=== PATIENT | female | born 1955 | race African-American/Black ===

== ENCOUNTER 2023-01-07 14:08 | Inpatient (IN) | payer BC, OTHER ==
[~2023-01-07] VITALS: Ht 167.6 cm; Wt 74.4 kg
[2023-01-07] MEDS ORDERED: CEFEPIME 1 GM in IV D5W 50 ML IV ONE (14:30)
[2023-01-07] MEDS ORDERED: IV NS 0.9% 2,000 ML IV ONE (14:30)
[2023-01-07] MEDS ORDERED: VANCOMYCIN 1 GM in IV D5W 250 ML IV ONE (14:30)
--- NOTE | 2023-01-07 14:55 | NUR ---
TASH NIELSEN FROM [facility] FOR EVAL AND MANAGEMENT OF FEVER. PLACED IN BED, AWAKE- NOT RESPONDING TO VERBAL STIMULI, BREATHING UNLABORED STURATING AT 98% WITH 2LIT O2 VIA NC.
[2023-01-07] MEDS ORDERED: METOPROLOL TARTRATE INJ 5 MG/5 ML AMPUL IV ONE (15:00)
--- NOTE | 2023-01-07 15:00 | NUR ---
BLOOD DRAWN AND URINE SAMPLE SENT TO LAB
--- NOTE | 2023-01-07 15:02 | NUR ---
ACCUCHECK- 28 AWARE ORDERS DEXT.50% 50MLS. AND CARRIED OUT.
[2023-01-07] MEDS ORDERED: DEXTROSE 50%-WATER 50 ML DISP.SYRIN ONE (15:03)
[2023-01-07] MEDS ORDERED: METOPROLOL TARTRATE INJ 5 MG/5 ML AMPUL ONE (15:05)
[2023-01-07 15:14] LABS: BASOPHILS % (AUTO) 0.2 % (0.0-2.0); EOSINOPHILS % (AUTO) 0.3 % (0.0-6.0); HEMATOCRIT 32 % (33-45); HEMOGLOBIN 9.8 g/dL (11.5-14.8); LYMPHOCYTES # (AUTO) 0.3 K/uL (0.8-4.8); LYMPHOCYTES % (AUTO) 1.8 % (20.0-44.0); MEAN CORPUSCULAR HGB CONC 31 g/dl (31.0-36.0); MEAN CORPUSCULAR VOLUME 77 fL (82-100); MONOCYTES # (AUTO) 0.6 K/uL (0.1-1.30); MONOCYTES % (AUTO) 3.3 % (2.0-12.0); NEUTROPHILS # (AUTO) 17.9 K/uL (1.8-8.9); NEUTROPHILS % (AUTO) 94.4 % (43.0-81.0); PLATELET COUNT (AUTO) 621 K/uL (150-450); RED BLOOD CELL COUNT(AUTO) 4.13 MIL/uL (4.0-5.2)
[2023-01-07] MEDS ORDERED: SENN-261 GT (15:41)
[2023-01-07] MEDS ORDERED: NA P133E RC (15:41)
[2023-01-07] MEDS ORDERED: INSU100V3 SQ (15:41)
[2023-01-07] MEDS ORDERED: DOCU50LI GT (15:41)
[2023-01-07] MEDS ORDERED: FOLI0.4T6 GT (15:41)
[2023-01-07] MEDS ORDERED: LEVO125T8 GT (15:41)
[2023-01-07] MEDS ORDERED: METF-440 GT (15:41)
[2023-01-07] MEDS ORDERED: NUT.237L30 GT (15:41)
[2023-01-07] MEDS ORDERED: ARIP5TAB10 GT (15:41)
[2023-01-07] MEDS ORDERED: ACET-2605 GT (15:41)
[2023-01-07] MEDS ORDERED: HONE44PA TP (15:41)
[2023-01-07] MEDS ORDERED: BISA10SU11 RC (15:41)
[2023-01-07] MEDS ORDERED: POVI3780 TP (15:41)
[2023-01-07] MEDS ORDERED: MAGN400O6 GT (15:41)
[2023-01-07] MEDS ORDERED: FURO-144 GT (15:41)
[2023-01-07] MEDS ORDERED: ACET-868 GT (15:41)
[2023-01-07] MEDS ORDERED: DEXTROSE 50%-WATER 50 ML DISP.SYRIN IVP ONE (16:30)
--- NOTE | 2023-01-07 16:48 | NUR ---
SWAB FOR COVID19 SENT TO LAB
[2023-01-07] MEDS ORDERED: IV NS 0.9% 250 ML IV ONE (16:50)
[2023-01-07] MEDS ORDERED: IOHEXOL-300 100 ML VIAL IV ONE (16:50)
[2023-01-07 17:17] LABS: CARBON DIOXIDE 29 mmol/L (21-32); CHLORIDE 93 mmol/L (98-107); CREATININE 2.7 mg/dL (0.6-1.3); POTASSIUM 4.3 mmol/L (3.5-5.1); SODIUM SERUM 135 mmol/L (136-145); UREA NITROGEN, BLOOD 38 mg/dL (7-18)
[2023-01-07 17:18] LABS: GLUCOSE 34 mg/dL (74-106)
--- NOTE | 2023-01-07 17:19 | NUR ---
ALL CRITICAL LAB WAS REPORTED TO DR. CORTES
[2023-01-07] MEDS ORDERED: NOREPINEPHRINE 8 MG in IV NS 0.9% 250 ML IV ONE (17:30)
[2023-01-07 17:31] LABS: ALANINE AMINOTRANSFERASE 11 U/L (12-78); ALBUMIN 1.6 g/dL (3.4-5.0); ALKALINE PHOSPHATASE 109 U/L (46-116); ASPARTATE AMINOTRANSFERASE 17 U/L (15-37); BILIRUBIN,DIRECT 0.2 mg/dL (0.0-0.2); BILIRUBIN,TOTAL 0.4 mg/dL (0.2-1.0); TOTAL PROTEIN, SERUM 7.8 g/dL (6.4-8.2)
[2023-01-07 17:49] LABS: BILIRUBIN,URINE 1+ (NEGATIVE); COLOR,URINE YELLOW (YELLOW); LEUKOCYTE ESTERASE ,URINE NEGATIVE (NEGATIVE); NITRITE, URINE NEGATIVE (NEGATIVE); PH,URINE 5.5 (5.0-8.0); PROTEIN,URINE 1+ mg/dl (NEGATIVE); UGLUCOSE NEGATIVE (NEGATIVE); UROBILINOGEN,URINE 0.2 EU/dL (0.2)
[2023-01-07 18:13] LABS: RBC,URINE NONE SEEN /HPF (0-2); WBC,URINE 0-2 /HPF (0-3)
[2023-01-07 18:14] LABS: BACTERIA,URINE Few /HPF (None Seen); SQUAMOUS EPITHELIAL CELL,UR Moderate /HPF (None Seen); YEAST,URINE Many /HPF (None Seen)
--- NOTE | 2023-01-07 19:40 | NUR ---
DR LOVE PAGED PER DR CORTES.
--- NOTE | 2023-01-07 20:19 | NUR ---
REGBAUTISTA PAGED FOR HOSPITALIST AWAITING CALLBACK
--- NOTE | 2023-01-07 21:05 | NUR ---
BED 257
--- NOTE | 2023-01-07 21:50 | NUR ---
REPORT GIVEN TO RACHELLE RN ROOM 257-ICU FOR ROGERIO
[2023-01-07 22:56] VITALS: BP 182/76
[2023-01-07 23:00] VITALS: BP 173/77
[2023-01-07 23:06] VITALS: BP 168/113
[2023-01-07 23:16] VITALS: BP 187/50
[2023-01-07 23:30] VITALS: BP 129/90
[2023-01-07] MEDS ORDERED: ENOXAPARIN SODIUM 30 MG/0.3 ML DISP.SYRIN SQ SCH (23:30)
--- NOTE | 2023-01-07 23:30 | NUR ---
2245 Received patient from ED per lionel via ACLS protocol.Awake confused and disoriented.DX:FEVER and SEPSIS.ST per monitor.With Levophed gtt infusing and hold for elevated BP.Afebrile.Patient with multiple decubiti.Dressing done and pictures taken.Initial admission assessment done.Turned and repositioned.Safety precaution implemented.Continue to monitor.
[2023-01-07 23:45] VITALS: BP 89/72
[2023-01-07] MEDS: IV D5/ 0.9% NACL 1,000 ML IV PRN (23:53)
[2023-01-08] VITALS (67 sets, daily range): BP systolic 75–151; BP diastolic 30–101
[2023-01-08] MEDS: NOREPINEPHRINE 8 MG in IV NS 0.9% 242 ML IV PRN ×3 (00:09→16:32)
--- NOTE | 2023-01-08 01:10 | NUR ---
Patient hemodynamically unstable.Levophed restarted.Incontinent of urine and stool.Kept clean and dry. FC fr#16 inserted under aseptic technique.Very confused pulling tele leads ,pulse ox and bp cuff.Bilateral soft wrist restraints applied for safety.Continue to monitor.
[2023-01-08] MEDS ORDERED: CEFEPIME 1 GM in IV D5W 50 ML IV SCH (03:00)
[2023-01-08] MEDS ORDERED: CEFEPIME 1 GM VIAL ONE (04:05)
[2023-01-08] MEDS ORDERED: NOREPINEPHRINE 8MG/250ML RTU 0 ML IV ONE (04:58)
[2023-01-08 04:59] LABS: BASOPHILS % (AUTO) 0.1 % (0.0-2.0); EOSINOPHILS % (AUTO) 0.4 % (0.0-6.0); HEMATOCRIT 28 % (33-45); HEMOGLOBIN 8.5 g/dL (11.5-14.8); LYMPHOCYTES % (AUTO) 5.3 % (20.0-44.0); MEAN CORPUSCULAR HGB CONC 30 g/dl (31.0-36.0); MEAN CORPUSCULAR VOLUME 78 fL (82-100); NEUTROPHILS % (AUTO) 89.2 % (43.0-81.0); PLATELET COUNT (AUTO) 499 K/uL (150-450); RED BLOOD CELL COUNT(AUTO) 3.62 MIL/uL (4.0-5.2); WHITE BLOOD COUNT (AUTO) 19.1 K/uL (4.3-11.0)
[2023-01-08] MEDS ORDERED: NOREPINEPHRINE 4 MG/4 ML AMPUL IV ONE (05:04)
[2023-01-08 05:16] LABS: BILIRUBIN,TOTAL 0.3 mg/dL (0.2-1.0); CREATININE 2.4 mg/dL (0.6-1.3); POTASSIUM 3.3 mmol/L (3.5-5.1); TOTAL PROTEIN, SERUM 6.7 g/dL (6.4-8.2)
[2023-01-08 05:29] LABS: ALBUMIN 1.4 g/dL (3.4-5.0)
--- NOTE | 2023-01-08 07:00 | NUR ---
Patient resting in no acute distress.AM Labs resulted.Albumin 1.4 and Blood culture 1 bottle aerobic gram positive cocci in clusters.Endorsed to DERICK Abernathy for ROGERIO.
--- NOTE | 2023-01-08 08:00 | NUR ---
WOUND CARE CONSULT: PT AGITATED AND COMBATIVE AT TIMES. PT WAS HEMODYNAMICALLY UNSTABLE PREVIOUSLY. REVIEWED CHART, NURSING DOCUMENTATION AND PHOTOS WHICH INDICATE MULTIPLE WOUNDS, PRESENT ON ADMISSION INCLUDING LOWER EXTREMITY WOUNDS, THIGH WOUNDS, BUTTOCKS AND SACRAL WOUNDS. DR LYNCH AND DR COSTELLO CALLED FOR SURGICAL AND DPM CONSULTS. DISCUSSED SKIN PROTECTION WITH NURSING STAFF. Angelica Hassan IN AGREEMENT WITH PLAN OF CARE. Addendum: 01/08/23 at 0811 by KERRY POOL WNDNU PT ALSO NOTED TO HAVE DRAINAGE AROUND PEG SITE (GREENISH BROWN WITH ODOR), PRESENT ON ADMISSION. SURGICAL TEAM NOTIFIED.
[2023-01-08] MEDS ORDERED: POTASSIUM CL. PREMIX PERIPHER. 50 ML IV SCH (09:00)
[2023-01-08] MEDS: IV NS 0.9% 250 ML IV PRN (09:03)
[2023-01-08] MEDS: FAMOTIDINE/PF INJ 20 MG/2 ML VIAL IV SCH ×2 (09:03→21:02)
[2023-01-08] MEDS ORDERED: BISACODYL SUPP (10 MG) 10 MG/SUPP.RECT SUPP.RECT RC PRN (10:00)
[2023-01-08] MEDS ORDERED: ACETAMINOPHEN 325 MG TABLET PO PRN (10:00)
--- NOTE | 2023-01-08 10:00 | NUR ---
patient moved to room 259 due to datascope malfunction
[2023-01-08] MEDS: IV D5/ 0.9% NACL 1,000 ML IV PRN ×2 (10:58→21:30)
[2023-01-08] MEDS: BLOOD SUGAR DIAGNOSTIC 1 EACH STRIP IN SCH ×2 (12:33→17:05)
[2023-01-08] MEDS: VANCOMYCIN 0.75 GM in IV D5W 250 ML IV SCH (12:35)
[2023-01-08] MEDS: ACETAMINOPHEN 650 MG/20.3 ML UDC GT PRN (12:58)
--- NOTE | 2023-01-08 12:58 | NUR ---
PRN TYLENOL ADMINISTERED FOR TEMP OF 100.5. BLANKET REMOVED, WILL REASSESS IN ONE HOUR
--- NOTE | 2023-01-08 14:00 | NUR ---
TEMPERATURE ON RECHECK 99.2
--- NOTE | 2023-01-08 15:24 | NUR ---
Pt remains confused. Pulled out G Tube Pt remains anxious and restless in bed Pt found restraint in place with G tube clench in her hand. Josemanuel Brown RN notified.
--- NOTE | 2023-01-08 15:37 | NUR ---
18 ESTONIAN THOMAS INSERTED INTO GASTRIC TUBE SITE. PASTOR VALVE ATTACHED. PRIMARY NOTIFIED Addendum: 01/08/23 at 1843 by FOSTER SARGENT RN DR LANGFORD NOTIFIED. HE WILL REPLACE PEG TUBE "TOMORROW" 01/09/23
[2023-01-08] MEDS: CEFEPIME 2 GM in IV D5W 100 ML IV SCH (17:05)
--- NOTE | 2023-01-08 19:12 | NUR ---
HAND OFF REPORT GIVEN TO DERICK MARTINEZ FOR CONTINUATION OF CARE Addendum: 01/08/23 at 1930 by FOSTER SARGENT RN DISREGARD NOTE. HAND OFF GIVEN TO SARAI FOR CONTINUATION OF CARE.
--- NOTE | 2023-01-08 19:30 | NUR ---
RN NOTE RECEIVED PT IN BED, ALERT, AWAKE, ORIENTED TO SELF ONLY. PT ON ROOM AIR, WELL TOLERATED, NO SOB, NO ACUTE RESP DISTRESS NOTED. ATTACHED TO SHELTER DIRECTOR READING SR. BILATERAL SOFT WRIST RESTRAINTS ON, SECURED, SKIN ASSESSMENT DONE. CURRENTLY INFUSING LEVO DRIP AT 0.1MCG/KG/MIN, D5NS RUNNING AT 100ML/HR RIJ. FC IN PLACED, SECURED DRAINING CLEAR YELLOW URINE BY GRAVITY. HOB ELEVATED. WILL CONT POC
[2023-01-08] MEDS: HEPARIN SODIUM, PORCINE 5000 UNITS/1 ML VIAL SQ SCH (21:00)
[2023-01-08] MEDS: SENNOSIDES 8.6 MG TABLET GT SCH (21:04)
[2023-01-08] MEDS: DAKINS QUARTER STRENGTH (0.125%) 480 ML BOTTLE TOP SCH (22:30)
[2023-01-09] VITALS (30 sets, daily range): BP systolic 87–153; BP diastolic 32–106
[2023-01-09] MEDS: INSULIN REGULAR, HUMAN 100 UNIT/ML 3 ML VIAL SQ PRN ×2 (00:22→06:24)
[2023-01-09] MEDS: BLOOD SUGAR DIAGNOSTIC 1 EACH STRIP IN SCH ×4 (00:22→17:36)
[2023-01-09 04:09] LABS: BASOPHILS % (AUTO) 0.3 % (0.0-2.0); EOSINOPHILS % (AUTO) 3.3 % (0.0-6.0); HEMATOCRIT 27 % (33-45); HEMOGLOBIN 8.2 g/dL (11.5-14.8); LYMPHOCYTES # (AUTO) 1.6 K/uL (0.8-4.8); LYMPHOCYTES % (AUTO) 10.8 % (20.0-44.0); MEAN CORPUSCULAR HGB CONC 31 g/dl (31.0-36.0); MEAN CORPUSCULAR VOLUME 78 fL (82-100); MONOCYTES # (AUTO) 0.8 K/uL (0.1-1.30); MONOCYTES % (AUTO) 5.2 % (2.0-12.0); NEUTROPHILS # (AUTO) 12.2 K/uL (1.8-8.9); NEUTROPHILS % (AUTO) 80.4 % (43.0-81.0); PLATELET COUNT (AUTO) 419 K/uL (150-450); RED BLOOD CELL COUNT(AUTO) 3.43 MIL/uL (4.0-5.2); WHITE BLOOD COUNT (AUTO) 15.1 K/uL (4.3-11.0)
[2023-01-09 04:10] LABS: CALCIUM, SERUM 8.8 mg/dL (8.5-10.1); CREATININE 1.1 mg/dL (0.6-1.3); POTASSIUM 3.2 mmol/L (3.5-5.1)
[2023-01-09 04:24] LABS: THYROID STIMULATING HORMONE 10.466 uIU/mL (0.358-3.74)
--- NOTE | 2023-01-09 07:00 | NUR ---
received in bed , awake speaking but no making sense answer simple questions approprately at time on room air saturation is 100%, npo at this time. Gtube remail out plans to insert today by GI doctor. wound cleaned and dry, packing done with dakin solution 1200 Gastric tube fixed by MD Ferguson 20 english inserted , no signs of distress. 2 mg Morphine given iv for pain 7/10 generalized pain
--- NOTE | 2023-01-09 07:15 | NUR ---
RN NOTE PT REMAINS IN STABLE CONDITION, NO SIGNIFICANT CHANGES NOTED. ALL NEEDS ANTICIPATED. KEPT CLEAN AND DRY AT ALL TIMES. WILL ENDORSE TO AM SHIFT.
[2023-01-09] MEDS ORDERED: ALBUTEROL FS 2.5 MG/0.5 ML VIAL.NEB NEB PRN (08:30)
[2023-01-09] MEDS ORDERED: POTASSIUM CHLORIDE 10 MEQ/50 ML PREMIXED IVPB FOR PERIPHERAL LINE IV ONE (08:30)
[2023-01-09] MEDS: FOLIC ACID 1 MG TABLET GT SCH (08:46)
[2023-01-09] MEDS: DOCUSATE SODIUM LIQ 100 MG/10 ML UDC GT SCH (08:46)
[2023-01-09] MEDS: ARIPIPRAZOLE 5 MG TABLET GT SCH (08:46)
[2023-01-09] MEDS: HEPARIN SODIUM, PORCINE 5000 UNITS/1 ML VIAL SQ SCH ×2 (08:47→21:49)
[2023-01-09] MEDS: LEVOTHYROXINE SODIUM 125 MCG TABLET GT SCH (08:47)
[2023-01-09] MEDS ORDERED: LEVOTHYROXINE SODIUM 125 MCG TABLET GT SCH (09:00)
[2023-01-09] MEDS: DAKINS QUARTER STRENGTH (0.125%) 480 ML BOTTLE TOP SCH (09:26)
[2023-01-09] MEDS: FAMOTIDINE/PF INJ 20 MG/2 ML VIAL IV SCH ×2 (09:26→20:10)
[2023-01-09] MEDS: POTASSIUM CL. PREMIX PERIPHER. 50 ML IV SCH ×2 (09:32→09:38)
[2023-01-09] MEDS: VANCOMYCIN 0.75 GM in IV D5W 250 ML IV SCH ×2 (12:30→23:11)
[2023-01-09] MEDS: MORPHINE SULFATE INJ 2 MG/ML DISP.SYRIN IV PRN (13:15)
[2023-01-09] MEDS ORDERED: GLUCERNA 1.2 1,000 ML BOTTLE PEG SCH ×2 (14:00→15:02)
[2023-01-09] MEDS: SOD FERRIC GLUC 125 MG in IV NS 0.9% 100 ML IV SCH (14:24)
[2023-01-09] MEDS: ALBUTEROL FS 2.5 MG/0.5 ML VIAL.NEB NEB SCH ×2 (14:38→19:58)
[2023-01-09] MEDS: IPRATROPIUM NEB FS 0.5 MG/2.5 ML AMPUL.NEB NEB SCH ×2 (14:38→19:58)
--- NOTE | 2023-01-09 17:00 | NUR ---
feeding started glucerna 1.2 20cc/ order to increase every 4 hours by 10cc to meet goal at 60cc/hr
[2023-01-09] MEDS: CEFEPIME 2 GM in IV D5W 100 ML IV SCH (17:35)
[2023-01-09] MEDS: IV D5/ 0.9% NACL 1,000 ML IV PRN (17:47)
[2023-01-09] MEDS: NOREPINEPHRINE 8 MG in IV NS 0.9% 242 ML IV PRN (17:50)
--- NOTE | 2023-01-09 19:30 | NUR ---
RN NOTE RECEIVED PT IN BED, ASLEEP, EASILY AROUSEABLE. O2 SAT 92% PT ON ROOM AIR, NO ACUTE RESP DISTRESS NOTED, BREATHING SLIGHTLY LABORED. HOB ELEVATED. ATTACHED TO BEDSIDE ALUMINUM SIDING APPLICATOR READING ST 120HR. PT CURRENTLY ON LEVO DRIP 0.1MCG, D5NS RUNNING AT 100ML/HR. GTF RUNNING AT 20ML/HR TO BE INCREASED BY 10ML/HR Q4H, WELL TOLERATED, NO N/V, RESIDUAL 30ML. FC IN PLACED, SECURED, DRAINING DARK YELLOW URINE. WILL CONT POC
[2023-01-09] MEDS: ACETAMINOPHEN 650 MG/20.3 ML UDC GT PRN (20:10)
[2023-01-09] MEDS: MUPIROCIN OINT 2% 22 GM TUBE NS SCH (21:04)
[2023-01-09] MEDS: SENNOSIDES 8.6 MG TABLET GT SCH (21:24)
[2023-01-10] VITALS (57 sets, daily range): BP systolic 90–127; BP diastolic 38–90
[2023-01-10] MEDS: INSULIN REGULAR, HUMAN 100 UNIT/ML 3 ML VIAL SQ PRN ×3 (00:46→12:21)
[2023-01-10] MEDS: IV D5/ 0.9% NACL 1,000 ML IV PRN ×2 (00:47→10:49)
[2023-01-10] MEDS: BLOOD SUGAR DIAGNOSTIC 1 EACH STRIP IN SCH ×4 (00:47→17:10)
[2023-01-10] MEDS: NOREPINEPHRINE 8 MG in IV NS 0.9% 242 ML IV PRN (00:49)
[2023-01-10] MEDS: IPRATROPIUM NEB FS 0.5 MG/2.5 ML AMPUL.NEB NEB SCH ×4 (01:50→19:40)
[2023-01-10] MEDS: ALBUTEROL FS 2.5 MG/0.5 ML VIAL.NEB NEB SCH ×4 (01:50→19:40)
[2023-01-10 05:04] LABS: BASOPHILS # (AUTO) 0.1 K/uL (0.0-0.2); EOSINOPHILS % (AUTO) 2.5 % (0.0-6.0); HEMATOCRIT 27 % (33-45); HEMOGLOBIN 8.3 g/dL (11.5-14.8); LYMPHOCYTES # (AUTO) 1.5 K/uL (0.8-4.8); LYMPHOCYTES % (AUTO) 10.6 % (20.0-44.0); MEAN CORPUSCULAR HGB CONC 31 g/dl (31.0-36.0); MEAN CORPUSCULAR VOLUME 79 fL (82-100); MONOCYTES # (AUTO) 1.3 K/uL (0.1-1.30); MONOCYTES % (AUTO) 8.8 % (2.0-12.0); NEUTROPHILS # (AUTO) 11.1 K/uL (1.8-8.9); NEUTROPHILS % (AUTO) 77.1 % (43.0-81.0); PLATELET COUNT (AUTO) 346 K/uL (150-450); RED BLOOD CELL COUNT(AUTO) 3.42 MIL/uL (4.0-5.2); WHITE BLOOD COUNT (AUTO) 14.5 K/uL (4.3-11.0)
[2023-01-10 05:22] LABS: CALCIUM, SERUM 8.8 mg/dL (8.5-10.1); MAGNESIUM 1.6 mg/dL (1.8-2.4); POTASSIUM 3.2 mmol/L (3.5-5.1)
[2023-01-10] MEDS: ACETAMINOPHEN 650 MG/20.3 ML UDC GT PRN ×2 (05:55→21:35)
--- NOTE | 2023-01-10 07:15 | NUR ---
RN NOTE NO SIGNIFICANT CHANGES NOTED. PT IN STABLE CONDITION. REPORT GIVEN TO AM SHIFT NURSE.
--- NOTE | 2023-01-10 08:17 | NUR ---
DR. CLAUDIO SEEN PATIENT NOW.
[2023-01-10] MEDS ORDERED: POTASSIUM CHLORIDE 20 MEQ POWDER PACKET GT ONE (09:00)
[2023-01-10] MEDS: Magnesium 1GM/D5W 100ML PREMIX 100 ML IV SCH ×2 (09:01→10:15)
[2023-01-10] MEDS: DOCUSATE SODIUM LIQ 100 MG/10 ML UDC GT SCH (09:19)
[2023-01-10] MEDS: FOLIC ACID 1 MG TABLET GT SCH (09:21)
[2023-01-10] MEDS: ARIPIPRAZOLE 5 MG TABLET GT SCH (09:21)
[2023-01-10] MEDS: LEVOTHYROXINE SODIUM 125 MCG TABLET GT SCH (09:22)
[2023-01-10] MEDS: FAMOTIDINE/PF INJ 20 MG/2 ML VIAL IV SCH ×2 (09:22→21:36)
[2023-01-10] MEDS: MUPIROCIN OINT 2% 22 GM TUBE NS SCH ×2 (09:23→21:36)
[2023-01-10] MEDS: DAKINS QUARTER STRENGTH (0.125%) 480 ML BOTTLE TOP SCH (09:24)
[2023-01-10] MEDS: MIDODRINE HCL (5MG) 5 MG TABLET GT SCH ×3 (09:26→17:18)
[2023-01-10] MEDS: HEPARIN SODIUM, PORCINE 5000 UNITS/1 ML VIAL SQ SCH ×2 (09:32→21:36)
[2023-01-10] MEDS: IV NS 0.9% 250 ML IV PRN (09:42)
[2023-01-10] MEDS: NA PHOS,M-B/NA PHOS,DI-BA 1 EA ENEMA RC SCH (09:53)
[2023-01-10] MEDS: VANCOMYCIN 0.75 GM in IV D5W 250 ML IV SCH (12:28)
[2023-01-10] MEDS: SOD FERRIC GLUC 125 MG in IV NS 0.9% 100 ML IV SCH (13:36)
[2023-01-10] MEDS: CEFEPIME 2 GM in IV D5W 100 ML IV SCH (17:19)
--- NOTE | 2023-01-10 19:07 | NUR ---
BEDSIDE REPORT GIVEN TO SADA-RN FOR CONTINUITY OF CARE., NO SSX OF ACUTE DISTRESS NOTED.
[2023-01-10] MEDS ORDERED: Potassium Chloride 10 MEQ in IV NS 0.9% 1,000 ML IV PRN (21:30)
[2023-01-10] MEDS: SENNOSIDES 8.6 MG TABLET GT SCH (21:36)
[2023-01-11] VITALS (28 sets, daily range): BP systolic 83–133; BP diastolic 39–104
[2023-01-11] MEDS: BLOOD SUGAR DIAGNOSTIC 1 EACH STRIP IN SCH ×4 (00:15→17:29)
[2023-01-11] MEDS: VANCOMYCIN 500 MG in IV D5W 100ml IV SCH ×2 (00:17→12:23)
[2023-01-11] MEDS: MORPHINE SULFATE INJ 4 MG/ML DISP.SYRIN IV PRN ×2 (00:37→04:29)
[2023-01-11] MEDS: ALBUTEROL FS 2.5 MG/0.5 ML VIAL.NEB NEB SCH ×4 (01:08→20:09)
[2023-01-11] MEDS: IPRATROPIUM NEB FS 0.5 MG/2.5 ML AMPUL.NEB NEB SCH ×4 (01:08→20:09)
[2023-01-11 04:35] LABS: BASOPHILS % (AUTO) 0.2 % (0.0-2.0); EOSINOPHILS % (AUTO) 3.6 % (0.0-6.0); HEMATOCRIT 26 % (33-45); HEMOGLOBIN 7.7 g/dL (11.5-14.8); LYMPHOCYTES # (AUTO) 1.5 K/uL (0.8-4.8); LYMPHOCYTES % (AUTO) 9.2 % (20.0-44.0); MEAN CORPUSCULAR HGB CONC 29 g/dl (31.0-36.0); MEAN CORPUSCULAR VOLUME 80 fL (82-100); MONOCYTES # (AUTO) 1.7 K/uL (0.1-1.30); MONOCYTES % (AUTO) 10.3 % (2.0-12.0); NEUTROPHILS # (AUTO) 12.4 K/uL (1.8-8.9); NEUTROPHILS % (AUTO) 76.7 % (43.0-81.0); PLATELET COUNT (AUTO) 318 K/uL (150-450); RED BLOOD CELL COUNT(AUTO) 3.28 MIL/uL (4.0-5.2); WHITE BLOOD COUNT (AUTO) 16.2 K/uL (4.3-11.0)
[2023-01-11 04:48] LABS: CALCIUM, SERUM 8.9 mg/dL (8.5-10.1); CREATININE 0.8 mg/dL (0.6-1.3); POTASSIUM 3.5 mmol/L (3.5-5.1)
[2023-01-11 08:10] LABS: BILIRUBIN,DIRECT 0.2 mg/dL (0.0-0.2); BILIRUBIN,TOTAL 0.3 mg/dL (0.2-1.0)
[2023-01-11] MEDS: ARIPIPRAZOLE 5 MG TABLET GT SCH (08:46)
[2023-01-11] MEDS: LEVOTHYROXINE SODIUM 125 MCG TABLET GT SCH (08:46)
[2023-01-11] MEDS: FOLIC ACID 1 MG TABLET GT SCH (08:46)
[2023-01-11] MEDS: MIDODRINE HCL (5MG) 5 MG TABLET GT SCH ×3 (08:47→16:20)
[2023-01-11] MEDS: DOCUSATE SODIUM LIQ 100 MG/10 ML UDC GT SCH (08:47)
[2023-01-11] MEDS: HEPARIN SODIUM, PORCINE 5000 UNITS/1 ML VIAL SQ SCH ×2 (08:49→21:08)
[2023-01-11] MEDS: FAMOTIDINE/PF INJ 20 MG/2 ML VIAL IV SCH ×2 (08:49→21:07)
[2023-01-11] MEDS: DAKINS QUARTER STRENGTH (0.125%) 480 ML BOTTLE TOP SCH (08:50)
[2023-01-11] MEDS: MUPIROCIN OINT 2% 22 GM TUBE NS SCH ×2 (08:51→21:12)
[2023-01-11] MEDS ORDERED: Potassium Chloride 10 MEQ in IV NS 0.9% 1,000 ML IV SCH (11:00)
--- NOTE | 2023-01-11 12:00 | NUR ---
RN NOTES HELD PT'S FEEDING PT WASN'T TOLERATING FEEDING. PLACED PT ON LOW CONT INTERMITTENT SUCTION AND OUTPUT WAS AT 750 ML OF GASTRIC CONTENT. Addendum: 01/11/23 at 1318 by JEYSON HILARIO RN NOTIFIED DR. CLAUDIO. PENDING REPLY.
[2023-01-11] MEDS: IV NS 0.9% 250 ML IV PRN (12:19)
[2023-01-11] MEDS: CEFEPIME 2 GM in IV D5W 100 ML IV SCH ×2 (12:24→21:06)
[2023-01-11] MEDS: SOD FERRIC GLUC 125 MG in IV NS 0.9% 100 ML IV SCH (14:54)
[2023-01-11] MEDS: METOCLOPRAMIDE HCL 10 MG/2 ML VIAL IV SCH (15:50)
--- NOTE | 2023-01-11 16:20 | NUR ---
RN NOTES HELD GT MEDS PT UNABLE TO TOLERATE GT FEEDINGS AT THIS TIME DUE TO HIGH OUTPUT.
[2023-01-11] MEDS ORDERED: Potassium Chloride 10 MEQ in IV D5/0.45 NACL 1,000 ML IV PRN (18:30)
[2023-01-11] MEDS ORDERED: POTASSIUM CL. PREMIX PERIPHER. 50 ML IV SCH (18:30)
[2023-01-11] MEDS: POTASSIUM CL. PREMIX PERIPHER. 50 ML IV SCH ×2 (21:06→21:13)
[2023-01-11] MEDS: SENNOSIDES 8.6 MG TABLET GT SCH (21:15)
[2023-01-12] VITALS (19 sets, daily range): BP systolic 87–145; BP diastolic 28–84
[2023-01-12] MEDS: VANCOMYCIN 500 MG in IV D5W 100ml IV SCH ×2 (00:59→13:42)
[2023-01-12] MEDS: METOCLOPRAMIDE HCL 10 MG/2 ML VIAL IV SCH ×4 (00:59→22:37)
[2023-01-12] MEDS: IPRATROPIUM NEB FS 0.5 MG/2.5 ML AMPUL.NEB NEB SCH ×4 (01:55→20:33)
[2023-01-12] MEDS: ALBUTEROL FS 2.5 MG/0.5 ML VIAL.NEB NEB SCH ×4 (01:55→20:32)
[2023-01-12] MEDS: BLOOD SUGAR DIAGNOSTIC 1 EACH STRIP IN SCH ×4 (05:33→17:20)
[2023-01-12] MEDS: DEXTROSE 50%-WATER 50 ML DISP.SYRIN IV PRN ×2 (05:34→17:21)
[2023-01-12 05:36] LABS: BASOPHILS # (AUTO) 0.1 K/uL (0.0-0.2); BASOPHILS % (AUTO) 0.4 % (0.0-2.0); EOSINOPHILS % (AUTO) 2.8 % (0.0-6.0); HEMATOCRIT 29 % (33-45); HEMOGLOBIN 8.8 g/dL (11.5-14.8); LYMPHOCYTES # (AUTO) 1.7 K/uL (0.8-4.8); LYMPHOCYTES % (AUTO) 10.5 % (20.0-44.0); MEAN CORPUSCULAR HGB CONC 31 g/dl (31.0-36.0); MEAN CORPUSCULAR VOLUME 82 fL (82-100); MONOCYTES # (AUTO) 1.5 K/uL (0.1-1.30); MONOCYTES % (AUTO) 9.3 % (2.0-12.0); NEUTROPHILS # (AUTO) 12.6 K/uL (1.8-8.9); PLATELET COUNT (AUTO) 307 K/uL (150-450); RED BLOOD CELL COUNT(AUTO) 3.55 MIL/uL (4.0-5.2); WHITE BLOOD COUNT (AUTO) 16.4 K/uL (4.3-11.0)
[2023-01-12 05:44] LABS: CALCIUM, SERUM 8.9 mg/dL (8.5-10.1); CREATININE 0.8 mg/dL (0.6-1.3)
--- NOTE | 2023-01-12 07:30 | NUR ---
RN OPENING NOTE PT RECEIVED IN BED AND ON 3L NC O2 SAT 98% TOLERATING WELL. PT IS A/OX1 AND CONFUSED AND NPO AT THIS TIME PEG PLACE ON INTERMITTENT LOW SUCTION. FC IS IN PLACE DRAINING URINE TO GRAVITY. IV ACCESS R IJ. BED IS LOCKED IN LOWEST POSITION AND ALL HOSPITAL SAFETY MEASURES ARE IN PLACE WILL CONTINUE TO MONITOR THIS SHIFT.
[2023-01-12] MEDS ORDERED: IV D5/ 0.9% NACL 1,000 ML IV ONE (08:00)
[2023-01-12] MEDS ORDERED: SODIUM POLYSTYRENE SULFONATE 15 G/60 ML BOTTLE GT ONE (08:00)
[2023-01-12] MEDS: FOLIC ACID 1 MG TABLET GT SCH (08:34)
[2023-01-12] MEDS: MIDODRINE HCL (5MG) 5 MG TABLET GT SCH ×3 (08:35→17:08)
[2023-01-12] MEDS: LEVOTHYROXINE SODIUM 125 MCG TABLET GT SCH (08:35)
[2023-01-12] MEDS: DOCUSATE SODIUM LIQ 100 MG/10 ML UDC GT SCH (08:36)
[2023-01-12] MEDS: ARIPIPRAZOLE 5 MG TABLET GT SCH (08:36)
[2023-01-12] MEDS: NA PHOS,M-B/NA PHOS,DI-BA 1 EA ENEMA RC SCH ×3 (08:37→13:29)
[2023-01-12] MEDS: FAMOTIDINE/PF INJ 20 MG/2 ML VIAL IV SCH ×2 (08:37→21:43)
[2023-01-12] MEDS: CEFEPIME 2 GM in IV D5W 100 ML IV SCH ×2 (08:39→21:45)
[2023-01-12] MEDS: MUPIROCIN OINT 2% 22 GM TUBE NS SCH ×2 (08:39→21:44)
[2023-01-12] MEDS: HEPARIN SODIUM, PORCINE 5000 UNITS/1 ML VIAL SQ SCH ×2 (08:41→21:48)
[2023-01-12] MEDS: DAKINS QUARTER STRENGTH (0.125%) 480 ML BOTTLE TOP SCH (08:43)
--- NOTE | 2023-01-12 08:46 | NUR ---
RN NOTE: HEPARIN PER DR CLAUDIO, OK TO GIVE HEPARIN THIS MORNING
--- NOTE | 2023-01-12 10:00 | NUR ---
RN NOTE: FLEET ENEMA PT HAD LARGE LOOSE BROWN STOOL. WILL HOLD FLEET ENEMA
[2023-01-12 11:17] LABS: ABG BASE EXCESS -2.6 mmol/L; ABG OXYGEN SATURATION 91.4 % (92.0-98.5); ABG PCO2 36.2 mmHg (35.0-45.0); ABG PH 7.399 (7.350-7.450); ABG PO2 64.7 mmHg (75.0-100.0); AaDO2 63.3 mmHg; COHb 0.4 % (0.5-1.5); MetHb 0.3 % (0.0-1.5); O2Hb 90.8 % (94.0-97.0); SITE, ABG Left Radial; VENT MODE, BG Nasal Cannula
[2023-01-12] MEDS: INSULIN REGULAR, HUMAN 100 UNIT/ML 3 ML VIAL SQ PRN ×2 (13:53→17:21)
[2023-01-12 15:15] LABS: CALCIUM, SERUM 9.3 mg/dL (8.5-10.1); CREATININE 0.9 mg/dL (0.6-1.3); POTASSIUM 3.5 mmol/L (3.5-5.1)
[2023-01-12] MEDS: SOD FERRIC GLUC 125 MG in IV NS 0.9% 100 ML IV SCH (16:56)
--- NOTE | 2023-01-12 18:40 | NUR ---
COLLABORATING SUPERVISING PHYSICIAN NOTE PT TRANSFERRED TO ROOM 120 USING ACLS PROTOCOLS AND STABLE AT THIS TIME. -400ML FROM FC AND -800ML GASTRIC OUTPUT. WILL ENDORSE TO CLINICAL MANAGER HOME CARE NURSE FOR ROGERIO.
--- NOTE | 2023-01-12 19:30 | NUR ---
TAZ RN OPENING NOTE RECEIVED PT IN BED, ASLEEP, EASILY AROUSABLE. O2 SAT 92% PT ON 02 AT 2LPM, NO ACUTE RESP DISTRESS NOTED, BREATHING SLIGHTLY LABORED. HOB ELEVATED. ATTACHED TO BEDSIDE HOBBER READING SR-ST 97HR. IV ACCESS AT RIJ, D5W RUNNING AT 80ML/HR. GTF HELP DUE TO INC RESIDUAL, NO N/V, FC IN PLACED, SECURED, DRAINING DARK YELLOW URINE. NOTED WITH FLEXISEAL IN PLACED, ALL SAFETY MEASURES IN PLACED, WILL CONT TO MONITOR THROUGHOUT THE SHIFT.
[2023-01-12] MEDS: SENNOSIDES 8.6 MG TABLET GT SCH (21:44)
[2023-01-13] VITALS: BP 138/69
[2023-01-13] MEDS: BLOOD SUGAR DIAGNOSTIC 1 EACH STRIP IN SCH ×4 (00:03→18:18)
[2023-01-13] MEDS: INSULIN REGULAR, HUMAN 100 UNIT/ML 3 ML VIAL SQ PRN ×2 (00:03→05:45)
[2023-01-13] MEDS: VANCOMYCIN 500 MG in IV D5W 100ml IV SCH ×2 (00:25→11:41)
[2023-01-13] MEDS: IPRATROPIUM NEB FS 0.5 MG/2.5 ML AMPUL.NEB NEB SCH ×4 (01:31→19:32)
[2023-01-13] MEDS: ALBUTEROL FS 2.5 MG/0.5 ML VIAL.NEB NEB SCH ×4 (01:32→19:32)
[2023-01-13 04:00] VITALS: BP 132/67
--- NOTE | 2023-01-13 06:00 | NUR ---
RN NOTE NOTED PT WITH LOW BS AT 66 MG/DL, ORANGE JUICE GIVEN ORDERED. WILL CONT TO MONITOR.
[2023-01-13] MEDS: METOCLOPRAMIDE HCL 10 MG/2 ML VIAL IV SCH ×2 (06:08→14:58)
--- NOTE | 2023-01-13 06:44 | NUR ---
TAZ RN CLOSING NOTE PT REMAINS IN BED, ASLEEP, EASILY AROUSABLE. O2 SAT 92% PT ON 02 AT 2LPM, NO ACUTE RESP DISTRESS NOTED, HOB ELEVATED. ATTACHED TO BEDSIDE PROFESSIONAL BASS FISHER READING SR-ST 90 HR. IV ACCESS AT [facility], NO IVF AT THIS TIME. GTF HELD DUE TO INC RESIDUAL, NO N/V, FC IN PLACED, SECURED, DRAINING YELLOW URINE. NOTED WITH FLEXISEAL IN PLACED, ALL DUE MEDS GIVEN, KEPT DRY AND CLEAN, ALL SAFETY MEASURES IN PLACED, WILL ENDORSE TO AM SHIFT NURSE FOR CONTINUITY OF CARE.
--- NOTE | 2023-01-13 07:07 | NUR ---
RN OPENING NOTES: RECEIVED PATIENT IN BED, OBTUNDED WITH MECHANICAL VENT ORDERED. NO RESPIRATORY DISTRESS NOTED WITH OXYGEN SATURATION OF 100%. ON SR WITH HR OF 96 ON TELE MONITOR. HAS IV ACCESS ON RIGHT INTRAJUGULAR, IV SITE PATENT AND INTACT, NO S/S INFILTRATION. THOMAS CATH IN PLACE, DRAINING TO GRAVITY WITH YELLOW COLORED URINE, NO HEMATURIA AND NO SEDIMENTATION NOTED. ON INTERMITTENT G-TUBE RESIDUAL SUCTIONING. PATIENT REMAINS NPO EXCEPT MEDS. ALL SAFETY MEASURES IN PLACE. BED LOCKED AND IN LOWEST POSITION WITH BED ALARM ON. HOB KEPT ELEVATED. WILL CONTINUE TO MONITOR PATIENT THROUGHOUT SHIFT. . Addendum: 01/13/23 at 1431 by BALJEET TALAMANTES RN CORRECTION ON NOTES ABOVE PATIENT IS NOT OBTUNDED AND IS NOT ON MECHANICAL VENT
[2023-01-13 07:28] LABS: CREATININE 0.7 mg/dL (0.6-1.3)
[2023-01-13 07:30] LABS: POTASSIUM 2.8 mmol/L (3.5-5.1)
[2023-01-13 08:00] VITALS: BP 127/80
[2023-01-13] MEDS ORDERED: Potassium Chloride 20 MEQ in IV D5/0.45 NACL 1,000 ML IV PRN (08:00)
[2023-01-13] MEDS ORDERED: POTASSIUM CHLORIDE 20 MEQ TAB.PRT.SR PO ONE (08:00)
[2023-01-13 08:42] LABS: BASOPHILS % (AUTO) 0.3 % (0.0-2.0); EOSINOPHILS % (AUTO) 1.8 % (0.0-6.0); HEMATOCRIT 31 % (33-45); HEMOGLOBIN 9.2 g/dL (11.5-14.8); LYMPHOCYTES # (AUTO) 2.6 K/uL (0.8-4.8); LYMPHOCYTES % (AUTO) 15.7 % (20.0-44.0); MEAN CORPUSCULAR HGB CONC 30 g/dl (31.0-36.0); MEAN CORPUSCULAR VOLUME 84 fL (82-100); MONOCYTES # (AUTO) 2.1 K/uL (0.1-1.30); MONOCYTES % (AUTO) 12.8 % (2.0-12.0); NEUTROPHILS # (AUTO) 11.5 K/uL (1.8-8.9); NEUTROPHILS % (AUTO) 69.4 % (43.0-81.0); PLATELET COUNT (AUTO) 394 K/uL (150-450); RED BLOOD CELL COUNT(AUTO) 3.75 MIL/uL (4.0-5.2); WHITE BLOOD COUNT (AUTO) 16.6 K/uL (4.3-11.0)
[2023-01-13] MEDS: MIDODRINE HCL (5MG) 5 MG TABLET GT SCH ×3 (09:00→17:00)
[2023-01-13] MEDS: DOCUSATE SODIUM LIQ 100 MG/10 ML UDC GT SCH (09:01)
[2023-01-13] MEDS: LEVOTHYROXINE SODIUM 125 MCG TABLET GT SCH (09:01)
[2023-01-13] MEDS: ARIPIPRAZOLE 5 MG TABLET GT SCH (09:01)
[2023-01-13] MEDS: FAMOTIDINE/PF INJ 20 MG/2 ML VIAL IV SCH ×2 (09:02→21:31)
[2023-01-13] MEDS: FOLIC ACID 1 MG TABLET GT SCH (09:02)
[2023-01-13] MEDS: MUPIROCIN OINT 2% 22 GM TUBE NS SCH ×2 (09:04→21:34)
[2023-01-13] MEDS: HEPARIN SODIUM, PORCINE 5000 UNITS/1 ML VIAL SQ SCH ×2 (09:04→21:00)
[2023-01-13] MEDS: DAKINS QUARTER STRENGTH (0.125%) 480 ML BOTTLE TOP SCH (09:05)
[2023-01-13] MEDS: CEFEPIME 2 GM in IV D5W 100 ML IV SCH ×2 (09:08→21:31)
[2023-01-13] MEDS: LEVOTHYROXINE SODIUM 100 MCG TABLET GT SCH (09:25)
--- NOTE | 2023-01-13 11:33 | NUR ---
SPOKE WITH COLLIN AT THE PHARMACY AND INFORMED TO PLEASE ADMINISTER VANCO ORDERED TODAY
[2023-01-13 12:00] VITALS: BP 113/65
[2023-01-13] MEDS: SOD FERRIC GLUC 125 MG in IV NS 0.9% 100 ML IV SCH (15:45)
[2023-01-13 16:00] VITALS: BP 122/74
--- NOTE | 2023-01-13 18:35 | NUR ---
WORKFORCE DEVELOPMENT PROGRAM DIRECTOR CLOSING NOTES: PATIENT IN BED, AWAKE, ALERT, ORIENTED TO NAME BUT WITH PERIODS OF CONFUSION. NO RESPIRATORY DISTRESS NOTED THROUGHOUT SHIFT. ON OXYGEN @ 2L/MIN VIA N/C WITH SATURATION OF 100%. ON ST WITH HR OF 107 ON TELE MONITOR. IV ACCESS ON RIGHT INTRAJUGULAR, IV SITE PATENT AND INTACT INFUSING WITH D5 1/2 NS WITH 20 MEQ OF POTASSIUM ORDERED @ 75 ML/HR, SITE WITH NO S/S INFILTRATION. THOMAS CATH IN PLACE, DRAINING TO GRAVITY, EMPTIED 350 ML OF YELLOW COLORED URINE, NO HEMATURIA AND NO SEDIMENTATION NOTED. ON INTERMITTENT G-TUBE RESIDUAL SUCTIONING, OBTAINED 100 ML OF GASTRIC RESIDUAL PATIENT REMAINS NPO EXCEPT MEDS. ALL SAFETY MEASURES IMPLEMENTED. BED LOCKED AND IN LOWEST POSITION WITH BED ALARM ON. HOB KEPT ELEVATED. WILL ENDORSE TO INCOMING NURSE FOR CONTINUITY OF CARE.
--- NOTE | 2023-01-13 19:40 | NUR ---
DEVELOPMENT ANALYST NOTES, RECEIVED PATIENT IN BED, AWAKE, ALERT, ORIENTED TO SELF, AT 2LPM VIA NC, NO SOB/NO RESPIRATORY DISTRESS NOTED ST IN TELE MONITOR, HR LOS 100S AT THIS TIME, D5 1/2 NS WITH 20 MEQ OF POTASSIUM INFUSING ORDERED VIA RIGHT IJ, NO BLEEDING OR ABNORMALITY NOTED AT SIDE, THOMAS CATH IN PLACE, DRAINING YELLOW URINE TO GRAVITY, G-TUBE CONNECTED TO LOW INTERMITTENT SUCTION, MINIMAL RESIDUAL NOTED, WILL CONTINUE TO MONITOR, NPO EXCEPT MEDS, ALL SAFETY MEASURES IMPLEMENTED, ON BILATERAL SOFT WRIST RESTRAINS FOR PT PULLING TUBES AND REMOVING DRESSINGS, AND INVASIVE LINES, NO ABNORMALITY NOTED AT SITE, NO CIRCULATION COMPROMISED, BED LOCKED AND IN LOWEST POSITION, WILL CONTINUE TO MONITOR CLOSELY.
[2023-01-13 20:00] VITALS: BP 125/70
[2023-01-13] MEDS: SENNOSIDES 8.6 MG TABLET GT SCH (21:32)
[2023-01-14] VITALS: BP 126/73
[2023-01-14] MEDS: BLOOD SUGAR DIAGNOSTIC 1 EACH STRIP IN SCH ×4 (00:01→17:05)
[2023-01-14] MEDS: INSULIN REGULAR, HUMAN 100 UNIT/ML 3 ML VIAL SQ PRN (00:02)
[2023-01-14] MEDS: METOCLOPRAMIDE HCL 10 MG/2 ML VIAL IV SCH (00:03)
[2023-01-14] MEDS: VANCOMYCIN 500 MG in IV D5W 100ml IV SCH ×2 (00:05→12:10)
[2023-01-14] MEDS: ALBUTEROL FS 2.5 MG/0.5 ML VIAL.NEB NEB SCH ×4 (01:51→19:33)
[2023-01-14] MEDS: IPRATROPIUM NEB FS 0.5 MG/2.5 ML AMPUL.NEB NEB SCH ×4 (01:51→19:33)
[2023-01-14 04:00] VITALS: BP_SYST 126; BP_SYST 133; BP_DIAS 68; BP_DIAS 73
[2023-01-14] MEDS: DEXTROSE 50%-WATER 50 ML DISP.SYRIN IV PRN ×2 (06:20→06:58)
--- NOTE | 2023-01-14 07:10 | NUR ---
END OF SHIFT, PATIENT IN BED AWAKE A/O T O SELF, CONTINUE ON 2LPM VIA NC WITH O2>95%, NO SO./ACUTE DISTRESS NOTED, NSR-ST WITH HR LOW 100S, ON IVF ORDERED,ON BILATERAL RESTRAINS, NO INDICATION OF DC RESTRAINS AT THIS TIME, BEHAVIOR UNCHANGED, AFEBRILE AND VS STABLE THROUGHOUT THE NIGHT, CONT WITH GT TO LOW INTERMITTENT SUCTION, WITH 30ML OUTPUT DURING THE NIGHT, THIS MORNING WITH BLOOD SUGAR 62MG/DL, DEXTROSE GIVEN AFTER 1HR BLOOD SUGAR 137, LOCKED AND LOWEST POSITION 3 S/R UP, SAFETY MEASURES IN PLACE, WILL ENDORSE CONTINUITY OF CARE TO ONCOMING NURSE.
[2023-01-14 07:32] LABS: BASOPHILS % (AUTO) 0.3 % (0.0-2.0); EOSINOPHILS % (AUTO) 1.7 % (0.0-6.0); HEMATOCRIT 28 % (33-45); HEMOGLOBIN 8.3 g/dL (11.5-14.8); LYMPHOCYTES # (AUTO) 1.5 K/uL (0.8-4.8); LYMPHOCYTES % (AUTO) 10.8 % (20.0-44.0); MEAN CORPUSCULAR HGB CONC 30 g/dl (31.0-36.0); MEAN CORPUSCULAR VOLUME 83 fL (82-100); MONOCYTES # (AUTO) 1.2 K/uL (0.1-1.30); MONOCYTES % (AUTO) 8.3 % (2.0-12.0); NEUTROPHILS % (AUTO) 78.9 % (43.0-81.0); PLATELET COUNT (AUTO) 410 K/uL (150-450); RED BLOOD CELL COUNT(AUTO) 3.35 MIL/uL (4.0-5.2); WHITE BLOOD COUNT (AUTO) 13.9 K/uL (4.3-11.0)
[2023-01-14 08:00] VITALS: BP 116/57
[2023-01-14] MEDS ORDERED: LIDOCAINE 1%-EPI 1:100,000 50 ML VIAL IJ ONE (08:00)
[2023-01-14] MEDS ORDERED: SILVER NITRATE APPLICATOR 1 EA BOX TP SCH (08:00)
--- NOTE | 2023-01-14 08:02 | NUR ---
TAZ RN Note Patient in bed awake, confused x1, alert x1 on telemonitor ST 101. Patient is on 2 L nasal cannula, saturation 96, no SOB noted at this time. Patient NPO except meds, on G Tube to low intermittent suction,noted dark greenish color drainage. Patient has right IJ on IV fluids as ordered, on soft restrain, unable to remove at this time, patient at risk for fall, and remove all lines. Bed in lowest and locked position, safety measures implemented, will continue to monitor.
[2023-01-14 08:11] LABS: CALCIUM, SERUM 8.8 mg/dL (8.5-10.1); CREATININE 0.7 mg/dL (0.6-1.3); POTASSIUM 3.2 mmol/L (3.5-5.1)
[2023-01-14] MEDS: Potassium Chloride 20 MEQ in IV D5/0.45 NACL 1,000 ML IV SCH ×2 (08:18→20:58)
[2023-01-14] MEDS: ARIPIPRAZOLE 5 MG TABLET GT SCH (08:33)
[2023-01-14] MEDS: MIDODRINE HCL (5MG) 5 MG TABLET GT SCH ×3 (08:33→16:18)
[2023-01-14] MEDS: DOCUSATE SODIUM LIQ 100 MG/10 ML UDC GT SCH (08:34)
[2023-01-14] MEDS: HEPARIN SODIUM, PORCINE 5000 UNITS/1 ML VIAL SQ SCH ×2 (08:35→21:00)
[2023-01-14] MEDS: FOLIC ACID 1 MG TABLET GT SCH (08:35)
[2023-01-14] MEDS: LEVOTHYROXINE SODIUM 100 MCG TABLET GT SCH (08:35)
[2023-01-14] MEDS: CEFEPIME 2 GM in IV D5W 100 ML IV SCH ×2 (08:36→20:57)
[2023-01-14] MEDS: NA PHOS,M-B/NA PHOS,DI-BA 1 EA ENEMA RC SCH ×2 (08:36→08:58)
[2023-01-14] MEDS: FAMOTIDINE/PF INJ 20 MG/2 ML VIAL IV SCH (08:37)
[2023-01-14] MEDS: DAKINS QUARTER STRENGTH (0.125%) 480 ML BOTTLE TOP SCH (08:38)
[2023-01-14] MEDS: MUPIROCIN OINT 2% 22 GM TUBE NS SCH ×2 (08:39→20:59)
--- NOTE | 2023-01-14 08:58 | NUR ---
TD RN NOTE Not administered, patient has a rectal tube.
--- NOTE | 2023-01-14 09:07 | NUR ---
candice rn note rnradha spoke with dr benitez condon to give Ativan patient very anxious Addendum: 01/14/23 at 1044 by SAIGE AGUIRRE RN clara curtis
--- NOTE | 2023-01-14 09:30 | NUR ---
telesales representative note per dr parks ok to d\c fleet enema also aware that k 3.2 stated patient has ivf with kcl ,also ok to start g tube feeding aware that from intermitted [id number] ml greenish color
[2023-01-14] MEDS ORDERED: GLUCERNA 1.2 1,000 ML BOTTLE NG PRN (11:30)
[2023-01-14 12:00] VITALS: BP 126/78
--- NOTE | 2023-01-14 12:12 | NUR ---
TEXTILE ENGRAVER NOTE BLOOD PRESSURE 126/63 WILL HOLD MIDODRINE
[2023-01-14] MEDS: GLUCERNA 1.2 1,000 ML BOTTLE PEG SCH (13:15)
--- NOTE | 2023-01-14 13:15 | NUR ---
supervisor telephone information note g tube feeding started as ordered, keep hob elevated
--- NOTE | 2023-01-14 15:06 | NUR ---
telehealth nurse educator note spoke with susan morley wound stated will do debridement tomorrow
[2023-01-14 16:00] VITALS: BP 114/65
[2023-01-14] MEDS: ACETAMINOPHEN 650 MG/20.3 ML UDC GT PRN ×2 (16:37→20:57)
--- NOTE | 2023-01-14 16:52 | NUR ---
television journalist note t 99.9 now Tylenol via g tube given also dr de santiago foot doctor seen patient no surgical intervention
--- NOTE | 2023-01-14 18:32 | NUR ---
television inspector note t now noted 100.1 cooling measure provided , Tylenol was given earlier, will monitor
--- NOTE | 2023-01-14 18:54 | NUR ---
TELE NURSE NOTE PATIENT IN THE BED ALERT ORIENTED X1 ON 2L NASAL CANNULA, NO sob NOTED, ON TELE WALLET ASSEMBLER HR 121 PATIENT HAS CONTINUE G-TUBE FEEDING AT 30 ML PER HOUR. RESIDUAL NOTED ABOUT 20CC ML. R IJ TRIPLE LUMEN INTACT AND FLUSHED WELL ON IV FLUID ORDER. RECTAL TUBE IN PLACE, FLUSHED WELL WITH GREENISH BROWNISH LIQUID STOOL NOTED. TEMPERATURE 121 COOLING MEASURES PROVIDED. WILL CONTINUE TO MONITOR. ON TELEMONITOR ONE TIME HR 170 EKG DONE AND WAS SHOWING ST HR 118. CALLED DR CLAUDIO WAITING FOR RESPONSE. AT THIS TIME RIGHT NOW BP IS 134/71 HR 118 RESPIRATION 20. WILL ENDORSE TO NEXT SHIFT RN.
--- NOTE | 2023-01-14 19:20 | NUR ---
RN NOTE RECEIVED PT IN BED, ALERT, AWAKE, ORIENTED TO SELF ONLY, VERBALLY RESPONSIVE. DENIES PAIN/DISCOMFORT AT THIS TIME. PT ON 2LPM VIA NC, RESPIRATION SLIGHTLY LABORED. NO ACUTE RESP DISTRESS, O2 SAT 97%. CUSTOMER EXPERIENCE ANALYST CURRENT READING ST 110. D51/2NS KCL 20MEQ INFUSING ON RIJ, NO S/SX OF CX NOTED. IV SITE CLEAN, DRY, INTACT. NO S/SX OF INFX. FC IN PLACED, PATENT AND SECURED, DRAINING DARK YWLLOW URINE. RECTAL TUBE IN PLACED AND SECURED. RESTRAINTS ON BILATERAL WRIST, SKIN ASSESSMENT DONE. HOB ELEVATED. WILL CONT TO MONITOR PT.
[2023-01-14 20:00] VITALS: BP 129/73
[2023-01-14] MEDS: FAMOTIDINE (20 MG) 20 MG TABLET GT SCH (20:58)
--- NOTE | 2023-01-14 21:10 | NUR ---
RN NOTE HEPARIN DOSE HELD, PT SCHEDULED FOR WOUND DEBRIDEMENT IN AM 01/15/23.
[2023-01-15] VITALS: BP 126/84
[2023-01-15] MEDS ORDERED: IV NS 0.9% 500 ML IV ONE (01:00)
--- NOTE | 2023-01-15 01:00 | NUR ---
RN NOTE RECEIVED ORDER FROM TO GIVE 500NS BOLUS X1 TIME NOW AND METOPROLOL 25MG BID VIA GT TO START IN AM FOR EPISODE OF ELEVATED HR 170 DURING MORNING SHIFT. NOTED AND CARRIED OUT
[2023-01-15] MEDS: BLOOD SUGAR DIAGNOSTIC 1 EACH STRIP IN SCH ×4 (01:11→17:29)
[2023-01-15] MEDS: INSULIN REGULAR, HUMAN 100 UNIT/ML 3 ML VIAL SQ PRN ×3 (01:13→12:36)
[2023-01-15] MEDS: ALBUTEROL FS 2.5 MG/0.5 ML VIAL.NEB NEB SCH ×4 (02:17→19:19)
[2023-01-15] MEDS: IPRATROPIUM NEB FS 0.5 MG/2.5 ML AMPUL.NEB NEB SCH ×4 (02:17→19:19)
[2023-01-15 04:00] VITALS: BP 124/63
[2023-01-15] MEDS: VANCOMYCIN HCL 0.75 GM in IV D5W 250 ML IV SCH (05:34)
--- NOTE | 2023-01-15 07:00 | NUR ---
RN NOTE PT REMAINS IN STABLE CONDITION, NO SIGNIFICANT CHANGES NOTED. RIGGING UP WORKER SR-ST 101HR. ALL NEEDS ATTENDED. ALL DUE MEDICATIONS GIVEN ORDERED. WOUND CARE DONE. TURN/REPOS Q2H+PRN. WILL ENDORSE TO AM SHIFT
[2023-01-15 08:00] VITALS: BP 139/73
[2023-01-15 08:15] LABS: BASOPHILS % (AUTO) 0.3 % (0.0-2.0); EOSINOPHILS % (AUTO) 1.8 % (0.0-6.0); HEMATOCRIT 27 % (33-45); HEMOGLOBIN 8.2 g/dL (11.5-14.8); LYMPHOCYTES # (AUTO) 2.2 K/uL (0.8-4.8); LYMPHOCYTES % (AUTO) 12.3 % (20.0-44.0); MEAN CORPUSCULAR HGB CONC 30 g/dl (31.0-36.0); MEAN CORPUSCULAR VOLUME 82 fL (82-100); MONOCYTES # (AUTO) 1.1 K/uL (0.1-1.30); MONOCYTES % (AUTO) 6.4 % (2.0-12.0); NEUTROPHILS # (AUTO) 13.9 K/uL (1.8-8.9); NEUTROPHILS % (AUTO) 79.2 % (43.0-81.0); PLATELET COUNT (AUTO) 400 K/uL (150-450); RED BLOOD CELL COUNT(AUTO) 3.31 MIL/uL (4.0-5.2); WHITE BLOOD COUNT (AUTO) 17.5 K/uL (4.3-11.0)
[2023-01-15 08:39] LABS: ALANINE AMINOTRANSFERASE 9 U/L (12-78); ALKALINE PHOSPHATASE 116 U/L (46-116); ASPARTATE AMINOTRANSFERASE 12 U/L (15-37); BILIRUBIN,TOTAL 0.3 mg/dL (0.2-1.0); CALCIUM, SERUM 8.8 mg/dL (8.5-10.1); CARBON DIOXIDE 23 mmol/L (21-32); CHLORIDE 117 mmol/L (98-107); CREATININE 0.9 mg/dL (0.6-1.3); GLUCOSE 117 mg/dL (74-106); MAGNESIUM 1.4 mg/dL (1.8-2.4); TOTAL PROTEIN, SERUM 5.8 g/dL (6.4-8.2); UREA NITROGEN, BLOOD 11 mg/dL (7-18)
[2023-01-15 08:57] LABS: SODIUM SERUM 145 mmol/L (136-145)
[2023-01-15] MEDS: MUPIROCIN OINT 2% 22 GM TUBE NS SCH ×2 (09:00→20:51)
--- NOTE | 2023-01-15 09:00 | NUR ---
RN NOTE LAB CALLED WITH CRITICAL RESULTS OF: POTASSIUM 2.6, ALBUMIN 1.1, AND LACTIC ACID2.45. NOTIFIED DR CLAUDIO, ORDERS PLACED AND CARRIED OUT. WILL CONTINUE TO MONITOR
[2023-01-15 09:02] LABS: ALBUMIN 1.1 g/dL (3.4-5.0); POTASSIUM 2.6 mmol/L (3.5-5.1)
--- NOTE | 2023-01-15 09:10 | NUR ---
RN NOTE PER LEONOR COSME NO DEBRIDEMENT PROCEDURE TODAY. DR CLAUDIO AWARE.
[2023-01-15] MEDS ORDERED: LOPERAMIDE HCL UDC(2 MG/10 ML) 2 MG/10 ML UDC GT SCH (09:30)
[2023-01-15] MEDS ORDERED: POTASSIUM CHLORIDE 20 MEQ TAB.PRT.SR PO ONE (09:30)
--- NOTE | 2023-01-15 09:34 | NUR ---
WOUND CARE: RECEIVED ANOTHER CONSULT FOR LOWER LEG WOUNDS (DRY WOUNDS PRESENT ON ADMISSION). DEFER TO DR COSTELLO, DIRECTOR AIRPORT OPERATIONS CURRENTLY ON CASE.
[2023-01-15] MEDS: CEFEPIME 2 GM in IV D5W 100 ML IV SCH ×2 (09:36→20:49)
[2023-01-15] MEDS: FOLIC ACID 1 MG TABLET GT SCH (09:36)
[2023-01-15] MEDS: FAMOTIDINE (20 MG) 20 MG TABLET GT SCH ×2 (09:36→20:48)
[2023-01-15] MEDS: ARIPIPRAZOLE 5 MG TABLET GT SCH (09:36)
[2023-01-15] MEDS: LEVOTHYROXINE SODIUM 100 MCG TABLET GT SCH (09:37)
[2023-01-15] MEDS: Potassium Chloride 20 MEQ in IV D5/0.45 NACL 1,000 ML IV SCH ×2 (11:12→23:16)
[2023-01-15] MEDS: METOPROLOL TARTRATE 25 MG TABLET GT SCH ×2 (11:12→17:19)
[2023-01-15 12:00] VITALS: BP 122/67
[2023-01-15] MEDS: LOPERAMIDE HCL UDC 2 MG/15 ML LIQUID GT SCH (12:11)
[2023-01-15 12:13] LABS: BILIRUBIN,DIRECT 0.1 mg/dL (0.0-0.2)
--- NOTE | 2023-01-15 12:37 | NUR ---
RN NOTE NOTED 400MLS OF GASTRIC RESIDUAL. NOTIFIED MD. HELD FEEDING AT THIS TIME. WAITING FOR ORDERS
[2023-01-15 13:37] LABS: BAND % (MANUAL) 1 % (0.0-5.0); BASOPHILS % (MANUAL) 0 % (0.0-2.0); EOSINOPHILS % (MANUAL) 1 % (0-4); LYMPHOCYTES % (MANUAL) 8 % (16-48); MONOCYTES % (MANUAL) 2 % (0-11.0); NEUTROPHILS % (MANUAL) 88 (42-76)
[2023-01-15] MEDS: DAKINS QUARTER STRENGTH (0.125%) 480 ML BOTTLE TOP SCH (15:03)
[2023-01-15] MEDS: HEPARIN SODIUM, PORCINE 5000 UNITS/1 ML VIAL SQ SCH ×2 (15:14→20:51)
[2023-01-15 16:00] VITALS: BP 120/71
--- NOTE | 2023-01-15 16:28 | NUR ---
RN NOTE OBTAINED TELEPHONE CONSENT FOR SERIAL DEBRIDEMENT FROM BENNY KNAPP [phone], AND PLACED IN CHART. WILL HOLD HEPARIN.
--- NOTE | 2023-01-15 19:04 | NUR ---
RN CLOSING NOTE PT REMAINS IN STABLE CONDITION. SHIP DESIGN TEACHER SR. ALL NEEDS ATTENDED. FLEXISEAL DRAINING BROWN BM. THOMAS CATHETER DRAINING YELLOW URINE VIA GRAVITY. ALL DUE MEDICATIONS GIVEN ORDERED. WOUND CARE DONE. WILL ENDORSE CONTINUITY OF CARE TO PM SHIFT.
--- NOTE | 2023-01-15 19:13 | NUR ---
RN NOTE GLUCERNA RUNNING AT 20MLS/HR AT THIS TIME.
--- NOTE | 2023-01-15 19:30 | NUR ---
RN NOTE RECEIVED PT IN BED, ALERT, AWAKE, ORIENTED TO SELF ONLY, VERBALLY RESPONSIVE. DENIES PAIN/DISCOMFORT AT THIS TIME. PT ON 2LPM VIA NC, WELL EMILY. RESPIRATION SLIGHTLY LABORED. NO ACUTE RESP DISTRESS, O2 SAT 99%. ATTACHED TO MAINTENANCE PARTS TECHNICIAN. D51/2NS KCL 20MEQ INFUSING ON RIJ, NO S/SX OF CX NOTED. IV SITE CLEAN, DRY, INTACT. NO S/SX OF INFX. FC IN PLACED, PATENT AND SECURED, DRAINING DARK YELLOW URINE. RECTAL TUBE IN PLACED AND SECURED. RESTRAINTS ON BILATERAL WRIST, SKIN ASSESSMENT DONE. HOB ELEVATED.WILL CONT POC
[2023-01-15 20:00] VITALS: BP 109/62
--- NOTE | 2023-01-15 20:52 | NUR ---
DERICK NOTE HEPARIN DOSE HELD. PT SCHEDULED FOR SACRAL WOUND IN AM. Addendum: 01/16/23 at 0333 by PAU FUENTES RN SACRAL WOUND DEBRIDEMENT
[2023-01-16] VITALS: BP 112/62
[2023-01-16] MEDS: VANCOMYCIN HCL 0.75 GM in IV D5W 250 ML IV SCH ×2 (00:06→18:07)
[2023-01-16] MEDS: BLOOD SUGAR DIAGNOSTIC 1 EACH STRIP IN SCH ×5 (00:43→23:17)
[2023-01-16] MEDS: INSULIN REGULAR, HUMAN 100 UNIT/ML 3 ML VIAL SQ PRN ×3 (00:43→14:28)
[2023-01-16] MEDS: IPRATROPIUM NEB FS 0.5 MG/2.5 ML AMPUL.NEB NEB SCH ×4 (02:32→20:28)
[2023-01-16] MEDS: ALBUTEROL FS 2.5 MG/0.5 ML VIAL.NEB NEB SCH ×4 (02:32→20:28)
[2023-01-16 04:00] VITALS: BP 118/61
--- NOTE | 2023-01-16 06:48 | NUR ---
RN NOTE PT REMAINS IN STABLE CONDITION, NO SIGNIFICANT CHANGES NOTED. IT DESKTOP SUPPORT SPECIALIST SR THROUGHOUT THE NIGHT. ALL NEEDS ATTENDED. ALL DUE MEDICATIONS GIVEN ORDERED. WOUND CARE DONE. TURN/REPOS Q2H+PRN. WILL ENDORSE TO AM SHIFT
[2023-01-16 06:57] LABS: BASOPHILS # (AUTO) 0.1 K/uL (0.0-0.2); BASOPHILS % (AUTO) 0.3 % (0.0-2.0); EOSINOPHILS % (AUTO) 2.3 % (0.0-6.0); HEMATOCRIT 26 % (33-45); HEMOGLOBIN 7.9 g/dL (11.5-14.8); LYMPHOCYTES # (AUTO) 2.2 K/uL (0.8-4.8); LYMPHOCYTES % (AUTO) 12.1 % (20.0-44.0); MEAN CORPUSCULAR HGB CONC 30 g/dl (31.0-36.0); MEAN CORPUSCULAR VOLUME 83 fL (82-100); MONOCYTES # (AUTO) 1.1 K/uL (0.1-1.30); NEUTROPHILS # (AUTO) 14.3 K/uL (1.8-8.9); NEUTROPHILS % (AUTO) 79.3 % (43.0-81.0); PLATELET COUNT (AUTO) 412 K/uL (150-450); RED BLOOD CELL COUNT(AUTO) 3.16 MIL/uL (4.0-5.2)
[2023-01-16 07:10] LABS: CALCIUM, SERUM 8.8 mg/dL (8.5-10.1); CREATININE 0.8 mg/dL (0.6-1.3); POTASSIUM 3.6 mmol/L (3.5-5.1)
[2023-01-16 08:00] VITALS: BP 133/69
[2023-01-16] MEDS: DAKINS QUARTER STRENGTH (0.125%) 480 ML BOTTLE TOP SCH (09:37)
[2023-01-16] MEDS: MUPIROCIN OINT 2% 22 GM TUBE NS SCH ×2 (09:37→20:06)
[2023-01-16] MEDS: THERAHONEY GEL 1.5 OZ TUBE TP SCH (09:37)
[2023-01-16] MEDS: METOPROLOL TARTRATE 25 MG TABLET GT SCH ×2 (10:27→17:00)
[2023-01-16] MEDS: FAMOTIDINE (20 MG) 20 MG TABLET GT SCH ×2 (10:27→20:05)
[2023-01-16] MEDS: ARIPIPRAZOLE 5 MG TABLET GT SCH (10:28)
[2023-01-16] MEDS: FOLIC ACID 1 MG TABLET GT SCH (10:28)
[2023-01-16] MEDS: LEVOTHYROXINE SODIUM 100 MCG TABLET GT SCH (10:28)
[2023-01-16] MEDS: LOPERAMIDE HCL UDC 2 MG/15 ML LIQUID GT SCH (10:28)
[2023-01-16] MEDS: CEFEPIME 2 GM in IV D5W 100 ML IV SCH ×2 (10:28→20:05)
[2023-01-16 12:00] VITALS: BP 113/63
--- NOTE | 2023-01-16 12:13 | NUR ---
RN NOTE PATIENT'S SON BRANNON FITZPATRICK AT BEDSIDE, REQUESTS TO SPEAK TO [facility] ABOUT PLACEMENT. REQUESTS TO TRANSFER PATIENT TO [facility] IN [place], AND NOT BACK TO [facility]. CONTACT NUMBER . SON WILL WAIT FOR [facility] TO SPEAK IN PERSON.
[2023-01-16] MEDS: MORPHINE SULFATE INJ 2 MG/ML DISP.SYRIN IV PRN (13:15)
--- NOTE | 2023-01-16 14:27 | NUR ---
RN NOTE DEBRIDEMENT COMPLETED AT THIS TIME BY LEONOR COSME.
[2023-01-16] MEDS: Potassium Chloride 20 MEQ in IV D5/0.45 NACL 1,000 ML IV SCH (14:29)
[2023-01-16 15:08] LABS: EOSINOPHILS % (MANUAL) 2 % (0-4); LYMPHOCYTES % (MANUAL) 13 % (16-48); MONOCYTES % (MANUAL) 4 % (0-11.0); NEUTROPHILS % (MANUAL) 81 (42-76)
[2023-01-16 16:00] VITALS: BP 118/77
[2023-01-16] MEDS: GLUCERNA 1.2 1,000 ML BOTTLE PEG SCH (18:39)
--- NOTE | 2023-01-16 19:06 | NUR ---
RN CLOSING NOTE PT REMAINS IN STABLE CONDITION. STOCK LETTERER SR. ALL NEEDS ATTENDED. FLEXISEAL DRAINING BROWN BM. THOMAS CATHETER DRAINING YELLOW URINE VIA GRAVITY. GLUCERNA RUNNING AT 20MLS/HR. ALL DUE MEDICATIONS GIVEN ORDERED. DEBRIDEMENT PERFORMED TODAY BY LEONOR COSME. WILL ENDORSE CONTINUITY OF CARE TO PM SHIFT.
--- NOTE | 2023-01-16 19:30 | NUR ---
INSTRUMENT MAKER AND REPAIRER OPENING NOTE RECEIVED PATIENT IN BED, WITH HOB ELEVATED, AWAKE, ALERT AND ORIENTED TO SELF. AFEBRILE AND NOT IN ANY FORM OF ACUTE DISTRESS. ON O2 INHALATION VIA NASAL CANNULA AT 3LPM. ON TELE MONITORING WITH CURRENT READING OF SR. WITH IV ACCESS ON RIGHT IJ RUNNING WITH D5 1/2NS +20MEQ KCL REGULATED AT 75ML/HR. ON G-TUBE FEEDING WITH GLUCERNA, NO RESIDUAL NOTED AT THIS TIME. WITH THOMAS CATHETER, INTACT AND DRAINING WELL WITH YELLOW URINE OUTPUT. WITH FLEXISEAL DRAINING WITH BROWN BM. S/P DEBRIDEMENT, MONITORED FOR ANY S/SX. OF BLEEDING. SAFETY MEASURES IN PLACE. KEPT BED IN LOCKED AND IN LOW POSITION. SIDE RAILS UP X2. CALL LIGHT WITHIN EASY REACH.
[2023-01-16 20:00] VITALS: BP 129/76
[2023-01-17] VITALS: BP 121/61
[2023-01-17] MEDS: ALBUTEROL FS 2.5 MG/0.5 ML VIAL.NEB NEB SCH ×4 (01:56→19:53)
[2023-01-17] MEDS: IPRATROPIUM NEB FS 0.5 MG/2.5 ML AMPUL.NEB NEB SCH ×4 (01:56→19:54)
[2023-01-17] MEDS: Potassium Chloride 20 MEQ in IV D5/0.45 NACL 1,000 ML IV SCH ×2 (02:30→19:33)
[2023-01-17 04:00] VITALS: BP 130/82
[2023-01-17] MEDS: BLOOD SUGAR DIAGNOSTIC 1 EACH STRIP IN SCH ×4 (05:54→23:17)
--- NOTE | 2023-01-17 06:30 | NUR ---
DISABILITY INSURANCE HEARING OFFICER CLOSING NOTE PATIENT IN BED, WITH HOB ELEVATED, SLEEPING INTERMITTENTLY. AFEBRILE AND NOT IN ANY FORM OF ACUTE DISTRESS. ON O2 INHALATION VIA NASAL CANNULA AT 3LPM. ON TELE MONITORING WITH CURRENT READING OF ST 106. WITH IV ACCESS ON RIGHT INTERNAL JUGULAR VEIN RUNNING WITH D5 1/2NS +20MEQ KCL REGULATED AT 75ML/HR. ON G-TUBE FEEDING WITH GLUCERNA 1.2, TOLERATING WELL AND NO RESIDUAL NOTED AT THIS TIME. WITH THOMAS CATHETER, INTACT AND DRAINING WELL WITH YELLOW URINE OUTPUT. WITH FLEXISEAL DRAINING WITH BROWN BM. S/P DEBRIDEMENT, MONITORED FOR ANY S/SX. OF BLEEDING. MONITORED FOR ANY S/SX. OF HYPO/HYPERGLYCEMIA. MEDICATED ORDERED. SAFETY MEASURES IN PLACE. KEPT BED IN LOCKED AND IN LOW POSITION. SIDE RAILS UP X2. CALL LIGHT WITHIN EASY REACH. ALL NURSING NEEDS ATTENDED. ENDORSED TO INCOMING SHIFT FOR CONTINUITY OF CARE.
[2023-01-17 07:04] LABS: BASOPHILS % (AUTO) 0.3 % (0.0-2.0); EOSINOPHILS % (AUTO) 2.2 % (0.0-6.0); HEMATOCRIT 26 % (33-45); HEMOGLOBIN 7.7 g/dL (11.5-14.8); LYMPHOCYTES # (AUTO) 1.5 K/uL (0.8-4.8); LYMPHOCYTES % (AUTO) 8.9 % (20.0-44.0); MEAN CORPUSCULAR HGB CONC 30 g/dl (31.0-36.0); MEAN CORPUSCULAR VOLUME 82 fL (82-100); MONOCYTES # (AUTO) 1.1 K/uL (0.1-1.30); MONOCYTES % (AUTO) 6.7 % (2.0-12.0); NEUTROPHILS # (AUTO) 13.5 K/uL (1.8-8.9); NEUTROPHILS % (AUTO) 81.9 % (43.0-81.0); PLATELET COUNT (AUTO) 382 K/uL (150-450); RED BLOOD CELL COUNT(AUTO) 3.14 MIL/uL (4.0-5.2); WHITE BLOOD COUNT (AUTO) 16.5 K/uL (4.3-11.0)
[2023-01-17 07:22] LABS: CALCIUM, SERUM 8.9 mg/dL (8.5-10.1); CREATININE 0.7 mg/dL (0.6-1.3); POTASSIUM 3.7 mmol/L (3.5-5.1)
[2023-01-17 08:00] VITALS: BP 97/63
[2023-01-17] MEDS: LEVOTHYROXINE SODIUM 100 MCG TABLET GT SCH (08:23)
[2023-01-17] MEDS: ARIPIPRAZOLE 5 MG TABLET GT SCH (08:23)
[2023-01-17] MEDS: METOPROLOL TARTRATE 25 MG TABLET GT SCH ×3 (08:23→16:32)
[2023-01-17] MEDS: FAMOTIDINE (20 MG) 20 MG TABLET GT SCH ×2 (08:23→20:13)
[2023-01-17] MEDS: FOLIC ACID 1 MG TABLET GT SCH (08:24)
[2023-01-17] MEDS: MUPIROCIN OINT 2% 22 GM TUBE NS SCH ×2 (08:25→20:14)
[2023-01-17] MEDS: DAKINS QUARTER STRENGTH (0.125%) 480 ML BOTTLE TOP SCH (08:25)
[2023-01-17] MEDS: THERAHONEY GEL 1.5 OZ TUBE TP SCH (08:25)
--- NOTE | 2023-01-17 08:30 | NUR ---
RN NOTE PER DR. CLAUDIO RESTRAINS ARE REMOVED AND WILL PLANNING TO DC PATIENT TOMORROW.
[2023-01-17] MEDS: LOPERAMIDE HCL UDC 2 MG/15 ML LIQUID GT SCH (08:31)
[2023-01-17] MEDS: CEFEPIME 2 GM in IV D5W 100 ML IV SCH ×2 (08:31→20:13)
--- NOTE | 2023-01-17 08:50 | NUR ---
RN NOTE PATIENT'S BP 97/[address] CLAUDIO NOTIFIED.
[2023-01-17 12:00] VITALS: BP 109/75
[2023-01-17] MEDS: VANCOMYCIN HCL 0.75 GM in IV D5W 250 ML IV SCH (12:29)
[2023-01-17 12:33] LABS: BAND % (MANUAL) 3 % (0.0-5.0); EOSINOPHILS % (MANUAL) 4 % (0-4); LYMPHOCYTES % (MANUAL) 6 % (16-48); MONOCYTES % (MANUAL) 3 % (0-11.0); NEUTROPHILS % (MANUAL) 84 (42-76)
[2023-01-17 16:00] VITALS: BP 118/75
[2023-01-17] MEDS: ACETAMINOPHEN 650 MG/20.3 ML UDC GT PRN (18:22)
--- NOTE | 2023-01-17 19:04 | NUR ---
RN CLOSING NOTE PATIENT IN BED, WITH HOB ELEVATED, SLEEPING INTERMITTENTLY. NOT IN ANY FORM OF ACUTE DISTRESS. ON O2 INHALATION VIA NASAL CANNULA AT 3LPM. ON TELE MONITORING WITH CURRENT READING OF ST 99. WITH PICC LINE ACCESS ON LEFT UPPER ARM DOUBLE LUMEN INTACT AND FLASHING INSERTED TODAY. ON G-TUBE FEEDING WITH GLUCERNA 1.2, RATE 30 TOLERATING WELL AND NO RESIDUAL NOTED AT THIS TIME. WITH THOMAS CATHETER, INTACT AND DRAINING WELL WITH YELLOW URINE OUTPUT. WITH FLEXISEAL DRAINING WITH BROWN BM. S/P DEBRIDEMENT, MONITORED FOR ANY S/SX. OF BLEEDING. MONITORED FOR ANY S/SX. OF HYPO/HYPERGLYCEMIA. MEDICATED ORDERED. SAFETY MEASURES IN PLACE. KEPT BED IN LOCKED AND IN LOW POSITION. SIDE RAILS UP X2. CALL LIGHT WITHIN EASY REACH. ALL NURSING NEEDS ATTENDED. ENDORSED TO PM SHIFT FOR ROGERIO.
--- NOTE | 2023-01-17 19:23 | NUR ---
COAL OR ORE CONTROLLER OPENING NOTE RECEIVED PT AWAKE IN BED. A/O X1. PT O2 @ 3LPM VIA NC, TOLERATING WELL. NO SOB OR S/S OF RESPIRATORY DISTRESS. BREATHING EVEN AND UNLABORED. ON EXTERNAL LABORER CHEMICAL PROCESSING READING ST 102 BPM. IV ACCESS JOEL PICC LINE AND RIJ, INTACT AND PATENT. WITH G TUBE RUNNING GLUCERNA @ 30 ML/HR, TOLERATING WELL. WITH THOMAS AND FLEXISEAL, DRAINING BY GRAVITY. SAFETY PRECAUTIONS IN PLACE. BED IN LOWEST LOCKED POSITION, HOB ELEVATED, SIDE RAILS UP X3, AND CALL LIGHT AND TABLE WITHIN REACH. ALL NEEDS MET AT THIS TIME.
[2023-01-17 20:00] VITALS: BP 108/65
[2023-01-17] MEDS: MORPHINE SULFATE INJ 2 MG/ML DISP.SYRIN IV PRN (20:13)
--- NOTE | 2023-01-17 20:13 | NUR ---
RN NOTE PT COMPLAINED OF SACRAL PAIN 04/19. ADMINISTERED MORPHINE 2 MG FOR MODERATE PAIN ORDERED. MADE COMFORTABLE IN BED. ALL NEEDS MET AT THIS TIME.
[2023-01-18] VITALS: BP 130/73
[2023-01-18] MEDS: IPRATROPIUM NEB FS 0.5 MG/2.5 ML AMPUL.NEB NEB SCH ×4 (01:41→19:52)
[2023-01-18] MEDS: ALBUTEROL FS 2.5 MG/0.5 ML VIAL.NEB NEB SCH ×4 (01:42→19:52)
[2023-01-18 04:00] VITALS: BP 115/77
[2023-01-18] MEDS: BLOOD SUGAR DIAGNOSTIC 1 EACH STRIP IN SCH ×3 (05:24→17:24)
[2023-01-18] MEDS: VANCOMYCIN HCL 0.75 GM in IV D5W 250 ML IV SCH (05:35)
--- NOTE | 2023-01-18 06:20 | NUR ---
FORMING AND ASSEMBLING SUPERVISOR CLOSING NOTE PT AWAKE IN BED. A/O X1 AND EPISODES OF CONFUSION. PT O2 @ 3LPM VIA NC, TOLERATING WELL. NO SOB OR S/S OF RESPIRATORY DISTRESS. BREATHING EVEN AND UNLABORED. ON EXTERNAL FINANCIAL SERVICES INTERNSH[employer] READING ST 110 BPM. IV ACCESS JOEL PICC LINE AND RIJ, INTACT AND PATENT. WITH G TUBE RUNNING GLUCERNA @ 40 ML/HR, TOLERATING WELL, NO RESIDUAL THIS SHIFT. WITH THOMAS, DRAINED 900 ML, AND FLEXISEAL, DRAINED 0 ML. SACRAL WOUND TREATMENT RENDERED ORDERED. KEPT CLEAN AND DRY. SAFETY PRECAUTIONS IN PLACE AT ALL TIMES. BED IN LOWEST LOCKED POSITION, HOB ELEVATED, SIDE RAILS UP X3, AND CALL LIGHT AND TABLE WITHIN REACH. ALL NEEDS MET AT THIS TIME AND WILL ENDORSE TO ONCOMING NURSE FOR ROGERIO.
[2023-01-18 06:25] LABS: BASOPHILS # (AUTO) 0.1 K/uL (0.0-0.2); BASOPHILS % (AUTO) 0.5 % (0.0-2.0); EOSINOPHILS % (AUTO) 2.4 % (0.0-6.0); HEMATOCRIT 23 % (33-45); HEMOGLOBIN 7.1 g/dL (11.5-14.8); LYMPHOCYTES # (AUTO) 1.2 K/uL (0.8-4.8); LYMPHOCYTES % (AUTO) 7.6 % (20.0-44.0); MEAN CORPUSCULAR HGB CONC 31 g/dl (31.0-36.0); MEAN CORPUSCULAR VOLUME 81 fL (82-100); MONOCYTES # (AUTO) 0.8 K/uL (0.1-1.30); MONOCYTES % (AUTO) 5.2 % (2.0-12.0); NEUTROPHILS # (AUTO) 13.3 K/uL (1.8-8.9); NEUTROPHILS % (AUTO) 84.3 % (43.0-81.0); PLATELET COUNT (AUTO) 358 K/uL (150-450); RED BLOOD CELL COUNT(AUTO) 2.85 MIL/uL (4.0-5.2); WHITE BLOOD COUNT (AUTO) 15.7 K/uL (4.3-11.0)
[2023-01-18 06:37] LABS: CALCIUM, SERUM 8.8 mg/dL (8.5-10.1); CREATININE 0.7 mg/dL (0.6-1.3); POTASSIUM 3.8 mmol/L (3.5-5.1)
--- NOTE | 2023-01-18 07:05 | NUR ---
DINKEY MOTOR OPERATOR OPENING NOTES RECEIVED PATIENT RESTING IN BED, A/Ox1 TO SELF, ON 3L O2 VIA NC, NO S/S OF RESPIRATORY DISTRESS. PATIENT ON TELE MONITORING SHOWING SINUS TACH 106. NO S/S OF CARDIAC DISTRESS OR DISCOMFORT. IV ACCESS JOEL PICC RUNNING D5 1/2NS 20 MEQ KCL @75 ML/HR. INTACT AND PATENT. PATIENT HAS THOMAS CATHETER DRAINING YELLOW URINE AND FLEXISEAL EMPTY AT THIS TIME. SKIN ISSUES: SACRAL WOUND, L THIGH WOUND, DRESSINGS IN PLACE. PATIENT HAS G-TUBE FEEDING GLUCERNA @ 40 CC/HR. TOLERATING WELL. PATIENT ON BILATERAL SOFT WRIST RESTRAINTS, SKIN INTACT AND CIRCULATION WNL. SAFETY MEASURES IN PLACE: BED LOCKED AND IN LOWEST POSITION, HOB ELEVATED, SIDE RAILS UPx2, CALL LIGHT WITHIN REACH. WILL CONTINUE TO MONITOR.
[2023-01-18 08:00] VITALS: BP 97/64
[2023-01-18] MEDS: LOPERAMIDE HCL UDC 2 MG/15 ML LIQUID GT SCH (08:09)
[2023-01-18] MEDS: ARIPIPRAZOLE 5 MG TABLET GT SCH (08:09)
[2023-01-18] MEDS: FAMOTIDINE (20 MG) 20 MG TABLET GT SCH ×2 (08:10→20:36)
[2023-01-18] MEDS: CEFEPIME 2 GM in IV D5W 100 ML IV SCH ×2 (08:10→20:36)
[2023-01-18] MEDS: METOPROLOL TARTRATE 25 MG TABLET GT SCH ×2 (08:10→16:07)
[2023-01-18] MEDS: FOLIC ACID 1 MG TABLET GT SCH (08:10)
[2023-01-18] MEDS: ACETAMINOPHEN 650 MG/20.3 ML UDC GT PRN (08:10)
[2023-01-18] MEDS: LEVOTHYROXINE SODIUM 100 MCG TABLET GT SCH (08:10)
[2023-01-18] MEDS: DAKINS QUARTER STRENGTH (0.125%) 480 ML BOTTLE TOP SCH (08:14)
[2023-01-18] MEDS: MUPIROCIN OINT 2% 22 GM TUBE NS SCH ×2 (08:15→20:37)
[2023-01-18] MEDS: THERAHONEY GEL 1.5 OZ TUBE TP SCH (08:18)
--- NOTE | 2023-01-18 09:00 | NUR ---
RN NOTES PATIENT COMPLAINED OF MILD PAIN OF LEG/KNEE AREA. PRN TYLENOL ADMINISTERED. WILL CONTINUE TO MONITOR.
[2023-01-18] MEDS: MORPHINE SULFATE INJ 4 MG/ML DISP.SYRIN IV PRN (11:43)
[2023-01-18 11:53] LABS: BAND % (MANUAL) 2 % (0.0-5.0); BASOPHILS % (MANUAL) 0 % (0.0-2.0); EOSINOPHILS % (MANUAL) 2 % (0-4); LYMPHOCYTES % (MANUAL) 11 % (16-48); MONOCYTES % (MANUAL) 4 % (0-11.0); NEUTROPHILS % (MANUAL) 81 (42-76)
[2023-01-18 12:16] VITALS: BP 109/54
--- NOTE | 2023-01-18 12:20 | NUR ---
RN NOTES PATIENT COMPLAINING OF PAIN OF BACK. PT STATES IT HURTS A LOT, PRN MORPHINE ADMINISTERED. WILL CONTINUE TO MONITOR.
[2023-01-18] MEDS: Potassium Chloride 20 MEQ in IV D5/0.45 NACL 1,000 ML IV SCH (15:49)
[2023-01-18 16:02] VITALS: BP 134/86
--- NOTE | 2023-01-18 18:39 | NUR ---
SHOT DROPPER CLOSING NOTES PATIENT RESTING IN BED, A/Ox1 TO SELF, STABLE ON 3L O2 VIA NC, NO S/S OF RESPIRATORY DISTRESS. PATIENT ON TELE MONITORING SHOWING SINUS TACH 100. NO S/S OF CARDIAC DISTRESS OR DISCOMFORT. IV ACCESS JOEL PICC RUNNING D5 1/2NS 20 MEQ KCL @75 ML/HR. INTACT AND PATENT. PATIENT HAS THOMAS CATHETER DRAINING YELLOW URINE AND FLEXISEAL SOME SMALL DRAINAGE AT THIS TIME. SKIN ISSUES: SACRAL WOUND, L THIGH WOUND, DRESSINGS IN PLACE. PATIENT HAS G-TUBE FEEDING GLUCERNA @ 35 CC/HR. SOME RESIDUAL PRESENT, SLOWED FEEDING FROM 40 TO 35. PATIENT ON BILATERAL SOFT WRIST RESTRAINTS, SKIN INTACT AND CIRCULATION WNL. ALL DUE MEDICATION ADMINISTERED. SAFETY MEASURES MAINTAINED: BED LOCKED AND IN LOWEST POSITION, HOB ELEVATED, SIDE RAILS UPx2, CALL LIGHT WITHIN REACH. WILL ENDORSE TO NEXT SHIFT ANY ROGERIO.
--- NOTE | 2023-01-18 19:51 | NUR ---
DIETARY TECH OPENING NOTES PATIENT RESTING IN BED, A/Ox1 TO SELF, STABLE ON 3L O2 VIA NC, NO S/S OF RESPIRATORY DISTRESS. PATIENT ON TELE MONITORING SHOWING SINUS TACH 100. NO S/S OF CARDIAC DISTRESS OR DISCOMFORT. IV ACCESS JOEL PICC RUNNING D5 1/2NS 20 MEQ KCL @75 ML/HR. INTACT AND PATENT. PATIENT HAS THOMAS CATHETER DRAINING YELLOW URINE AND FLEXISEAL SOME SMALL DRAINAGE AT THIS TIME. SKIN ISSUES: SACRAL WOUND, L THIGH WOUND, DRESSINGS IN PLACE. PATIENT HAS G-TUBE FEEDING GLUCERNA @ 35 CC/HR. PATIENT ON BILATERAL SOFT WRIST RESTRAINTS, SKIN INTACT AND CIRCULATION WNL.SAFETY MEASURES MAINTAINED: BED LOCKED AND IN LOWEST POSITION, HOB ELEVATED, SIDE RAILS UPx2, CALL LIGHT WITHIN REACH.
[2023-01-18 20:00] VITALS: BP 107/55
[2023-01-19] VITALS (7 sets, daily range): BP systolic 111–120; BP diastolic 57–66
[2023-01-19] MEDS: BLOOD SUGAR DIAGNOSTIC 1 EACH STRIP IN SCH ×4 (00:02→17:48)
[2023-01-19] MEDS: INSULIN REGULAR, HUMAN 100 UNIT/ML 3 ML VIAL SQ PRN (00:03)
[2023-01-19] MEDS: IPRATROPIUM NEB FS 0.5 MG/2.5 ML AMPUL.NEB NEB SCH ×4 (01:28→20:16)
[2023-01-19] MEDS: ALBUTEROL FS 2.5 MG/0.5 ML VIAL.NEB NEB SCH ×4 (01:28→20:16)
[2023-01-19] MEDS: MORPHINE SULFATE INJ 2 MG/ML DISP.SYRIN IV PRN (04:49)
[2023-01-19] MEDS: VANCOMYCIN HCL 0.75 GM in IV D5W 250 ML IV SCH (06:23)
[2023-01-19 07:11] LABS: CALCIUM, SERUM 9.4 mg/dL (8.5-10.1); CREATININE 0.7 mg/dL (0.6-1.3); POTASSIUM 4.5 mmol/L (3.5-5.1)
--- NOTE | 2023-01-19 07:55 | NUR ---
NEWS AGENT NOTES RECEIVED PATIENT IN BED, ON 3 L SUE CANNULA, BUT RT AT BED SIDE DOING BREATHING TREATMENT AT BEDSIDE. ALERT ORIENTED X1, ON TELEMONITORING ST HR 114. PATIENT HAS RECTAL FLEXSEAL RECTAL TUBE IN PLACE AND FLUSHED WELL. WITH SOFT RESTRAINED, UNABLE TO REMOVE DUE TO RISK TO REMOVE ALL LINES AND HIGH RISK FOR FALL. WITH G-TUBE 35 CC NO RESIDUAL NOTED. KEEP HEAD OF BED ELEVATED. PATIENT HAS UPPER PIC LINE WITH IV FLUIDS ORDERED AND RIGHT IJ PICC LINE THREE LUMEN FLUSHED. WITH THOMAS CATHETER WITH YELLOW COLOR URINE. MOUTH CARE DONE, REPOSITIONED DONE. SAFETY MEASURES PROVIDED, CALL LIGHT WITHIN REACH, BED LOCKED AND IN LOWEST POSITION, WILL CONTINUE TO MONITOR.
[2023-01-19] MEDS: FOLIC ACID 1 MG TABLET GT SCH (08:16)
[2023-01-19] MEDS: ARIPIPRAZOLE 5 MG TABLET GT SCH (08:16)
[2023-01-19] MEDS: FAMOTIDINE (20 MG) 20 MG TABLET GT SCH ×2 (08:16→20:49)
[2023-01-19] MEDS: LEVOTHYROXINE SODIUM 100 MCG TABLET GT SCH (08:16)
[2023-01-19] MEDS: CEFEPIME 2 GM in IV D5W 100 ML IV SCH ×2 (08:17→20:49)
--- NOTE | 2023-01-19 08:23 | NUR ---
telecommunications facility examiner note per dr kasey condon to do chest x ray and abg ,called rt
[2023-01-19] MEDS: METOPROLOL TARTRATE 25 MG TABLET GT SCH ×2 (08:31→16:21)
[2023-01-19] MEDS: THERAHONEY GEL 1.5 OZ TUBE TP SCH (09:00)
[2023-01-19 09:01] LABS: ABG BASE EXCESS -1.2 mmol/L; ABG OXYGEN SATURATION 94.2 % (92.0-98.5); ABG PCO2 36.9 mmHg (35.0-45.0); ABG PH 7.415 (7.350-7.450); ABG PO2 77.7 mmHg (75.0-100.0); AaDO2 78.4 mmHg; COHb 0.6 % (0.5-1.5); MetHb 0.5 % (0.0-1.5); O2Hb 93.2 % (94.0-97.0); SITE, ABG Right Brachial; VENT MODE, BG NASAL CANNULA
[2023-01-19] MEDS: MUPIROCIN OINT 2% 22 GM TUBE NS SCH ×2 (09:35→20:49)
[2023-01-19] MEDS: DAKINS QUARTER STRENGTH (0.125%) 480 ML BOTTLE TOP SCH (09:36)
--- NOTE | 2023-01-19 10:30 | NUR ---
COUNTY TREASURER NOTES JOAQUÍN NOT AVAILABLE AT THIS TIME. CALLED PHARMACY TWICE, WILL BRING SOON.
--- NOTE | 2023-01-19 11:02 | NUR ---
CIRCUIT RECORDER NOTE CHEST X RAY AND ABG DONE, REPORTED TO DR CLAUDIO ,NO NEW ORDER GIVEN AT THIS TIME ,AWARE THAT ON FLUIDS WATER FLUSH Q 6 HOUR 200 ML WILL F\U
--- NOTE | 2023-01-19 11:38 | NUR ---
STOCKBROKING DEALER NOTE RECEIVED ORDER FROM DR CLAUDIO TO DECREASE IVF TO 30 ML PER HOUR , AWARE THAT BNP [id number]
[2023-01-19] MEDS: Potassium Chloride 20 MEQ in IV D5/0.45 NACL 1,000 ML IV SCH (11:43)
--- NOTE | 2023-01-19 13:16 | NUR ---
INVESTMENT STRATEGIST NOTES RECEIVED CALLED FROM LAB, NO BLOOD AVAILABLE FOR TRANSFUSION AT THIS TIME. STATED TO CALL BACK IN AN HOUR. WILL FOLLOW UP
--- NOTE | 2023-01-19 15:56 | NUR ---
manager telemarketing nore rounds made, all needs attended , turn reposition done, call light within reach , will cont to monitor
--- NOTE | 2023-01-19 19:15 | NUR ---
HYDROMETEOROLOGICAL TECHNICIAN OPENING NOTES RECEIVED PATIENT IN BED, AAO X1, CONFUSED, O2 VIA NC AT 2L, NO SOB/DISTRESS NOTED. ON TELE MONITOR WITH ST HR 114. IV ACCESS ON JOEL PICC LINE AND RIJ PICC LINE, RUNNING KCL 20MEQ WITH D5 1/2 NS AT 30 ML/HR. GTF RUNNING AT 35 ML/HR, NO RESIDUAL NOTED. THOMAS CATHETER IN PLACE, DRAINING TO GRAVITY WITH CLEAR YELLOW URINE. FLEXISEAL IN PLACE, INTACT AND PATENT. HAS BILATERAL SOFT RESTRAINTS, CIRCULATION CHECKED. SAFETY MEASURES IN PLACE: BED LOCKED AND IN LOWEST POSITION, CALL LIGHT WITHIN REACH, SIDE RAILS UP X3.
--- NOTE | 2023-01-19 19:29 | NUR ---
VENEER LAYER NOTE ROUNDS MADE , ALL NEEDS ATTENDED .ON 2L NC WITH SLIGHT SOB NOTED, ON IVF ORDERED AND G TUBE FEEDING ,KEEP HOB ELEVATE AT ALLL TIME,BED IN LOWEST AND LOCKED POSITION , WILL MONITOR
[2023-01-20] VITALS (12 sets, daily range): BP systolic 101–132; BP diastolic 49–76
[2023-01-20] MEDS: BLOOD SUGAR DIAGNOSTIC 1 EACH STRIP IN SCH ×4 (00:37→18:03)
[2023-01-20] MEDS: INSULIN REGULAR, HUMAN 100 UNIT/ML 3 ML VIAL SQ PRN ×2 (00:39→06:28)
[2023-01-20] MEDS: ALBUTEROL FS 2.5 MG/0.5 ML VIAL.NEB NEB SCH ×4 (01:48→20:24)
[2023-01-20] MEDS: IPRATROPIUM NEB FS 0.5 MG/2.5 ML AMPUL.NEB NEB SCH ×4 (01:49→20:24)
[2023-01-20 05:53] LABS: BASOPHILS % (AUTO) 0.4 % (0.0-2.0); EOSINOPHILS % (AUTO) 2.1 % (0.0-6.0); LYMPHOCYTES # (AUTO) 1.3 K/uL (0.8-4.8); LYMPHOCYTES % (AUTO) 10.9 % (20.0-44.0); MEAN CORPUSCULAR HGB CONC 31 g/dl (31.0-36.0); MEAN CORPUSCULAR VOLUME 81 fL (82-100); MONOCYTES # (AUTO) 0.9 K/uL (0.1-1.30); MONOCYTES % (AUTO) 7.8 % (2.0-12.0); NEUTROPHILS # (AUTO) 9.1 K/uL (1.8-8.9); NEUTROPHILS % (AUTO) 78.8 % (43.0-81.0); PLATELET COUNT (AUTO) 272 K/uL (150-450); RED BLOOD CELL COUNT(AUTO) 2.52 MIL/uL (4.0-5.2); WHITE BLOOD COUNT (AUTO) 11.6 K/uL (4.3-11.0)
[2023-01-20] MEDS: VANCOMYCIN HCL 0.75 GM in IV D5W 250 ML IV SCH (06:18)
[2023-01-20 06:34] LABS: CALCIUM, SERUM 8.7 mg/dL (8.5-10.1); CREATININE 0.6 mg/dL (0.6-1.3); POTASSIUM 3.5 mmol/L (3.5-5.1)
--- NOTE | 2023-01-20 06:47 | NUR ---
PRE PRESS MANAGER CLOSING NOTES PATIENT IN BED, AAO X1, CONFUSED, O2 VIA NC AT 2L, NO SOB/DISTRESS NOTED. ON TELE MONITOR WITH ST HR 106. IV ACCESS ON JOEL PICC LINE AND RIJ PICC LINE, RUNNING KCL 20MEQ WITH D5 1/2 NS AT 30 ML/HR. GTF RUNNING AT 35 ML/HR, NO RESIDUAL NOTED. THOMAS CATHETER IN PLACE, DRAINING TO GRAVITY WITH CLEAR YELLOW URINE. FLEXISEAL IN PLACE, INTACT AND PATENT. HAS BILATERAL SOFT RESTRAINTS, CIRCULATION CHECKED. ALL DUE MEDS WERE GIVEN AND NEEDS ATTENDED. VSS. SAFETY MEASURES MAINTAINED: BED LOCKED AND IN LOWEST POSITION, CALL LIGHT WITHIN REACH, SIDE RAILS UP X3. WILL ENDORSE TO ONCOMING NURSE FOR ROGERIO.
[2023-01-20 06:51] LABS: HEMATOCRIT 20 % (33-45)
[2023-01-20 06:53] LABS: HEMOGLOBIN 6.3 g/dL (11.5-14.8)
--- NOTE | 2023-01-20 06:58 | NUR ---
ASPHALT SPREADER NOTE RECEIVED CRITICAL LAB VALUE, HGB 6.3
--- NOTE | 2023-01-20 07:44 | NUR ---
GAMBLING MONITOR OPENING NOTE RECEIVED PATIENT IN BED, AAO X1, CONFUSED, O2 VIA NC AT 2L, NO PAIN OR DISCOMFORT NOTED AT THIS TIME. ON TELE MONITOR. IV ACCESS ON JOEL PICC LINE AND RIJ PICC LINE, RUNNING KCL 20MEQ WITH D5 1/2 NS AT 30 ML/HR. GTF RUNNING AT 35 ML/HR, NO RESIDUAL NOTED. THOMAS CATHETER IN PLACE, DRAINING TO GRAVITY WITH CLEAR YELLOW URINE. FLEXISEAL IN PLACE, INTACT AND PATENT. HAS BILATERAL SOFT RESTRAINTS, CIRCULATION CHECKED. NO SKIN OR CIRCULATION ISSUES NOTED AT THIS TIME. ALL SAFETY MEASURES MAINTAINED: BED LOCKED AND IN LOWEST POSITION, BED ALARM ON. CALL LIGHT WITHIN REACH, SIDE RAILS UP X3.
[2023-01-20] MEDS: METOPROLOL TARTRATE 25 MG TABLET GT SCH ×3 (08:50→16:59)
[2023-01-20] MEDS: LEVOTHYROXINE SODIUM 100 MCG TABLET GT SCH (08:54)
[2023-01-20] MEDS: ARIPIPRAZOLE 5 MG TABLET GT SCH (08:54)
[2023-01-20] MEDS: FOLIC ACID 1 MG TABLET GT SCH (08:54)
[2023-01-20] MEDS: FAMOTIDINE (20 MG) 20 MG TABLET GT SCH ×2 (08:54→20:34)
[2023-01-20] MEDS: CEFEPIME 2 GM in IV D5W 100 ML IV SCH ×2 (08:55→20:34)
[2023-01-20] MEDS: DAKINS QUARTER STRENGTH (0.125%) 480 ML BOTTLE TOP SCH (09:41)
[2023-01-20] MEDS: MUPIROCIN OINT 2% 22 GM TUBE NS SCH ×2 (09:41→20:34)
[2023-01-20 11:17] LABS: EOSINOPHILS % (MANUAL) 2 % (0-4); LYMPHOCYTES % (MANUAL) 12 % (16-48); MONOCYTES % (MANUAL) 6 % (0-11.0); NEUTROPHILS % (MANUAL) 80 (42-76)
--- NOTE | 2023-01-20 11:27 | NUR ---
blood transfusion started
--- NOTE | 2023-01-20 11:50 | NUR ---
rn note increased to 100 ml/hr. no adverse reaction noted
[2023-01-20] MEDS: THERAHONEY GEL 1.5 OZ TUBE TP SCH (12:37)
--- NOTE | 2023-01-20 13:30 | NUR ---
rn note received call from saying that 2nd unit of blood will be late due to antibodies in blood and ordering from [facility]
[2023-01-20] MEDS: Potassium Chloride 20 MEQ in IV D5/0.45 NACL 1,000 ML IV SCH (13:31)
--- NOTE | 2023-01-20 13:53 | NUR ---
ongoing blood transfusion no adverse reaction noted
--- NOTE | 2023-01-20 14:51 | NUR ---
rn note blood transfusion complete. no adverse reactions noted at this time. pt vital signs stable
--- NOTE | 2023-01-20 19:07 | NUR ---
COMMUNICATIONS LEAD CLOSING NOTE PT STATUS POST 1 UNIT RBC BLOOD TRANSFUSION. PATIENT IN BED, AAO X1, CONFUSED, O2 VIA NC AT 2L, NO PAIN OR DISCOMFORT NOTED AT THIS TIME. ON TELE MONITOR. IV ACCESS ON JOEL PICC LINE AND RIJ PICC LINE, RUNNING KCL 20MEQ WITH D5 1/2 NS AT 30 ML/HR. GTF RUNNING AT 35 ML/HR, NO RESIDUAL NOTED. THOMAS CATHETER IN PLACE, DRAINING TO GRAVITY WITH CLEAR YELLOW URINE. FLEXISEAL IN PLACE, INTACT AND PATENT. HAS BILATERAL SOFT RESTRAINTS, CIRCULATION CHECKED. NO SKIN OR CIRCULATION ISSUES NOTED AT THIS TIME. ALL SAFETY MEASURES MAINTAINED: BED LOCKED AND IN LOWEST POSITION, BED ALARM ON. CALL LIGHT WITHIN REACH, SIDE RAILS UP X3. ENDORSED TO SUPERVISOR FIBERGLASS BOAT ASSEMBLY RN FOR CONUTITY OF CARE.
--- NOTE | 2023-01-20 19:35 | NUR ---
CELERY PACKER OPENING NOTE RECEIVED PT AWAKE IN BED. A/O X1 WITH EPISODES OF CONFUSION. PT ON O2 @ 2LPM VIA NC, TOLERATING WELL. NO SOB OR S/S OF RESPIRATORY DISTRESS. BREATHING EVEN AND UNLABORED. ON EXTERNAL CONTINUOUS IMPROVEMENT BLACK BELT READING ST 122 BPM. IV ACCESS JOEL PICC AND RIJ, RUNNING D5 1/2 NS @ 30 ML/HR. S/P 1 BAG PRBC, PENDING 1 MORE BAG PRBC. WITH GTUBE RUNNING GLUCERNA 1.2 @ 35 ML/HR. WITH THOMAS AND FLEXISEAL IN PLACE DRAINING BY GRAVITY. WITH BILATERAL SOFT WRIST RESTRAINTS, CIRCULATION CHECKED AND WNL. SAFETY PRECAUTIONS IN PLACE. BED IN LOWEST LOCKED POSITION, HOB ELEVATED, SIDE RAILS UP X3, AND CALL LIGHT AND TABLE WITHIN REACH. ALL NEEDS MET AT THIS TIME.
[2023-01-21] VITALS (7 sets, daily range): BP systolic 109–126; BP diastolic 55–91
[2023-01-21] MEDS: BLOOD SUGAR DIAGNOSTIC 1 EACH STRIP IN SCH ×4 (00:07→17:38)
--- NOTE | 2023-01-21 02:07 | NUR ---
RN NOTE BLOOD TRANSFUSION ENDED AT THIS TIME. NO ADVERSE REACTIONS NOTED.
[2023-01-21] MEDS: ALBUTEROL FS 2.5 MG/0.5 ML VIAL.NEB NEB SCH ×4 (02:14→20:24)
[2023-01-21] MEDS: IPRATROPIUM NEB FS 0.5 MG/2.5 ML AMPUL.NEB NEB SCH ×4 (02:14→20:24)
[2023-01-21] MEDS: VANCOMYCIN HCL 0.75 GM in IV D5W 250 ML IV SCH (05:15)
--- NOTE | 2023-01-21 06:27 | NUR ---
DIRECTOR CARDIAC CLOSING NOTE PT AWAKE IN BED. A/O X1 WITH EPISODES OF CONFUSION. PT ON O2 @ 2LPM VIA NC, TOLERATING WELL. NO SOB OR S/S OF RESPIRATORY DISTRESS. BREATHING EVEN AND UNLABORED. ON EXTERNAL LEAD HANDLER READING ST 109 BPM, WITH EPISODES OF AFIB. IV ACCESS JOEL PICC AND RIJ, RUNNING D5 1/2 NS @ 30 ML/HR, INTACT AND PATENT. S/P 1 BAG PRBC THIS SHIFT, NO ADVERSE REACTIONS. WITH GTUBE RUNNING GLUCERNA 1.2 @ 35 ML/HR, TOLERATING WELL, NO RESIDUAL. WITH THOMAS, DRAINED 900 ML, AND FLEXISEAL, DRAINED 100 ML, IN PLACE DRAINING BY GRAVITY. WITH BILATERAL SOFT WRIST RESTRAINTS, CIRCULATION CHECKED AND WNL. ALL DUE MEDS GIVEN ORDERED. KEPT CLEAN AND DRY. DRESSINGS C/D/I. SAFETY PRECAUTIONS IN PLACE AT ALL TIMES. BED IN LOWEST LOCKED POSITION, HOB ELEVATED, SIDE RAILS UP X3, AND CALL LIGHT AND TABLE WITHIN REACH. ALL NEEDS MET AT THIS TIME AND WILL ENDORSE TO ONCOMING NURSE FOR ROGERIO.
[2023-01-21 07:13] LABS: BASOPHILS # (AUTO) 0.1 K/uL (0.0-0.2); BASOPHILS % (AUTO) 0.5 % (0.0-2.0); HEMATOCRIT 28 % (33-45); HEMOGLOBIN 8.9 g/dL (11.5-14.8); LYMPHOCYTES # (AUTO) 1.3 K/uL (0.8-4.8); LYMPHOCYTES % (AUTO) 10.9 % (20.0-44.0); MEAN CORPUSCULAR HGB CONC 32 g/dl (31.0-36.0); MEAN CORPUSCULAR VOLUME 81 fL (82-100); MONOCYTES # (AUTO) 1.1 K/uL (0.1-1.30); MONOCYTES % (AUTO) 9.2 % (2.0-12.0); NEUTROPHILS # (AUTO) 9.1 K/uL (1.8-8.9); NEUTROPHILS % (AUTO) 77.4 % (43.0-81.0); PLATELET COUNT (AUTO) 270 K/uL (150-450); WHITE BLOOD COUNT (AUTO) 11.7 K/uL (4.3-11.0)
--- NOTE | 2023-01-21 07:20 | NUR ---
RN NOTE RECEIVED PATIENT IN BED RESTING CONFUSED,OPEN EYES ON 2L OXYGEN VIA NASAL CANNULA,O2:98%, WITH GTUBE RUNNING GLUCERNA 1.2 @ 35 ML/HR,CHECKED PLACEMENT, IN PLACE WITH 50CC RESIDUAL NOTED,IV SITE IS ON JOEL PICC LINE AND RIGHT IJ INTACT PATENT WITH IV HYDRATION D51/2NS WITH 20MEQ KCL AT 30CC/HR,THOMAS IN PLACE,RECTAL TUBE IN PLACE,NO BOWEL NOTED,BILATERAL WRIST RESTRAINS IN PLACE WILL CHECK EVERY 15 MINS FOR SKIN BREAKDOWN AND CIRCULATION,SAFETY MEASURE IMPLEMENT BED IN LOW POSITION AND LOCKED,HEAD OF THE BED ELEVATED CONTINUE TO MONITOR.
--- NOTE | 2023-01-21 07:20 | NUR ---
RN NOTE RECEIVED PATIENT IN BED RESTING,CONFUSED,OPEN EYES,ON 2L OXYGEN VIA NASAL CANNULA,O2,9 Addendum: 01/21/23 at 1232 by DOMINIK PROCTOR RN O2: Addendum: 01/21/23 at 1239 by DOMINIK PROCTOR RN PLS DISREGARD THIS NOTE,IT IS COMPUTER ERROR
[2023-01-21 07:21] LABS: CALCIUM, SERUM 8.7 mg/dL (8.5-10.1); CREATININE 0.7 mg/dL (0.6-1.3); POTASSIUM 3.6 mmol/L (3.5-5.1)
[2023-01-21] MEDS: FAMOTIDINE (20 MG) 20 MG TABLET GT SCH ×2 (08:52→21:11)
[2023-01-21] MEDS: ARIPIPRAZOLE 5 MG TABLET GT SCH (08:52)
[2023-01-21] MEDS: LEVOTHYROXINE SODIUM 100 MCG TABLET GT SCH (08:52)
[2023-01-21] MEDS: METOPROLOL TARTRATE 25 MG TABLET GT SCH ×2 (08:53→17:38)
[2023-01-21] MEDS: MUPIROCIN OINT 2% 22 GM TUBE NS SCH ×2 (08:54→21:13)
[2023-01-21] MEDS: DAKINS QUARTER STRENGTH (0.125%) 480 ML BOTTLE TOP SCH (08:54)
[2023-01-21] MEDS: THERAHONEY GEL 1.5 OZ TUBE TP SCH (08:55)
[2023-01-21] MEDS: FOLIC ACID 1 MG TABLET GT SCH (08:56)
[2023-01-21] MEDS: GLUCERNA 1.2 1,000 ML BOTTLE PEG SCH (12:45)
--- NOTE | 2023-01-21 17:15 | NUR ---
RN NOTE REPORT GIVEN TO KURT SEPULVEDA FOR CONTINUATION OF CARE. Addendum: 01/21/23 at 1744 by DOMINIK PROCTOR RN REPORT GIVEN TO JESSICA SEPULVEDA FOR CONTINUATION OF CARE.
--- NOTE | 2023-01-21 18:31 | NUR ---
PLASTIC PARTS DESIGNER CLOSING NOTES All due meds and tx given as ordered. Pt tolerated everything well. All needs attended to. Will endorse to oncoming nurse.
--- NOTE | 2023-01-21 19:30 | NUR ---
noc rn opening received patient in bed, a/ox1 only to name. sleeping intermittently. bilateral soft wrist restraints noted. no s/s of apparent distress on 2lpm of o2 via nc. reading st on the tele monitor with 103 bpm. G-tube feeding running glucerna @35mls/hr, goal is 75mls/hr. patient noted to have flexiseal draining. dominguez catheter draining clear, yellow dark urine. safety in place-- bed in lowest locked position, side rails up X4/ will continuw with the plan of care for patient.
--- NOTE | 2023-01-21 21:36 | NUR ---
meron sr note residual 270mls on Glucerna @35mls/hr. Messaged hospitalist Abdirahman Lyon. Addendum: 01/22/23 at 0030 by VIDAL SAL RN disregard. Dr. Moulton's patient.
--- NOTE | 2023-01-21 21:40 | NUR ---
noc rn note hold feeding for [address] Moulton then resume. residual 270ml. will monitor.
[2023-01-22] VITALS (7 sets, daily range): BP systolic 106–130; BP diastolic 50–91
[2023-01-22] MEDS: BLOOD SUGAR DIAGNOSTIC 1 EACH STRIP IN SCH ×5 (00:28→23:50)
[2023-01-22] MEDS: INSULIN REGULAR, HUMAN 100 UNIT/ML 3 ML VIAL SQ PRN ×3 (00:29→23:52)
--- NOTE | 2023-01-22 00:29 | NUR ---
noc rn note blood sugar 88. no coverage needed. residual 30 ml after 2 hours of resuming feeding. will monitor.
[2023-01-22] MEDS: ALBUTEROL FS 2.5 MG/0.5 ML VIAL.NEB NEB SCH ×5 (02:02→20:13)
[2023-01-22] MEDS: IPRATROPIUM NEB FS 0.5 MG/2.5 ML AMPUL.NEB NEB SCH ×5 (02:02→20:13)
[2023-01-22] MEDS: ACETAMINOPHEN 650 MG/20.3 ML UDC GT PRN ×2 (03:53→23:36)
--- NOTE | 2023-01-22 03:53 | NUR ---
noc rn note temp of 101. given Tylenol Oral Suspension 650mg as ordered PRN. started on cooling measures. will monitor.
[2023-01-22] MEDS: VANCOMYCIN HCL 0.75 GM in IV D5W 250 ML IV SCH (06:09)
--- NOTE | 2023-01-22 06:24 | NUR ---
noc rn note temp 98.1.
[2023-01-22 06:44] LABS: POTASSIUM 3.2 mmol/L (3.5-5.1)
[2023-01-22 06:45] LABS: CALCIUM, SERUM 8.9 mg/dL (8.5-10.1); CREATININE 0.6 mg/dL (0.6-1.3)
--- NOTE | 2023-01-22 07:31 | NUR ---
NOC RN NOTE NEEDS ATTENDED. REPORT GIVEN TO DERICK LEHMAN FOR CONTINUITY OF CARE.
[2023-01-22] MEDS: METOPROLOL TARTRATE 25 MG TABLET GT SCH ×2 (09:00→17:33)
[2023-01-22] MEDS ORDERED: POTASSIUM CHLORIDE 10 MEQ/50 ML PREMIXED IVPB FOR PERIPHERAL LINE IV ONE (09:00)
[2023-01-22] MEDS ORDERED: OLANZAPINE 10 MG VIAL IM PRN (09:00)
[2023-01-22] MEDS ORDERED: POTASSIUM CHLORIDE 20 MEQ POWDER PACKET GT ONE ×2 (09:00→12:00)
[2023-01-22] MEDS: FOLIC ACID 1 MG TABLET GT SCH (09:03)
[2023-01-22] MEDS: FAMOTIDINE (20 MG) 20 MG TABLET GT SCH ×2 (09:03→20:57)
[2023-01-22] MEDS: DAKINS QUARTER STRENGTH (0.125%) 480 ML BOTTLE TOP SCH (09:04)
[2023-01-22] MEDS: THERAHONEY GEL 1.5 OZ TUBE TP SCH (09:04)
[2023-01-22] MEDS: ARIPIPRAZOLE 5 MG TABLET GT SCH (09:04)
[2023-01-22] MEDS: MUPIROCIN OINT 2% 22 GM TUBE NS SCH ×2 (09:04→21:07)
[2023-01-22] MEDS: LEVOTHYROXINE SODIUM 100 MCG TABLET GT SCH (09:04)
--- NOTE | 2023-01-22 10:51 | NUR ---
RN NOTE RIJ REMOVED BY DR. CLAUDIO'S ORDER. AND RESTRAINS ALSO REMOVED THE RESTRAINS SO PATIENT CAN BE MONITOR AND BE DISCHARGE.
--- NOTE | 2023-01-22 10:57 | NUR ---
THE 2 BAGS OF POTASSIUM I RECEIVED IT FROM PHARMACY NOT FROM THE PIXEL THE PIXEL WAS EMPTY.
[2023-01-22] MEDS: MORPHINE SULFATE INJ 2 MG/ML DISP.SYRIN IV PRN (16:57)
--- NOTE | 2023-01-22 18:00 | NUR ---
patient c/o wheezing,tachypnea,ekg done relayed to dr. parks,breathing treatment done,with order to start on iv atb and no need for cxr,primary rn aware,aspiration precaution observed.
[2023-01-22] MEDS: IV NS 0.9% 1,000 ML IV PRN (18:42)
--- NOTE | 2023-01-22 18:50 | NUR ---
RN CLOSING NOTE PT AWAKE IN BED. A/O X1 WITH EPISODES OF CONFUSION. PT ON O2 @ 2LPM VIA NC, TOLERATING WELL. NO SOB OR S/S OF RESPIRATORY DISTRESS. BREATHING EVEN AND UNLABORED. ON EXTERNAL WATER TEAM LEADER READING ST 110 BPM, WITH EPISODES OF ST. IV ACCESS JOEL PICC, RUNNING NS 80 ML/HR THROUGH THE PICC LINE, INTACT AND PATENT. WITH GTUBE RUNNING GLUCERNA 1.2 @ 35 ML/HR, TOLERATING WELL, NO RESIDUAL. WITH THOMAS, DRAINED 750 ML, AND FLEXISEAL, DRAINED 100 ML, IN PLACE DRAINING BY GRAVITY. RESTRAINS REMOVED 48 HRS BEFORE PATIENT'S DISCHARGE TODAY AT 1100. ALL DUE MEDS GIVEN ORDERED. KEPT CLEAN AND DRY. DRESSINGS C/D/I. SAFETY PRECAUTIONS IN PLACE AT ALL TIMES. BED IN LOWEST LOCKED POSITION, HOB ELEVATED, SIDE RAILS UP X3, AND CALL LIGHT AND TABLE WITHIN REACH. ALL NEEDS MET AT THIS TIME AND WILL ENDORSE TO PM NURSE FOR ROGERIO.
[2023-01-22] MEDS ORDERED: PIPERACILLIN /TAZOBACTAM 3.375 G in IV D5W 50 ML IV SCH (19:00)
--- NOTE | 2023-01-22 19:20 | NUR ---
HAND CLOTH EXAMINER OPENING NOTES RECEIVED PATIENT IN BED, AAO X1, CONFUSED, O2 VIA NC AT 2L, NO SOB/DISTRESS NOTED. ON TELE MONITOR WITH ST HR 114. IV ACCESS ON JOEL PICC LINE RUNNING NS AT 80 ML/HR. GTF RUNNING AT 35 ML/HR, NO RESIDUAL NOTED. THOMAS CATHETER IN PLACE, DRAINING TO GRAVITY WITH CLEAR YELLOW URINE. FLEXISEAL IN PLACE, INTACT AND PATENT. SAFETY MEASURES IN PLACE: BED LOCKED AND IN LOWEST POSITION, CALL LIGHT WITHIN REACH, SIDE RAILS UP X3.
[2023-01-23] VITALS: BP 129/54
[2023-01-23] MEDS: IPRATROPIUM NEB FS 0.5 MG/2.5 ML AMPUL.NEB NEB SCH ×5 (01:59→19:02)
[2023-01-23] MEDS: ALBUTEROL FS 2.5 MG/0.5 ML VIAL.NEB NEB SCH ×5 (01:59→19:02)
[2023-01-23 04:00] VITALS: BP 118/73
[2023-01-23] MEDS: MORPHINE SULFATE INJ 2 MG/ML DISP.SYRIN IV PRN ×2 (04:33→15:50)
--- NOTE | 2023-01-23 04:43 | NUR ---
RN NOTE PATIENT COMPLAINED OF GENERALIZED PAIN. MORPHINE 2MG ADMINISTERED.
--- NOTE | 2023-01-23 06:27 | NUR ---
0627 Noted patient with labored breathing and nasal flaring, O2 saturation 95% on 2 liters O2. Wheezing noted when lung sound checked. HOB kept elevated for maximum oxygenation and aspiration precaution. Dr. Moulton notified with orders for chest xray and ANG. Radiology and respiratory notified of new orders. Patient being monitored closely.
--- NOTE | 2023-01-23 06:45 | NUR ---
0645 Dr. Moulton also notified that patient's GT site noted leaking large amount of yellowish drainage with order for CT abdomen no contrast. Order noted.
[2023-01-23 06:51] LABS: CALCIUM, SERUM 9.1 mg/dL (8.5-10.1); CREATININE 0.6 mg/dL (0.6-1.3); MAGNESIUM 1.7 mg/dL (1.8-2.4); POTASSIUM 4.3 mmol/L (3.5-5.1)
[2023-01-23 06:59] LABS: BASOPHILS # (AUTO) 0.1 K/uL (0.0-0.2); BASOPHILS % (AUTO) 0.4 % (0.0-2.0); EOSINOPHILS % (AUTO) 1.1 % (0.0-6.0); HEMATOCRIT 30 % (33-45); HEMOGLOBIN 9.2 g/dL (11.5-14.8); LYMPHOCYTES # (AUTO) 1.6 K/uL (0.8-4.8); LYMPHOCYTES % (AUTO) 11.1 % (20.0-44.0); MEAN CORPUSCULAR HGB CONC 31 g/dl (31.0-36.0); MEAN CORPUSCULAR VOLUME 83 fL (82-100); MONOCYTES # (AUTO) 1.3 K/uL (0.1-1.30); MONOCYTES % (AUTO) 8.6 % (2.0-12.0); NEUTROPHILS # (AUTO) 11.5 K/uL (1.8-8.9); NEUTROPHILS % (AUTO) 78.8 % (43.0-81.0); PLATELET COUNT (AUTO) 293 K/uL (150-450); RED BLOOD CELL COUNT(AUTO) 3.58 MIL/uL (4.0-5.2); WHITE BLOOD COUNT (AUTO) 14.6 K/uL (4.3-11.0)
[2023-01-23] MEDS ORDERED: IV D5/ 0.9% NACL 1,000 ML IV ONE (07:00)
--- NOTE | 2023-01-23 07:00 | NUR ---
RN NOTE PT BLOOD SUGAR 67. D50 IV PUSH GIVEN PER PROTOCOL. WILL RECHECK BS AGAIN
[2023-01-23] MEDS: DEXTROSE 50%-WATER 50 ML DISP.SYRIN IV PRN (07:05)
--- NOTE | 2023-01-23 07:05 | NUR ---
07 ABG result relayed to Dr. Moulton with order for Pulmo consult. Patient still with labored breathing. O2 saturation 94% on 2liters, tube feeding off. HOB elevated for maximum oxygenation and aspiration precaution. RT at bedside attending to patient. Endorsed to AM nurse.
[2023-01-23] MEDS: BLOOD SUGAR DIAGNOSTIC 1 EACH STRIP IN SCH ×4 (07:07→23:35)
--- NOTE | 2023-01-23 07:28 | NUR ---
FLIGHT ATTENDANT/INFLIGHT SUPERVISOR OPENING NOTES: RECEIVED PT IN BED patient c/o wheezing,tachypnea, ABG WAS DONE BY NOC SHIFT WAS RELAYED TO DR CLAUDIO AND OXYGEN TITRATED TO 5 LITER VIA NASAL CANULA,aspiration precaution observed, TUBE FEEDING ON HOLD DUE TO GT SITE LEAKING.IV FLUID RUNNING D5NS AT 80 ML/HR.THOMAS CATHETER IN PLACE PATENT DRAINING YELLOW CLEAR URINE, FLEXISEAL IN PLACE,, BED KEPT IN LOW AND LOCKED POSITION, CALL LIGHT WITHIN REACH, SIDE RAIL UP X 3, WILL MONITOR
--- NOTE | 2023-01-23 07:33 | NUR ---
0733 Dr. Hodges notified of pulmo consult for patient, ABG result relayed to him. No order at this time.
[2023-01-23] MEDS: VANCOMYCIN HCL 0.75 GM in IV D5W 250 ML IV SCH (07:34)
--- NOTE | 2023-01-23 07:40 | NUR ---
RN NOTE RECHECKED BLOOD SUGAR, 118.
--- NOTE | 2023-01-23 07:48 | NUR ---
RN NOTES: SPOKE TO DR CLAUDIO GT FEEDING ON HOLD IS IT OK TO CONTINUE TO FLUSH WITH 200 ML WATER EVERY 6 HOURS OR HOLD WITH ORDER TO CONTINUE TO FLUSH WITH WATER
--- NOTE | 2023-01-23 07:52 | NUR ---
FIRE CONTROL SYSTEM INSTALLER CLOSING NOTES PATIENT IN BED, AAO X1, WHEEZING AND TACHYPNEIC, TITRATED O2 VIA NC AT 5 L. GTF ON HOLD DUE TO GT SITE LEAKING. IV FLUID RUNNING D5 NS AT 80 ML/HR. THOMAS CATHETER IN PLACE PATENT DRAINING YELLOW CLEAR URINE, FLEXISEAL IN PLACE, SAFETY MEASURES IN PLACE: BED LOCKED AND IN LOWEST POSITION, CALL LIGHT WITHIN REACH, SIDE RAILS UP X3.
[2023-01-23 08:00] VITALS: BP 128/64
[2023-01-23 08:10] LABS: ABG BASE EXCESS 3.4 mmol/L; ABG OXYGEN SATURATION 95.3 % (92.0-98.5); ABG PCO2 46.3 mmHg (35.0-45.0); ABG PH 7.408 (7.350-7.450); ABG PO2 78.7 mmHg (75.0-100.0); AaDO2 66.3 mmHg; COHb 0.5 % (0.5-1.5); MetHb 0.3 % (0.0-1.5); O2Hb 94.5 % (94.0-97.0); SITE, ABG Right Brachial; VENT MODE, BG NASAL CANNULA
[2023-01-23] MEDS: methylPREDNISolone SOD SUCC 125 MG/2ML VIAL IV SCH ×3 (09:30→21:24)
[2023-01-23] MEDS: LEVOTHYROXINE SODIUM 100 MCG TABLET GT SCH (09:46)
[2023-01-23] MEDS: FAMOTIDINE (20 MG) 20 MG TABLET GT SCH ×2 (09:46→21:24)
[2023-01-23] MEDS: Magnesium 1GM/D5W 100ML PREMIX 100 ML IV SCH ×2 (09:46→13:57)
[2023-01-23] MEDS: METOPROLOL TARTRATE 25 MG TABLET GT SCH ×2 (09:47→17:00)
[2023-01-23] MEDS: FOLIC ACID 1 MG TABLET GT SCH (09:47)
[2023-01-23] MEDS: ARIPIPRAZOLE 5 MG TABLET GT SCH (09:47)
[2023-01-23] MEDS: methylPREDNISolone SOD SUCC 40 MG/ML VIAL IV ONE ×2 (09:47→09:59)
[2023-01-23] MEDS: MUPIROCIN OINT 2% 22 GM TUBE NS SCH ×2 (10:14→21:25)
[2023-01-23] MEDS: DAKINS QUARTER STRENGTH (0.125%) 480 ML BOTTLE TOP SCH (10:15)
[2023-01-23] MEDS: THERAHONEY GEL 1.5 OZ TUBE TP SCH (10:15)
[2023-01-23 12:00] VITALS: BP 96/54
[2023-01-23 16:00] VITALS: BP 89/48
[2023-01-23] MEDS: PIPERACILLIN /TAZOBACTAM 3.375 G in IV D5W 50 ML IV SCH ×2 (17:44→23:36)
--- NOTE | 2023-01-23 19:24 | NUR ---
RN CLOSING NOTE PT AWAKE IN BED. A/O X1 WITH EPISODES OF CONFUSION. PT ON O2 @ 5LPM VIA NC, TOLERATING WELL. NO SOB OR S/S OF RESPIRATORY DISTRESS. BREATHING EVEN AND UNLABORED. ON EXTERNAL PAY STATION COLLECTOR READING ST 110 BPM, WITH EPISODES OF ST. IV ACCESS JOEL PICC, RUNNING NS 80 ML/HR THROUGH THE PICC LINE, INTACT AND PATENT. WITH GTF ON HOLD, NO RESIDUAL. WITH THOMAS, DRAINED 550 ML, AND FLEXISEAL, DRAINED 5 ML, IN PLACE DRAINING BY GRAVITY.. ALL DUE MEDS GIVEN ORDERED. KEPT CLEAN AND DRY. DRESSINGS C/D/I. SAFETY PRECAUTIONS IN PLACE AT ALL TIMES. BED IN LOWEST LOCKED POSITION, HOB ELEVATED, SIDE RAILS UP X3, AND CALL LIGHT AND TABLE WITHIN REACH. ALL NEEDS MET AT THIS TIME AND WILL ENDORSE TO PM NURSE FOR ROGERIO.
--- NOTE | 2023-01-23 19:30 | NUR ---
RN NOTE REPORT RECEIVED FROM ELKE SEPULVEDA, PT IN BED, ON SEMI GIRON'S, IN NO ACUTE DISTRESS, CONFUSED, BREATHING APPEARS DEEP AND LABORED, SATURATION AT 100% ON 4L VIA NC, SR ON THE MONITOR, HR IS 73. JOEL PICC LINE WITH ALL HUBS PATENT AND FLUSHING WELL WITH D5NS AT 80 ML/HR. GTUBE IN PLACE, TUBE FEEDING ON HOLD. SAFETY MEASURES IN PLACE, HOB KEPT ELEVATED, BED IS LOCKED AND AT LOWEST POSITION, CALL LIGHT WITHIN REACH OF PATIENT. WILL CONT TO MONITOR AND REASSESS.
[2023-01-23 20:00] VITALS: BP 142/77
[2023-01-24] VITALS: BP 137/78
[2023-01-24] MEDS: VANCOMYCIN HCL 0.75 GM in IV D5W 250 ML IV SCH ×2 (00:39→17:51)
[2023-01-24] MEDS: IV NS 0.9% 1,000 ML IV PRN ×2 (01:38→15:22)
[2023-01-24] MEDS: IPRATROPIUM NEB FS 0.5 MG/2.5 ML AMPUL.NEB NEB SCH ×3 (02:28→07:51)
[2023-01-24] MEDS: ALBUTEROL FS 2.5 MG/0.5 ML VIAL.NEB NEB SCH ×3 (02:28→07:51)
[2023-01-24 04:00] VITALS: BP 113/72
[2023-01-24 05:44] LABS: BASOPHILS % (AUTO) 0.1 % (0.0-2.0); HEMATOCRIT 26 % (33-45); HEMOGLOBIN 8.3 g/dL (11.5-14.8); LYMPHOCYTES # (AUTO) 0.8 K/uL (0.8-4.8); LYMPHOCYTES % (AUTO) 8.6 % (20.0-44.0); MEAN CORPUSCULAR HGB CONC 32 g/dl (31.0-36.0); MEAN CORPUSCULAR VOLUME 83 fL (82-100); MONOCYTES # (AUTO) 0.3 K/uL (0.1-1.30); MONOCYTES % (AUTO) 3.2 % (2.0-12.0); NEUTROPHILS # (AUTO) 7.9 K/uL (1.8-8.9); NEUTROPHILS % (AUTO) 88.1 % (43.0-81.0); PLATELET COUNT (AUTO) 283 K/uL (150-450); RED BLOOD CELL COUNT(AUTO) 3.19 MIL/uL (4.0-5.2)
[2023-01-24 05:53] LABS: CALCIUM, SERUM 8.2 mg/dL (8.5-10.1); CREATININE 0.5 mg/dL (0.6-1.3); POTASSIUM 3.7 mmol/L (3.5-5.1)
[2023-01-24] MEDS: methylPREDNISolone SOD SUCC 125 MG/2ML VIAL IV SCH (06:11)
[2023-01-24] MEDS: BLOOD SUGAR DIAGNOSTIC 1 EACH STRIP IN SCH ×3 (06:11→17:07)
[2023-01-24] MEDS: PIPERACILLIN /TAZOBACTAM 3.375 G in IV D5W 50 ML IV SCH ×3 (06:11→16:57)
--- NOTE | 2023-01-24 07:06 | NUR ---
RN NOTE PT KEPT NPO PER ORDERS, D5NS WAS ORDERED ONCE ONLY, ENDORSED TO ACE SEPULVEDA TO VERIFY WITH DR CLAUDIO IF FEEDING SHOULD BE RESTARTED OR IF D5NS SHOULD BE MAINTAINED. CONTINUED NS AT 80 ML/HR THIS WAS THE ONLY FLUID THAT REMAINS ACTIVE IN EMAR. PT STABLE ON 3L VIA NC, SATURATION >92%.
--- NOTE | 2023-01-24 07:34 | NUR ---
RN OPEN NOTE PT AWAKE IN BED. A/O X1 WITH EPISODES OF CONFUSION. PT ON O2 @ 2 LPM VIA NC, TOLERATING WELL. NO SOB OR S/S OF RESPIRATORY DISTRESS. BREATHING EVEN AND UNLABORED. ON EXTERNAL FEED MANAGEMENT ADVISOR READING ST 87 BPM IV ACCESS JOEL PICC, RUNNING NS 80 ML/HR THROUGH THE PICC LINE, INTACT AND PATENT. WITH GTF ON HOLD, NO RESIDUAL. WITH THOMAS, DRAINNING CLEAR YELLOW URINE , AND FLEXISEALIN PLACE DRAINING BY GRAVITY.SAFETY PRECAUTIONS IN PLACE AT ALL TIMES. BED IN LOWEST LOCKED POSITION, HOB ELEVATED, SIDE RAILS UP X3, AND CALL LIGHT AND TABLE WITHIN REACH. WILL CONTINUE TO MONITOR
[2023-01-24 08:00] VITALS: BP 113/72
[2023-01-24] MEDS: ARIPIPRAZOLE 5 MG TABLET GT SCH (09:07)
[2023-01-24] MEDS: FAMOTIDINE (20 MG) 20 MG TABLET GT SCH ×2 (09:07→20:33)
[2023-01-24] MEDS: METOPROLOL TARTRATE 25 MG TABLET GT SCH ×2 (09:07→16:04)
[2023-01-24] MEDS: FOLIC ACID 1 MG TABLET GT SCH (09:07)
[2023-01-24] MEDS: MUPIROCIN OINT 2% 22 GM TUBE NS SCH ×2 (09:08→20:34)
[2023-01-24] MEDS: LEVOTHYROXINE SODIUM 100 MCG TABLET GT SCH (09:08)
[2023-01-24] MEDS: DAKINS QUARTER STRENGTH (0.125%) 480 ML BOTTLE TOP SCH (09:08)
[2023-01-24] MEDS: THERAHONEY GEL 1.5 OZ TUBE TP SCH (09:09)
[2023-01-24 12:29] VITALS: BP 135/72
[2023-01-24] MEDS: IPRATROPIUM NEB FS 0.5 MG/2.5 ML AMPUL.NEB NEB PRN ×2 (14:17→18:55)
[2023-01-24] MEDS: ALBUTEROL FS 2.5 MG/0.5 ML VIAL.NEB NEB PRN ×2 (14:17→18:55)
[2023-01-24 16:14] VITALS: BP 125/83
--- NOTE | 2023-01-24 18:56 | NUR ---
RN CLOSING NOTE PT AWAKE IN BED. A/O X1 WITH EPISODES OF CONFUSION. PT ON O2 @ 3 LPM VIA NC, TOLERATING WELL. NO SOB OR S/S OF RESPIRATORY DISTRESS. BREATHING EVEN AND UNLABORED. ON EXTERNAL SUPERVISOR STERILE PROCESSING READING ST 96 BPM, WITH EPISODES OF ST. IV ACCESS JOEL PICC, RUNNING NS 80 ML/HR THROUGH THE PICC LINE, INTACT AND PATENT. WITH GTUBE FEEDING GLUICERNA 20 ML/HR , NO RESIDUAL. WITH THOMAS, DRAINED 650 ML, AND FLEXISEAL, DRAINED 15 ML, IN PLACE DRAINING BY GRAVITY.. ALL DUE MEDS GIVEN ORDERED. KEPT CLEAN AND DRY. DRESSINGS C/D/I. SAFETY PRECAUTIONS IN PLACE AT ALL TIMES. BED IN LOWEST LOCKED POSITION, HOB ELEVATED, SIDE RAILS UP X3, AND CALL LIGHT AND TABLE WITHIN REACH. ALL NEEDS MET AT THIS TIME AND WILL ENDORSE TO CONSULTING PSYCHIATRIST NURSE FOR ROGERIO.
--- NOTE | 2023-01-24 19:10 | NUR ---
RN NOTE REPORT RECEIVED FROM ACE SEPULVEDA, PT IN BED, ON SEMI GIRON'S, SITTER AT BEDSIDE, IN NO ACUTE DISTRESS, CONFUSED, BREATHING APPEARS DEEP AND LABORED, SATURATION AT 100% ON 3L VIA NC, SR ON THE MONITOR, HR IS 86. JOEL PICC LINE WITH ALL HUBS PATENT AND FLUSHING WELL WITH NS AT 80 ML/HR. GTUBE IN PLACE, TUBE FEEDING OF GLUCERNA AT 20 ML/HR. SAFETY MEASURES IN PLACE, HOB KEPT ELEVATED, BED IS LOCKED AND AT LOWEST POSITION, CALL LIGHT WITHIN REACH OF PATIENT. WILL CONT TO MONITOR AND REASSESS.
[2023-01-24 20:00] VITALS: BP 136/62
[2023-01-25] VITALS: BP 137/82
[2023-01-25] MEDS: PIPERACILLIN /TAZOBACTAM 3.375 G in IV D5W 50 ML IV SCH ×2 (00:28→05:33)
[2023-01-25] MEDS: BLOOD SUGAR DIAGNOSTIC 1 EACH STRIP IN SCH ×4 (00:28→17:10)
[2023-01-25 04:00] VITALS: BP 142/91
[2023-01-25] MEDS: IV NS 0.9% 1,000 ML IV PRN (05:49)
--- NOTE | 2023-01-25 07:05 | NUR ---
RN OPEN NOTE PT AWAKE IN BED. A/O X1 WITH EPISODES OF CONFUSION. PT ON O2 @ 3 LPM VIA NC, TOLERATING WELL. NO SOB OR S/S OF RESPIRATORY DISTRESS. BREATHING EVEN AND UNLABORED. ON EXTERNAL BANKER [place]ON READING ST 96 BPM, WITH EPISODES OF ST. IV ACCESS JOEL PICC, RUNNING NS 80 ML/HR THROUGH THE PICC LINE, INTACT AND PATENT. WITH GTUBE FEEDING GLUICERNA 20 ML/HR , NO RESIDUAL. WITH THOMAS, DRAINING CLEAR YELLOW URINE , AND FLEXISEAL IN PLACE DRAINING BY GRAVITY. DRESSINGS C/D/I. SAFETY PRECAUTIONS IN PLACE ,BED IN LOWEST LOCKED POSITION, HOB ELEVATED, SIDE RAILS UP X3, AND CALL LIGHT AND TABLE WITHIN REACH. WILL CONTINUE TO MONITOR
--- NOTE | 2023-01-25 07:40 | NUR ---
RT called to pt room for breathing tx. PRN tx given.
[2023-01-25] MEDS: ALBUTEROL FS 2.5 MG/0.5 ML VIAL.NEB NEB PRN ×2 (07:50→15:55)
[2023-01-25] MEDS: IPRATROPIUM NEB FS 0.5 MG/2.5 ML AMPUL.NEB NEB PRN ×2 (07:50→15:55)
[2023-01-25 08:00] VITALS: BP 143/71
[2023-01-25] MEDS: ARIPIPRAZOLE 5 MG TABLET GT SCH (08:24)
[2023-01-25] MEDS: FAMOTIDINE (20 MG) 20 MG TABLET GT SCH (08:24)
[2023-01-25] MEDS: LEVOTHYROXINE SODIUM 100 MCG TABLET GT SCH (08:25)
[2023-01-25] MEDS: FOLIC ACID 1 MG TABLET GT SCH (08:25)
[2023-01-25] MEDS: METOPROLOL TARTRATE 25 MG TABLET GT SCH ×2 (08:26→16:29)
[2023-01-25] MEDS ORDERED: METO50TA16 PO (09:13)
[2023-01-25] MEDS ORDERED: VANC1PLA9 IV (09:16)
[2023-01-25] MEDS ORDERED: AMOX-430 PO (09:16)
[2023-01-25 09:26] LABS: CALCIUM, SERUM 8.7 mg/dL (8.5-10.1); CREATININE 0.6 mg/dL (0.6-1.3); POTASSIUM 3.5 mmol/L (3.5-5.1)
[2023-01-25] MEDS: THERAHONEY GEL 1.5 OZ TUBE TP SCH (09:31)
[2023-01-25] MEDS: DAKINS QUARTER STRENGTH (0.125%) 480 ML BOTTLE TOP SCH (10:16)
[2023-01-25] MEDS: methylPREDNISolone SOD SUCC 40 MG/ML VIAL IV SCH ×3 (10:31→21:30)
[2023-01-25] MEDS: VANCOMYCIN HCL 0.75 GM in IV D5W 250 ML IV SCH (11:42)
[2023-01-25] MEDS: ACETAMINOPHEN 650 MG/20.3 ML UDC GT PRN (11:47)
[2023-01-25 12:00] VITALS: BP 140/83
--- NOTE | 2023-01-25 12:30 | NUR ---
pt observed with 80cc brown residual from GT and unable to start GT feeding, spoke with Dr. Moulton with NO to stop GT feeding, start 0.9 NS at 80cc.hr and Protonix 4mg IVP BID, carried out.
[2023-01-25] MEDS ORDERED: IV NS 0.9% 1,000 ML IV PRN (13:30)
[2023-01-25] MEDS: PIPERACILLIN /TAZOBACTAM 3.375 G in IV D5W 100 ML IV SCH ×2 (13:34→21:33)
[2023-01-25 16:00] VITALS: BP 138/97
[2023-01-25] MEDS: PANTOPRAZOLE 40 MG VIAL IV SCH (16:28)
--- NOTE | 2023-01-25 18:45 | NUR ---
RN CLOSING NOTES PT AWAKE IN BED. A/O X1 WITH EPISODES OF CONFUSION. PT ON O2 @ 3 LPM VIA NC, TOLERATING WELL. NO SOB OR S/S OF RESPIRATORY DISTRESS. BREATHING EVEN AND UNLABORED. ON EXTERNAL SOLAR PHOTOVOLTAIC DESIGNER READING ST 84 BPM, . IV ACCESS JOEL PICC, RUNNING 0.9 NS 80 ML/HR THROUGH THE PICC LINE, INTACT AND PATENT. GT FEEDING ON HOLD SECONDARY TO 80CC BROWN RESIDUAL. CURRENT RESIDUAL 20CC BROWN. NO NAUSEA AND VOMITTING. ABDOMEN SOFT AND NON TENDER. WITH THOMAS, DRAINED 600 ML, AND FLEXISEAL, DRAINED 20 ML, IN PLACE DRAINING BY GRAVITY.. ALL DUE MEDS GIVEN ORDERED. KEPT CLEAN AND DRY. DRESSINGS C/D/I. SAFETY PRECAUTIONS IN PLACE AT ALL TIMES. WITH SITTER AT BEDSIDE. BED IN LOWEST LOCKED POSITION, HOB ELEVATED, SIDE RAILS UP X3, AND CALL LIGHT AND TABLE WITHIN REACH. ALL NEEDS MET AT THIS TIME AND WILL ENDORSE TO CONSTRUCTION SKILLS TEACHER NURSE FOR ROGERIO.
[2023-01-25 20:35] VITALS: BP 142/75
[2023-01-26] VITALS: BP 139/81
[2023-01-26] MEDS: BLOOD SUGAR DIAGNOSTIC 1 EACH STRIP IN SCH ×4 (00:38→17:39)
[2023-01-26] MEDS: INSULIN REGULAR, HUMAN 100 UNIT/ML 3 ML VIAL SQ PRN ×2 (00:39→05:29)
[2023-01-26] MEDS: IV D5/ 0.9% NACL 1,000 ML IV PRN ×2 (00:41→13:21)
[2023-01-26 04:00] VITALS: BP 138/95
[2023-01-26] MEDS: methylPREDNISolone SOD SUCC 40 MG/ML VIAL IV SCH ×3 (04:48→21:46)
[2023-01-26] MEDS: PIPERACILLIN /TAZOBACTAM 3.375 G in IV D5W 100 ML IV SCH ×4 (04:52→21:46)
[2023-01-26] MEDS: VANCOMYCIN HCL 0.75 GM in IV D5W 250 ML IV SCH (05:20)
--- NOTE | 2023-01-26 06:13 | NUR ---
END OF SHIFT REPORT Patient in bed, unclear speech, confused. Oxygen sat high 90's in 3L NC. Sinus Rhythm in the Tele monitor HR high 80's. Blood glucose monitored. JOEL PICC line intact, On IV abx. Afebrile. Rectal tube in place with liquid stool, small amt. Carias cath to drainage, output 600ml yellow. Wound care done to sacral/buttocks/BLE. Turned and repositioned q 2hr. Patient restless at times, trying to pulled out tubings/lines, sitter at bedside. GT still leaking. Abdomen GT site redness, wound consult placed. Plan for Continue Vancomycin for 6weeks. 20:30 Gastric residual 30ml brown, patient hx of diabetes. Gtube feeding held per RN am report d/t brown high residual. Notified Dr. Moulton with new orders, D5 NS at 75ml/hr. Hold Gtube feeding except medications. Order placed. Will endorse to oncoming RN.
[2023-01-26 07:18] LABS: HEMATOCRIT 30 % (33-45); HEMOGLOBIN 9.4 g/dL (11.5-14.8); LYMPHOCYTES # (AUTO) 0.5 K/uL (0.8-4.8); LYMPHOCYTES % (AUTO) 5.6 % (20.0-44.0); MEAN CORPUSCULAR HGB CONC 31 g/dl (31.0-36.0); MEAN CORPUSCULAR VOLUME 86 fL (82-100); MONOCYTES # (AUTO) 0.4 K/uL (0.1-1.30); MONOCYTES % (AUTO) 4.2 % (2.0-12.0); NEUTROPHILS # (AUTO) 8.4 K/uL (1.8-8.9); NEUTROPHILS % (AUTO) 90.2 % (43.0-81.0); PLATELET COUNT (AUTO) 372 K/uL (150-450); RED BLOOD CELL COUNT(AUTO) 3.52 MIL/uL (4.0-5.2); WHITE BLOOD COUNT (AUTO) 9.4 K/uL (4.3-11.0)
--- NOTE | 2023-01-26 07:40 | NUR ---
RN OPENING NOTE RECEIVED PT IN BED. PT UNCLEAR SPEECH AND PERIODS OF CONFUSION. PT ON TELE MONITOR. PT ON 3L NASAL CANNULA TOLERATING AT AOBE 92%. PT HAS L UPPER ARM PICC LINE. PT HAS RECTAL TUBE. THOMAS CATHETHER YELLOW COLOR DRAINING TO GRAVITY. PT HAS GTUBE. GTUBE NO RESIDUAL VOLUME NOTED AT THIS TIME. PT HAS RECTAL TUBE. AND THOMAS CATHETHER YELLOW COLOR DRAINING TO GRAVITY. ALL SAFETY MEASURES IN PLACE. BED LOCKED IN LOWEST POSITION. SIDE RAILS UP X2. BED ALARM ON. SITTER AT BEDSIDE
[2023-01-26 07:45] LABS: CALCIUM, SERUM 9.3 mg/dL (8.5-10.1); CREATININE 0.8 mg/dL (0.6-1.3); POTASSIUM 4.4 mmol/L (3.5-5.1)
[2023-01-26 08:00] VITALS: BP 150/75
[2023-01-26] MEDS: ARIPIPRAZOLE 5 MG TABLET GT SCH (08:38)
[2023-01-26] MEDS: LEVOTHYROXINE SODIUM 100 MCG TABLET GT SCH (08:38)
[2023-01-26] MEDS: FOLIC ACID 1 MG TABLET GT SCH (08:38)
[2023-01-26] MEDS: PANTOPRAZOLE 40 MG VIAL IV SCH ×2 (08:38→16:51)
[2023-01-26] MEDS: METOPROLOL TARTRATE 25 MG TABLET GT SCH ×2 (08:40→16:52)
[2023-01-26] MEDS: THERAHONEY GEL 1.5 OZ TUBE TP SCH (09:10)
[2023-01-26] MEDS: DAKINS QUARTER STRENGTH (0.125%) 480 ML BOTTLE TOP SCH (09:10)
[2023-01-26] MEDS: GLUCERNA 1.2 1,000 ML BOTTLE PEG SCH (09:26)
--- NOTE | 2023-01-26 09:47 | NUR ---
RN NOTE MADE ROUNDS WITH DR. CLAUDIO. SAID TO RESUME TUBE FEEDING STARTING RATE @ 10 ML/HR AND INCREASE TOLERATED
[2023-01-26 12:00] VITALS: BP_SYST 130; BP_SYST 132; BP_DIAS 65; BP_DIAS 68
--- NOTE | 2023-01-26 14:31 | NUR ---
rn note pt has redness around gtube site and gtube leaking. notified dr. parks. said to order wound care consult notified if we can hold tube feeding except medications.said okay to hold tube feedings. asked for gi consult
--- NOTE | 2023-01-26 14:50 | NUR ---
rn note notified that requested gi consult because of leaking around gtube site
[2023-01-26 16:00] VITALS: BP 135/73
--- NOTE | 2023-01-26 16:08 | NUR ---
rn note aware of gtube leaking and gi consult per
--- NOTE | 2023-01-26 19:25 | NUR ---
MEAT TEAM MEMBER CLOSING NOTE PT IN BED. PT UNCLEAR SPEECH AND PERIODS OF CONFUSION. PT ON TELE MONITOR. PT ON 3L NASAL CANNULA TOLERATING AT ABOVE 92%. PT HAS L UPPER ARM PICC LINE. IV INTACT, PATENT AND FLUSHING WELL. PT HAS RECTAL TUBE. INTACT AND DRY. THOMAS CATHETER YELLOW COLOR DRAINING TO GRAVITY. NO KINKS OR OBSTRUCTION NOTED. PT HAS GTUBE. GTUBE SITE CLEAN AND DRY. GTUBE LEAKED. KEPT SITE CLEAN AND DRY. AWARE AND ORDERED GI CONSULT AND DR. JOHNSON AWARE. PT HAS RECTAL TUBE. AND THOMAS CATHETER YELLOW COLOR DRAINING TO GRAVITY. WOUND CARE TREATMENT DONE. ORAL CARE DONE. TURNED AND REPOSITIONED.KEPT CLEAN AND DRY. ALL SAFETY MEASURES IN PLACE. BED LOCKED IN LOWEST POSITION. SIDE RAILS UP X2. BED ALARM ON. SITTER AT BEDSIDE.ENDORSED TO BUSINESS ANALYTICS ANALYST RN FOR CONTUITY OF CARE
--- NOTE | 2023-01-26 19:30 | NUR ---
[facility] RN OPENING NOTE RECEIVED PT IN BED. PT UNCLEAR SPEECH AND PERIODS OF CONFUSION. PT ON TELE MONITOR SR. PT ON 3L NASAL CANNULA TOLERATING SATING >95%. PT HAS L UPPER ARM PICC LINE RUNNING D5NS AT 75 ML/HR, PT HAS FLEXISEAL IN PLACED, THOMAS CATHETER DRAINING TO YELLOW COLORED URINE BY GRAVITY. PT HAS GTUBE IN PLACE, FEEDING HELD AT THIS TIME, ALL SAFETY MEASURES IN PLACE. BED LOCKED IN LOWEST POSITION. SIDE RAILS UP X2. BED ALARM ON. SITTER AT BEDSIDE, WILL CONTINUE TO MONITOR THROUGHOUT THE SHIFT.
[2023-01-26 20:00] VITALS: BP 126/62
[2023-01-27] VITALS: BP 146/111
[2023-01-27] MEDS: VANCOMYCIN HCL 0.75 GM in IV D5W 250 ML IV SCH ×2 (00:26→17:11)
[2023-01-27] MEDS: BLOOD SUGAR DIAGNOSTIC 1 EACH STRIP IN SCH ×5 (00:26→23:31)
[2023-01-27 04:00] VITALS: BP 141/75
[2023-01-27] MEDS: PIPERACILLIN /TAZOBACTAM 3.375 G in IV D5W 100 ML IV SCH ×3 (05:34→21:11)
[2023-01-27] MEDS: methylPREDNISolone SOD SUCC 40 MG/ML VIAL IV SCH ×3 (05:34→16:38)
[2023-01-27] MEDS: INSULIN REGULAR, HUMAN 100 UNIT/ML 3 ML VIAL SQ PRN ×3 (05:58→23:32)
[2023-01-27] MEDS: IV D5/ 0.9% NACL 1,000 ML IV PRN ×2 (06:16→21:12)
--- NOTE | 2023-01-27 06:48 | NUR ---
[facility] RN CLOSING NOTE PT REMAINS IN BED, ON 3L NASAL CANNULA TOLERATING SATING >95%. PT ON TELE MONITOR SR. HAS L UPPER ARM PICC LINE RUNNING D5NS AT 75 ML/HR, PT HAS FLEXISEAL IN PLACED, THOMAS CATHETER DRAINING TO YELLOW COLORED URINE BY GRAVITY. PT HAS GTUBE IN PLACE, FEEDING HELD AT THIS TIME, ALL DUE MEDS GIVEN, ALL SAFETY MEASURES IN PLACE. BED LOCKED IN LOWEST POSITION. SIDE RAILS UP X2. BED ALARM ON. SITTER AT BEDSIDE, WILL ENDORSE TO AM SHIFT NURSE FOR CONTINUITY OF CARE.
--- NOTE | 2023-01-27 07:14 | NUR ---
RN OPENING NOTE RECEIVED PT IN BED. PT UNCLEAR SPEECH AND PERIODS OF CONFUSION. PT ON TELE MONITOR. PT ON 3L NASAL CANNULA TOLERATING AT ABOVE 94%. PT HAS L UPPER ARM PICC LINE. PT HAS RECTAL TUBE. THOMAS CATHETER YELLOW COLOR DRAINING TO GRAVITY. PT HAS GTUBE. GTUBE NO RESIDUAL VOLUME NOTED AT THIS TIME. PT HAS RECTAL TUBE. ALL SAFETY MEASURES IN PLACE. BED LOCKED IN LOWEST POSITION. SIDE RAILS UP X2. BED ALARM ON. SITTER AT BEDSIDE
[2023-01-27 07:32] LABS: CALCIUM, SERUM 9.5 mg/dL (8.5-10.1); CREATININE 0.8 mg/dL (0.6-1.3); POTASSIUM 3.9 mmol/L (3.5-5.1)
[2023-01-27 08:00] VITALS: BP 145/78
[2023-01-27] MEDS: LEVOTHYROXINE SODIUM 100 MCG TABLET GT SCH (08:13)
[2023-01-27] MEDS: ARIPIPRAZOLE 5 MG TABLET GT SCH (08:13)
[2023-01-27] MEDS: FOLIC ACID 1 MG TABLET GT SCH (08:13)
[2023-01-27] MEDS: METOPROLOL TARTRATE 25 MG TABLET GT SCH ×2 (08:14→17:11)
[2023-01-27] MEDS: PANTOPRAZOLE 40 MG VIAL IV SCH ×2 (08:14→16:38)
[2023-01-27] MEDS: DAKINS QUARTER STRENGTH (0.125%) 480 ML BOTTLE TOP SCH (09:25)
[2023-01-27] MEDS: THERAHONEY GEL 1.5 OZ TUBE TP SCH (09:27)
--- NOTE | 2023-01-27 09:45 | NUR ---
rn note rounds made with . continue to hold tube feedings at this time except meds. pending gi consult with
--- NOTE | 2023-01-27 11:16 | NUR ---
WOUND CARE CONSULT: PT SEEN FOR LEAKAGE AROUND G TUBE SITE. G TUBE IS CLAMPED AT THIS TIME. FEEDING IS HELD. DEFER TO G I MD AND SURGICAL TEAM CURRENTLY ON CASE. DISCUSSED SKIN PROTECTION WITH NURSING STAFF. MD IN AGREEMENT WITH PLAN OF CARE.
[2023-01-27 12:00] VITALS: BP 155/64
[2023-01-27 16:00] VITALS: BP 146/86
--- NOTE | 2023-01-27 19:16 | NUR ---
TECHNICAL ASST CLOSING NOTE PT IN BED. PT UNCLEAR SPEECH AND PERIODS OF CONFUSION. PT ON TELE MONITOR. PT ON 3L NASAL CANNULA TOLERATING AT ABOVE 92%. PT HAS L UPPER ARM PICC LINE. IV INTACT, PATENT AND FLUSHING WELL. THOMAS CATHETER YELLOW COLOR DRAINING TO GRAVITY. NO KINKS OR OBSTRUCTION NOTED. PT HAS GTUBE. GTUBE SITE CLEAN AND DRY. GTUBE LEAKED. KEPT SITE CLEAN AND DRY. AWARE AND ORDERED GI CONSULT AND DR. JOHNSON AWARE. PENDING GI CONSULT. WOUND CARE TREATMENT DONE. ORAL CARE DONE. TURNED AND REPOSITIONED.KEPT CLEAN AND DRY. ALL SAFETY MEASURES IN PLACE. BED LOCKED IN LOWEST POSITION. SIDE RAILS UP X2. BED ALARM ON..ENDORSED TO MINERALOGY TEACHER RN FOR CONTUITY OF CARE
--- NOTE | 2023-01-27 19:30 | NUR ---
[facility] RN OPENING NOTE RECEIVED PT IN BED, AWAKE, A/O X 0, PT WITH UNCLEAR SPEECH AND PERIODS OF CONFUSION. CURRENTLY ON 3L NASAL CANNULA, TOLERATING WELL, SATING >95%. NO S/SX OF ACUTE RESPI DISTRESS NOTED AT THIS TIME. NO SOB, BREATHING IS EVEN AND UNLABORED. ON TELE MONITOR, SR. PT HAS L UPPER ARM PICC LINE, RUNNING D5NS AT 75 ML/HR, PATENT AND INTACT. PT HAS G TUBE IN PLACE, FEEDING HELD AT THIS TIME. THOMAS CATHETER NOTED, DRAINING YELLOW COLORED URINE BY GRAVITY. ALL SAFETY MEASURES IN PLACE: BED LOCKED IN LOWEST POSITION. SIDE RAILS UP X3. BED ALARM ON. CALL LIGHT WITHIN REACH. WILL CONTINUE TO MONITOR THROUGHOUT THE SHIFT.
[2023-01-27 20:00] VITALS: BP 125/61
[2023-01-28] VITALS: BP 145/90
[2023-01-28 04:00] VITALS: BP 142/75
[2023-01-28] MEDS: PIPERACILLIN /TAZOBACTAM 3.375 G in IV D5W 100 ML IV SCH ×3 (04:21→20:18)
[2023-01-28] MEDS: BLOOD SUGAR DIAGNOSTIC 1 EACH STRIP IN SCH ×3 (05:43→17:46)
[2023-01-28] MEDS: INSULIN REGULAR, HUMAN 100 UNIT/ML 3 ML VIAL SQ PRN ×3 (05:43→17:53)
[2023-01-28 05:49] LABS: EOSINOPHILS % (AUTO) 0.2 % (0.0-6.0); HEMATOCRIT 28 % (33-45); HEMOGLOBIN 8.7 g/dL (11.5-14.8); LYMPHOCYTES # (AUTO) 0.7 K/uL (0.8-4.8); LYMPHOCYTES % (AUTO) 7.1 % (20.0-44.0); MEAN CORPUSCULAR HGB CONC 31 g/dl (31.0-36.0); MEAN CORPUSCULAR VOLUME 85 fL (82-100); MONOCYTES # (AUTO) 0.7 K/uL (0.1-1.30); MONOCYTES % (AUTO) 6.7 % (2.0-12.0); NEUTROPHILS # (AUTO) 8.6 K/uL (1.8-8.9); PLATELET COUNT (AUTO) 421 K/uL (150-450); WHITE BLOOD COUNT (AUTO) 9.9 K/uL (4.3-11.0)
[2023-01-28 06:04] LABS: CALCIUM, SERUM 9.4 mg/dL (8.5-10.1); CREATININE 0.8 mg/dL (0.6-1.3); POTASSIUM 3.5 mmol/L (3.5-5.1)
--- NOTE | 2023-01-28 06:15 | NUR ---
RN CLOSING NOTE NO SIGNIFICANT CHANGE T/O THE NIGHT. PT REMAINED STABLE WITH NO S/SX OF ACUTE DISTRESS NOTED. ALL DUE MEDS GIVEN. NEEDS MET. WOUND CARE DONE. TURNED AND REPOSITIONED. WILL ENDORSE TO AM SHIFT NURSE FOR ROGERIO.
--- NOTE | 2023-01-28 07:30 | NUR ---
RN OPENING NOTE PT OBSERVED IN BED WITH HOB >40 DEGREES PT IS CONFUSED AT THIS TIME AND ON 3L NC O2 SAT 95 %. FC IS IN PLACE DRAINING URINE TO GRAVITY. PEG PLACEMENT CLAMPED AT THIS TIME DUE TO LEAKAGE AND ONLY USED FOR MEDS. IV ACCESS L UA PICC INFUSING WITH D5NS @75ML/HR. BED IS LOCKED IN LOWEST POSITION X2 BED RAILS UP AND HOSPITAL SITTER IS AT BEDSIDE AT THIS TIME. WILL CONTINUE TO MONITOR THIS SHIFT.
[2023-01-28 08:00] VITALS: BP 136/63
[2023-01-28] MEDS: ARIPIPRAZOLE 5 MG TABLET GT SCH (09:14)
[2023-01-28] MEDS: methylPREDNISolone SOD SUCC 40 MG/ML VIAL IV SCH (09:15)
[2023-01-28] MEDS: PANTOPRAZOLE 40 MG VIAL IV SCH ×2 (09:15→17:46)
[2023-01-28] MEDS: LEVOTHYROXINE SODIUM 100 MCG TABLET GT SCH (09:15)
[2023-01-28] MEDS: METOPROLOL TARTRATE 25 MG TABLET GT SCH ×2 (09:15→17:47)
[2023-01-28] MEDS: FOLIC ACID 1 MG TABLET GT SCH (09:16)
[2023-01-28] MEDS: DAKINS QUARTER STRENGTH (0.125%) 480 ML BOTTLE TOP SCH (09:17)
[2023-01-28] MEDS: THERAHONEY GEL 1.5 OZ TUBE TP SCH (09:17)
[2023-01-28] MEDS: VANCOMYCIN HCL 0.75 GM in IV D5W 250 ML IV SCH (11:05)
[2023-01-28] MEDS: IV D5/ 0.9% NACL 1,000 ML IV PRN (11:06)
[2023-01-28 12:00] VITALS: BP 137/73
[2023-01-28] MEDS ORDERED: GLUCERNA 1.2 1,000 ML BOTTLE GT PRN (13:30)
--- NOTE | 2023-01-28 14:30 | NUR ---
RN NOTE: THOMAS CATHETER NEW FC 16FR INSERTED WITHOUT COMPLICATION. OLD FC WAS LEAKING. WILL CONTINUE TO MONITOR THIS SHIFT.
[2023-01-28 16:00] VITALS: BP 148/84
--- NOTE | 2023-01-28 16:53 | NUR ---
RN NOTE: GTUBE GTUBE HAS NOT LEAKED DURING SHIFT AFTER MED ADMINISTRATION. PER DR. CLAUDIO, WILL RESUME TUBE FEEDING GLUCERNA 1.2 @10ML/HR AND CONTINUE TO MONITOR.
[2023-01-28] MEDS: GLUCERNA 1.2 1,000 ML BOTTLE PEG SCH (17:50)
--- NOTE | 2023-01-28 18:53 | NUR ---
RN CLOSING NOTE PT IN BED WITH HOB 35 DEGREES PT IS CONFUSED AT THIS TIME AND ON 3L NC O2 SAT 95 %. FC IS IN PLACE DRAINING URINE TO GRAVITY -400ML. PEG PLACEMENT DID NOT LEAK THIS SHIFT AND TF RESUMED AT 10ML/HR WITH GOAL OF 75ML/HR AND INCREASE BY 10ML/HR Q6HR. IV ACCESS L UA PICC INFUSING WITH D5NS @75ML/HR. BED IS LOCKED IN LOWEST POSITION X2 BED RAILS UP AND HOSPITAL SITTER IS AT BEDSIDE AT THIS TIME. WILL ENDORSE TO SUGAR LABORATORY ASSISTANT NURSE FOR ROGERIO.
--- NOTE | 2023-01-28 19:20 | NUR ---
RN OPENING NOTE RECEIVED PATIENT IN BED, AAO X1, CONFUSED. O2 VIA NC AT 3L NC, O2 SAT 95%. NO SOB/DISTRESS NOTED. ON TELE MONITOR SHOWING SINUS RHYTHM, HR 83. IV ACCESS JOEL PICC LINE INFUSING WITH D5 NS @ 75ML/HR. THOMAS CATHETER IN PLACE DRAINING CLEAR YELLOW URINE. GTF RUNNING AT 10ML/HR WITH GOAL OF 75ML/HR AND INCREASE BY 10ML/HR Q6H. SAFETY MEASURES IN PLACE: BED LOCKED AND IN LOWEST POSITION, SIDE RAILS UP X3, SITTER AT BEDSIDE.
[2023-01-28 20:00] VITALS: BP 145/66
[2023-01-29] VITALS (7 sets, daily range): BP systolic 128–144; BP diastolic 55–88
[2023-01-29] MEDS: INSULIN REGULAR, HUMAN 100 UNIT/ML 3 ML VIAL SQ PRN ×3 (00:01→23:36)
[2023-01-29] MEDS: IV D5/ 0.9% NACL 1,000 ML IV PRN (04:21)
[2023-01-29] MEDS: PIPERACILLIN /TAZOBACTAM 3.375 G in IV D5W 100 ML IV SCH ×3 (04:29→21:00)
[2023-01-29] MEDS: BLOOD SUGAR DIAGNOSTIC 1 EACH STRIP IN SCH ×5 (06:06→23:35)
--- NOTE | 2023-01-29 06:54 | NUR ---
RN CLOSING NOTE PATIENT IN BED, AAO X1, CONFUSED. O2 VIA NC AT 3L NC, O2 SAT 98%. NO SOB/DISTRESS NOTED. ON TELE MONITOR SHOWING SINUS RHYTHM, HR 83. IV ACCESS JOEL PICC LINE INFUSING WITH D5 NS @ 75ML/HR. NO S/SX OF INFILTRATION. THOMAS CATHETER IN PLACE DRAINING CLEAR YELLOW URINE. GTF RUNNING AT 10ML/HR WITH GOAL OF 75ML/HR AND INCREASE BY 10ML/HR Q6H. ALL DUE MEDS WERE GIVEN AND NEEDS ATTENDED. SAFETY MEASURES MAINTAINED: BED LOCKED AND IN LOWEST POSITION, SIDE RAILS UP X3, SITTER AT BEDSIDE. WILL ENDORSE TO AM NURSE FOR ROGERIO.
[2023-01-29 07:42] LABS: CALCIUM, SERUM 9.4 mg/dL (8.5-10.1); CREATININE 0.8 mg/dL (0.6-1.3); POTASSIUM 3.1 mmol/L (3.5-5.1)
[2023-01-29] MEDS ORDERED: POTASSIUM CHLORIDE 20 MEQ POWDER PACKET GT ONE (08:30)
[2023-01-29] MEDS: FOLIC ACID 1 MG TABLET GT SCH (08:52)
[2023-01-29] MEDS: methylPREDNISolone SOD SUCC 40 MG/ML VIAL IV SCH (08:53)
[2023-01-29] MEDS: ARIPIPRAZOLE 5 MG TABLET GT SCH (08:53)
[2023-01-29] MEDS: LEVOTHYROXINE SODIUM 100 MCG TABLET GT SCH (08:53)
[2023-01-29] MEDS: PANTOPRAZOLE 40 MG VIAL IV SCH ×2 (08:54→16:15)
[2023-01-29] MEDS: METOPROLOL TARTRATE 25 MG TABLET GT SCH ×2 (08:56→16:15)
[2023-01-29] MEDS: DAKINS QUARTER STRENGTH (0.125%) 480 ML BOTTLE TOP SCH (08:57)
[2023-01-29] MEDS: THERAHONEY GEL 1.5 OZ TUBE TP SCH (08:57)
--- NOTE | 2023-01-29 10:00 | NUR ---
PATIENT'S RESIDUAL AMOUNT IS 15 ML NOW, SO I INCREASED THE G TUBE FEEDING RATE FROM [address]'S ORDER, WHICH IS INCREASE LUZMA RATE 10 ML/HR EVERY 6 HRS
[2023-01-29] MEDS: METOCLOPRAMIDE HCL 10 MG/10 ML UDC PO SCH ×3 (12:34→23:13)
--- NOTE | 2023-01-29 13:20 | NUR ---
ABG DONE, PATIENT WENT FROM 3 L NC TO [address] NOW [address] BLOOD'S ORDER.
[2023-01-29] MEDS: VANCOMYCIN HCL 0.75 GM in IV D5W 250 ML IV SCH (13:51)
--- NOTE | 2023-01-29 13:53 | NUR ---
PER DR. BLOOD NOCTURNAL BIPAP 27/06 TITRATE OXYGEN TO 88-90% ABG IN AM
--- NOTE | 2023-01-29 16:15 | NUR ---
PATIENT HAS SOME WHEEZING LUNG SOUNDS I TURNED OFF THE G TUBE FEEDING, RT NOTIFIED TO COME AND GIVE SOME BREATHING TREATMENTS, DR. CLAUDIO NOTIFIED HE REPLIES OK.
[2023-01-29] MEDS: IPRATROPIUM NEB FS 0.5 MG/2.5 ML AMPUL.NEB NEB PRN (16:33)
[2023-01-29] MEDS: ALBUTEROL FS 2.5 MG/0.5 ML VIAL.NEB NEB PRN (16:33)
--- NOTE | 2023-01-29 18:00 | NUR ---
PLEASE CALL THE SON Heydi ALFONSO BEFORE DISCHARGE
--- NOTE | 2023-01-29 19:00 | NUR ---
RN CLOSING NOTE PATIENT IN BED, AO X1 CONFUSED O2 NC AT 2L NC, O2 SAT 95%. NO SOB/DISTRESS NOTED. ON TELE MONITOR SHOWING SINUS RHYTHM, HR 86. IV ACCESS JOEL PICC LINE INFUSING WITH D5 NS @ 75ML/HR. NO S/SX OF INFILTRATION. THOMAS CATHETER IN PLACE DRAINING CLEAR YELLOW URINE. GTF RUNNING AT 20ML/HR WITH GOAL OF 75ML/HR AND INCREASE BY 10ML/HR Q6H. ALL DUE MEDS WERE GIVEN AND NEEDS ATTENDED. SAFETY MEASURES MAINTAINED: BED LOCKED AND IN LOWEST POSITION, SIDE RAILS UP X3, SITTER AT BEDSIDE. WILL ENDORSE TO PM NURSE FOR ROGERIO.
--- NOTE | 2023-01-29 19:15 | NUR ---
RN OPENING NOTE RECEIVED PATIENT IN BED, AO X1 CONFUSED, O2 VIA NC AT 2L, O2 SAT 96%. NO SOB/DISTRESS NOTED. ON TELE MONITOR SHOWING SINUS RHYTHM, HR 79. IV ACCESS JOEL PICC LINE INFUSING WITH D5 NS @ 75ML/HR. NO S/SX OF INFILTRATION NOTED. THOMAS CATHETER IN PLACE DRAINING CLEAR YELLOW URINE. GTF RUNNING AT 20ML/HR WITH GOAL OF 75ML/HR AND INCREASE BY 10ML/HR Q6H. SAFETY MEASURES IN PLACE: BED LOCKED AND IN LOWEST POSITION, SIDE RAILS UP X3, SITTER AT BEDSIDE.
--- NOTE | 2023-01-29 21:00 | NUR ---
PLACED PT ON NOC BIPAP /, RATE 12, FI02 28% . BIPAP PLUGGED INTO RED OUTLET , ALARMS ON AND AUDIBLE. AMBU BAG AT BEDSIDE. NO RESPIRATORY DISTRESS NOTED. WILL CONTINUE TO MONITOR T/O SHIFT
--- NOTE | 2023-01-29 21:00 | NUR ---
RN NOTE RT AT BEDSIDE, PATIENT PLACED ON NOCTURNAL BIPAP.
[2023-01-30] VITALS (22 sets, daily range): BP systolic 123–171; BP diastolic 37–105
[2023-01-30] MEDS: PIPERACILLIN /TAZOBACTAM 3.375 G in IV D5W 100 ML IV SCH ×3 (05:46→21:27)
[2023-01-30] MEDS: METOCLOPRAMIDE HCL 10 MG/10 ML UDC PO SCH ×3 (05:47→17:00)
--- NOTE | 2023-01-30 06:00 | NUR ---
RN NOTE RT AT BEDSIDE, PATIENT IS OFF BIPAP AND PUT BACK TO NASAL CANULA AT 2L. O2 SAT 99%.
--- NOTE | 2023-01-30 06:15 | NUR ---
TAKEN OFF BIPAP AT THIS TIME. PLACED ON 2L NC , SPO2 99%
[2023-01-30] MEDS: BLOOD SUGAR DIAGNOSTIC 1 EACH STRIP IN SCH ×3 (06:31→17:09)
[2023-01-30] MEDS: INSULIN REGULAR, HUMAN 100 UNIT/ML 3 ML VIAL SQ PRN (06:31)
[2023-01-30 06:43] LABS: BASOPHILS # (AUTO) 0.1 K/uL (0.0-0.2); EOSINOPHILS % (AUTO) 0.8 % (0.0-6.0); HEMATOCRIT 28 % (33-45); HEMOGLOBIN 8.5 g/dL (11.5-14.8); LYMPHOCYTES # (AUTO) 0.5 K/uL (0.8-4.8); LYMPHOCYTES % (AUTO) 4.8 % (20.0-44.0); MEAN CORPUSCULAR HGB CONC 31 g/dl (31.0-36.0); MEAN CORPUSCULAR VOLUME 84 fL (82-100); MONOCYTES # (AUTO) 0.9 K/uL (0.1-1.30); MONOCYTES % (AUTO) 8.2 % (2.0-12.0); NEUTROPHILS # (AUTO) 9.6 K/uL (1.8-8.9); NEUTROPHILS % (AUTO) 85.2 % (43.0-81.0); PLATELET COUNT (AUTO) 381 K/uL (150-450); RED BLOOD CELL COUNT(AUTO) 3.28 MIL/uL (4.0-5.2); WHITE BLOOD COUNT (AUTO) 11.2 K/uL (4.3-11.0)
[2023-01-30 07:11] LABS: CALCIUM, SERUM 9.2 mg/dL (8.5-10.1); CREATININE 0.9 mg/dL (0.6-1.3); MAGNESIUM 1.5 mg/dL (1.8-2.4); POTASSIUM 3.2 mmol/L (3.5-5.1)
--- NOTE | 2023-01-30 07:23 | NUR ---
RN OPENING NOTE PATIENT IN BED, AO X1 CONFUSED, O2 VIA NC AT 2L, O2 SAT 96%. ON TELE MONITOR SHOWING SINUS RHYTHM, HR 81. IV ACCESS JOEL PICC LINE INFUSING WITH D5 NS @ 75ML/HR. NO S/SX OF INFILTRATION NOTED. THOMAS CATHETER IN PLACE DRAINING CLEAR YELLOW URINE. GTF RUNNING AT 20ML/HR WITH GOAL OF 75ML/HR AND INCREASE BY 10ML/HR Q6H. ALL DUE MEDS WERE GIVEN AND NEEDS ATTENDED. SAFETY MEASURES IN PLACE: BED LOCKED AND IN LOWEST POSITION, SIDE RAILS UP X3, SITTER AT BEDSIDE. ENDORSED TO AM NURSE FOR ROGERIO.
--- NOTE | 2023-01-30 07:23 | NUR ---
CUSTOMS OPENER VERIFIER PACKER OPENING NOTE PT IN BED. PT UNCLEAR SPEECH AND PERIODS OF CONFUSION. PT ON TELE MONITOR. PT ON 3L NASAL CANNULA TOLERATING AT ABOVE 93%. PT HAS L UPPER ARM PICC LINE. IV INTACT, PATENT AND FLUSHING WELL. THOMAS CATHETER YELLOW COLOR DRAINING TO GRAVITY. NO KINKS OR OBSTRUCTION NOTED. PT HAS GTUBE. GTUBE SITE.NO RESIDUAL VOLUME NOTED AT THIS TIME. ALL SAFETY MEASURES IN PLACE. BED LOCKED IN LOWEST POSITION. SIDE RAILS UP X2. BED ALARM ON
--- NOTE | 2023-01-30 09:15 | NUR ---
rn note gave report to Kalen Han rn for conutity of care
[2023-01-30] MEDS: IPRATROPIUM NEB FS 0.5 MG/2.5 ML AMPUL.NEB NEB SCH ×3 (11:30→23:32)
[2023-01-30] MEDS: ALBUTEROL FS 2.5 MG/0.5 ML VIAL.NEB NEB SCH ×3 (11:30→23:31)
--- NOTE | 2023-01-30 11:30 | NUR ---
TRANSFER TO ICU Abnormal blood gas reading , Dr. Hodges ordered patient transferred to ICU. Patient transferred via bed to ICU Room 254 at 11:25 AM. Report given to support services specialist for ROGERIO.
--- NOTE | 2023-01-30 11:30 | NUR ---
ICU/RN PT TRANSFERED FROM [facility].SOB ON 6L N/C SAT 100%.V/S STABLE,AFEBRILE.ABG DONE.PT NEED TO BE ON BIPAP PER DR BLOOD ORDER.RESPIRATORY THERAPIST NOTIFIED.PT IS LETHARGIC.OPEN EYES ON PAIN STIMULATION.LEFT UPPER ARM PICC LINE .IV STARTED ORDERED.G-TUBE FEEDING RESTARTED.F/C IN PLACE DRAINING WITH YELLOW URINE.GENERALIZED EDEMA PRESENT.PT IS OBESE.WA HAS SACRAL WOUND AND MULTIPLIES WOUNDS ON THE LEG COVERED WITH DRESSING.LABS REVIEW.MG -1.5.REPLACEMENT STARTED.REPOSITION FOR COMFORT.
[2023-01-30] MEDS: GLUCERNA 1.2 1,000 ML BOTTLE PEG SCH (12:13)
--- NOTE | 2023-01-30 12:15 | NUR ---
AUTOMOBILE RELOCATION ENGINEER NOTE RECEIVED PATIENT FROM CESAR RN , PATIENT ON 6L NC SATURATION 91% AT THIS TIME, AWAKE WITH CONFUSION, ON TELE MONITOR SR HR 98, WITH G TUBE FEDING AT 20 ML PER HOUR NO RESIDUAL NOTED ,KEEP HOB ELEVATED AT ALL TIME, JOEL PICC LINE IN PLACE ON IVF ORDERED BED IN LOWEST AND LOCKED POSITION STILL WITH SLIGHT SOB NOTED , WILL CONT TO MONITOR SAFETY MEASURE PROVIDED,
[2023-01-30] MEDS: IV D5/ 0.9% NACL 1,000 ML IV PRN (12:17)
[2023-01-30] MEDS: Magnesium 1GM/D5W 100ML PREMIX 100 ML IV SCH ×2 (12:21→13:28)
[2023-01-30] MEDS: PANTOPRAZOLE 40 MG VIAL IV SCH ×2 (12:25→16:26)
[2023-01-30] MEDS: METOPROLOL TARTRATE 25 MG TABLET GT SCH ×2 (12:26→16:30)
[2023-01-30] MEDS: LEVOTHYROXINE SODIUM 100 MCG TABLET GT SCH (12:26)
[2023-01-30] MEDS: ARIPIPRAZOLE 5 MG TABLET GT SCH (12:26)
[2023-01-30] MEDS: POTASSIUM CHLORIDE 20 MEQ POWDER PACKET GT SCH ×2 (12:26→13:48)
[2023-01-30] MEDS: FOLIC ACID 1 MG TABLET GT SCH (12:27)
[2023-01-30] MEDS: THERAHONEY GEL 1.5 OZ TUBE TP SCH (12:27)
[2023-01-30] MEDS: DAKINS QUARTER STRENGTH (0.125%) 480 ML BOTTLE TOP SCH (12:27)
--- NOTE | 2023-01-30 12:30 | NUR ---
apiculture teacher note all am meds given now for 0900 ,was not given am nurse
[2023-01-30] MEDS: VANCOMYCIN HCL 0.75 GM in IV D5W 250 ML IV SCH (14:17)
--- NOTE | 2023-01-30 14:21 | NUR ---
agricultural technician note called x2 rt to do abg stated that will come soon
--- NOTE | 2023-01-30 14:23 | NUR ---
STATISTICAL PROGRAMMER NOTE CALLED TO PHARMACY OK TO GIVE VANCO ,PATIENT LEVEL OF VANCO 22
--- NOTE | 2023-01-30 14:30 | NUR ---
RT PATIENT PLACED ON BIPAP FOR SOB. TOLERATED WELL. PATIENT APPEARS MORE COMFORTABLE ON BIPAP. RN NOTIFIED Addendum: 01/30/23 at 1504 by MACARENA RASHEED RT Amended: Links added.
--- NOTE | 2023-01-30 14:30 | NUR ---
TUGBOAT DISPATCHER NOTE NOTED DESATURATING . SATURATION 85% ON 6L NC AND SOB CALLED TO RT TO PLACE BIPAP MACHINE PER DR BLOOD ORDER, WILL F\U
--- NOTE | 2023-01-30 14:32 | NUR ---
HOTEL OPERATION MANAGER NOTE RT AT BEDSIDE STATED, NO NEED ABG DONE ALREADY, PLACED ON BIPAP SETTING 18/8 FIO2 30% SATURATION 98%, WILL MONITOR
--- NOTE | 2023-01-30 14:54 | NUR ---
DRUPAL PHP DEVELOPER NOTE PATIENT AT RISK TO REMOVE ALL LINES AND BIIPAP , CALLED TO DR CLAUDIO WITH ORDER TO PLACE SOFT RESTRAIN AT THIS TIME , WILL MONITOR
--- NOTE | 2023-01-30 15:32 | NUR ---
AVIATION PROGRAM MANAGER NOTE SPOKE WITH ENMANUEL DAUGHTER ,NOTIFIED THAT PATIENT IN ICU NOW AND NEEDS SOFT RESTRAIN SAY OK ,WILL F\U
--- NOTE | 2023-01-30 16:01 | NUR ---
DRESSMAKER OR TAILOR NOTE SPOKE WITH SON UPDATED, PATIENT CONDITION , AWARE THAT PATIENT ON SOFT RESTRAIN AT THIS TIME DUE TO PATIENT REMOVING ALL LINES AND BIPAP MACHINE
--- NOTE | 2023-01-30 17:00 | NUR ---
arboriculturist note removed soft restrain to monitor patient stayed with patient, explained not to remove bipap machine mask ,all lines but patient still strongly trying to remove all lines and bipap machine , placed back on soft restrain
--- NOTE | 2023-01-30 18:24 | NUR ---
MANAGER OF COMPENSATION NOTE PATIENT IN BED AWAKE JANA WITH CONFUSION, ON BIPAP SETTING ORDERED 18/ FIO2 30% 98% SATURATION AT THIS TIME, WITH THOMAS CATH TO GRAVITY WITH YELLOW COLOR URINE WITH G TUBE FEEDING ORDERED AT 20 ML PER HOUR ,KEEP HOB ELEVATED, NO RESIDUAL NOTED AT THIS TIME, ,PATIENT HAS JOEL PICC LINE, ON IVF ORDERED, , WITH SOFT RESTAN FOR NOW, PATIENT AT HIGH RISK TO REMOVE ALL LINES AND BIPAP MASK , PICC LINE INTACT AND AND FLUSHED WELL , DRESSING ON SACRUM AND L THIGH INTACT , KEEP CLEAN DRY , BED IN LOWEST AND LOCKED POSITION , CALL LIGHT WITHIN REACH, SAFETY MEASURE IN PLACED , WILL CONT TO MONITOR CLOSELY
--- NOTE | 2023-01-30 19:15 | NUR ---
ICU/ENVIRONMENTAL ENGINEERING TECHNICIAN REPORT RECIEVED FROM DAY DERICK LEIGH. SEE FLOWSHEET FOR ASSESSMENT. SEE IV SPREAD SHEET FOR IV'S. PT WAS TURNED AND REPOSITIONED FOR COMFORT AND CARE
--- NOTE | 2023-01-30 19:45 | NUR ---
ICU/TWISTING FRAME FIXER FAMILY CAME IN TO SEE PT, ASKED REASONABLE QUESTIONS ABOUT TODAY'S EVENT THAT BROUGHT PT UP FROM [facility] TO ICU.
--- NOTE | 2023-01-30 21:15 | NUR ---
SUPERVISOR NEWSPAPER DELIVERIES NOTE RECEIVED PTS AND REPORT FROM JIM IN BED AWAKE WITH CONFUSION, V/S STABLE AFEBRILE .ON BIPAP SETTING ORDERED 18/ FIO2 30% 100%% SATURATION AT THIS TIME, WITH THOMAS CATH TO GRAVITY WITH YELLOW COLOR URINE WITH G TUBE FEEDING ORDERED AT JEVITY 20 ML PER HOUR ,KEEP HOB ELEVATED, NO RESIDUAL NOTED AT THIS TIME, ,WITH JOEL PICC LINE, ON IVF ORDERED,D5NS AT 75CC/HR INFUSING WELL , WITH BILATERAL SOFT RESTRAINT TO PREVENT PTS PULLING INVASIVE TUBINGS ALL LINES AND BIPAP MASK , PICC LINE INTACT AND AND FLUSHED WELL , BED IN LOWEST AND LOCKED POSITION , CALL LIGHT WITHIN REACH, SAFETY MEASURE IN PLACED , WILL CONT TO MONITOR CLOSELY
--- NOTE | 2023-01-30 21:15 | NUR ---
ICU/EQUIPMENT INSPECTOR GAVE REPORT TO ON COMING DERICK SAUER FOR CONTINUITY OF CARE.
[2023-01-30 21:36] LABS: ABG BASE EXCESS 4.7 mmol/L; ABG OXYGEN SATURATION 95.9 % (92.0-98.5); ABG PCO2 69.1 mmHg (35.0-45.0); ABG PH 7.293 (7.350-7.450); ABG PO2 86.7 mmHg (75.0-100.0); AaDO2 60.6 mmHg; COHb 0.2 % (0.5-1.5); MetHb 0.2 % (0.0-1.5); O2Hb 95.5 % (94.0-97.0); SITE, ABG Left Radial; VENT MODE, BG NASAL CANNULA
[2023-01-30 21:36] LABS: ABG BASE EXCESS 2.7 mmol/L; ABG OXYGEN SATURATION 80.7 % (92.0-98.5); ABG PCO2 61.5 mmHg (35.0-45.0); ABG PH 7.307 (7.350-7.450); ABG PO2 45.8 mmHg (75.0-100.0); AaDO2 81.3 mmHg; COHb 0.2 % (0.5-1.5); MetHb 0.3 % (0.0-1.5); O2Hb 80.3 % (94.0-97.0); SITE, ABG Left Radial; VENT MODE, BG NASAL CANNULA
--- NOTE | 2023-01-30 23:18 | NUR ---
AIR BATTLE MANAGER NOTES BED BATH AND DRESSING TO WOUND DONE ORDERED PTS NOTED WITH LARGED BM , KEPT PTS CLEAN AND DRY .TURN PTS AND REPOSITION KEPT PTS DRY COMFORTABLE ALL NEEDS ATTENDED TOO. DUE IV ATB MEDS GIVEN ORDERED. WILL CONTINUE TO MONITOR PTS.
[2023-01-31] VITALS (24 sets, daily range): BP systolic 111–167; BP diastolic 16–104
--- NOTE | 2023-01-31 01:00 | NUR ---
MATRIX INSPECTOR NOTES BLOOD SUJGAR for 12mn is 124 mg/dl no coverage per sliding scale.will continue to monitor pts.
[2023-01-31] MEDS: BLOOD SUGAR DIAGNOSTIC 1 EACH STRIP IN SCH ×4 (01:31→18:12)
[2023-01-31] MEDS: INSULIN REGULAR, HUMAN 100 UNIT/ML 3 ML VIAL SQ PRN ×2 (01:32→05:52)
[2023-01-31] MEDS: MORPHINE SULFATE INJ 2 MG/ML DISP.SYRIN IV PRN (02:10)
[2023-01-31] MEDS: IV D5/ 0.9% NACL 1,000 ML IV PRN ×2 (03:06→17:14)
[2023-01-31] MEDS: PIPERACILLIN /TAZOBACTAM 3.375 G in IV D5W 100 ML IV SCH ×3 (04:30→21:29)
[2023-01-31] MEDS: ALBUTEROL FS 2.5 MG/0.5 ML VIAL.NEB NEB SCH ×6 (04:46→23:34)
[2023-01-31] MEDS: IPRATROPIUM NEB FS 0.5 MG/2.5 ML AMPUL.NEB NEB SCH ×6 (04:46→23:34)
--- NOTE | 2023-01-31 05:05 | NUR ---
RECREATION THERAPIST NOTES BLOOD SUJGAR for 0600 is 107 mg/dl no coverage per sliding scale.will continue to monitor pts.
[2023-01-31 05:08] LABS: CREATININE 0.8 mg/dL (0.6-1.3); POTASSIUM 3.5 mmol/L (3.5-5.1)
[2023-01-31] MEDS: METOCLOPRAMIDE HCL 10 MG/10 ML UDC PO SCH ×4 (05:53→17:18)
--- NOTE | 2023-01-31 07:10 | NUR ---
BEAUTY DIRECTOR NOTE RECEIVED PATIENT IN BED RESTING ALERT ORIENTEDX1 CONFUSED ON BIPAP PRESCRIBED,IV SITE IS ON LEFT UPPER ARM PICC LINE INTACT PATENT ON IV HYDRATION D5NS 75CC/HR,THOMAS CATH IN PLACE,URINE DRAINING YELLOW/CLEAR BY GRAVITY,ON G-TUBE FEEDING CHECKED PLACEMENT IN PLACE GLUCERNA 20CC/HR.SOFT BILATERAL RESTRAINS IN PLACE WILL CHECK EVERY 15MINS FOR SKIN BREAK DOWN AND CIRCULATION,SAFETY MEASURE IMPLEMENT BED IN LOW POSITION AND LOCKED,HEAD OF THE BED ELEVATED CONTINUE TO MONITOR.
[2023-01-31] MEDS: METOPROLOL TARTRATE 25 MG TABLET GT SCH ×2 (08:07→17:18)
[2023-01-31] MEDS: ARIPIPRAZOLE 5 MG TABLET GT SCH (08:07)
[2023-01-31] MEDS: LEVOTHYROXINE SODIUM 100 MCG TABLET GT SCH (08:07)
[2023-01-31] MEDS: PANTOPRAZOLE 40 MG VIAL IV SCH (08:07)
[2023-01-31] MEDS: FOLIC ACID 1 MG TABLET GT SCH (08:07)
[2023-01-31] MEDS: DAKINS QUARTER STRENGTH (0.125%) 480 ML BOTTLE TOP SCH (08:09)
[2023-01-31] MEDS: THERAHONEY GEL 1.5 OZ TUBE TP SCH (08:53)
[2023-01-31] MEDS ORDERED: PANTOPRAZOLE 40 MG/PACK PACK GT SCH (09:00)
[2023-01-31] MEDS: methylPREDNISolone SOD SUCC 40 MG/ML VIAL IV SCH ×3 (09:09→21:30)
[2023-01-31] MEDS: LOPERAMIDE HCL UDC 2 MG/15 ML LIQUID GT PRN (12:17)
[2023-01-31] MEDS ORDERED: methylPREDNISolone SOD SUCC 125 MG/2ML VIAL IV SCH (13:30)
[2023-01-31] MEDS: CLONIDINE HCL 0.1 MG TABLET GT PRN (13:41)
[2023-01-31] MEDS: VANCOMYCIN HCL 0.75 GM in IV D5W 250 ML IV SCH (14:40)
[2023-01-31] MEDS: PANTOPRAZOLE 40 MG/PACK PACK GT SCH (17:17)
--- NOTE | 2023-01-31 18:35 | NUR ---
EMPLOYEE HEALTH NURSE NOTE PATIENT REMAINS,ALERT ORIENTED X1 CONFUSED,VERBALLY RESPONSIVE ON 4L OXYGEN VIA NASAL CANNULA,O2:99% IV SITE IS ON LEFT UPPER ARM PICC LINE ON IV HYDRATION D5NS 75CC/HR,THOMAS CATH IN PLACE,G-TUBE IN PLACE NO RESIDUAL NOTED,ALL DUE MEDS GIVEN MD ORDERED KEPT CLEAN AND DRY ALL THE TIME,WOUND TREATMENT DONE,TURNED AND REPOSITIONED EVERY 2 HOURS,BILATERAL WRIST RESTRAIN IN PLACE NO SKIN BREAKDOWN,CHECKED EVERY 15 MINS FOR CIRCULATION,KEPT HEAD OF THE BED ELEVATED ALL THE TIME,WILL ENDORSE NEXT COMING SHIFT FOR CONTINUATION OF CARE.
--- NOTE | 2023-01-31 23:53 | NUR ---
PT PLACED ON NOC BIPAP RN NOTIFIED.
[2023-02-01] VITALS (25 sets, daily range): BP systolic 85–172; BP diastolic 28–100
[2023-02-01] MEDS: METOCLOPRAMIDE HCL 10 MG/10 ML UDC PO SCH ×4 (00:14→17:52)
[2023-02-01] MEDS: IPRATROPIUM NEB FS 0.5 MG/2.5 ML AMPUL.NEB NEB SCH ×6 (03:30→19:48)
[2023-02-01] MEDS: ALBUTEROL FS 2.5 MG/0.5 ML VIAL.NEB NEB SCH ×6 (03:30→19:48)
[2023-02-01] MEDS: methylPREDNISolone SOD SUCC 40 MG/ML VIAL IV SCH ×3 (05:04→20:50)
[2023-02-01] MEDS: PIPERACILLIN /TAZOBACTAM 3.375 G in IV D5W 100 ML IV SCH ×3 (05:05→20:50)
[2023-02-01 05:07] LABS: BASOPHILS % (AUTO) 0.1 % (0.0-2.0); EOSINOPHILS % (AUTO) 0.1 % (0.0-6.0); HEMATOCRIT 26 % (33-45); HEMOGLOBIN 7.9 g/dL (11.5-14.8); LYMPHOCYTES # (AUTO) 0.5 K/uL (0.8-4.8); LYMPHOCYTES % (AUTO) 4.6 % (20.0-44.0); MEAN CORPUSCULAR HGB CONC 31 g/dl (31.0-36.0); MEAN CORPUSCULAR VOLUME 86 fL (82-100); MONOCYTES # (AUTO) 0.4 K/uL (0.1-1.30); MONOCYTES % (AUTO) 3.4 % (2.0-12.0); NEUTROPHILS % (AUTO) 91.8 % (43.0-81.0); PLATELET COUNT (AUTO) 397 K/uL (150-450); RED BLOOD CELL COUNT(AUTO) 3.01 MIL/uL (4.0-5.2); WHITE BLOOD COUNT (AUTO) 10.9 K/uL (4.3-11.0)
[2023-02-01 05:24] LABS: CALCIUM, SERUM 7.9 mg/dL (8.5-10.1); CREATININE 0.9 mg/dL (0.6-1.3); POTASSIUM 3.3 mmol/L (3.5-5.1)
--- NOTE | 2023-02-01 05:45 | NUR ---
PT TAKEN OFF BIPAP AND PLACED ON 4L NC
[2023-02-01] MEDS: BLOOD SUGAR DIAGNOSTIC 1 EACH STRIP IN SCH ×4 (06:00→18:33)
[2023-02-01] MEDS: IV D5/ 0.9% NACL 1,000 ML IV PRN ×2 (06:17→21:11)
--- NOTE | 2023-02-01 07:25 | NUR ---
MATERIALS MANAGEMENT SUPERVISOR OPEN NOTE: AWAKE AND RESPONSIVE TO VERBAL STIMULI. ON 4LNC 02. CONSTRUCTION TRADES TEACHER SINUS RHYTHM. IV ON LEFT UPPER ARM WITH IVF ORDERED. GT IN PLACE PATENT WITH GLUCERNA 45 ML/HR. THOMAS CATHETER IN PLACE. WOUND DRESSINGS ON AFFECTED AREAS CLEAN AND DRY. BILATERAL SOFT WRIST RESTRAINTS ON, SKIN WITH NO BREAKDOWN, CIRCULATION IS WITHIN NORMAL. HOB ELEVATED. BILATERAL HALF SIDE RAILS UP X2. BED IN LOW POSITION, LOCKED, EXIT ALARM ON. CALL LIGHT IN REACH.
--- NOTE | 2023-02-01 08:28 | NUR ---
ABG'S DONE BY RT AT 4 LPM NC. 02 DECREASED TO 2 LPM NC BY RT.
[2023-02-01] MEDS ORDERED: POTASSIUM CHLORIDE 20 MEQ POWDER PACKET PO ONE (08:30)
[2023-02-01] MEDS: ARIPIPRAZOLE 5 MG TABLET GT SCH (08:40)
[2023-02-01] MEDS: FOLIC ACID 1 MG TABLET GT SCH (08:40)
[2023-02-01] MEDS: LEVOTHYROXINE SODIUM 100 MCG TABLET GT SCH (08:42)
[2023-02-01] MEDS: METOPROLOL TARTRATE 25 MG TABLET GT SCH ×2 (08:42→17:53)
[2023-02-01] MEDS: PANTOPRAZOLE 40 MG/PACK PACK GT SCH ×2 (08:44→17:52)
[2023-02-01] MEDS: ACETAMINOPHEN 650 MG/20.3 ML UDC GT PRN ×2 (08:45→17:53)
[2023-02-01] MEDS: DAKINS QUARTER STRENGTH (0.125%) 480 ML BOTTLE TOP SCH (09:24)
[2023-02-01] MEDS: THERAHONEY GEL 1.5 OZ TUBE TP SCH (09:25)
[2023-02-01] MEDS: INSULIN REGULAR, HUMAN 100 UNIT/ML 3 ML VIAL SQ PRN ×2 (12:24→18:35)
[2023-02-01] MEDS: VANCOMYCIN HCL 0.75 GM in IV D5W 250 ML IV SCH (14:14)
--- NOTE | 2023-02-01 18:50 | NUR ---
TAX ACCOUNTING MANAGER CLOSING NOTE: AWAKE AND RESPONSIVE TO VERBAL STIMULI. CONFUSED AND DISORIENTED. REORIENTED TO TIME, PLACE AND SITUATION. ON 2 LPM NC 02 SATING AT 98%. FISH NET STRINGER SINUS RHYTHM 68. IV ON LEFT UPPER ARM WITH IVF ORDERED. GT IN PLACE PATENT WITH GLUCERNA 20 ML/HR. THOMAS CATHETER IN PLACE. WOUND DRESSINGS ON AFFECTED AREAS CLEAN AND DRY. BILATERAL SOFT WRIST RESTRAINTS ON, SKIN WITH NO BREAKDOWN, CIRCULATION IS WITHIN NORMAL. HOB ELEVATED. BILATERAL HALF SIDE RAILS UP X2. BED IN LOW POSITION, LOCKED, EXIT ALARM ON. CALL LIGHT IN REACH. ON PAIN MANAGEMENT WITH TYLENOL PRN GIVEN TIMES TWO AND EFFECTIVE. WOUND CARE DONE ORDERED. TURNED AND REPOSITIONED. KEPT CLEAN AND COMFORTABLE.
--- NOTE | 2023-02-01 21:27 | NUR ---
report to Marino Baer on [facility]. UPDATED pt status. no acute distress, no s/s of withdrawals. at bedside. instructed on plan of care to transfer to [facility]. both verbalized understanding. transfered to room 329 via w/c. HEATHER at side Addendum: 02/02/23 at 0618 by [facility] INPATIENT RN1 RN wrong pt
[2023-02-02] VITALS (26 sets, daily range): BP systolic 130–172; BP diastolic 51–106
[2023-02-02] MEDS: METOCLOPRAMIDE HCL 10 MG/10 ML UDC PO SCH ×5 (00:08→23:50)
[2023-02-02] MEDS: ALBUTEROL FS 2.5 MG/0.5 ML VIAL.NEB NEB SCH ×4 (01:45→20:22)
[2023-02-02] MEDS: IPRATROPIUM NEB FS 0.5 MG/2.5 ML AMPUL.NEB NEB SCH ×4 (01:45→20:22)
[2023-02-02] MEDS: ONDANSETRON HCL/PF 4 MG/2 ML VIAL IV PRN (03:52)
[2023-02-02] MEDS: PIPERACILLIN /TAZOBACTAM 3.375 G in IV D5W 100 ML IV SCH ×3 (05:12→20:58)
[2023-02-02] MEDS: MORPHINE SULFATE INJ 2 MG/ML DISP.SYRIN IV PRN ×3 (05:15→10:23)
[2023-02-02 05:24] LABS: BASOPHILS % (AUTO) 0.1 % (0.0-2.0); HEMATOCRIT 26 % (33-45); HEMOGLOBIN 7.8 g/dL (11.5-14.8); LYMPHOCYTES # (AUTO) 0.6 K/uL (0.8-4.8); LYMPHOCYTES % (AUTO) 4.1 % (20.0-44.0); MEAN CORPUSCULAR HGB CONC 30 g/dl (31.0-36.0); MEAN CORPUSCULAR VOLUME 87 fL (82-100); MONOCYTES # (AUTO) 0.7 K/uL (0.1-1.30); MONOCYTES % (AUTO) 4.5 % (2.0-12.0); NEUTROPHILS # (AUTO) 14.3 K/uL (1.8-8.9); NEUTROPHILS % (AUTO) 91.3 % (43.0-81.0); PLATELET COUNT (AUTO) 407 K/uL (150-450); WHITE BLOOD COUNT (AUTO) 15.6 K/uL (4.3-11.0)
[2023-02-02] MEDS: methylPREDNISolone SOD SUCC 40 MG/ML VIAL IV SCH ×3 (05:27→20:58)
[2023-02-02] MEDS: BLOOD SUGAR DIAGNOSTIC 1 EACH STRIP IN SCH ×5 (05:41→23:49)
[2023-02-02 06:01] LABS: CALCIUM, SERUM 8.4 mg/dL (8.5-10.1); MAGNESIUM 1.7 mg/dL (1.8-2.4); PHOSPHORUS 1.9 mg/dL (2.5-4.9); POTASSIUM 3.5 mmol/L (3.5-5.1)
--- NOTE | 2023-02-02 06:19 | NUR ---
bs by lab 541 finger check 109 no acute changes. off bipap ,with n/c 2L
--- NOTE | 2023-02-02 07:00 | NUR ---
RN NOTES RECEIVED PT ON BED, AWAKE AND RESPONSIVE TO VERBAL STIMULI. FOLLOWS SIMPLE COMMAND, ON 3 L NC 02. HAND GRINDER SINUS RHYTHM. IV ON LEFT UPPER ARM WITH IVF ORDERED. GT IN PLACE PATENT WITH GLUCERNA 45 ML/HR. THOMAS CATHETER IN PLACE. WOUND DRESSINGS ON AFFECTED AREAS CLEAN AND DRY. BILATERAL SOFT WRIST RESTRAINTS ON, SKIN WITH NO BREAKDOWN, CIRCULATION IS WITHIN NORMAL. HOB ELEVATED. SR UP X3. BED IN LOW POSITION, LOCKED, CALL LIGHT IN REACH. CONTINUE TO MONITOR . Addendum: 02/02/23 at 0736 by FABBY SEWELL RN CORRECTION TF AT 20CC/HR
[2023-02-02] MEDS ORDERED: MAGNESIUM OXIDE 400 MG TABLET GT ONE (08:00)
[2023-02-02] MEDS ORDERED: NEUTRA PHOS 1 POWD.PACKET GT ONE (08:00)
[2023-02-02] MEDS: LEVOTHYROXINE SODIUM 100 MCG TABLET GT SCH (08:28)
[2023-02-02] MEDS: FOLIC ACID 1 MG TABLET GT SCH (08:28)
[2023-02-02] MEDS: METOPROLOL TARTRATE 25 MG TABLET GT SCH ×2 (08:31→16:19)
[2023-02-02] MEDS: PANTOPRAZOLE 40 MG/PACK PACK GT SCH ×2 (08:31→16:19)
[2023-02-02] MEDS: DAKINS QUARTER STRENGTH (0.125%) 480 ML BOTTLE TOP SCH (08:32)
[2023-02-02] MEDS: THERAHONEY GEL 1.5 OZ TUBE TP SCH (08:32)
[2023-02-02] MEDS: ARIPIPRAZOLE 5 MG TABLET GT SCH (08:45)
[2023-02-02] MEDS: CLONIDINE HCL 0.1 MG TABLET GT PRN (11:06)
[2023-02-02] MEDS: IV D5/ 0.9% NACL 1,000 ML IV PRN (11:40)
--- NOTE | 2023-02-02 12:00 | NUR ---
RN NOTES PT TOLERATING TF WELL, NO RESIDUAL NOTED, CONTINUE TO MONITOR
[2023-02-02] MEDS: VANCOMYCIN HCL 0.75 GM in IV D5W 250 ML IV SCH (13:08)
[2023-02-02] MEDS: GLUCERNA 1.2 1,000 ML BOTTLE PEG SCH (15:16)
[2023-02-02] MEDS: INSULIN REGULAR, HUMAN 100 UNIT/ML 3 ML VIAL SQ PRN (17:15)
--- NOTE | 2023-02-02 18:17 | NUR ---
RN NOTES PT REMAINS CONFUSED, FOLLOWS SIMPLE COMMAND, ON 2L O2 N/C , TF AT 40CC/HR RUNNING , TOLERATING WELL, SR UP 3, CALL LIGHT WITHIN EASY REACH BED LOCKED AND IN LOWEST POSITION, WILL ENDORSE TO BAND EDGER NURSE FOR CONTINUITY OF CARE .
[2023-02-03] VITALS (19 sets, daily range): BP systolic 88–149; BP diastolic 33–81
[2023-02-03] MEDS: ALBUTEROL FS 2.5 MG/0.5 ML VIAL.NEB NEB SCH ×4 (01:36→19:57)
[2023-02-03] MEDS: IPRATROPIUM NEB FS 0.5 MG/2.5 ML AMPUL.NEB NEB SCH ×4 (01:36→19:57)
[2023-02-03] MEDS: IV D5/ 0.9% NACL 1,000 ML IV PRN ×2 (02:17→19:39)
[2023-02-03] MEDS: PIPERACILLIN /TAZOBACTAM 3.375 G in IV D5W 100 ML IV SCH ×3 (05:07→21:17)
[2023-02-03 05:35] LABS: CALCIUM, SERUM 9.1 mg/dL (8.5-10.1); CREATININE 0.9 mg/dL (0.6-1.3); MAGNESIUM 1.6 mg/dL (1.8-2.4); PHOSPHORUS 2.2 mg/dL (2.5-4.9); POTASSIUM 4.2 mmol/L (3.5-5.1)
[2023-02-03] MEDS: METOCLOPRAMIDE HCL 10 MG/10 ML UDC PO SCH ×4 (05:41→23:31)
[2023-02-03] MEDS: BLOOD SUGAR DIAGNOSTIC 1 EACH STRIP IN SCH ×4 (05:41→23:31)
[2023-02-03] MEDS: methylPREDNISolone SOD SUCC 40 MG/ML VIAL IV SCH ×3 (05:41→21:17)
--- NOTE | 2023-02-03 07:00 | NUR ---
RN NOTES RECEIVED PT ON BED, AWAKE AND RESPONSIVE TO VERBAL STIMULI. FOLLOWS SIMPLE COMMAND, ON 3 L NC 02. MEDICAL DIAGNOSTIC RADIOGRAPHER SINUS RHYTHM. IV ON LEFT UPPER ARM WITH IVF ORDERED. GT IN PLACE PATENT WITH GLUCERNA 40 ML/HR. THOMAS CATHETER IN PLACE. WOUND DRESSINGS ON AFFECTED AREAS CLEAN AND DRY. BILATERAL SOFT WRIST RESTRAINTS ON, SKIN WITH NO BREAKDOWN, CIRCULATION IS WITHIN NORMAL. HOB ELEVATED. SR UP X3. BED IN LOW POSITION, LOCKED, CALL LIGHT IN REACH. CONTINUE TO MONITOR .
[2023-02-03] MEDS ORDERED: NEUTRA PHOS 1 POWD.PACKET GT ONE (08:00)
[2023-02-03] MEDS: LEVOTHYROXINE SODIUM 100 MCG TABLET GT SCH (08:16)
[2023-02-03] MEDS: METOPROLOL TARTRATE 25 MG TABLET GT SCH ×2 (08:17→17:42)
[2023-02-03] MEDS: FOLIC ACID 1 MG TABLET GT SCH (08:17)
[2023-02-03] MEDS: PANTOPRAZOLE 40 MG/PACK PACK GT SCH ×2 (08:18→17:42)
[2023-02-03] MEDS: DAKINS QUARTER STRENGTH (0.125%) 480 ML BOTTLE TOP SCH (08:18)
[2023-02-03] MEDS: ARIPIPRAZOLE 5 MG TABLET GT SCH (08:18)
[2023-02-03] MEDS: THERAHONEY GEL 1.5 OZ TUBE TP SCH (08:19)
[2023-02-03] MEDS: Magnesium 1GM/D5W 100ML PREMIX 100 ML IV SCH ×2 (11:53→12:53)
--- NOTE | 2023-02-03 13:58 | NUR ---
RN NOTES PT TRANSFERED TO ROOM 111-1, TAZ STATUS VIA ACLS PROTOCAL IN STABLE CONDITION, REPORT GIVEN TO SOHA SEPULVEDA FOR CONTINUITY OF CARE . NO BELONGINGS NOTED
--- NOTE | 2023-02-03 14:00 | NUR ---
RN NOTES: RECEIVED PT FROM ICU ALERT X 1-2 ON NASAL CANNULA SATTING 965,no sob noted.with dominguez catheter draining yellow color urine with bloody sediment, left upper arm picc line patent running d5ns at 75 ml/hr and zosyn running at 25 ml/hr.bed in low and locked position, also noted with bilateral hand restraint, skin and circulation checked within normal, call light within reach.will monitor
[2023-02-03] MEDS: VANCOMYCIN HCL 0.75 GM in IV D5W 250 ML IV SCH (14:15)
[2023-02-03 15:07] LABS: ABG BASE EXCESS 6.4 mmol/L; ABG OXYGEN SATURATION 96.8 % (92.0-98.5); ABG PCO2 65.9 mmHg (35.0-45.0); ABG PH 7.327 (7.350-7.450); ABG PO2 96.4 mmHg (75.0-100.0); AaDO2 83.8 mmHg; COHb 0.1 % (0.5-1.5); MetHb 0.4 % (0.0-1.5); O2Hb 96.3 % (94.0-97.0); SITE, ABG Right Brachial; VENT MODE, BG N/C 4 LPM
[2023-02-03] MEDS: COLISTIMETHATE SODIUM 100 MG in IV NS 0.9% 50 ML IV SCH (17:42)
[2023-02-03] MEDS: INSULIN REGULAR, HUMAN 100 UNIT/ML 3 ML VIAL SQ PRN ×2 (18:26→23:39)
--- NOTE | 2023-02-03 19:30 | NUR ---
PATIENT IN BED AWAKE, AO X2, WITH EPISODES OF CONFUSION. ON TELE MONITOR SHOWING SINUS RHYTHM, WITH O2 ON VIA NC AT 3LPM, O2 SAT 97%. NO SOB/DISTRESS NOTED. IV ACCESS ON JOEL PICC LINE INFUSING WITH D5 NS @ 75ML/HR. THOMAS CATHETER IN PLACE DRAINING CLEAR YELLOW URINE. GTF INFUSING GLUCERNA 1.2 AT 50ML/HR. SAFETY MEASURES IN PLACE. HEAD OF BED ELEVATED, BED LOCKED AND IN LOWEST POSITION, SIDE RAILS UP X3. CALL LIGHT WITHIN REACH. WILL CONTINUE PLAN OF CARE.
--- NOTE | 2023-02-03 19:35 | NUR ---
TD RN CLOSING NOTE PATIENT IN BED, AAO X1-2, CONFUSED. O2 VIA NC AT 3L NC, O2 SAT 98%. NO SOB/DISTRESS NOTED. ON TELE MONITOR SHOWING SINUS RHYTHM, . IV ACCESS JOEL PICC LINE INFUSING WITH D5 NS @ 75ML/HR. NO S/SX OF INFILTRATION. THOMAS CATHETER IN PLACE DRAINING CLEAR YELLOW URINE. GTF RUNNING AT 50ML/HR . ALL DUE MEDS WERE GIVEN AND NEEDS ATTENDED. SAFETY MEASURES MAINTAINED: BED LOCKED AND IN LOWEST POSITION, SIDE RAILS UP X3. ENDORSED TO [facility] NURSE FOR ROGERIO.
[2023-02-03] MEDS: GLUCERNA 1.2 1,000 ML BOTTLE PEG SCH (19:41)
[2023-02-04] VITALS: BP 172/81
[2023-02-04] MEDS: ALBUTEROL FS 2.5 MG/0.5 ML VIAL.NEB NEB SCH ×4 (01:31→19:52)
[2023-02-04] MEDS: IPRATROPIUM NEB FS 0.5 MG/2.5 ML AMPUL.NEB NEB SCH ×4 (01:31→19:52)
[2023-02-04] MEDS: CLONIDINE HCL 0.1 MG TABLET GT PRN (01:39)
[2023-02-04 04:00] VITALS: BP 159/72
[2023-02-04] MEDS: COLISTIMETHATE SODIUM 100 MG in IV NS 0.9% 50 ML IV SCH (05:51)
[2023-02-04] MEDS: BLOOD SUGAR DIAGNOSTIC 1 EACH STRIP IN SCH ×3 (05:52→17:38)
[2023-02-04] MEDS: methylPREDNISolone SOD SUCC 40 MG/ML VIAL IV SCH ×4 (05:52→16:10)
[2023-02-04] MEDS: PIPERACILLIN /TAZOBACTAM 3.375 G in IV D5W 100 ML IV SCH ×3 (05:52→20:58)
[2023-02-04] MEDS: METOCLOPRAMIDE HCL 10 MG/10 ML UDC PO SCH ×3 (05:52→17:08)
[2023-02-04 05:58] LABS: BASOPHILS % (AUTO) 0.1 % (0.0-2.0); HEMATOCRIT 24 % (33-45); HEMOGLOBIN 7.6 g/dL (11.5-14.8); LYMPHOCYTES # (AUTO) 0.5 K/uL (0.8-4.8); LYMPHOCYTES % (AUTO) 3.5 % (20.0-44.0); MEAN CORPUSCULAR HGB CONC 31 g/dl (31.0-36.0); MEAN CORPUSCULAR VOLUME 83 fL (82-100); MONOCYTES # (AUTO) 0.7 K/uL (0.1-1.30); MONOCYTES % (AUTO) 4.7 % (2.0-12.0); NEUTROPHILS # (AUTO) 13.7 K/uL (1.8-8.9); NEUTROPHILS % (AUTO) 91.7 % (43.0-81.0); PLATELET COUNT (AUTO) 291 K/uL (150-450); RED BLOOD CELL COUNT(AUTO) 2.91 MIL/uL (4.0-5.2); WHITE BLOOD COUNT (AUTO) 14.9 K/uL (4.3-11.0)
[2023-02-04] MEDS: INSULIN REGULAR, HUMAN 100 UNIT/ML 3 ML VIAL SQ PRN ×2 (06:04→18:51)
[2023-02-04 06:17] LABS: CALCIUM, SERUM 8.9 mg/dL (8.5-10.1); CREATININE 0.9 mg/dL (0.6-1.3); PHOSPHORUS 2.1 mg/dL (2.5-4.9); POTASSIUM 4.2 mmol/L (3.5-5.1)
--- NOTE | 2023-02-04 07:30 | NUR ---
TD RN OPENING NOTE RECEIVED PATIENT IN BED, AO X1-2, CONFUSED. O2 VIA NC AT 3L NC, O2 SATING @100, NO SOB/DISTRESS NOTED. ON TELE MONITOR SHOWING SINUS RHYTHM, IV ACCESS JOEL PICC LINE NOTED PATENT AND INTACT INFUSING WITH D5 NS @ 75ML/HR, JOEL PICC LINE FLUSHESD WELL, NO S/SX OF INFILTRATION. THOMAS CATHETER IN PLACE DRAINING CLEAR YELLOW URINE. GTF RUNNING AT 70ML/HR, NO N/V/D NOTED. NOTED WITH BILATERAL WRIST RESTRAINTS, CHECK FOR SKIN AND CIRCULATION. SAFETY MEASURES MAINTAINED: BED LOCKED AND IN LOWEST POSITION, SIDE RAILS UP X3. CONTINUEC CONTACT ISOLATION PRECAUTION. PLAN OF CARE CONTINUE.
--- NOTE | 2023-02-04 07:59 | NUR ---
PT IN BED AWAKE, AO X2, WITH EPISODES OF CONFUSION. ON TELE MONITOR SHOWING SINUS RHYTHM, WITH O2 ON VIA NC AT 3LPM, O2 SAT 100%. NO SOB/DISTRESS NOTED. IV ACCESS ON JOEL PICC LINE INFUSING WITH D5 NS @ 75ML/HR. THOMAS CATHETER IN PLACE DRAINING CLEAR YELLOW URINE. GTF INFUSING GLUCERNA 1.2 AT 70ML/HR. SAFETY MEASURES MAINTAINED. HEAD OF BED ELEVATED, BED LOCKED AND IN LOWEST POSITION, SIDE RAILS UP X3. CALL LIGHT WITHIN REACH. WILL ENDORSE TO NEXT NURSE ON DUTY FOR CONTINUITY OF CARE.
[2023-02-04 08:00] VITALS: BP 150/82
[2023-02-04] MEDS: FOLIC ACID 1 MG TABLET GT SCH (08:39)
[2023-02-04] MEDS: ARIPIPRAZOLE 5 MG TABLET GT SCH (08:39)
[2023-02-04] MEDS: PANTOPRAZOLE 40 MG/PACK PACK GT SCH ×2 (08:39→16:08)
[2023-02-04] MEDS: LEVOTHYROXINE SODIUM 100 MCG TABLET GT SCH (08:39)
[2023-02-04] MEDS: METOPROLOL TARTRATE 25 MG TABLET GT SCH ×2 (08:40→17:00)
[2023-02-04] MEDS: DAKINS QUARTER STRENGTH (0.125%) 480 ML BOTTLE TOP SCH (08:40)
[2023-02-04] MEDS: THERAHONEY GEL 1.5 OZ TUBE TP SCH (08:40)
--- NOTE | 2023-02-04 09:00 | NUR ---
NOTED 100ML RESIDUAL ON GT, STOP FEEDING. NO C/O OF NAUSEA OR VOMITING NOTED.
[2023-02-04] MEDS: IV D5/ 0.9% NACL 1,000 ML IV PRN ×2 (09:52→23:54)
[2023-02-04 12:00] VITALS: BP 104/69
--- NOTE | 2023-02-04 12:00 | NUR ---
CHECK FOR GT PLACEMENT, NO RESIDUAL NOTED, RESUMED FEEDING AT 60ML/HR.
[2023-02-04] MEDS: VANCOMYCIN 500 MG in IV D5W 100ml IV SCH (15:17)
[2023-02-04 16:00] VITALS: BP 103/75
[2023-02-04] MEDS ORDERED: NEUTRA PHOS 1 POWD.PACKET GT ONE (16:00)
[2023-02-04] MEDS: COLISTIMETHATE SODIUM 150 MG in IV NS 0.9% 50 ML IV SCH (17:07)
--- NOTE | 2023-02-04 18:43 | NUR ---
TD RN CLOSING NOTE PATIENT IN BED AWAKE, ALERT AND VERBALLY RESPONSIVE, AO X1-2, CONFUSED. O2 VIA NC AT 3L NC, NO SOB/DISTRESS NOTED. ON TELE MONITOR SHOWING SINUS RHYTHM, IV ACCESS JOEL PICC LINE NOTED PATENT AND INTACT, FLUSHES WELL, INFUSING WITH D5 NS @ 75ML/HR, NO S/SX OF INFILTRATION. THOMAS CATHETER IN PLACE WITH CLEAR YELLOW URINE. FLEXISEAL IN PLACED. GT PATENT AND INTACT, GTF RUNNING AT 60ML/HR, NO N/V/D NOTED. NOTED WITH BILATERAL WRIST RESTRAINTS, CHECK FOR SKIN AND CIRCULATION. SAFETY MEASURES MAINTAINED: BED LOCKED AND IN LOWEST POSITION, SIDE RAILS UP X3. CONTINUEC CONTACT ISOLATION PRECAUTION. WILL ENDORSED TO NIGHT NURSE FOR ROGERIO.
--- NOTE | 2023-02-04 19:25 | NUR ---
RN OPENING NOTE RECEIVED PATIENT IN BED AWAKE, AAO X1-2, CONFUSED. O2 VIA NC AT 3L NC, O2 SAT 98%. NO SOB/DISTRESS NOTED. ON TELE MONITOR SHOWING SINUS RHYTHM HR 97. IV ACCESS ON JOEL PICC LINE INTACT AND FLUSHES WELL, INFUSING WITH D5 NS @ 75ML/HR, NO S/SX OF INFILTRATION. HAS BILATERAL WRIST RESTRAINTS, SKIN AND CIRCULATION CHECKED. GTF RUNNING AT 60ML/HR, NO N/V/D NOTED. THOMAS CATHETER IN PLACE WITH CLEAR YELLOW URINE. FLEXISEAL IN PLACE. SAFETY MEASURES IN PLACE: BED LOCKED AND IN LOWEST POSITION, SIDE RAILS UP X3.
[2023-02-04 20:00] VITALS: BP 159/90
--- NOTE | 2023-02-04 20:11 | NUR ---
RN NOTE PATIENT PLACED ON NOCTURNAL BIPAP AND TOLERATING WELL.
--- NOTE | 2023-02-04 20:56 | NUR ---
RN NOTE FOUND PATIENT WITH LEAKING GTUBE SO I CHECKED FOR RESIDUAL AND IT WAS 200 ML. STOPPED GTF FOR NOW.
[2023-02-05] VITALS: BP 153/93
[2023-02-05] MEDS: BLOOD SUGAR DIAGNOSTIC 1 EACH STRIP IN SCH ×4 (00:06→17:10)
[2023-02-05] MEDS: INSULIN REGULAR, HUMAN 100 UNIT/ML 3 ML VIAL SQ PRN ×2 (00:07→06:08)
--- NOTE | 2023-02-05 00:12 | NUR ---
RN NOTE CHECKED FOR RESIDUAL IT WAS 10 ML. TURNED THE GTF BACK ON AT 50 ML/HR.
[2023-02-05] MEDS: METOCLOPRAMIDE HCL 10 MG/10 ML UDC PO SCH ×4 (00:30→17:01)
[2023-02-05] MEDS: ALBUTEROL FS 2.5 MG/0.5 ML VIAL.NEB NEB SCH ×4 (01:56→19:52)
[2023-02-05] MEDS: IPRATROPIUM NEB FS 0.5 MG/2.5 ML AMPUL.NEB NEB SCH ×4 (01:56→19:52)
[2023-02-05 04:00] VITALS: BP 155/72
[2023-02-05] MEDS: PIPERACILLIN /TAZOBACTAM 3.375 G in IV D5W 100 ML IV SCH ×3 (05:23→20:46)
[2023-02-05] MEDS: COLISTIMETHATE SODIUM 150 MG in IV NS 0.9% 50 ML IV SCH ×2 (05:23→16:55)
--- NOTE | 2023-02-05 06:00 | NUR ---
RN NOTE RT AT BEDSIDE, PATIENT IS OFF OF BIPAP.
[2023-02-05 06:07] LABS: EOSINOPHILS % (AUTO) 0.3 % (0.0-6.0); HEMATOCRIT 23 % (33-45); HEMOGLOBIN 7.1 g/dL (11.5-14.8); LYMPHOCYTES # (AUTO) 1.1 K/uL (0.8-4.8); LYMPHOCYTES % (AUTO) 6.4 % (20.0-44.0); MEAN CORPUSCULAR HGB CONC 31 g/dl (31.0-36.0); MEAN CORPUSCULAR VOLUME 83 fL (82-100); MONOCYTES # (AUTO) 1.4 K/uL (0.1-1.30); MONOCYTES % (AUTO) 8.2 % (2.0-12.0); NEUTROPHILS # (AUTO) 14.8 K/uL (1.8-8.9); NEUTROPHILS % (AUTO) 85.1 % (43.0-81.0); PLATELET COUNT (AUTO) 238 K/uL (150-450); RED BLOOD CELL COUNT(AUTO) 2.74 MIL/uL (4.0-5.2); WHITE BLOOD COUNT (AUTO) 17.4 K/uL (4.3-11.0)
[2023-02-05 06:53] LABS: CALCIUM, SERUM 9.1 mg/dL (8.5-10.1); CREATININE 0.9 mg/dL (0.6-1.3); MAGNESIUM 1.7 mg/dL (1.8-2.4); PHOSPHORUS 2.1 mg/dL (2.5-4.9); POTASSIUM 3.8 mmol/L (3.5-5.1)
--- NOTE | 2023-02-05 06:58 | NUR ---
RN CLOSING NOTE PATIENT IN BED AWAKE, AAO X1-2, CONFUSED. O2 VIA NC AT 3L NC, O2 SAT 98%. NO SOB/DISTRESS NOTED. ON TELE MONITOR SHOWING SINUS RHYTHM HR 94. IV ACCESS ON JOEL PICC LINE INTACT AND FLUSHES WELL, INFUSING WITH D5 NS @ 75ML/HR, NO S/SX OF INFILTRATION. HAS BILATERAL WRIST RESTRAINTS, SKIN AND CIRCULATION CHECKED. GTF RUNNING AT 60ML/HR, NO N/V/D NOTED. THOMAS CATHETER IN PLACE WITH CLEAR YELLOW URINE. FLEXISEAL IN PLACE. ALL DUE MEDS WERE GIVEN AND NEEDS ATTENDED. SAFETY MEASURES IN PLACE: BED LOCKED AND IN LOWEST POSITION, SIDE RAILS UP X3. WILL ENDORSE TO ONCOMING NURSE FOR ROGERIO.
[2023-02-05 08:00] VITALS: BP 167/77
[2023-02-05 08:54] LABS: ABG BASE EXCESS 5.9 mmol/L; ABG OXYGEN SATURATION 59.6 % (92.0-98.5); ABG PCO2 60.1 mmHg (35.0-45.0); ABG PH 7.352 (7.350-7.450); ABG PO2 31.9 mmHg (75.0-100.0); COHb 0.4 % (0.5-1.5); MetHb 0.4 % (0.0-1.5); O2Hb 59.1 % (94.0-97.0); SITE, ABG Left Radial
[2023-02-05] MEDS: methylPREDNISolone SOD SUCC 40 MG/ML VIAL IV SCH (09:27)
[2023-02-05] MEDS: METOPROLOL TARTRATE 25 MG TABLET GT SCH ×2 (09:28→16:55)
[2023-02-05] MEDS: FOLIC ACID 1 MG TABLET GT SCH (09:29)
[2023-02-05] MEDS: ARIPIPRAZOLE 5 MG TABLET GT SCH (09:29)
[2023-02-05] MEDS: PANTOPRAZOLE 40 MG/PACK PACK GT SCH ×2 (09:29→16:54)
[2023-02-05] MEDS: LEVOTHYROXINE SODIUM 100 MCG TABLET GT SCH (09:29)
[2023-02-05] MEDS: DAKINS QUARTER STRENGTH (0.125%) 480 ML BOTTLE TOP SCH (09:31)
[2023-02-05] MEDS: THERAHONEY GEL 1.5 OZ TUBE TP SCH (09:32)
[2023-02-05] MEDS: GLUCERNA 1.2 1,000 ML BOTTLE PEG SCH (09:48)
[2023-02-05] MEDS ORDERED: NEUTRA PHOS 1 POWD.PACKET GT ONE (11:00)
--- NOTE | 2023-02-05 11:57 | NUR ---
RECEIVED NEW ORDER FROM DR. KATE CHRISTENSEN, NOTED AND CARRIED OUT.
[2023-02-05 12:00] VITALS: BP 136/71
[2023-02-05] MEDS: Magnesium 1GM/D5W 100ML PREMIX 100 ML IV SCH ×2 (12:00→13:01)
--- NOTE | 2023-02-05 13:34 | NUR ---
PATIENT NOTED AUDIBLE CRACKLES, LABORED BREATHING NOTED, 02 SAT @3LPM 02= 100%, INFORMED DR. BLOOD, WITH NEW ORDER STAT CHEST XRAY AND STAT ABG. NOTED AND CARRIED OUT, INFORMED KEESHA HARDIN
--- NOTE | 2023-02-05 14:18 | NUR ---
ABG RESULT'S INFORMED DR. BLOOD, WITH ORDER TO CONTINUE NOCTURNAL BIPAP AND RESCUE BIPAP, NOTED AND CARRIED OUT, RT KEESHA INCREASED PATIENT TO 4LPM 02. IV FLUIDS STOPPED AND GT FEEDING. DR. BLOOD STATED NO NEED FOR ICU TRANSFER.
[2023-02-05] MEDS: VANCOMYCIN 500 MG in IV D5W 100ml IV SCH (15:33)
--- NOTE | 2023-02-05 16:00 | NUR ---
DR. LOVE AT THE BEDSIDE, INFORMED OF THE BLEEDING IN THE URINE, NO NEW ORDER. WITH ORDER TO D/C IV FLUIDS. Addendum: 02/05/23 at 1939 by JIM JAMES RN NO RESIDUAL AT THE GT, RESTART GT FEEDING.
[2023-02-05 16:30] VITALS: BP 136/71
--- NOTE | 2023-02-05 19:29 | NUR ---
TD RN OPENING NOTE RECEIVED PATIENT IN BED AWAKE, ALERT AND VERBALLY RESPONSIVE, AO X1-2, CONFUSED. O2 VIA NC AT 3L NC, NO SOB/DISTRESS NOTED. ON TELE MONITOR SHOWING SINUS RHYTHM, IV ACCESS JOEL PICC LINE NOTED PATENT AND INTACT, FLUSHES WELL, INFUSING WITH D5 NS @ 75ML/HR, NO S/SX OF INFILTRATION. THOMAS CATHETER IN PLACE NOTED WITH YELLOW URINE. FLEXISEAL IN PLACED. GT PATENT AND INTACT, NO RESIDUAL NOTED, ON GTF RUNNING AT 60ML/HR, NO N/V/D NOTED. NOTED WITH BILATERAL WRIST RESTRAINTS, CHECK FOR SKIN AND CIRCULATION. SAFETY MEASURES MAINTAINED: BED LOCKED AND IN LOWEST POSITION, SIDE RAILS UP X3. CONTINUE CONTACT ISOLATION PRECAUTION. PLAN OF CARE CONTINUE. Addendum: 02/05/23 at 1931 by JIM JAMES RN CORRECTION [id number]
--- NOTE | 2023-02-05 19:39 | NUR ---
TD RN CLOSING NOTE PATIENT IN BED SLEEPING, ALERT AND VERBALLY RESPONSIVE WHEN AWAKEN, AO X1-2, CONFUSED. O2 VIA NC AT 4L NC, NO SOB/DISTRESS NOTED, ON TELE MONITOR SHOWING SINUS RHYTHM, IV ACCESS JOEL PICC LINE NOTED PATENT AND INTACT, FLUSHES WELL, NO S/SX OF INFILTRATION. THOMAS CATHETER IN PLACED WITH PINKISH YELLOW URINE. FLEXISEAL IN PLACED WITH 300ML WATERY STOOL OUTPUT. GT PATENT AND INTACT, FLUSHES WELL, NO RESIDUAL NOTED, ON GTF RUNNING AT 60ML/HR, NO N/V/D NOTED. NOTED WITH BILATERAL WRIST RESTRAINTS, CHECK FOR SKIN AND CIRCULATION. SAFETY MEASURES MAINTAINED: BED LOCKED AND IN LOWEST POSITION, SIDE RAILS UP X3. CONTINUE CONTACT ISOLATION PRECAUTION. ENDORSED TO NIGHT NURSE FOR ROGERIO.
--- NOTE | 2023-02-05 19:45 | NUR ---
TD RN OPENING NOTES: RECEIVED PATIENT IN BED, ASLEEP BUT EASILY AROUSABLE. ALERT/ORIENTED X1-2 WITH CONFUSION AND VERBALLY RESPONSIVE. ON O2 AT 4L/MIN VIA N/C AND PT TOLERATED WELL. IV ACCESS JOEL PICC LINE INTACT AND PATENT. NO S/S OF INFILTRATIONS. GT FEEDING WELL TOLERATED. NO RESIDUAL NOTED, RUNNING GLUCERNA AT 60ML/HR. PT TOLERATED WELL. THOMAS CATHETER IN PLACED WITH DARK COLOR URINE. FLEXISEAL IN PLACE. BILATERAL WRIST SOFT RESTRAINTS ON. NO FACIAL GRIMACING NOTED. ALL SAFETY MEASURES IN PLACE. BED IN LOWEST POSITION AND LOCKED. SIDE RAILS UP X3. ON CONTACT ISOLATION PRECAUTION. PLACE CALL LIGHT WITH IN REACH.WILL CONTINUE TO MONITOR
--- NOTE | 2023-02-05 19:55 | NUR ---
RN NOTES: DR. LOVE CALLED. ORDER- NEW PICC. ONCE NEW ONE IN, REMOVED THE OLD ONE AND SEND THE TIP FOR CULTURE. ORDER NOTED AND CARRIED OUT.
[2023-02-05 20:00] VITALS: BP 143/82
--- NOTE | 2023-02-05 21:55 | NUR ---
RN NOTES: CALLED DAUGHTER ENMANUEL KNAPP REGARDING INFORMED CONSENT FOR NEW PICC WITH RN. DAUGHTER AGREED. WILL CONTINUE TO MONITOR
[2023-02-06] VITALS: BP 141/80
[2023-02-06] MEDS: BLOOD SUGAR DIAGNOSTIC 1 EACH STRIP IN SCH ×4 (00:40→17:25)
[2023-02-06] MEDS: INSULIN REGULAR, HUMAN 100 UNIT/ML 3 ML VIAL SQ PRN ×2 (00:41→06:20)
[2023-02-06] MEDS: METOCLOPRAMIDE HCL 10 MG/10 ML UDC PO SCH ×4 (00:41→17:02)
--- NOTE | 2023-02-06 00:43 | NUR ---
RN NOTES: PT'S BLOOD SUAGR 78. NO COVERAGE NEEDED. NO S/S OF HYPER/HYPOGLYCEMIA. WILL CONTINUE TO MONITOR
[2023-02-06] MEDS: ALBUTEROL FS 2.5 MG/0.5 ML VIAL.NEB NEB SCH ×4 (01:39→19:57)
[2023-02-06] MEDS: IPRATROPIUM NEB FS 0.5 MG/2.5 ML AMPUL.NEB NEB SCH ×4 (01:39→19:57)
[2023-02-06 04:00] VITALS: BP 138/82
[2023-02-06] MEDS: COLISTIMETHATE SODIUM 150 MG in IV NS 0.9% 50 ML IV SCH ×2 (04:26→17:51)
[2023-02-06] MEDS: PIPERACILLIN /TAZOBACTAM 3.375 G in IV D5W 100 ML IV SCH ×3 (05:33→20:24)
--- NOTE | 2023-02-06 06:40 | NUR ---
TD RN CLOSING NOTES: PATIENT IN BED, ASLEEP BUT EASILY AROUSABLE. ALERT/ORIENTED X1-2 WITH CONFUSION AND VERBALLY RESPONSIVE. ON O2 AT 4L/MIN VIA N/C AND PT TOLERATED WELL. O2 SAT 98%. IV ACCESS JOEL PICC LINE INTACT AND PATENT. NO S/S OF INFILTRATIONS. GT FEEDING WELL TOLERATED. NO RESIDUAL NOTED, RUNNING GLUCERNA AT 60ML/HR. PT TOLERATED WELL. BLOOD SUAGR 73. NO COVERAGE NEEDED. NO S/S OF HYPER/HYPOGLYCEMIA. THOMAS CATHETER IN PLACED WITH DARK COLOR URINE. FLEXISEAL IN PLACE. BILATERAL WRIST SOFT RESTRAINTS ON. RELEASED Q 2 HOURS TO CHECK CIRCULATIONS. NO FACIAL GRIMACING NOTED. ALL DUE MEDS GIVEN ORDERED. ALL SAFETY MEASURES IN PLACE. BED IN LOWEST POSITION AND LOCKED. SIDE RAILS UP X3. ON CONTACT ISOLATION PRECAUTION. PLACE CALL LIGHT WITH IN REACH.WILL ENDORSE TO MORNING SHIFT NURSE.
[2023-02-06 07:15] LABS: BASOPHILS % (AUTO) 0.1 % (0.0-2.0); HEMATOCRIT 27 % (33-45); HEMOGLOBIN 8.3 g/dL (11.5-14.8); LYMPHOCYTES # (AUTO) 1.4 K/uL (0.8-4.8); LYMPHOCYTES % (AUTO) 8.2 % (20.0-44.0); MEAN CORPUSCULAR HGB CONC 31 g/dl (31.0-36.0); MEAN CORPUSCULAR VOLUME 84 fL (82-100); MONOCYTES # (AUTO) 1.1 K/uL (0.1-1.30); NEUTROPHILS # (AUTO) 14.7 K/uL (1.8-8.9); NEUTROPHILS % (AUTO) 83.7 % (43.0-81.0); PLATELET COUNT (AUTO) 225 K/uL (150-450); RED BLOOD CELL COUNT(AUTO) 3.19 MIL/uL (4.0-5.2); WHITE BLOOD COUNT (AUTO) 17.6 K/uL (4.3-11.0)
[2023-02-06 07:37] LABS: CALCIUM, SERUM 9.3 mg/dL (8.5-10.1); CREATININE 0.9 mg/dL (0.6-1.3); MAGNESIUM 1.7 mg/dL (1.8-2.4); PHOSPHORUS 2.6 mg/dL (2.5-4.9); POTASSIUM 3.7 mmol/L (3.5-5.1)
--- NOTE | 2023-02-06 07:37 | NUR ---
TD RN OPENING NOTE RECEIVED PATIENT IN BED SLEEPING, ALERT AND VERBALLY RESPONSIVE WHEN AWAKEN, AO X1-2, CONFUSED. O2 VIA NC AT 4L NC, NO SOB/DISTRESS NOTED, ON TELE MONITOR SHOWING SINUS RHYTHM, IV ACCESS JOEL PICC LINE NOTED PATENT AND INTACT, FLUSHES WELL, NO S/SX OF INFILTRATION. THOMAS CATHETER IN PLACED DRAINING VIA GRAVITY. FLEXISEAL IN PLACED. GT PATENT AND INTACT, FLUSHES WELL, NO RESIDUAL NOTED, ON GTF RUNNING AT 60ML/HR, NO N/V/D NOTED. NOTED WITH BILATERAL WRIST RESTRAINTS, CHECK FOR SKIN AND CIRCULATION. SAFETY MEASURES MAINTAINED: BED LOCKED AND IN LOWEST POSITION, SIDE RAILS UP X3. CONTINUE CONTACT ISOLATION PRECAUTION. PLAN OF CARE CONTINUE.
[2023-02-06 08:00] VITALS: BP 157/63
[2023-02-06] MEDS: DAKINS QUARTER STRENGTH (0.125%) 480 ML BOTTLE TOP SCH (09:00)
[2023-02-06] MEDS: THERAHONEY GEL 1.5 OZ TUBE TP SCH (09:01)
[2023-02-06] MEDS: FOLIC ACID 1 MG TABLET GT SCH (09:36)
[2023-02-06] MEDS: ARIPIPRAZOLE 5 MG TABLET GT SCH (09:36)
[2023-02-06] MEDS: LEVOTHYROXINE SODIUM 100 MCG TABLET GT SCH (09:36)
[2023-02-06] MEDS: PANTOPRAZOLE 40 MG/PACK PACK GT SCH ×2 (09:36→17:06)
[2023-02-06] MEDS: methylPREDNISolone SOD SUCC 40 MG/ML VIAL IV SCH (09:36)
[2023-02-06] MEDS: METOPROLOL TARTRATE 25 MG TABLET GT SCH ×2 (09:37→17:04)
[2023-02-06] MEDS: GLUCERNA 1.2 1,000 ML BOTTLE PEG SCH (10:07)
[2023-02-06] MEDS: Magnesium 1GM/D5W 100ML PREMIX 100 ML IV SCH ×2 (11:51→13:33)
[2023-02-06 12:00] VITALS: BP 145/90
[2023-02-06 12:48] LABS: ABG OXYGEN SATURATION 96.7 % (92.0-98.5); ABG PCO2 63.3 mmHg (35.0-45.0); ABG PO2 92.9 mmHg (75.0-100.0); AaDO2 90.4 mmHg; COHb 0.2 % (0.5-1.5); MetHb 0.3 % (0.0-1.5); O2Hb 96.2 % (94.0-97.0); SITE, ABG Right Radial; VENT MODE, BG NASAL CANNULA
[2023-02-06] MEDS: VANCOMYCIN 500 MG in IV D5W 100ml IV SCH (14:46)
[2023-02-06 16:00] VITALS: BP 128/84
--- NOTE | 2023-02-06 17:00 | NUR ---
FAMILY AT THE BEDSIDE, DR. LOVE SPOKE TO THE SON AND DAUGHTER IN LAW FOR PATIENT UPDATE.
[2023-02-06] MEDS ORDERED: DOSE PER PHARMACY MICAFUNGIN 1 EA XX PRN (17:30)
--- NOTE | 2023-02-06 18:23 | NUR ---
TD RN CLOSING NOTE PATIENT IN BED SLEEPING, ALERT AND VERBALLY RESPONSIVE WHEN AWAKEN, AO X1-2, CONFUSED. O2 VIA NC AT 4L NC, NO SOB/DISTRESS NOTED, ON TELE MONITOR SHOWING SINUS RHYTHM, IV ACCESS GABRIELA MIDLINE NOTED PATENT AND INTACT, FLUSHES WELL, NO S/SX OF INFILTRATION. THOMAS CATHETER IN PLACED DRAINING VIA GRAVITY. FLEXISEAL IN PLACED. GT PATENT AND INTACT, FLUSHES WELL, NO RESIDUAL NOTED, ON GTF RUNNING AT 60ML/HR, NO N/V/D NOTED. NOTED WITH BILATERAL WRIST RESTRAINTS, CHECK FOR SKIN AND CIRCULATION. SAFETY MEASURES MAINTAINED: BED LOCKED AND IN LOWEST POSITION, SIDE RAILS UP X3. CONTINUE CONTACT ISOLATION PRECAUTION. WILL ENDORSE TO NIGHT NURSE FOR ROGERIO. Addendum: 02/06/23 at 1841 by JIM JAMES RN REMOVED JOEL PICC LINE AND SENT PICC LINE TIP TO THE LAB, COLLECTED STOOL FOR C-DIFF AND SEND TO THE LAB.
[2023-02-06] MEDS: MICAFUNGIN SODIUM 100 MG in IV NS 0.9% 100 ML IV SCH (18:42)
--- NOTE | 2023-02-06 19:00 | NUR ---
CORPORATE ACCOUNT EXECUTIVE/ open note Recieved pt resting in bed, awake, A&Ox2 periods of confusion, verbal, easily arousable, afebrile, breathing even and unlabored, on tele showing SR, o2 via NC at 4L, GABRIELA midline dressing intact, flushing well, enteral feeding infusing via GT at 60ml/ hr, tolerating well, 0 residual noted, HOB elevated, dominguez cath intact, draining clear yellow urine, flexiseal intact, NAD noted at this time will continue to monitor
[2023-02-06 20:00] VITALS: BP 122/88
[2023-02-06] MEDS ORDERED: LIDOCAINE 1% INJ 50 ML MDV IJ ONE (21:00)
[2023-02-06] MEDS ORDERED: SILVER NITRATE APPLICATOR 1 EA BOX TP SCH (21:00)
--- NOTE | 2023-02-06 21:00 | NUR ---
Gucci rn notes RT at Bedside ,Pts was place on Bipap as ordered tolerated by Pts,will continue to monitor pts.
[2023-02-07] VITALS: BP 122/88
--- NOTE | 2023-02-07 | NUR ---
Gucci rn juju Pts noted with temp 100 , cooling measures applied , bed bath done . tylenol given as ordered . will continue to monitor pts
[2023-02-07] MEDS: BLOOD SUGAR DIAGNOSTIC 1 EACH STRIP IN SCH ×5 (00:07→23:48)
[2023-02-07] MEDS: METOCLOPRAMIDE HCL 10 MG/10 ML UDC PO SCH ×4 (00:11→18:00)
[2023-02-07] MEDS: ACETAMINOPHEN 650 MG/20.3 ML UDC GT PRN (00:48)
[2023-02-07] MEDS: ALBUTEROL FS 2.5 MG/0.5 ML VIAL.NEB NEB SCH ×4 (01:42→19:32)
[2023-02-07] MEDS: IPRATROPIUM NEB FS 0.5 MG/2.5 ML AMPUL.NEB NEB SCH ×4 (01:42→19:32)
--- NOTE | 2023-02-07 03:30 | NUR ---
Gucci rn notes Rt at bedside Bipap off pts place on 4liters of 02via nc sating 98% ,Temp down to 98.due medication given as ordered.
[2023-02-07 04:00] VITALS: BP 148/63
[2023-02-07] MEDS: COLISTIMETHATE SODIUM 150 MG in IV NS 0.9% 50 ML IV SCH ×2 (04:54→19:08)
[2023-02-07] MEDS: PIPERACILLIN /TAZOBACTAM 3.375 G in IV D5W 100 ML IV SCH ×2 (04:54→12:02)
--- NOTE | 2023-02-07 06:36 | NUR ---
SPLICING MACHINE OPERATOR AUTOMATIC closing note Pt resting in bed, sleep, breathing even and unlabored, o2 via NC at 4L, afebrile, skin warm and dry to touch, GABRIELA midline patent, enteral feeding infusing via GT, tolerating well, dominguez patent, flexiseal patent, all due meds given per MD orders, tolerated well, bed bath given, wound care rendered well, repositioned q2h, NAD noted this shift
--- NOTE | 2023-02-07 07:00 | NUR ---
TD RN OPENING NOTE RECEIVED PATIENT IN BED SLEEPING, ALERT AND VERBALLY RESPONSIVE WHEN AWAKEN, AO X1-2, CONFUSED. O2 VIA NC AT 2L NC, NO SOB/DISTRESS NOTED, ON TELE MONITOR SHOWING SINUS RHYTHM 95. IV ACCESS GABRIELA ML LINE NOTED PATENT AND INTACT, FLUSHES WELL, NO S/SX OF INFILTRATION. THOMAS CATHETER IN PLACED DRAINING VIA GRAVITY. GT PATENT AND INTACT, FLUSHES WELL, NO RESIDUAL NOTED, NOTED WITH BILATERAL WRIST RESTRAINTS, CHECK FOR SKIN AND CIRCULATION. SAFETY MEASURES MAINTAINED: BED LOCKED AND IN LOWEST POSITION, SIDE RAILS UP X3. CONTINUE CONTACT ISOLATION PRECAUTION. WILL CONTINUE TO MONITOR.
[2023-02-07 08:00] VITALS: BP 151/83
[2023-02-07] MEDS: ARIPIPRAZOLE 5 MG TABLET GT SCH (08:00)
[2023-02-07] MEDS: methylPREDNISolone SOD SUCC 40 MG/ML VIAL IV SCH (08:00)
[2023-02-07] MEDS: PANTOPRAZOLE 40 MG/PACK PACK GT SCH ×2 (08:00→17:15)
[2023-02-07] MEDS: FOLIC ACID 1 MG TABLET GT SCH (08:00)
[2023-02-07] MEDS: LEVOTHYROXINE SODIUM 100 MCG TABLET GT SCH (08:01)
[2023-02-07 08:33] LABS: BASOPHILS # (AUTO) 0.1 K/uL (0.0-0.2); BASOPHILS % (AUTO) 0.3 % (0.0-2.0); EOSINOPHILS % (AUTO) 5.1 % (0.0-6.0); HEMATOCRIT 22 % (33-45); LYMPHOCYTES # (AUTO) 1.6 K/uL (0.8-4.8); LYMPHOCYTES % (AUTO) 9.6 % (20.0-44.0); MEAN CORPUSCULAR HGB CONC 32 g/dl (31.0-36.0); MEAN CORPUSCULAR VOLUME 83 fL (82-100); MONOCYTES % (AUTO) 6.1 % (2.0-12.0); NEUTROPHILS # (AUTO) 13.2 K/uL (1.8-8.9); NEUTROPHILS % (AUTO) 78.9 % (43.0-81.0); PLATELET COUNT (AUTO) 203 K/uL (150-450); RED BLOOD CELL COUNT(AUTO) 2.69 MIL/uL (4.0-5.2); WHITE BLOOD COUNT (AUTO) 16.7 K/uL (4.3-11.0)
[2023-02-07] MEDS: DAKINS QUARTER STRENGTH (0.125%) 480 ML BOTTLE TOP SCH ×2 (08:37→17:15)
[2023-02-07] MEDS: METOPROLOL TARTRATE 25 MG TABLET GT SCH ×2 (08:37→17:15)
[2023-02-07] MEDS: THERAHONEY GEL 1.5 OZ TUBE TP SCH (08:38)
[2023-02-07] MEDS: GLUCERNA 1.2 1,000 ML BOTTLE PEG SCH (08:53)
--- NOTE | 2023-02-07 09:04 | NUR ---
COMMISSARY HELPER NOTE SPOKE TO SAMEER CLAY AND REPORT WAS GIVEN FOR CRITICAL LAB HEMOGLOBIN 7.O, NO NEW ORDERS RECEIVED.
[2023-02-07 09:30] LABS: CALCIUM, SERUM 8.7 mg/dL (8.5-10.1); MAGNESIUM 1.6 mg/dL (1.8-2.4); PHOSPHORUS 3.2 mg/dL (2.5-4.9); POTASSIUM 3.8 mmol/L (3.5-5.1)
--- NOTE | 2023-02-07 10:20 | NUR ---
FIRE ALARM INSTALLER NOTE PER BA EMERY, NO WOUND DEBRIDEMENT WILL BE DONE DUE TO CRITICAL VALUE FOR HEMOGLOBIN AT 7.0
[2023-02-07 12:00] VITALS: BP 146/92
--- NOTE | 2023-02-07 12:00 | NUR ---
RN NOTE PATIENTS BLOOD SUGAR WAS 131 AT THIS TIME, GAVE 2 UNITS OF INSULIN.
[2023-02-07] MEDS: MORPHINE SULFATE INJ 2 MG/ML DISP.SYRIN IV PRN (12:22)
[2023-02-07] MEDS: INSULIN REGULAR, HUMAN 100 UNIT/ML 3 ML VIAL SQ PRN ×3 (12:45→23:50)
[2023-02-07 16:00] VITALS: BP 149/79
--- NOTE | 2023-02-07 17:10 | NUR ---
RN NOTE PER PHARMACY, REFORMULATING VANCOMYCIN DUE TO TROUGH LEVEL OF 10
[2023-02-07] MEDS: VANCOMYCIN HCL 0.75 GM in IV D5W 250 ML IV SCH (17:14)
--- NOTE | 2023-02-07 19:26 | NUR ---
UNIT OPERATOR CLOSING NOTES: PATIENT IN BED, ASLEEP BUT EASILY AROUSABLE. ALERT/ORIENTED X1-2 WITH CONFUSION AND VERBALLY RESPONSIVE. ON O2 AT 2L/MIN VIA N/C AND PT TOLERATED WELL. O2 SAT 100%. IV ACCESS GABRIELA MIDLINE LINE INTACT AND PATENT. NO S/S OF INFILTRATIONS. GT FEEDING WELL TOLERATED. NO RESIDUAL NOTED, RUNNING GLUCERNA AT 60ML/HR. PT TOLERATED WELL. BLOOD SUGAR 131 COVERAGE NEEDED 2 UNITS GIVEN. THOMAS CATHETER IN PLACED WITH YELLOW COLOR URINE. FLEXISEAL IN PLACE. BILATERAL WRIST SOFT RESTRAINTS ON. RELEASED Q 2 HOURS TO CHECK CIRCULATIONS. NO FACIAL GRIMACING NOTED. ALL DUE MEDS GIVEN ORDERED. ALL SAFETY MEASURES IN PLACE. HOB AT 40 DEGREES, BED IN LOWEST POSITION AND LOCKED SIDE RAILS UP X3. ON CONTACT ISOLATION PRECAUTION. PLACE CALL LIGHT WITH IN REACH.WILL ENDORSE TO OPTO MECHANICAL ENGINEER NURSE.
--- NOTE | 2023-02-07 19:46 | NUR ---
RN NOTE VERIFIED WITH PHARMACY TO CORRECT ROUTE FOR UNACYN ON eMAR, PENDING ROUTE CONFIRMATION. DID NOT GIVE AT THIS TIME.
[2023-02-07 20:00] VITALS: BP 154/74
--- NOTE | 2023-02-07 20:00 | NUR ---
TD RN OPENING NOTE RECEIVED PATIENT IN BED AWAKE, ALERT AND VERBALLY RESPONSIVE AO X1-2, CONFUSED. PTS PLACE ON NOC BIPAP WELL TOLERATED BY PTS ,ON TELE MONITOR SR NO SOB/DISTRESS NOTED. IV ACCESS GABRIELA ML LINE NOTED PATENT AND INTACT, FLUSHES WELL, NO S/SX OF INFILTRATION. THOMAS CATHETER IN PLACED DRAINING VIA GRAVITY. GT PATENT AND INTACT, FLUSHES WELL, GLUCERNA AT 60CC/HR NO RESIDUAL NOTED, WITH BILATERAL WRIST RESTRAINTS, CHECK FOR SKIN AND CIRCULATION. SAFETY MEASURES MAINTAINED: BED LOCKED AND IN LOWEST POSITION, SIDE RAILS UP X3. CONTINUE CONTACT ISOLATION PRECAUTION.V/S STABLE AFEBRILE WILL CONTINUE TO MONITOR.
[2023-02-07] MEDS: MICAFUNGIN SODIUM 100 MG in IV NS 0.9% 100 ML IV SCH (20:21)
[2023-02-07] MEDS: AMPICILLIN /SULBACTAM 3 G in IV NS 0.9% 50 ML IJ SCH (20:21)
[2023-02-07 23:14] LABS: BASOPHILS % (MANUAL) 0 % (0.0-2.0); EOSINOPHILS % (MANUAL) 5 % (0-4); LYMPHOCYTES % (MANUAL) 12 % (16-48); MONOCYTES % (MANUAL) 7 % (0-11.0); NEUTROPHILS % (MANUAL) 76 (42-76)
--- NOTE | 2023-02-07 23:50 | NUR ---
TD RN NOTES Blood sugar at 12mn is 83mg/dl no coverage given per sliding scale ,pts on gt feeding.
[2023-02-08] VITALS: BP 148/88
[2023-02-08] MEDS: METOCLOPRAMIDE HCL 10 MG/10 ML UDC PO SCH ×5 (00:35→23:22)
[2023-02-08] MEDS: AMPICILLIN /SULBACTAM 3 G in IV NS 0.9% 50 ML IJ SCH ×5 (00:35→23:22)
[2023-02-08] MEDS: ALBUTEROL FS 2.5 MG/0.5 ML VIAL.NEB NEB SCH ×4 (00:48→20:17)
[2023-02-08] MEDS: IPRATROPIUM NEB FS 0.5 MG/2.5 ML AMPUL.NEB NEB SCH ×4 (00:48→20:17)
[2023-02-08 04:00] VITALS: BP 149/87
[2023-02-08] MEDS: COLISTIMETHATE SODIUM 150 MG in IV NS 0.9% 50 ML IV SCH ×2 (04:33→17:54)
[2023-02-08] MEDS: BLOOD SUGAR DIAGNOSTIC 1 EACH STRIP IN SCH ×4 (05:17→23:31)
[2023-02-08] MEDS: INSULIN REGULAR, HUMAN 100 UNIT/ML 3 ML VIAL SQ PRN ×4 (05:18→23:31)
--- NOTE | 2023-02-08 05:19 | NUR ---
TAZ RN NOTES. Blood sugar for 12mn is 163mg/dl 3units of regular insulin given per sliding scale.pts on gt feeding.
--- NOTE | 2023-02-08 06:37 | NUR ---
CLOTH GRADER SUPERVISOR closing note Pts in bed awake, A&Ox3, with confussion verbal,v/s stable afebrile . no sob no distress noted breathing even and unlabored, off bipap at 3am place to 2 liters of o2 2liters via nc .with bilateral soft wrist restraint to prevent pulling iv tubings ,with dominguez cath intact / patent, draining clear yellow urine, 02 via NC, all safety precautions in place, Bed in low and locked position , Side rails up . Call light within reach .will endorse to rn day shift for continuity of care.
[2023-02-08 06:39] LABS: BASOPHILS # (AUTO) 0.1 K/uL (0.0-0.2); BASOPHILS % (AUTO) 0.3 % (0.0-2.0); EOSINOPHILS % (AUTO) 1.4 % (0.0-6.0); HEMATOCRIT 27 % (33-45); HEMOGLOBIN 8.2 g/dL (11.5-14.8); LYMPHOCYTES # (AUTO) 1.3 K/uL (0.8-4.8); LYMPHOCYTES % (AUTO) 7.9 % (20.0-44.0); MEAN CORPUSCULAR HGB CONC 30 g/dl (31.0-36.0); MEAN CORPUSCULAR VOLUME 86 fL (82-100); MONOCYTES # (AUTO) 1.1 K/uL (0.1-1.30); MONOCYTES % (AUTO) 6.6 % (2.0-12.0); NEUTROPHILS # (AUTO) 13.9 K/uL (1.8-8.9); NEUTROPHILS % (AUTO) 83.8 % (43.0-81.0); PLATELET COUNT (AUTO) 197 K/uL (150-450); RED BLOOD CELL COUNT(AUTO) 3.17 MIL/uL (4.0-5.2); WHITE BLOOD COUNT (AUTO) 16.6 K/uL (4.3-11.0)
[2023-02-08 07:01] LABS: CALCIUM, SERUM 9.6 mg/dL (8.5-10.1); CREATININE 1.1 mg/dL (0.6-1.3); POTASSIUM 3.7 mmol/L (3.5-5.1)
[2023-02-08] MEDS: GLUCERNA 1.2 1,000 ML BOTTLE PEG SCH (07:41)
[2023-02-08 08:00] VITALS: BP 173/76
[2023-02-08] MEDS: THERAHONEY GEL 1.5 OZ TUBE TP SCH (08:29)
[2023-02-08] MEDS: METOPROLOL TARTRATE 25 MG TABLET GT SCH ×2 (08:45→17:54)
[2023-02-08] MEDS: methylPREDNISolone SOD SUCC 40 MG/ML VIAL IV SCH (08:45)
[2023-02-08] MEDS: ARIPIPRAZOLE 5 MG TABLET GT SCH (08:46)
[2023-02-08] MEDS: PANTOPRAZOLE 40 MG/PACK PACK GT SCH ×2 (08:46→17:53)
[2023-02-08] MEDS: LEVOTHYROXINE SODIUM 100 MCG TABLET GT SCH (08:46)
[2023-02-08] MEDS: FOLIC ACID 1 MG TABLET GT SCH (08:46)
--- NOTE | 2023-02-08 10:22 | NUR ---
RN NOTE DR LOVE CALLED TO FOLLOW UP ON PATIENT TODAY ASKED ABOUT CBC TODAY: WBC:16.6, HGB: 8.2, HCT; 27, AND PLT: 197. ASKED WHY C.DIFF RESULTS ARE STILL PENDING. CALLED LAB, SPOKE TO LALITA AT LAB: STATED C.DIFF SPECIMEN TAKES A FEW DAYS FOR RESULTS, STILL PENDING AT [facility], SENT ON 02/06/23,. SHE WILL CALL BACK ONCE RESULTS ARE IN.
[2023-02-08 12:00] VITALS: BP 150/84
--- NOTE | 2023-02-08 12:35 | NUR ---
RN NOTE DR MEADOWS AT BEDSIDE AT THIS TIME. NOTIFIED MD OF RESULTS AEROBIC BOTTLE GRAM POSITIVE COCCI SEEN ON GRAM STAIN
[2023-02-08] MEDS: VANCOMYCIN HCL 0.75 GM in IV D5W 250 ML IV SCH (14:27)
[2023-02-08] MEDS: IV NS 0.9% 250 ML IV PRN (14:31)
[2023-02-08 16:00] VITALS: BP 121/67
[2023-02-08] MEDS: MICAFUNGIN SODIUM 100 MG in IV NS 0.9% 100 ML IV SCH (19:10)
--- NOTE | 2023-02-08 19:10 | NUR ---
RN NOTES RECEIVED PT FOR CONTINUITY OF CARE. PATIENT NON VERBAL IN NO S/SX OF ACUTE DISTRESS AT THIS TIME; CURRENTLY ON 2L OF O2 VIA NC; WITH 02 SAT >95% AT THIS TIME.WITH IV ACCESS R FA#20 PATENT, INTACT AND FLUSHING WELL. THOMAS CATH IN PLACE, SMALL URINE OUTPUT NOTED AT THIS TIME. WITH FLEXISEAL SECURED AND INTACT. WILL ENSURE SAFETY MEASURES WITHIN THE SHIFT. PATIENT BED ALARM IS ON. HEAD OF BED ELEVATED. BED IS LOCKED, IN LOWEST POSITION AND SIDE RAILS UP. CALL LIGHT WITHIN REACH OF THE PATIENT. APPLICABLE ISOLATION PRECAUTIONS IN PLACE. WILL CONTINUE TO MONITOR AND REASSESS FOR ANY CHANGES AND WILL CARRY OUT ANY ONGOING AND ACTIVE MD ORDER.
--- NOTE | 2023-02-08 19:23 | NUR ---
LEATHER SORTER CLOSING NOTE Pt in bed awake, A&Ox1, confused. No sob no distress noted breathing even and unlabored, breathing on 2L nasal cannula . Bilateral soft wrist restraint to prevent pulling iv tubings ,with dominguez cath intact / patent, draining clear yellow urine, flexiseal in place draining liquid brown stool. iv access GABRIELA midline intact. g tube running glucerna at 60mls/hr. all safety precautions in place, Bed in low and locked position , Side rails up . hob at 40 degrees. Call light within reach .will endorse to general operations agent shift for continuity of care.
[2023-02-08 19:28] LABS: BAND % (MANUAL) 1 % (0.0-5.0); EOSINOPHILS % (MANUAL) 1 % (0-4); LYMPHOCYTES % (MANUAL) 8 % (16-48); MONOCYTES % (MANUAL) 5 % (0-11.0); NEUTROPHILS % (MANUAL) 85 (42-76)
[2023-02-08 20:00] VITALS: BP 150/76
[2023-02-09] VITALS: BP 147/74
--- NOTE | 2023-02-09 | NUR ---
RN NOTE RT COORDINATED; PATIENT PLACED ON NOC BIPAP WITH SETTINGS PRESCRIBED. TOLERATES WELL. WILL CONTINUE TO MONITOR. TECHNICAL SUPPORT MANAGER WELL AWARE
[2023-02-09] MEDS: IPRATROPIUM NEB FS 0.5 MG/2.5 ML AMPUL.NEB NEB SCH ×4 (02:27→19:51)
[2023-02-09] MEDS: ALBUTEROL FS 2.5 MG/0.5 ML VIAL.NEB NEB SCH ×4 (02:27→19:51)
[2023-02-09] MEDS: GLUCERNA 1.2 1,000 ML BOTTLE PEG SCH (02:58)
[2023-02-09 04:00] VITALS: BP 149/87
[2023-02-09] MEDS: COLISTIMETHATE SODIUM 150 MG in IV NS 0.9% 50 ML IV SCH ×2 (04:47→16:40)
[2023-02-09] MEDS: AMPICILLIN /SULBACTAM 3 G in IV NS 0.9% 50 ML IJ SCH ×3 (05:01→17:38)
[2023-02-09] MEDS: METOCLOPRAMIDE HCL 10 MG/10 ML UDC PO SCH ×3 (05:01→17:45)
[2023-02-09] MEDS: INSULIN REGULAR, HUMAN 100 UNIT/ML 3 ML VIAL SQ PRN (05:12)
[2023-02-09] MEDS: BLOOD SUGAR DIAGNOSTIC 1 EACH STRIP IN SCH ×3 (05:12→17:45)
--- NOTE | 2023-02-09 06:00 | NUR ---
RN NOTE RT COORDINATED; PT BACK ON 2L OF O2 VIA NC. O2 SAT REMAINED >95%. WILL CONTINUE TO MONITOR
[2023-02-09 06:01] LABS: ABG PCO2 48.7 mmHg (35.0-45.0); ABG PH 7.471 (7.350-7.450); ABG PO2 62.6 mmHg (75.0-100.0); AaDO2 94.1 mmHg; COHb 0.7 % (0.5-1.5); MetHb 0.3 % (0.0-1.5); O2Hb 90.1 % (94.0-97.0); SITE, ABG Left Radial; VENT MODE, BG ST 20/10 12 30%
--- NOTE | 2023-02-09 06:33 | NUR ---
RN CLOSING NOTE: PATIENT REMAINS IN ROOM IN NO SIGNS OF RESPIRATORY DISTRESS, PATIENT STILL ON 2L OF O2 VIA NC ;TOLERATING WELL SATURATING @ >95% SP02. SAFETY MEASURES IMPLEMENTED, BED IN LOWEST POSITION, LOCKED, SIDE RAILS UP, CALL LIGHT WITHIN REACH. ALL NEEDS AND ORDERS ADDRESSED DURING THE SHIFT. IV ACCESS MAINTAINED INTACT, SECURED AND FLUSHING WELL. THOMAS CATH AND FLEXISEAL REMAINED SECURED, PATENT AND INTACT. ALL DUE MEDS GIVEN ORDERED & SCHEDULED ; PATIENT TOLERATED WELL. STILL WITH BILATERAL SOFT RESTRAINTS IN PLACED, MONITORED AND ASSESSED PER PROTOCOL. PATIENT KEPT CLEAN AND COMFORTABLE WITHIN THE SHIFT. PATIENT ENDORSED TO INCOMING SHIFT RN WITH STABLE VITAL SIGN AND FOR CONTINUITY OF CARE.
[2023-02-09 07:05] LABS: BASOPHILS % (AUTO) 0.3 % (0.0-2.0); EOSINOPHILS % (AUTO) 1.1 % (0.0-6.0); HEMATOCRIT 23 % (33-45); HEMOGLOBIN 7.3 g/dL (11.5-14.8); LYMPHOCYTES # (AUTO) 1.6 K/uL (0.8-4.8); LYMPHOCYTES % (AUTO) 9.7 % (20.0-44.0); MEAN CORPUSCULAR HGB CONC 31 g/dl (31.0-36.0); MEAN CORPUSCULAR VOLUME 83 fL (82-100); MONOCYTES # (AUTO) 1.2 K/uL (0.1-1.30); MONOCYTES % (AUTO) 7.3 % (2.0-12.0); NEUTROPHILS # (AUTO) 13.2 K/uL (1.8-8.9); NEUTROPHILS % (AUTO) 81.6 % (43.0-81.0); PLATELET COUNT (AUTO) 235 K/uL (150-450); RED BLOOD CELL COUNT(AUTO) 2.82 MIL/uL (4.0-5.2); WHITE BLOOD COUNT (AUTO) 16.1 K/uL (4.3-11.0)
--- NOTE | 2023-02-09 07:08 | NUR ---
RN OPENING NOTES: RECEIVED PATINE IN BED, AWAKE, ALERT, ANSWERS TO HER NAME BUT WITH PERIODS OF CONFUSION. ON OXYGEN @ 2L/MIN VIA N/C, TOLERATING WELL, NO S/S SOB NOTED, BREATHING EVEN AND UNLABORED. ON SR WITH HR OF 98 PER TELE MONITOR. IV ACCESS ON RIGHT UPPER ARM MIDLINE, INTACT, NON S/S INFILTRATION NOTED. THOMAS CATH IN PLACE, DRAINING WITH YELLOW COLORED URINE, NO HEMATURIA NOTED. FLEXISEAL INTACT. G-TUBE IN PLACE, RUNNING WITH GLUCERNA 1.2 @ 60 ML X 24 HOURS. HOB KEPT ELEVATED. ALL SAFETY MEASURES IN PLACE. BED LOCKED AND IN LOWEST POSITION WITH BED ALARM ON. CALL LIGHT WITHIN REACH. WILL CONTINUE TO MONITOR PATIENT THROUGHOUT SHIFT.
[2023-02-09 07:17] LABS: CALCIUM, SERUM 9.5 mg/dL (8.5-10.1); CREATININE 1.1 mg/dL (0.6-1.3); POTASSIUM 3.7 mmol/L (3.5-5.1)
[2023-02-09 08:00] VITALS: BP 148/70
[2023-02-09] MEDS: LEVOTHYROXINE SODIUM 100 MCG TABLET GT SCH (08:27)
[2023-02-09] MEDS: FOLIC ACID 1 MG TABLET GT SCH (08:27)
[2023-02-09] MEDS: methylPREDNISolone SOD SUCC 40 MG/ML VIAL IV SCH (08:27)
[2023-02-09] MEDS: PANTOPRAZOLE 40 MG/PACK PACK GT SCH ×2 (08:27→16:32)
[2023-02-09] MEDS: ACETAMINOPHEN 650 MG/20.3 ML UDC GT PRN (08:27)
[2023-02-09] MEDS: METOPROLOL TARTRATE 25 MG TABLET GT SCH ×2 (08:28→16:33)
[2023-02-09] MEDS: ARIPIPRAZOLE 5 MG TABLET GT SCH (08:28)
[2023-02-09] MEDS: DAKINS QUARTER STRENGTH (0.125%) 480 ML BOTTLE TOP SCH (08:46)
[2023-02-09] MEDS: THERAHONEY GEL 1.5 OZ TUBE TP SCH (08:46)
[2023-02-09 12:00] VITALS: BP 147/67
--- NOTE | 2023-02-09 13:01 | NUR ---
SPOKE WITH HORACIO MALONEY NP FROM ID @ AND INFORMED OF GRAM POSITIVE COCCI OF BLOOD CULTURE WITH NO ADDITIONAL ORDERS AT THIS TIME.
--- NOTE | 2023-02-09 15:11 | NUR ---
SPOKE WITH JAIRO AT THE PHARMACY AND RELAYED PATIENT'S LAST TROUGH OF 10 ON 02/07/23 AND THE NEXT VANCO TROUGH IS TOMORROW 02/10/23 AND WAS INFORMED TO ADMINISTER VANCO ORDERED
[2023-02-09] MEDS: VANCOMYCIN HCL 0.75 GM in IV D5W 250 ML IV SCH (15:13)
[2023-02-09 16:00] VITALS: BP 161/80
[2023-02-09] MEDS: MICAFUNGIN SODIUM 100 MG in IV NS 0.9% 100 ML IV SCH (18:10)
--- NOTE | 2023-02-09 19:45 | NUR ---
RN NOTE RECEIVED PT IN BED, ALERT, AWAKE AND VERBALLY RESPONSIVE, PT ORIENTED TO SELF ONLY. PT ON 2LPM O2 VIA NC, NO SOB, NO ACUTE RESP DISTRESS NOTED. AFEBRILE. PT ATTACHED TO EXTERNAL HR LEADER. CURRENTLY INFUSING MYCAMINE AT 100ML/HR ON GABRIELA, NO ASE NOTED. GTF RUNNING AT 60ML/HR, PATENT AND SECURED, 0 RESIDUAL NOTED. HOB ELEVATED. ASIPRATION PRECAUTION IMPLEMENTED. THOMAS CATH IN PLACED, PATENT, DRAININF CLEAR YELLOW URINE BY GRAVITY. RECTAL TUBE IN PLACED, NO ZELALEM NOTED AT THIS TIME. SAFETY PRECAUTIONS IMPLEMENTED. WILL CONT POC.
[2023-02-09 20:00] VITALS: BP_SYST 114; BP_SYST 148; BP_DIAS 52; BP_DIAS 71
--- NOTE | 2023-02-09 22:26 | NUR ---
Placed pt on BiPAP on ordered NOC settings.
[2023-02-10] VITALS: BP 154/85
[2023-02-10] MEDS: AMPICILLIN /SULBACTAM 3 G in IV NS 0.9% 50 ML IJ SCH ×5 (00:21→23:58)
[2023-02-10] MEDS: BLOOD SUGAR DIAGNOSTIC 1 EACH STRIP IN SCH ×5 (00:21→23:58)
[2023-02-10] MEDS: METOCLOPRAMIDE HCL 10 MG/10 ML UDC PO SCH ×5 (00:21→23:58)
[2023-02-10] MEDS: INSULIN REGULAR, HUMAN 100 UNIT/ML 3 ML VIAL SQ PRN ×2 (00:22→05:41)
[2023-02-10] MEDS: ALBUTEROL FS 2.5 MG/0.5 ML VIAL.NEB NEB SCH ×4 (01:05→19:57)
[2023-02-10] MEDS: IPRATROPIUM NEB FS 0.5 MG/2.5 ML AMPUL.NEB NEB SCH ×4 (01:05→19:57)
[2023-02-10 04:00] VITALS: BP 152/77
[2023-02-10] MEDS: GLUCERNA 1.2 1,000 ML BOTTLE PEG SCH (04:34)
[2023-02-10] MEDS: COLISTIMETHATE SODIUM 150 MG in IV NS 0.9% 50 ML IV SCH (05:03)
--- NOTE | 2023-02-10 07:00 | NUR ---
RN OPENING NOTES: RECEIVED PATINE IN BED, ASLEEP ALERT. ON OXYGEN @ 2L/MIN VIA N/C, TOLERATING WELL, NO S/S SOB NOTED, BREATHING EVEN AND UNLABORED. ON SR WITH HR OF 95 PER TELE MONITOR. IV ACCESS ON RIGHT UPPER ARM MIDLINE, INTACT, NON S/S INFILTRATION NOTED. THOMAS CATH IN PLACE, DRAINING WITH YELLOW COLORED URINE, NO HEMATURIA NOTED. FLEXISEAL INTACT. G-TUBE IN PLACE, RUNNING WITH GLUCERNA 1.2 @ 60 ML X 24 HOURS. HOB ELEVATED. ALL SAFETY MEASURES IN PLACE. BED LOCKED AND IN LOWEST POSITION WITH BED ALARM ON. CALL LIGHT WITHIN REACH. WILL MONITOR.
--- NOTE | 2023-02-10 07:00 | NUR ---
RN NOTE PT REMAINS IN STABLE CONDITION. NO SIGNIFICANT CHANGES NITED. PT WAS ON NOC BIPAP ORDERED, WELL EMILY. PT NOW ON 2LPM O2 VIA NC, NO ACUTE RESP DISTRESS NOTED, RESPIRATIONS EVEN AND UNLABORED. GTF RUNNING ORDRED, WELL EMILY, 0 RESIDUAL. FC IN PLACED, PATENT DRAINING CLEAR YELLOW URINE. FLEXISEAL IN PLACED, PATENT, NO VISIBLE STOOL AT THIS TIME. ALL NEEDS ATTENDED. KEPT PT CLEAN AND DRY AT ALL TIMES. WILL ENDORSE TO AM SHIFT
[2023-02-10 07:12] LABS: BASOPHILS % (AUTO) 0.2 % (0.0-2.0); EOSINOPHILS % (AUTO) 1.6 % (0.0-6.0); HEMATOCRIT 23 % (33-45); HEMOGLOBIN 7.1 g/dL (11.5-14.8); LYMPHOCYTES % (AUTO) 16.2 % (20.0-44.0); MEAN CORPUSCULAR HGB CONC 31 g/dl (31.0-36.0); MEAN CORPUSCULAR VOLUME 83 fL (82-100); MONOCYTES % (AUTO) 7.9 % (2.0-12.0); NEUTROPHILS # (AUTO) 9.2 K/uL (1.8-8.9); NEUTROPHILS % (AUTO) 74.1 % (43.0-81.0); PLATELET COUNT (AUTO) 256 K/uL (150-450); RED BLOOD CELL COUNT(AUTO) 2.73 MIL/uL (4.0-5.2); WHITE BLOOD COUNT (AUTO) 12.4 K/uL (4.3-11.0)
[2023-02-10 07:20] LABS: CALCIUM, SERUM 9.2 mg/dL (8.5-10.1); CREATININE 1.2 mg/dL (0.6-1.3); POTASSIUM 3.8 mmol/L (3.5-5.1)
[2023-02-10 08:00] VITALS: BP 174/91
[2023-02-10] MEDS: FOLIC ACID 1 MG TABLET GT SCH (09:17)
[2023-02-10] MEDS: METOPROLOL TARTRATE 25 MG TABLET GT SCH ×2 (09:17→17:02)
[2023-02-10] MEDS: LEVOTHYROXINE SODIUM 100 MCG TABLET GT SCH (09:17)
[2023-02-10] MEDS: ARIPIPRAZOLE 5 MG TABLET GT SCH (09:17)
[2023-02-10] MEDS: DAKINS QUARTER STRENGTH (0.125%) 480 ML BOTTLE TOP SCH (09:18)
[2023-02-10] MEDS: PANTOPRAZOLE 40 MG/PACK PACK GT SCH ×2 (09:18→17:02)
[2023-02-10] MEDS: THERAHONEY GEL 1.5 OZ TUBE TP SCH (09:19)
[2023-02-10 12:00] VITALS: BP 160/61
[2023-02-10] MEDS: MORPHINE SULFATE INJ 2 MG/ML DISP.SYRIN IV PRN (12:16)
[2023-02-10] MEDS: VANCOMYCIN HCL 0.75 GM in IV D5W 250 ML IV SCH (15:51)
[2023-02-10 16:00] VITALS: BP 166/90
[2023-02-10] MEDS ORDERED: COLISTIMETHATE SODIUM 100 MG in IV NS 0.9% 50 ML IV SCH ×2 (17:00→18:30)
[2023-02-10] MEDS ORDERED: NS 0.9% IV SCH (17:00)
[2023-02-10] MEDS ORDERED: COLISTIMETHATE SODIUM IV SCH (17:00)
--- NOTE | 2023-02-10 17:58 | NUR ---
RECEIVED PATIENT ON 2LNC SATURATIONS AT 96-97%. HHN TXS EMILY WELL WITH NO ADVERSE REACTION NOTED. NO SOB NOTED.
[2023-02-10] MEDS: MICAFUNGIN SODIUM 100 MG in IV NS 0.9% 100 ML IV SCH (18:14)
--- NOTE | 2023-02-10 18:50 | NUR ---
BUTTER PRINTER CLOSING NOTE Pt in bed awake, A&Ox1, confused. No sob no distress noted breathing even and unlabored, breathing on 2L nasal cannula . Bilateral soft wrist restraint to prevent pulling iv tubings ,with dominguez cath intact / patent, draining clear yellow urine, flexiseal in place draining liquid brown stool. iv access GABRIELA midline intact. g tube running glucerna at 60mls/hr. all safety precautions in place, Bed in low and locked position , Side rails up . hob at 40 degrees. All due meds were given as ordered, wound care done.Call light within reach .will endorse to cage shift manager RN for king
--- NOTE | 2023-02-10 19:45 | NUR ---
TD RN OPENING NOTES: RECEIVED PATIENT IN BED, ASLEEP BUT EASILY AROUSABLE. ALERT/ORIENTED X1-2 WITH CONFUSION AND VERBALLY RESPONSIVE. ON O2 AT 2L/MIN VIA N/C AND PT TOLERATED WELL. ON NOC BIPAP. IV ACCESS GABRIELA MID LINE INTACT AND PATENT. NO S/S OF INFILTRATIONS. GT FEEDING WELL TOLERATED. NO RESIDUAL NOTED, RUNNING GLUCERNA 1.2 AT 60ML/HR. PT TOLERATED WELL. THOMAS CATHETER IN PLACE. DRAINING BY GRAVITY. FLEXISEAL IN PLACE. BILATERAL WRIST SOFT RESTRAINTS ON. NO FACIAL GRIMACING NOTED. ALL SAFETY MEASURES IN PLACE. BED IN LOWEST POSITION AND LOCKED. SIDE RAILS UP X3. ON CONTACT ISOLATION PRECAUTION. PLACE CALL LIGHT WITH IN REACH.WILL CONTINUE TO MONITOR
[2023-02-10 20:00] VITALS: BP 123/82
--- NOTE | 2023-02-10 23:31 | NUR ---
PT PLACED ON NOC BIPAP. TOLERATING WELL. RN NOTIFIED.
[2023-02-11] VITALS: BP 114/76
[2023-02-11] MEDS: INSULIN REGULAR, HUMAN 100 UNIT/ML 3 ML VIAL SQ PRN ×2 (00:12→05:54)
--- NOTE | 2023-02-11 00:13 | NUR ---
RN NOTES: PT'S BLOOD SUGAR 86. NO COVERAGE NEEDED. NO S/S OF HYPER/HYPOGLYCEMIA. WILL CONTINUE TO MONITOR
[2023-02-11] MEDS: METOPROLOL TARTRATE 25 MG TABLET GT SCH ×3 (00:21→16:36)
[2023-02-11] MEDS: ACETAMINOPHEN 650 MG/20.3 ML UDC GT PRN ×2 (00:21→17:07)
[2023-02-11] MEDS: GLUCERNA 1.2 1,000 ML BOTTLE PEG SCH ×2 (00:22→20:48)
--- NOTE | 2023-02-11 00:40 | NUR ---
RN NOTES: PT'S TEMP INCREASED TO 100.3.TYLENOL 650 MG/20.3 ML GIVEN AND PT TOLERATED WELL. WILL CONTINUE TO MONITOR
[2023-02-11] MEDS: IPRATROPIUM NEB FS 0.5 MG/2.5 ML AMPUL.NEB NEB SCH ×4 (01:17→20:02)
[2023-02-11] MEDS: ALBUTEROL FS 2.5 MG/0.5 ML VIAL.NEB NEB SCH ×4 (01:17→20:02)
[2023-02-11 04:00] VITALS: BP 130/78
[2023-02-11] MEDS: BLOOD SUGAR DIAGNOSTIC 1 EACH STRIP IN SCH ×3 (05:54→17:04)
[2023-02-11] MEDS: AMPICILLIN /SULBACTAM 3 G in IV NS 0.9% 50 ML IJ SCH ×3 (05:55→17:04)
[2023-02-11] MEDS: METOCLOPRAMIDE HCL 10 MG/10 ML UDC PO SCH ×3 (05:55→20:52)
--- NOTE | 2023-02-11 06:45 | NUR ---
TD RN CLOSING NOTES: PATIENT IN BED, ASLEEP BUT EASILY AROUSABLE. ALERT/ORIENTED X1-2 WITH CONFUSION AND VERBALLY RESPONSIVE. ON O2 AT 2L/MIN VIA N/C AND PT TOLERATED WELL. NO SIGNIFICANT CHANGES NOTED. IV ACCESS GABRIELA MID LINE INTACT AND PATENT. NO S/S OF INFILTRATIONS. GT FEEDING WELL TOLERATED. RUNNING GLUCERNA 1.2 AT 60ML/HR. THOMAS CATHETER IN PLACE. DRAINING BY GRAVITY. FLEXISEAL IN PLACE. BILATERAL WRIST SOFT RESTRAINTS ON. RELEASED 1Q 2 HOUR TO CHECK CIRCULATION. NO FACIAL GRIMACING NOTED. ALL DUE MEDS GIVEN ORDERED. BLOOD SUGAR 103. NO COVERAGE NEEDED. NO S/S OF HYPER/HYPOGLYCEMIA. ALL SAFETY MEASURES IN PLACE. BED IN LOWEST POSITION AND LOCKED. SIDE RAILS UP X3. ON CONTACT ISOLATION PRECAUTION. PLACE CALL LIGHT WITH IN REACH.WILL ENDORSE TO MORNING SHIFT NURSE.
[2023-02-11 06:48] LABS: BASOPHILS % (AUTO) 0.2 % (0.0-2.0); EOSINOPHILS % (AUTO) 3.5 % (0.0-6.0); HEMATOCRIT 25 % (33-45); HEMOGLOBIN 7.8 g/dL (11.5-14.8); LYMPHOCYTES # (AUTO) 2.1 K/uL (0.8-4.8); LYMPHOCYTES % (AUTO) 14.6 % (20.0-44.0); MEAN CORPUSCULAR HGB CONC 31 g/dl (31.0-36.0); MEAN CORPUSCULAR VOLUME 84 fL (82-100); MONOCYTES # (AUTO) 0.8 K/uL (0.1-1.30); MONOCYTES % (AUTO) 5.7 % (2.0-12.0); NEUTROPHILS # (AUTO) 10.8 K/uL (1.8-8.9); PLATELET COUNT (AUTO) 309 K/uL (150-450); RED BLOOD CELL COUNT(AUTO) 3.03 MIL/uL (4.0-5.2); WHITE BLOOD COUNT (AUTO) 14.2 K/uL (4.3-11.0)
--- NOTE | 2023-02-11 07:00 | NUR ---
RN NOTES RECEIVED PATIENT ON BED, ASLEEP BUT EASILY AROUSABLE. ALERT, CONFUSED AND VERBALLY RESPONSIVE. ON O2 AT 2L/MIN VIA N/C AND PT TOLERATED WELL. IV ACCESS GABRIELA MID LINE INTACT AND PATENT. NO S/S OF INFILTRATIONS. GT FEEDING WELL TOLERATED. NO RESIDUAL NOTED, RUNNING GLUCERNA 1.2 AT 60ML/HR. PT TOLERATED WELL. THOMAS CATHETER IN PLACE. DRAINING BY GRAVITY. FLEXISEAL IN PLACE. BILATERAL WRIST SOFT RESTRAINTS ON FOR PT SAFETY, NO FACIAL GRIMACING NOTED. ALL SAFETY MEASURES IN PLACE. BED IN LOWEST POSITION AND LOCKED. SIDE RAILS UP X3. ON CONTACT ISOLATION PRECAUTION. PLACE CALL LIGHT WITHIN REACH.WILL CONTINUE TO MONITOR
[2023-02-11 07:06] LABS: CALCIUM, SERUM 9.1 mg/dL (8.5-10.1); CREATININE 1.4 mg/dL (0.6-1.3); POTASSIUM 4.4 mmol/L (3.5-5.1)
[2023-02-11 08:00] VITALS: BP 130/73
[2023-02-11] MEDS ORDERED: COLISTIMETHATE SODIUM 100 MG in IV NS 0.9% 50 ML IV SCH (08:00)
[2023-02-11] MEDS: PANTOPRAZOLE 40 MG/PACK PACK GT SCH ×2 (08:19→16:35)
[2023-02-11] MEDS: FOLIC ACID 1 MG TABLET GT SCH (08:19)
[2023-02-11] MEDS: LEVOTHYROXINE SODIUM 100 MCG TABLET GT SCH (08:19)
[2023-02-11] MEDS: ARIPIPRAZOLE 5 MG TABLET GT SCH (08:20)
[2023-02-11] MEDS: THERAHONEY GEL 1.5 OZ TUBE TP SCH (08:21)
[2023-02-11] MEDS: DAKINS QUARTER STRENGTH (0.125%) 480 ML BOTTLE TOP SCH (08:21)
[2023-02-11 12:00] VITALS: BP 120/60
--- NOTE | 2023-02-11 14:00 | NUR ---
RN NOTES VSS STABLE , NO DISTESS NOTED
[2023-02-11] MEDS ORDERED: VANCOMYCIN 500 MG in IV D5W 100ml IV SCH (15:00)
[2023-02-11 16:00] VITALS: BP 107/55
[2023-02-11] MEDS: MICAFUNGIN SODIUM 100 MG in IV NS 0.9% 100 ML IV SCH (18:01)
--- NOTE | 2023-02-11 18:15 | NUR ---
RN NOTES NO SIGNFICANT CHANGES NOTED ON THIS SHIFT,WILL ENDORSE TO GRINDING WHEEL OPERATOR NURSE FOR CONTINUITY OF CARE.
--- NOTE | 2023-02-11 19:36 | NUR ---
RN OPENING NOTES: RECEIVED PATIENT IN BED, ASLEEP BUT EASILY AROUSABLE. ALERT/ORIENTED X1-2 WITH CONFUSION AND VERBALLY RESPONSIVE. ON O2 AT 2L/MIN VIA N/C AND PT TOLERATED WELL. ON NOC BIPAP. IV ACCESS GABRIELA MID LINE INTACT AND PATENT. NO S/S OF INFILTRATIONS. GT FEEDING WELL TOLERATED. NO RESIDUAL NOTED, RUNNING GLUCERNA 1.2 AT 60ML/HR. PT TOLERATED WELL. THOMAS CATHETER IN PLACE. DRAINING BY GRAVITY. FLEXISEAL IN PLACE. BILATERAL WRIST SOFT RESTRAINTS ON. NO FACIAL GRIMACING NOTED. ALL SAFETY MEASURES IN PLACE. BED IN LOWEST POSITION AND LOCKED. SIDE RAILS UP X3. ON CONTACT ISOLATION PRECAUTION FOR MDRA PERRY IN BLOOD. PLACE CALL LIGHT WITH IN REACH.WILL CONTINUE TO MONITOR
[2023-02-11 19:38] LABS: OCCULT BLOOD STOOL NEGATIVE (NEGATIVE)
[2023-02-11 20:00] VITALS: BP 112/78
--- NOTE | 2023-02-11 21:38 | NUR ---
PT PLACED ON NOC BIPAP. PT WAS IN RESP DISTRESS. TOLERATING WELL. RN NOTIFIED.
[2023-02-12] VITALS: BP 118/54
[2023-02-12] MEDS: AMPICILLIN /SULBACTAM 3 G in IV NS 0.9% 50 ML IJ SCH ×4 (00:36→18:27)
[2023-02-12] MEDS: BLOOD SUGAR DIAGNOSTIC 1 EACH STRIP IN SCH ×4 (00:55→18:43)
[2023-02-12] MEDS: INSULIN REGULAR, HUMAN 100 UNIT/ML 3 ML VIAL SQ PRN ×2 (00:55→05:51)
--- NOTE | 2023-02-12 00:56 | NUR ---
RN NOTES: PT'S BLOOD SUGAR 105. NO COVERAGE NEEDED. NO S/S OF HYPER/HYPOGLYCEMIA. WILL CONTINUE TO MONITOR
[2023-02-12] MEDS: ACETAMINOPHEN 650 MG/20.3 ML UDC GT PRN ×2 (01:13→14:10)
[2023-02-12] MEDS: METOPROLOL TARTRATE 25 MG TABLET GT SCH ×3 (01:13→16:30)
[2023-02-12] MEDS: ALBUTEROL FS 2.5 MG/0.5 ML VIAL.NEB NEB SCH ×4 (01:14→19:56)
[2023-02-12] MEDS: IPRATROPIUM NEB FS 0.5 MG/2.5 ML AMPUL.NEB NEB SCH ×4 (01:14→19:56)
--- NOTE | 2023-02-12 01:14 | NUR ---
RN NOTES: PT NOTED INCREASED TEMP 100.6. TYLENOL 650 MG/20.3 ML GIVEN. PT TOLERATED WELL. WILL CONTINUE TO MONITOR
[2023-02-12 04:00] VITALS: BP 132/68
[2023-02-12] MEDS: METOCLOPRAMIDE HCL 10 MG/10 ML UDC PO SCH (05:10)
--- NOTE | 2023-02-12 06:51 | NUR ---
RN CLOSING NOTES: PATIENT IN BED, ASLEEP BUT EASILY AROUSABLE. ALERT/ORIENTED X1-2 WITH CONFUSION AND VERBALLY RESPONSIVE. ON O2 AT 2L/MIN VIA N/C AND PT TOLERATED WELL. NO SIGNIFICANT CHANGES NOTED. IV ACCESS GABRIELA MID LINE INTACT AND PATENT. NO S/S OF INFILTRATIONS. GT FEEDING WELL TOLERATED. RUNNING GLUCERNA 1.2 AT 60ML/HR. THOMAS CATHETER IN PLACE. DRAINING BY GRAVITY. FLEXISEAL IN PLACE. BILATERAL WRIST SOFT RESTRAINTS ON. RELEASED 1Q 2 HOUR TO CHECK CIRCULATION. NO FACIAL GRIMACING NOTED. ALL DUE MEDS GIVEN ORDERED. BLOOD SUGAR 99. NO COVERAGE NEEDED. NO S/S OF HYPER/HYPOGLYCEMIA. ALL SAFETY MEASURES IN PLACE. BED IN LOWEST POSITION AND LOCKED. SIDE RAILS UP X3. ON CONTACT ISOLATION PRECAUTION. PLACE CALL LIGHT WITH IN REACH.WILL ENDORSE TO MORNING SHIFT NURSE.
[2023-02-12 06:56] LABS: BASOPHILS # (AUTO) 0.1 K/uL (0.0-0.2); BASOPHILS % (AUTO) 0.6 % (0.0-2.0); EOSINOPHILS % (AUTO) 3.2 % (0.0-6.0); HEMATOCRIT 25 % (33-45); HEMOGLOBIN 7.8 g/dL (11.5-14.8); LYMPHOCYTES # (AUTO) 2.4 K/uL (0.8-4.8); LYMPHOCYTES % (AUTO) 13.2 % (20.0-44.0); MEAN CORPUSCULAR HGB CONC 31 g/dl (31.0-36.0); MEAN CORPUSCULAR VOLUME 84 fL (82-100); MONOCYTES # (AUTO) 1.1 K/uL (0.1-1.30); NEUTROPHILS # (AUTO) 13.9 K/uL (1.8-8.9); PLATELET COUNT (AUTO) 373 K/uL (150-450); RED BLOOD CELL COUNT(AUTO) 2.98 MIL/uL (4.0-5.2); WHITE BLOOD COUNT (AUTO) 18.1 K/uL (4.3-11.0)
[2023-02-12 07:21] LABS: CALCIUM, SERUM 9.2 mg/dL (8.5-10.1); CREATININE 1.9 mg/dL (0.6-1.3); POTASSIUM 5.4 mmol/L (3.5-5.1)
[2023-02-12 08:00] VITALS: BP 127/83
[2023-02-12] MEDS: DAKINS QUARTER STRENGTH (0.125%) 480 ML BOTTLE TOP SCH (09:00)
[2023-02-12] MEDS: THERAHONEY GEL 1.5 OZ TUBE TP SCH (09:00)
[2023-02-12] MEDS: FOLIC ACID 1 MG TABLET GT SCH (10:26)
[2023-02-12] MEDS: LEVOTHYROXINE SODIUM 100 MCG TABLET GT SCH (10:26)
[2023-02-12] MEDS: ARIPIPRAZOLE 5 MG TABLET GT SCH (10:26)
[2023-02-12] MEDS: PANTOPRAZOLE 40 MG/PACK PACK GT SCH ×2 (10:26→18:28)
[2023-02-12 12:00] VITALS: BP 127/83
[2023-02-12] MEDS: MORPHINE SULFATE INJ 2 MG/ML DISP.SYRIN IV PRN (14:11)
[2023-02-12 16:00] VITALS: BP 107/68
[2023-02-12] MEDS: ONDANSETRON HCL/PF 4 MG/2 ML VIAL IV PRN (19:17)
--- NOTE | 2023-02-12 19:40 | NUR ---
ELECTRICAL HIGH TENSION TESTER OPENING NOTES RECEIVED PATIENT IN BED SLEEPING. EASILY AROUSABLE BY VERBAL STIMULI. ALERT/ORIENTED X 1-2 WITH CONFUSION AND VERBALLY RESPONSIVE. ON O2 AT 2L/MIN VIA NC, TOLERATING WELL. ON NOC BIPAP. IV ACCESS GABRIELA MID LINE INTACT AND PATENT. NO S/S OF INFILTRATIONS. GT FEEDING ON HOLD DUE TO VOMITING. THOMAS CATHETER IN PLACE DRAINING YELLOW COLORED URINE. FLEXISEAL IN PLACE. BILATERAL WRIST SOFT RESTRAINTS ON. SAFETY MEASURES MAINTAINED WITH BED IN LOWEST POSITION AND LOCKED. SIDE RAILS UP X3. ON CONTACT ISOLATION PRECAUTION FOR MDRA PERRY IN BLOOD. PLACE CALL LIGHT WITH IN REACH.WILL CONTINUE THE PLAN OF CARE AND CARRY OUT ACTIVE MD ORDERS.
[2023-02-12 20:00] VITALS: BP 117/91
[2023-02-12] MEDS: MICAFUNGIN SODIUM 100 MG in IV NS 0.9% 100 ML IV SCH (20:03)
--- NOTE | 2023-02-12 20:42 | NUR ---
RT NOTE WILL PLACE PT ON NOC BIPAP AT A LATER TIME. PT HAS BEEN VOMITTING. RN IS AWARE. WILL CONTINUE TO MONITOR CLOSELY.
--- NOTE | 2023-02-12 20:52 | NUR ---
N CLOSING NOTES: PATIENT IN BED, ASLEEP BUT EASILY AROUSABLE. ALERT/ORIENTED X1-2 WITH CONFUSION. ON O2 AT 2L/MIN VIA N/C AND PT TOLERATED WELL. PATIENT IS COUGHING AND VOMITING SMALL AMOUNTS AT THIS TIME, GLUCERNA ON HOLD. IV ACCESS GABRIELA MID LINE INTACT AND PATENT. NO S/S OF INFILTRATIONS. GT FEEDING WELL TOLERATED. RUNNING GLUCERNA 1.2 AT 60ML/HR. THOMAS CATHETER IN PLACE. DRAINING BY GRAVITY. FLEXISEAL IN PLACE. BILATERAL WRIST SOFT RESTRAINTS ON. RELEASED 1Q 2 HOUR TO CHECK CIRCULATION. NO FACIAL GRIMACING NOTED. ALL DUE MEDS GIVEN ORDERED. BLOOD SUGAR 99. NO COVERAGE NEEDED. NO S/S OF HYPER/HYPOGLYCEMIA. ALL SAFETY MEASURES IN PLACE. BED IN LOWEST POSITION AND LOCKED. SIDE RAILS UP X3. ON CONTACT ISOLATION PRECAUTION. PLACE CALL LIGHT WITH IN REACH.WILL ENDORSE TO MORNING SHIFT NURSE. Addendum: 02/12/23 at 2056 by BAILEY CAZARES RN GLUCERNA ON HOLD AT THIS TIME, DUE TO VOMIT. ZOFRAN GIVEN. IV ACCESS GABRIELA MIDLINE IN TACT. THOMAS CATHETER IN PLACE DRAINING YELLOW URINE. FLEXISEAL INTACT TOTAL OF 500MLS DRAINED. WOUND CARE PERFORMED BY LEONOR CROSS. BILATERAL WRIST SOFT RESTRAINTS ON. RELEASED 1Q 2 HOUR TO CHECK CIRCULATION. NO FACIAL GRIMACING NOTED. ALL DUE MEDS GIVEN ORDERED. BLOOD SUGAR 99. NO COVERAGE NEEDED. NO S/S OF HYPER/HYPOGLYCEMIA. ALL SAFETY MEASURES IN PLACE. BED IN LOWEST POSITION AND LOCKED. SIDE RAILS UP X3. ON CONTACT ISOLATION PRECAUTION. PLACE CALL LIGHT WITH IN REACH.WILL ENDORSE TO TV NEWS DIRECTOR NURSE
[2023-02-13] VITALS: BP 128/60
[2023-02-13] MEDS: AMPICILLIN /SULBACTAM 3 G in IV NS 0.9% 50 ML IJ SCH ×4 (00:16→17:24)
[2023-02-13] MEDS: BLOOD SUGAR DIAGNOSTIC 1 EACH STRIP IN SCH ×4 (00:17→17:23)
[2023-02-13] MEDS: MORPHINE SULFATE INJ 2 MG/ML DISP.SYRIN IV PRN (00:37)
--- NOTE | 2023-02-13 00:37 | NUR ---
RN NOTES-MORPHINE GIVEN PATIENT IS RESTLESS AND VERBALIZED HAVING PAIN. MORPHINE IV GIVEN. WILL CONTINUE MONITOR THE PATIENT.
[2023-02-13] MEDS: METOPROLOL TARTRATE 25 MG TABLET GT SCH ×3 (00:54→15:52)
[2023-02-13] MEDS: IPRATROPIUM NEB FS 0.5 MG/2.5 ML AMPUL.NEB NEB SCH ×4 (01:03→20:14)
[2023-02-13] MEDS: ALBUTEROL FS 2.5 MG/0.5 ML VIAL.NEB NEB SCH ×4 (01:03→20:14)
[2023-02-13] MEDS: VANCOMYCIN HCL 0.75 GM in IV D5W 250 ML IV SCH (02:16)
--- NOTE | 2023-02-13 02:30 | NUR ---
RN NOTE REPORT RECEIVED FROM NERY SEPULVEDA, PT IN BED, AAO X 1, SATURATION AT 96% ON 2L VIA NC, ST ON THE MONITOR, HR IS 109. GABRIELA MIDLINE PATENT AND FLUSHING WELL, WITH NS AT TKO. SOFT WRIST RESTRAINTS IN PLACE, SKIN AND CIRCULATION CHECKED AND ARE WNL. GTUBE IN PLACE, POSITIVE PLACEMENT NOTED, NO RESIDUAL, WITH GLUCERNA AT 40 ML/HR WITH GOAL OF 60 ML/HR. THOMAS CATHETER AND FLEXISEAL DRAINING TO GRAVITY. SAFETY MEASURES IN PLACE, BED IS LOCKED AND AT LOWEST POSITION, CALL LIGHT WITHIN REACH OF PATIENT. WILL CONT TO MONITOR AND REASSESS. Addendum: 02/14/23 at 0231 by BASILIO HUNTER RN WRONG TIMED DOCUMENT
[2023-02-13 04:00] VITALS: BP 111/68
[2023-02-13] MEDS: GLUCERNA 1.2 1,000 ML BOTTLE PEG SCH (05:49)
--- NOTE | 2023-02-13 06:34 | NUR ---
MANAGER COSMETICS CLOSING NOTES PATIENT IN BED ASLEEP BUT EASILY AROUSABLE. ALERT/ORIENTED X 1-2 WITH CONFUSION AND VERBALLY RESPONSIVE. ON O2 AT 2L/MIN VIA NC, TOLERATING WELL. DONE WITH NOC BIPAP. IV ACCESS GABRIELA MID LINE INTACT AND PATENT. NO S/S OF INFILTRATIONS. GT FEEDING WITH GLUCERNA 1.2 RUNNING 60ML/HR, WELL TOLERATED. THOMAS CATHETER WITH URINE OUTPUT OF 700CC. FLEXISEAL IN PLACE WITH 300CC OUTPUT. BILATERAL WRIST SOFT RESTRAINTS ON. SAFETY MEASURES MAINTAINED WITH BED IN LOWEST POSITION AND LOCKED. SIDE RAILS UP X3. ON CONTACT ISOLATION PRECAUTION FOR MDRA PERRY IN BLOOD. PLACE CALL LIGHT WITH IN REACH.WILL ENDORSE TO THE NEXT SHIFT.
[2023-02-13 07:11] LABS: BASOPHILS # (AUTO) 0.1 K/uL (0.0-0.2); BASOPHILS % (AUTO) 0.4 % (0.0-2.0); EOSINOPHILS % (AUTO) 2.3 % (0.0-6.0); HEMATOCRIT 24 % (33-45); HEMOGLOBIN 7.2 g/dL (11.5-14.8); LYMPHOCYTES # (AUTO) 1.9 K/uL (0.8-4.8); LYMPHOCYTES % (AUTO) 11.5 % (20.0-44.0); MEAN CORPUSCULAR HGB CONC 30 g/dl (31.0-36.0); MEAN CORPUSCULAR VOLUME 86 fL (82-100); MONOCYTES % (AUTO) 6.1 % (2.0-12.0); NEUTROPHILS # (AUTO) 13.3 K/uL (1.8-8.9); NEUTROPHILS % (AUTO) 79.7 % (43.0-81.0); PLATELET COUNT (AUTO) 389 K/uL (150-450); RED BLOOD CELL COUNT(AUTO) 2.79 MIL/uL (4.0-5.2); WHITE BLOOD COUNT (AUTO) 16.7 K/uL (4.3-11.0)
--- NOTE | 2023-02-13 07:31 | NUR ---
telegraph service clerk opening note received pt in bed, asleep but easily arousable. pt is alert, confused and verbally responsive. pt on tele monitor sinus tachycardia 105. pt on 2 l nc saturating above 92%. iv access on right upper arm midline intact, patent and flushing well. pt has gtube. gtube glucerna @ 60 cc/hr. no residual volume noted at this time. pt has dominguez catheter yellow color draining to gravity. flexiseal in place. pt has bilateral soft wrist restraints. no skin or circulation issues noted at this time. all safety measures in place. bed locked in lowest position and locked. side rails up x2. on contact isolation precautions. hob elevated at all times. call light within reach.
[2023-02-13 07:50] LABS: CALCIUM, SERUM 9.4 mg/dL (8.5-10.1); CREATININE 1.9 mg/dL (0.6-1.3); POTASSIUM 4.1 mmol/L (3.5-5.1)
[2023-02-13 08:00] VITALS: BP 115/65
[2023-02-13] MEDS: ARIPIPRAZOLE 5 MG TABLET GT SCH (08:48)
[2023-02-13] MEDS: FOLIC ACID 1 MG TABLET GT SCH (08:49)
[2023-02-13] MEDS: THERAHONEY GEL 1.5 OZ TUBE TP SCH (08:49)
[2023-02-13] MEDS: DAKINS QUARTER STRENGTH (0.125%) 480 ML BOTTLE TOP SCH (08:49)
[2023-02-13] MEDS: LEVOTHYROXINE SODIUM 100 MCG TABLET GT SCH (08:49)
[2023-02-13] MEDS: PANTOPRAZOLE 40 MG/PACK PACK GT SCH ×2 (08:49→16:22)
[2023-02-13] MEDS: ACETAMINOPHEN 650 MG/20.3 ML UDC GT PRN (09:17)
[2023-02-13] MEDS: METOCLOPRAMIDE HCL 10 MG/10 ML UDC PO SCH ×2 (09:18→16:22)
--- NOTE | 2023-02-13 10:06 | NUR ---
rn note received call from Gil munoz do procedure due to creatinine to high
[2023-02-13 12:00] VITALS: BP 112/101
[2023-02-13 16:00] VITALS: BP 115/54
[2023-02-13] MEDS: MICAFUNGIN SODIUM 100 MG in IV NS 0.9% 100 ML IV SCH (17:59)
--- NOTE | 2023-02-13 19:11 | NUR ---
television news anchor CLOSING note pt in bed, asleep but easily arousable. pt is alert, confused at time. pt on tele monitor sinus tachycardia 114. pt on 2 l nc saturating above 92%. iv access on right upper arm midline intact, patent and flushing well. pt has gtube. no residual volume noted at this time. pt has dominguez catheter yellow color draining to gravity. flexiseal in place. pt has bilateral soft wrist restraints. no skin or circulation issues noted at this time. all safety measures in place. bed locked in lowest position and locked. side rails up x2. on contact isolation precautions. hob elevated at all times. call light within reach. bed alarm on. endorsed to ring rolling machine operator rn for contuity of care
--- NOTE | 2023-02-13 19:15 | NUR ---
RN NOTE REPORT RECEIVED FROM NERY SEPULVEDA, PT IN BED, AAO X 1, SATURATION AT 96% ON 2L VIA NC, ST ON THE MONITOR, HR IS 109. GABRIELA MIDLINE PATENT AND FLUSHING WELL, WITH NS AT TKO. SOFT WRIST RESTRAINTS IN PLACE, SKIN AND CIRCULATION CHECKED AND ARE WNL. GTUBE IN PLACE, POSITIVE PLACEMENT NOTED, NO RESIDUAL, WITH GLUCERNA AT 40 ML/HR WITH GOAL OF 60 ML/HR. THOMAS CATHETER AND FLEXISEAL DRAINING TO GRAVITY. SAFETY MEASURES IN PLACE, BED IS LOCKED AND AT LOWEST POSITION, CALL LIGHT WITHIN REACH OF PATIENT. WILL CONT TO MONITOR AND REASSESS.
--- NOTE | 2023-02-13 19:15 | NUR ---
rn note checked gastridual volume residual throughout shift. no resdiual volume noted at this time
[2023-02-13 20:00] VITALS: BP 122/67
[2023-02-14] VITALS (7 sets, daily range): BP systolic 106–133; BP diastolic 42–82
[2023-02-14] MEDS: AMPICILLIN /SULBACTAM 3 G in IV NS 0.9% 50 ML IJ SCH ×5 (00:14→23:38)
[2023-02-14] MEDS: BLOOD SUGAR DIAGNOSTIC 1 EACH STRIP IN SCH ×5 (00:15→23:59)
[2023-02-14] MEDS: METOCLOPRAMIDE HCL 10 MG/10 ML UDC PO SCH ×3 (00:15→17:18)
[2023-02-14] MEDS: METOPROLOL TARTRATE 25 MG TABLET GT SCH ×3 (00:16→17:04)
[2023-02-14] MEDS: ACETAMINOPHEN 650 MG/20.3 ML UDC GT PRN (00:18)
[2023-02-14] MEDS: IV 1/2NS 1000 ML 1,000 ML IV PRN ×2 (01:46→17:04)
[2023-02-14] MEDS: IV NS 0.9% 250 ML IV PRN (01:47)
[2023-02-14] MEDS: ALBUTEROL FS 2.5 MG/0.5 ML VIAL.NEB NEB SCH ×4 (01:59→19:59)
[2023-02-14] MEDS: IPRATROPIUM NEB FS 0.5 MG/2.5 ML AMPUL.NEB NEB SCH ×4 (01:59→19:59)
[2023-02-14 06:57] LABS: BASOPHILS # (AUTO) 0.1 K/uL (0.0-0.2); BASOPHILS % (AUTO) 0.6 % (0.0-2.0); HEMATOCRIT 22 % (33-45); LYMPHOCYTES # (AUTO) 1.5 K/uL (0.8-4.8); LYMPHOCYTES % (AUTO) 10.7 % (20.0-44.0); MEAN CORPUSCULAR HGB CONC 31 g/dl (31.0-36.0); MEAN CORPUSCULAR VOLUME 83 fL (82-100); MONOCYTES # (AUTO) 0.7 K/uL (0.1-1.30); MONOCYTES % (AUTO) 4.9 % (2.0-12.0); NEUTROPHILS # (AUTO) 11.1 K/uL (1.8-8.9); NEUTROPHILS % (AUTO) 80.8 % (43.0-81.0); PLATELET COUNT (AUTO) 406 K/uL (150-450); RED BLOOD CELL COUNT(AUTO) 2.64 MIL/uL (4.0-5.2); WHITE BLOOD COUNT (AUTO) 13.7 K/uL (4.3-11.0)
--- NOTE | 2023-02-14 07:00 | NUR ---
RN OPENING NOTES: RECEIVED PATINE IN BED, ASLEEP ALERT. ON OXYGEN @ 2L/MIN VIA N/C, TOLERATING WELL, NO S/S SOB NOTED, BREATHING EVEN AND UNLABORED. ON SR WITH HR OF 98 PER TELE MONITOR. IV ACCESS ON RIGHT UPPER ARM MIDLINE, INTACT, NON S/S INFILTRATION NOTED. THOMAS CATH IN PLACE, DRAINING WITH YELLOW COLORED URINE, NO HEMATURIA NOTED. FLEXISEAL INTACT. G-TUBE IN PLACE, RUNNING WITH GLUCERNA 1.2 @ 60 ML X 24 HOURS. HOB ELEVATED. ALL SAFETY MEASURES IN PLACE. BED LOCKED AND IN LOWEST POSITION WITH BED ALARM ON. CALL LIGHT WITHIN REACH. WILL MONITOR.
[2023-02-14 07:05] LABS: CALCIUM, SERUM 9.2 mg/dL (8.5-10.1); CREATININE 1.9 mg/dL (0.6-1.3); POTASSIUM 3.5 mmol/L (3.5-5.1)
[2023-02-14 07:20] LABS: HEMOGLOBIN 6.9 g/dL (11.5-14.8)
--- NOTE | 2023-02-14 08:13 | NUR ---
RN notes: reported hemoglobin 6.[address] Moulton with order to transfuse 1 unit RBC.also he said to follow up with pillowcase cutter about Hospice eval, she said family agreed for hospice awaiting for insurance and hospice
[2023-02-14] MEDS: LEVOTHYROXINE SODIUM 100 MCG TABLET GT SCH (09:07)
[2023-02-14] MEDS: ARIPIPRAZOLE 5 MG TABLET GT SCH (09:11)
[2023-02-14] MEDS: FOLIC ACID 1 MG TABLET GT SCH (09:11)
[2023-02-14] MEDS: THERAHONEY GEL 1.5 OZ TUBE TP SCH (09:13)
[2023-02-14] MEDS: DAKINS QUARTER STRENGTH (0.125%) 480 ML BOTTLE TOP SCH (09:13)
[2023-02-14] MEDS: PANTOPRAZOLE 40 MG/PACK PACK GT SCH ×2 (09:15→17:05)
[2023-02-14] MEDS: LOPERAMIDE HCL (2 MG CAP) 2 MG CAPSULE PO SCH (09:39)
[2023-02-14] MEDS: GLUCERNA 1.2 1,000 ML BOTTLE PEG SCH (12:17)
[2023-02-14] MEDS: VANCOMYCIN HCL 0.75 GM in IV D5W 250 ML IV SCH (15:23)
--- NOTE | 2023-02-14 15:52 | NUR ---
RN NOTES: SEEN BY RENALDO RN SHE Said she is from Hospice to evaluate pt she will check if she is candidate for hospice if yes they will look for placement, counseling case manager Radha and Charge nurse Sofia made aware
[2023-02-14 16:22] LABS: EOSINOPHILS % (MANUAL) 2 % (0-4); LYMPHOCYTES % (MANUAL) 13 % (16-48); MONOCYTES % (MANUAL) 5 % (0-11.0); NEUTROPHILS % (MANUAL) 80 (42-76)
--- NOTE | 2023-02-14 18:00 | NUR ---
RN NOTES: WHILE PROVIDING CARE NOTED MIDLINE ACCIDENTALLY PULLED OUT, MD AWARE WITH ORDER OF MIDLINE INSERTION, NURSING ACCOUNTS PAYABLE LEAD LEIF MADE AWARE
--- NOTE | 2023-02-14 18:10 | NUR ---
rn notes: spoke to Norberto at the blood bank ask if the RBC is ready he said no pt with multiple antigen ordered from outside not ready yet will call when is ready
[2023-02-14] MEDS: MICAFUNGIN SODIUM 100 MG in IV NS 0.9% 100 ML IV SCH (19:09)
--- NOTE | 2023-02-14 19:12 | NUR ---
RN NOTES RECEIVED PT FOR CONTINUITY OF CARE. PATIENT NON VERBAL IN NO S/SX OF ACUTE DISTRESS AT THIS TIME; CURRENTLY ON 2L OF O2 VIA NC; WITH 02 SAT >95% AT THIS TIME.WITH IV ACCESS R HAND#22 PATENT, INTACT AND FLUSHING WELL. THOMAS CATH IN PLACE, SMALL URINE OUTPUT NOTED AT THIS TIME. WITH FLEXISEAL SECURED AND INTACT. WILL ENSURE SAFETY MEASURES WITHIN THE SHIFT. PATIENT BED ALARM IS ON. HEAD OF BED ELEVATED. BED IS LOCKED, IN LOWEST POSITION AND SIDE RAILS UP. CALL LIGHT WITHIN REACH OF THE PATIENT. APPLICABLE ISOLATION PRECAUTIONS IN PLACE. WILL CONTINUE TO MONITOR AND REASSESS FOR ANY CHANGES AND WILL CARRY OUT ANY ONGOING AND ACTIVE MD ORDER.
--- NOTE | 2023-02-14 19:21 | NUR ---
telecommunications repairer CLOSING note pt in bed, asleep but easily arousable. pt is alert, confused at time. pt on tele monitor sinus RHYTHM. pt on 2 l nc saturating above 92%. iv access on right HAND, patent and flushing well. pt has gtube. no residual volume noted at this time. pt has dominguez catheter yellow color draining to gravity. flexiseal in place. pt has bilateral soft wrist restraints. no skin or circulation issues noted at this time. all safety measures in place. bed locked in lowest position and locked. side rails up x2. on contact isolation precautions. hob elevated at all times. call light within reach. bed alarm on. endorsed to date night caregiver rn for continuity of care
--- NOTE | 2023-02-14 21:20 | NUR ---
RN NOTE PICC LINE NURSE FACILITATED INSERTION OF MIDLINE @ L UA G#18, SECURED , INTACT AND FLUSHING WELL. AMALGAMATOR WELL AWARE.
--- NOTE | 2023-02-14 23:50 | NUR ---
RN NOTE STARTED 1 BAG OF PRBC ORDERED. INITIAL VITAL SIGNS TAKEN AND NOTED TO BE WNL. WILL INFUSE PER PROTOCOL. WILL CONTINUE TO MONITOR AND ASSESS FOR ANY BLOOD TRANSFUSION REACTION AND ADDRESS ACCORDINGLY. GRAPHIC ART DESIGNER WELL AWARE.
[2023-02-15] VITALS (11 sets, daily range): BP systolic 117–145; BP diastolic 35–98
[2023-02-15] MEDS: METOCLOPRAMIDE HCL 10 MG/10 ML UDC PO SCH ×3 (00:13→16:38)
[2023-02-15] MEDS: METOPROLOL TARTRATE 25 MG TABLET GT SCH ×3 (00:18→16:39)
[2023-02-15] MEDS: ALBUTEROL FS 2.5 MG/0.5 ML VIAL.NEB NEB SCH ×4 (02:04→19:28)
[2023-02-15] MEDS: IPRATROPIUM NEB FS 0.5 MG/2.5 ML AMPUL.NEB NEB SCH ×4 (02:04→19:28)
--- NOTE | 2023-02-15 03:10 | NUR ---
RN NOTE ENDED BLOOD TRANSFUSION @0310, VITAL SIGNS REMAINED WNL, NO BLOOD TRANSFUSION REACTION NOTED. WILL CONTINUE TO MONITOR AND ASSESS FOR ANY BLOOD TRANSFUSION REACTION POST PROCEDURE. CHECK SCALER MADE AWARE.
[2023-02-15] MEDS: BLOOD SUGAR DIAGNOSTIC 1 EACH STRIP IN SCH ×3 (05:06→17:56)
[2023-02-15] MEDS: INSULIN REGULAR, HUMAN 100 UNIT/ML 3 ML VIAL SQ PRN ×2 (05:06)
[2023-02-15] MEDS: AMPICILLIN /SULBACTAM 3 G in IV NS 0.9% 50 ML IJ SCH ×3 (05:08→17:43)
--- NOTE | 2023-02-15 06:45 | NUR ---
RN CLOSING NOTE: PATIENT REMAINS IN ROOM IN NO SIGNS OF RESPIRATORY DISTRESS, PATIENT BACK ON 2L OF O2 VIA NC ;TOLERATING WELL SATURATING @ >95% SP02. SAFETY MEASURES IMPLEMENTED, BED IN LOWEST POSITION, LOCKED, SIDE RAILS UP, CALL LIGHT WITHIN REACH. ALL NEEDS AND ORDERS ADDRESSED DURING THE SHIFT. IV ACCESS MAINTAINED INTACT, SECURED AND FLUSHING WELL. THOMAS CATH AND FLEXISEAL REMAINED SECURED, PATENT AND INTACT. ALL DUE MEDS GIVEN ORDERED & SCHEDULED ; PATIENT TOLERATED WELL. STILL WITH BILATERAL SOFT RESTRAINTS IN PLACED, MONITORED AND ASSESSED PER PROTOCOL. PATIENT KEPT CLEAN AND COMFORTABLE WITHIN THE SHIFT. PATIENT ENDORSED TO INCOMING SHIFT RN WITH STABLE VITAL SIGN AND FOR CONTINUITY OF CARE. Addendum: 02/15/23 at 0646 by MALLORY GUERRERO RN PATIENT S/P 1 PRBC
[2023-02-15 07:16] LABS: BASOPHILS # (AUTO) 0.1 K/uL (0.0-0.2); BASOPHILS % (AUTO) 0.5 % (0.0-2.0); EOSINOPHILS % (AUTO) 3.6 % (0.0-6.0); HEMATOCRIT 28 % (33-45); LYMPHOCYTES # (AUTO) 1.3 K/uL (0.8-4.8); LYMPHOCYTES % (AUTO) 10.1 % (20.0-44.0); MEAN CORPUSCULAR HGB CONC 32 g/dl (31.0-36.0); MEAN CORPUSCULAR VOLUME 85 fL (82-100); MONOCYTES # (AUTO) 0.9 K/uL (0.1-1.30); NEUTROPHILS # (AUTO) 9.9 K/uL (1.8-8.9); NEUTROPHILS % (AUTO) 78.8 % (43.0-81.0); PLATELET COUNT (AUTO) 415 K/uL (150-450); RED BLOOD CELL COUNT(AUTO) 3.33 MIL/uL (4.0-5.2); WHITE BLOOD COUNT (AUTO) 12.6 K/uL (4.3-11.0)
[2023-02-15 07:38] LABS: CALCIUM, SERUM 9.6 mg/dL (8.5-10.1); CREATININE 1.9 mg/dL (0.6-1.3); POTASSIUM 4.5 mmol/L (3.5-5.1)
[2023-02-15] MEDS: GLUCERNA 1.2 1,000 ML BOTTLE PEG SCH (08:19)
--- NOTE | 2023-02-15 08:30 | NUR ---
DR. CLAUDIO ORDERED TO HOLD THE BIPAP AT NIGHT TO SEE HOW SHE IS GONNA DO. RT NOTIFIED AN WILL ENDORSE IT TO THE HIDE MILL MAN RT.
[2023-02-15] MEDS: DAKINS QUARTER STRENGTH (0.125%) 480 ML BOTTLE TOP SCH (09:28)
[2023-02-15] MEDS: FOLIC ACID 1 MG TABLET GT SCH (09:28)
[2023-02-15] MEDS: PANTOPRAZOLE 40 MG/PACK PACK GT SCH ×2 (09:28→16:38)
[2023-02-15] MEDS: ARIPIPRAZOLE 5 MG TABLET GT SCH (09:28)
[2023-02-15] MEDS: LEVOTHYROXINE SODIUM 100 MCG TABLET GT SCH (09:28)
[2023-02-15] MEDS: THERAHONEY GEL 1.5 OZ TUBE TP SCH (09:28)
[2023-02-15] MEDS: LOPERAMIDE HCL UDC 2 MG/15 ML LIQUID GT PRN (11:24)
[2023-02-15] MEDS: LOPERAMIDE HCL (2 MG CAP) 2 MG CAPSULE PO SCH (11:33)
[2023-02-15] MEDS: ACETAMINOPHEN 650 MG/20.3 ML UDC GT PRN (12:10)
[2023-02-15] MEDS: IV 1/2NS 1000 ML 1,000 ML IV PRN (18:43)
[2023-02-15] MEDS: MICAFUNGIN SODIUM 100 MG in IV NS 0.9% 100 ML IV SCH (18:47)
--- NOTE | 2023-02-15 19:14 | NUR ---
RN CLOSING NOTE: PATIENT IN ROOM, AWAKE, WITH NO SIGNS OF SOB. PATIENT IS ON NS 2L WITH O2 >95. SAFETY MEASURES IMPLEMENTED, BED IN LOWEST POSITION, LOCKED, SIDE RAILS UP, CALL LIGHT WITHIN REACH. ALL NEEDS AND ORDERS ADDRESSED DURING THE SHIFT. IV ACCESS ON LEFT HAND, MAINTAINED INTACT, SECURED AND FLUSHING WELL. THOMAS CATH AND FLEXISEAL REMAINED SECURED, PATENT AND INTACT. ALL DUE MEDS GIVEN ORDERED & SCHEDULED ; PATIENT TOLERATED ALL PROCEDURES WELL. STILL WITH BILATERAL SOFT RESTRAINTS IN PLACED, MONITORED AND ASSESSED PER PROTOCOL. PATIENT KEPT CLEAN AND COMFORTABLE WITHIN THE SHIFT. NOCTURNAL BIPAP ON HOLD PER DR. BLOOD. WILL ENDORSED TO BUSINESS DEVELOPMENT REPRESENTATIVE RN WITH STABLE VITAL SIGN AND FOR CONTINUITY OF CARE.
--- NOTE | 2023-02-16 00:32 | NUR ---
PT FOUND ALERT ON 3LNC AND REFUSING TO BE PLACED ON NOC BIPAP. ADVISED THAT SHE WILL BE PLACED ON NOC BIPAP LATER ON IN THE NIGHT.
[2023-02-16] MEDS: METOCLOPRAMIDE HCL 10 MG/10 ML UDC PO SCH ×3 (00:59→16:59)
[2023-02-16] MEDS: AMPICILLIN /SULBACTAM 3 G in IV NS 0.9% 50 ML IJ SCH ×4 (01:00→17:00)
[2023-02-16] MEDS: METOPROLOL TARTRATE 25 MG TABLET GT SCH ×3 (01:02→16:59)
[2023-02-16] MEDS: IPRATROPIUM NEB FS 0.5 MG/2.5 ML AMPUL.NEB NEB SCH ×4 (01:54→19:40)
[2023-02-16] MEDS: ALBUTEROL FS 2.5 MG/0.5 ML VIAL.NEB NEB SCH ×4 (01:54→19:39)
[2023-02-16 04:00] VITALS: BP 136/84
[2023-02-16] MEDS: VANCOMYCIN HCL 0.75 GM in IV D5W 250 ML IV SCH (05:00)
[2023-02-16] MEDS: BLOOD SUGAR DIAGNOSTIC 1 EACH STRIP IN SCH ×4 (06:00→17:48)
--- NOTE | 2023-02-16 07:48 | NUR ---
PUTTY MIXER OPENING NOTE Patient in bed, asleep. A/O x 1. On O2 at 2 LPM via NC. No SOB or s/s of distress noted. IV access on Right hand #22 infusing 1/2 Ns at 75 ml/hr. On external monitoring showing SR. Carias catheter in place draining to a yellow colored urine. Felxiseal in place draining to a brown, liquid stool. G-tub ein place running Glucerna at 60 ml/hr. Safety precautions in place: bed in low, locked position; siderails up x2; call light within reach. Will continue to monitor.
[2023-02-16 08:00] VITALS: BP 136/64
[2023-02-16] MEDS: ACETAMINOPHEN 650 MG/20.3 ML UDC GT PRN (09:21)
[2023-02-16] MEDS: ARIPIPRAZOLE 5 MG TABLET GT SCH (09:21)
[2023-02-16] MEDS: LEVOTHYROXINE SODIUM 100 MCG TABLET GT SCH (09:22)
[2023-02-16] MEDS: LOPERAMIDE HCL (2 MG CAP) 2 MG CAPSULE PO SCH (09:22)
[2023-02-16] MEDS: PANTOPRAZOLE 40 MG/PACK PACK GT SCH ×2 (09:22→16:59)
[2023-02-16] MEDS: FOLIC ACID 1 MG TABLET GT SCH (09:22)
[2023-02-16] MEDS: DAKINS QUARTER STRENGTH (0.125%) 480 ML BOTTLE TOP SCH (09:42)
[2023-02-16] MEDS: THERAHONEY GEL 1.5 OZ TUBE TP SCH (09:43)
--- NOTE | 2023-02-16 11:00 | NUR ---
RN NOTE Patient's temp was 101.4, PRN Tylenol given. Re-checked temp: 98.9. Will continue to monitor.
[2023-02-16 12:00] VITALS: BP 127/60
[2023-02-16 16:00] VITALS: BP 130/60
[2023-02-16] MEDS: MICAFUNGIN SODIUM 100 MG in IV NS 0.9% 100 ML IV SCH (17:35)
[2023-02-16] MEDS: MORPHINE SULFATE INJ 2 MG/ML DISP.SYRIN IV PRN (18:24)
--- NOTE | 2023-02-16 18:49 | NUR ---
TRAVELING REPRESENTATIVE CLOSING NOTE Patient in bed, resting. A/O x 1, able to verbalize. On O2 at 2 LPM via NC. No SOB or s/s of distress noted. IV access on Right hand #22 infusing 1/2 Ns at 75 ml/hr. On external monitoring showing SR, HR 93. Carias catheter in place draining to a yellow colored urine with an output of 1100 cc. [address] in [address] draining to a brown, liquid stool with an output of 150 cc. G-tube in place running Glucerna at 60 ml/hr. Due meds given. Patient kept clean and dry. Turned and repositioned,as tolerated. Wound care done, as ordered. Safety precautions in place: bed in low, locked position; siderails up x2; call light within reach. Will endorse to hourly shift manager nurse for ROGERIO.
[2023-02-16 20:00] VITALS: BP 129/52
[2023-02-16] MEDS: IV 1/2NS 1000 ML 1,000 ML IV PRN (22:07)
--- NOTE | 2023-02-16 23:46 | NUR ---
PT REQ TO BE PUT ON BIPAP. PT WAS IN RESP DISTRESS. RN NOTIFIED.
[2023-02-17] VITALS: BP 133/57
[2023-02-17] MEDS: METOCLOPRAMIDE HCL 10 MG/10 ML UDC PO SCH ×3 (00:38→16:48)
[2023-02-17] MEDS: AMPICILLIN /SULBACTAM 3 G in IV NS 0.9% 50 ML IJ SCH ×5 (00:38→23:07)
[2023-02-17] MEDS: METOPROLOL TARTRATE 25 MG TABLET GT SCH ×4 (00:39→23:54)
[2023-02-17] MEDS: ACETAMINOPHEN 650 MG/20.3 ML UDC GT PRN ×2 (00:39→20:21)
[2023-02-17] MEDS: BLOOD SUGAR DIAGNOSTIC 1 EACH STRIP IN SCH ×5 (00:51→23:47)
[2023-02-17] MEDS: INSULIN REGULAR, HUMAN 100 UNIT/ML 3 ML VIAL SQ PRN ×4 (00:51→23:48)
--- NOTE | 2023-02-17 01:00 | NUR ---
RN NOTES: PT'S TEMP INCREASED TO 101.5. TYLENOL GIVEN. BLOOD SUGAR 109. NO COVERAGE NEEDED. NO S/S OF HYPER/HYPOGLYCEMIA. WILL CONTINUE TO MONITOR
[2023-02-17] MEDS: GLUCERNA 1.2 1,000 ML BOTTLE PEG SCH ×2 (03:30→23:12)
[2023-02-17] MEDS: IPRATROPIUM NEB FS 0.5 MG/2.5 ML AMPUL.NEB NEB SCH ×4 (03:45→19:48)
[2023-02-17] MEDS: ALBUTEROL FS 2.5 MG/0.5 ML VIAL.NEB NEB SCH ×4 (03:45→19:48)
[2023-02-17 04:00] VITALS: BP 143/70
--- NOTE | 2023-02-17 06:47 | NUR ---
RN CLOSING NOTES: PATIENT IN BED, ASLEEP BUT EASILY AROUSABLE. ALERT/ORIENTED X1-2 WITH CONFUSION AND VERBALLY RESPONSIVE. ON O2 AT 2L/MIN VIA N/C AND PT TOLERATED WELL. IV ACCESS GABRIELA MID LINE INTACT AND PATENT. NO S/S OF INFILTRATIONS. GT FEEDING WELL TOLERATED. NO RESIDUAL NOTED, RUNNING GLUCERNA 1.2 AT 60ML/HR. PT TOLERATED WELL. THOMAS CATHETER IN PLACE. DRAINING BY GRAVITY. FLEXISEAL IN PLACE. BILATERAL WRIST SOFT RESTRAINTS ON. RELEASED Q 2 HOURS TO CHECK CIRCULATION. NO FACIAL GRIMACING NOTED. ALL DUE MEDS GIVEN ORDERED. ALL SAFETY MEASURES IN PLACE. BED IN LOWEST POSITION AND LOCKED. SIDE RAILS UP X3. ON CONTACT ISOLATION PRECAUTION FOR MDRA PERRY IN BLOOD. PLACE CALL LIGHT WITH IN REACH.WILL ENDORSE TO MORNING SHIFT NURSE..
[2023-02-17 07:00] LABS: CALCIUM, SERUM 9.4 mg/dL (8.5-10.1); CREATININE 1.8 mg/dL (0.6-1.3); POTASSIUM 4.7 mmol/L (3.5-5.1)
[2023-02-17 07:20] LABS: BASOPHILS # (AUTO) 0.1 K/uL (0.0-0.2); BASOPHILS % (AUTO) 0.7 % (0.0-2.0); EOSINOPHILS % (AUTO) 5.5 % (0.0-6.0); HEMATOCRIT 27 % (33-45); HEMOGLOBIN 8.6 g/dL (11.5-14.8); LYMPHOCYTES % (AUTO) 15.4 % (20.0-44.0); MEAN CORPUSCULAR HGB CONC 32 g/dl (31.0-36.0); MEAN CORPUSCULAR VOLUME 86 fL (82-100); MONOCYTES # (AUTO) 0.8 K/uL (0.1-1.30); MONOCYTES % (AUTO) 6.2 % (2.0-12.0); NEUTROPHILS # (AUTO) 9.2 K/uL (1.8-8.9); NEUTROPHILS % (AUTO) 72.2 % (43.0-81.0); PLATELET COUNT (AUTO) 450 K/uL (150-450); RED BLOOD CELL COUNT(AUTO) 3.13 MIL/uL (4.0-5.2); WHITE BLOOD COUNT (AUTO) 12.8 K/uL (4.3-11.0)
--- NOTE | 2023-02-17 07:48 | NUR ---
RN OPENING NOTES: PATIENT RECEIVED IN BED ASLEEP. ON O2 AT 2L/MIN VIA N/C.TOLERATING WELL WITH NO S/S OF RESPIRATORY DISTRESS OR SOB. BREATHING EVEN AND UNLABORED. IV ACCESS R HAND 22G AND JOEL MIDLINE INTACT AND PATENT WITH 1/2 N/S RUNNING AT 50 ML/HR. NO S/S OF INFILTRATION. GT INTACT AND RUNNING GLUCERNA 1.2 AT 60ML/HR. THOMAS CATHETER IN PLACE AND DRAINING BY GRAVITY. FLEXISEAL IN PLACE. BILATERAL WRIST SOFT RESTRAINTS ON WITH SKIN INTACT. ALL SAFETY MEASURES IN PLACE WITH BED IN LOWEST LOCKED POSITION, SIDE RAILS UP X3, AND CALL LIGHT WITHIN REACH. ON CONTACT ISOLATION PRECAUTION FOR MDRA PERRY IN BLOOD. WILL CONTINUE TO MONITOR.
[2023-02-17 08:00] VITALS: BP 144/68
[2023-02-17] MEDS: ARIPIPRAZOLE 5 MG TABLET GT SCH (08:34)
[2023-02-17] MEDS: LEVOTHYROXINE SODIUM 100 MCG TABLET GT SCH (08:35)
[2023-02-17] MEDS: FOLIC ACID 1 MG TABLET GT SCH (08:35)
--- NOTE | 2023-02-17 08:37 | NUR ---
database specialist note Received patient in bed. GCS [id number]. Telemetry showed SR HR 80s/min. PEG is in place with glucerna running at 60ml/hr. Left UA midline is intact and patent, with NS running at 50mL/hr. Flexiseal is in-situ, with brownish semi-liquid in the tube. Flushed with NS and milked the tube. Repositionig and oral care is done. Continue repositioning and monitoring.
[2023-02-17] MEDS: PANTOPRAZOLE 40 MG/PACK PACK GT SCH ×2 (08:39→16:48)
[2023-02-17] MEDS: LOPERAMIDE HCL (2 MG CAP) 2 MG CAPSULE PO SCH (08:39)
[2023-02-17] MEDS: THERAHONEY GEL 1.5 OZ TUBE TP SCH (09:00)
[2023-02-17] MEDS: DAKINS QUARTER STRENGTH (0.125%) 480 ML BOTTLE TOP SCH (09:00)
[2023-02-17 12:00] VITALS: BP 121/63
[2023-02-17 16:00] VITALS: BP 122/62
[2023-02-17] MEDS: VANCOMYCIN HCL 0.75 GM in IV D5W 250 ML IV SCH (16:48)
[2023-02-17] MEDS: MORPHINE SULFATE INJ 2 MG/ML DISP.SYRIN IV PRN (16:55)
[2023-02-17] MEDS: MICAFUNGIN SODIUM 100 MG in IV NS 0.9% 100 ML IV SCH (18:00)
[2023-02-17] MEDS: IV 1/2NS 1000 ML 1,000 ML IV PRN (18:01)
--- NOTE | 2023-02-17 19:30 | NUR ---
RN OPENING NOTE RECEIVED PT IN BED, AWAKE, A/O X 1. DISORIENTED AT TIMES. CURRENTLY ON O2 THERAPY VIA NC @ 2L/MIN, TOLERATING WELL, SATING @ 94%. NO S/SX OF ACUTE RESPIRATORY DISTRESS NOTED AT THIS TIME. NO SOB. BREATHING IS EVEN AND UNLABORED. IV ACCESS ON R HAND, 22G AND JOEL MIDLINE RUNNING 1/2 NS AT 50 ML/HR. NO S/SX OF INFILTRATION. BOTH PATENT AND INTACT. PT NOTED TO HAVE BILATERAL SOFT WRIST RESTRAINTS. NO SKIN OR CIRCULATION ISSUES AT THIS TIME. GT IN PLACE RUNNING GLUCERNA 1.2 AT 60ML/HR. PT WITH THOMAS CATHETER DRAINING YELLOW URINE BY GRAVITY. FLEXISEAL ALSO IN PLACE. ALL SAFETY MEASURES IN PLACE WITH BED IN LOWEST LOCKED POSITION, SIDE RAILS UP X3, AND CALL LIGHT WITHIN REACH. ON CONTACT ISOLATION PRECAUTION FOR MDRA PERRY IN BLOOD. WILL CONTINUE TO MONITOR.
[2023-02-17 20:00] VITALS: BP 131/66
--- NOTE | 2023-02-17 20:27 | NUR ---
RN NOTE PT NOTED TO HAVE ELEVATED TEMP 99.9 TYLENOL PRN GIVEN ORDERED. WILL CONTINUE TO MONITOR PT.
[2023-02-18] VITALS: BP 109/60
[2023-02-18] MEDS: METOCLOPRAMIDE HCL 10 MG/10 ML UDC PO SCH ×3 (00:02→17:16)
[2023-02-18] MEDS: IPRATROPIUM NEB FS 0.5 MG/2.5 ML AMPUL.NEB NEB SCH ×4 (02:04→19:59)
[2023-02-18] MEDS: ALBUTEROL FS 2.5 MG/0.5 ML VIAL.NEB NEB SCH ×4 (02:04→19:59)
[2023-02-18 04:00] VITALS: BP 107/64
[2023-02-18] MEDS: AMPICILLIN /SULBACTAM 3 G in IV NS 0.9% 50 ML IJ SCH ×4 (05:11→23:18)
[2023-02-18] MEDS: BLOOD SUGAR DIAGNOSTIC 1 EACH STRIP IN SCH ×4 (05:51→23:27)
[2023-02-18] MEDS: INSULIN REGULAR, HUMAN 100 UNIT/ML 3 ML VIAL SQ PRN (05:51)
--- NOTE | 2023-02-18 06:21 | NUR ---
AIRFREIGHT LOADING SUPERVISOR CLOSING NOTE PT REMAINED STABLE T/O THE NIGHT. NO SIGNIFICANT CHANGES NOTED. ALL DUE MEDS GIVEN. NEEDS MET. PM CARE DONE. TURNED AND REPOSITIONED. WILL ENDORSE TO AM SHIFT NURSE FOR ROGERIO.
[2023-02-18 06:57] LABS: BASOPHILS # (AUTO) 0.1 K/uL (0.0-0.2); BASOPHILS % (AUTO) 0.7 % (0.0-2.0); EOSINOPHILS % (AUTO) 6.5 % (0.0-6.0); HEMATOCRIT 29 % (33-45); HEMOGLOBIN 9.1 g/dL (11.5-14.8); LYMPHOCYTES # (AUTO) 2.4 K/uL (0.8-4.8); LYMPHOCYTES % (AUTO) 17.5 % (20.0-44.0); MEAN CORPUSCULAR HGB CONC 31 g/dl (31.0-36.0); MEAN CORPUSCULAR VOLUME 88 fL (82-100); MONOCYTES % (AUTO) 7.1 % (2.0-12.0); NEUTROPHILS # (AUTO) 9.4 K/uL (1.8-8.9); NEUTROPHILS % (AUTO) 68.2 % (43.0-81.0); PLATELET COUNT (AUTO) 490 K/uL (150-450); RED BLOOD CELL COUNT(AUTO) 3.31 MIL/uL (4.0-5.2); WHITE BLOOD COUNT (AUTO) 13.8 K/uL (4.3-11.0)
[2023-02-18 07:01] LABS: CALCIUM, SERUM 9.4 mg/dL (8.5-10.1); CREATININE 1.5 mg/dL (0.6-1.3); POTASSIUM 4.7 mmol/L (3.5-5.1)
--- NOTE | 2023-02-18 07:15 | NUR ---
OPEN SENIOR OFFICE ASSISTANT NOTE: AWAKE, ALERT TO NAME. 0N 02 2 LPM NC SATING 95 %. MOIST ORAL MUCOSA. FURNACE COMBUSTION TESTER SINUS RHYTHM 91 HR. LEFT UPPER ARM MIDLINE PATENT WITH 1/2 NS AT 50 ML/HR. AND RIGHT HAND 22G. GTF GLUCERNA 60 ML/HR. THOMAS WITH YELLOW URINE, FLEXI SEAL IN PLACE. HOB ELEVATED, ASPIRATION PRECAUTIONS MAINTAINED, BILATERAL HALF SIDE RAILS UP X2, BED IN LOW POSITION, LOCKED, EXIT ALARM ON. CALL LIGHT IN REACH.
[2023-02-18 08:00] VITALS: BP 97/52
[2023-02-18] MEDS: METOPROLOL TARTRATE 25 MG TABLET GT SCH ×2 (08:30→17:17)
[2023-02-18] MEDS: PANTOPRAZOLE 40 MG/PACK PACK GT SCH ×2 (08:58→17:16)
[2023-02-18] MEDS: LEVOTHYROXINE SODIUM 100 MCG TABLET GT SCH (08:58)
[2023-02-18] MEDS: FOLIC ACID 1 MG TABLET GT SCH (08:58)
[2023-02-18] MEDS: ARIPIPRAZOLE 5 MG TABLET GT SCH (08:58)
[2023-02-18] MEDS: LOPERAMIDE HCL (2 MG CAP) 2 MG CAPSULE PO SCH (08:59)
[2023-02-18] MEDS: DAKINS QUARTER STRENGTH (0.125%) 480 ML BOTTLE TOP SCH (09:23)
[2023-02-18] MEDS: THERAHONEY GEL 1.5 OZ TUBE TP SCH (09:25)
[2023-02-18 12:00] VITALS: BP 135/67
[2023-02-18] MEDS: IV 1/2NS 1000 ML 1,000 ML IV PRN (15:47)
[2023-02-18 16:30] VITALS: BP 135/60
[2023-02-18] MEDS: ACETAMINOPHEN 650 MG/20.3 ML UDC GT PRN (17:59)
[2023-02-18] MEDS: MICAFUNGIN SODIUM 100 MG in IV NS 0.9% 100 ML IV SCH (18:00)
--- NOTE | 2023-02-18 19:00 | NUR ---
CLOSING WATER RESOURCE AGENT NOTE: AWAKE, ALERT TO NAME. 0N 02 2 LPM NC SATING 95 %. MOIST ORAL MUCOSA. TITLE ASSISTANT SINUS RHYTHM 95 HR. LEFT UPPER ARM MIDLINE PATENT WITH 1/2 NS AT 50 ML/HR. AND RIGHT HAND 22G. GTF GLUCERNA 60 ML/HR. THOMAS WITH YELLOW URINE, FLEXI SEAL IN PLACE. HOB ELEVATED, ASPIRATION PRECAUTIONS MAINTAINED, BILATERAL HALF SIDE RAILS UP X2, BED IN LOW POSITION, LOCKED, EXIT ALARM ON. CALL LIGHT IN REACH. WOUND CARE PROVIDED. ON PAIN MANAGEMENT WITH PRN TYLENOL AND EFFECTIVE. TURNED AND REPOSITIONED. KEPT CLEAN AND COMFORTABLE.
--- NOTE | 2023-02-18 19:20 | NUR ---
SALESPERSON HOSIERY OPENING NOTES RECEIVED PATIENT IN BED. AWAKE. A/OX1. CONFUSED. PATIENT WITH RIGHT UPPER MIDLINE INFUSING 1/2 NS @ 50CC/HR MIDLINE NOTED TO BE INTACT AND PATENT. WITH RIGHT HAND IV ACCESS #22 SALINE LOCK NOTED TO BE INTACT AND PATENT. PATIENT HAVE THOMAS CATHETER DRAINING WELL WITH CLEAR YELLOW URINE. PATIENT HAVE FLEXISEAL NOTED TO BE INTACT. PATIENT WITH PEG-TUBE NOTED TO BE IN PLACE AND PATENT INFUSING GLUCERNA 1.2 @ 60CC/HR PATIENT NOTED TO BE TOLERATING WELL. PATIENT IS ON NASAL CANULA 2L TOLERATING WELL. NO SIGNS OF SOB, NOT IN DISTRESS NOTED. SAFETY MEASURE IN PLACE; BED LOCKED AND IN LOWEST POSITION, HOB IS ELEVATED, SIDE RAILS UP X3, EXIT ALARM IS ON.
[2023-02-18 20:00] VITALS: BP 124/70
--- NOTE | 2023-02-18 23:34 | NUR ---
RN NOTES CHECKED BLOOD SUGAR RESULT IS 94. NO INSULIN ADMINISTERED.
[2023-02-19] VITALS: BP 130/68
[2023-02-19] MEDS: METOCLOPRAMIDE HCL 10 MG/10 ML UDC PO SCH ×3 (00:46→16:08)
[2023-02-19] MEDS: METOPROLOL TARTRATE 25 MG TABLET GT SCH ×4 (00:48→15:52)
[2023-02-19] MEDS: IPRATROPIUM NEB FS 0.5 MG/2.5 ML AMPUL.NEB NEB SCH ×4 (02:10→19:59)
[2023-02-19] MEDS: ALBUTEROL FS 2.5 MG/0.5 ML VIAL.NEB NEB SCH ×4 (02:10→19:59)
[2023-02-19] MEDS: VANCOMYCIN HCL 0.75 GM in IV D5W 250 ML IV SCH (02:50)
[2023-02-19 04:00] VITALS: BP 135/58
[2023-02-19] MEDS: AMPICILLIN /SULBACTAM 3 G in IV NS 0.9% 50 ML IJ SCH ×4 (05:39→23:28)
--- NOTE | 2023-02-19 05:49 | NUR ---
RN NOTES CLEANED THE PATIENT. WOUND CARE DONE.
[2023-02-19] MEDS: BLOOD SUGAR DIAGNOSTIC 1 EACH STRIP IN SCH ×4 (07:08→23:49)
--- NOTE | 2023-02-19 07:09 | NUR ---
111-1 JACQUARD FIXER CLOSING NOTES PATIENT IN BED. AWAKE. A/OX1. CONFUSED. PATIENT WITH RIGHT UPPER MIDLINE INFUSING 1/2 NS @ 50CC/HR MIDLINE NOTED TO BE INTACT AND PATENT. WITH RIGHT HAND IV ACCESS #22 SALINE LOCK NOTED TO BE INTACT AND PATENT WRAP WITH KERLIX TO PREVENT PATIENT FROM PULLING OUT IV ACCESS. PATIENT HAVE THOMAS CATHETER DRAINING WELL WITH CLEAR YELLOW URINE OUT PUT OF 800CC. PATIENT HAVE FLEXISEAL NOTED TO BE INTACT DRAINING WITH OUTPUT OF 300CC. PATIENT WITH PEG-TUBE NOTED TO BE IN PLACE AND PATENT INFUSING GLUCERNA 1.2 @ 60CC/HR PATIENT NOTED TO BE TOLERATING WELL. PATIENT IS ON NASAL CANULA 2L TOLERATING WELL. ALL DUE MEDICATIONS ARE GIVEN OREDERED, ALL NEEDS ARE MET. PATIENT IS MADE COMFORTABLE, KEPT PATIENT CLEAN. NO SIGNS OF SOB, NOT IN DISTRESS NOTED. REPOSITIONER PATIENT EVERY 2 HOURS THROUGH OUT THE SHIFT. SAFETY MEASURE IN PLACE; BED LOCKED AND IN LOWEST POSITION, HOB IS ELEVATED, SIDE RAILS UP X3, EXIT ALARM IS ON. WILL ENDORSE TO NEXT SHIFT NURSE FOR CONTINUITY OF CARE.
[2023-02-19] MEDS: GLUCERNA 1.2 1,000 ML BOTTLE PEG SCH (07:17)
--- NOTE | 2023-02-19 07:35 | NUR ---
RN OPENING NOTES: PATIENT RECEIVED IN BED ASLEEP. ON O2 AT 2L/MIN VIA N/C.TOLERATING WELL WITH NO S/S OF RESPIRATORY DISTRESS OR SOB. BREATHING EVEN AND UNLABORED. IV ACCESS R HAND 22G AND JOEL MIDLINE INTACT AND PATENT WITH 1/2 N/S RUNNING AT 50 ML/HR. NO S/S OF INFILTRATION. GT INTACT AND RUNNING GLUCERNA 1.2 AT 60ML/HR. THOMAS CATHETER IN PLACE AND DRAINING BY GRAVITY. FLEXISEAL IN PLACE. BILATERAL WRIST SOFT RESTRAINTS ON WITH SKIN INTACT. ALL SAFETY MEASURES IN PLACE WITH BED IN LOWEST LOCKED POSITION, SIDE RAILS UP X3, AND CALL LIGHT WITHIN REACH. ON CONTACT ISOLATION PRECAUTION. GOOD HANDWASHING OBSERVED. WILL CONTINUE TO MONITOR.
[2023-02-19 07:46] LABS: CALCIUM, SERUM 9.5 mg/dL (8.5-10.1); CREATININE 1.3 mg/dL (0.6-1.3); POTASSIUM 4.3 mmol/L (3.5-5.1)
[2023-02-19 08:00] VITALS: BP 110/57
[2023-02-19] MEDS: ARIPIPRAZOLE 5 MG TABLET GT SCH (08:44)
[2023-02-19] MEDS: FOLIC ACID 1 MG TABLET GT SCH (08:44)
[2023-02-19] MEDS: PANTOPRAZOLE 40 MG/PACK PACK GT SCH ×2 (08:45→16:08)
[2023-02-19] MEDS: LEVOTHYROXINE SODIUM 100 MCG TABLET GT SCH (08:45)
[2023-02-19] MEDS: DAKINS QUARTER STRENGTH (0.125%) 480 ML BOTTLE TOP SCH (08:47)
[2023-02-19] MEDS: THERAHONEY GEL 1.5 OZ TUBE TP SCH (08:47)
[2023-02-19] MEDS: LOPERAMIDE HCL (2 MG CAP) 2 MG CAPSULE PO SCH (08:48)
--- NOTE | 2023-02-19 09:00 | NUR ---
NUTRITION ASSOCIATE NOTE HOLD METOPROLOL B/P 110/57.
--- NOTE | 2023-02-19 10:23 | NUR ---
DR. CLAUDIO WITH ORDER TO D/C TELEMETRY. CHANGED TO [facility]
[2023-02-19] MEDS: IV 1/2NS 1000 ML 1,000 ML IV PRN (12:30)
[2023-02-19] MEDS: INSULIN REGULAR, HUMAN 100 UNIT/ML 3 ML VIAL SQ PRN (13:01)
[2023-02-19 16:00] VITALS: BP 116/51
--- NOTE | 2023-02-19 18:22 | NUR ---
RN CLOSING NOTES: PATIENT IN BED, ASLEEP BUT EASILY AROUSABLE. ALERT/ORIENTED X1-2 WITH CONFUSION AND VERBALLY RESPONSIVE. ON O2 AT 2L/MIN VIA N/C AND PT TOLERATED WELL. IV ACCESS GABRIELA MID LINE INTACT AND PATENT. NO S/S OF INFILTRATIONS. GT FEEDING WELL TOLERATED. HOB ELEVATED NO RESIDUAL NOTED, RUNNING GLUCERNA 1.2 AT 60ML/HR. PT TOLERATED WELL. THOMAS CATHETER IN PLACE. DRAINING BY GRAVITY. FLEXISEAL IN PLACE. WOUND TX RENDERED ORDERED. NO FACIAL GRIMACING NOTED. ALL DUE MEDS GIVEN ORDERED. ALL SAFETY MEASURES. ENDORSE TO NEXT SHIFT FOR CONTINUITY OF CARE.
[2023-02-19] MEDS: MICAFUNGIN SODIUM 100 MG in IV NS 0.9% 100 ML IV SCH (18:26)
--- NOTE | 2023-02-19 20:12 | NUR ---
RN OPENING NOTES PATIENT RECEIVED IN BED ASLEEP.ON MODERATE HIGH BACK REST POSITION. ON O2 AT 2L/MIN VIA N/C.TOLERATING WELL WITH NO S/S OF RESPIRATORY DISTRESS OR SOB. BREATHING EVEN AND UNLABORED. IV ACCESS R HAND 22G AND JOEL MIDLINE INTACT AND PATENT WITH 1/2 N/S RUNNING AT 50 ML/HR. NO S/S OF INFILTRATION. G-TUBE INTACT AND RUNNING GLUCERNA 1.2 AT 60ML/HR. THOMAS CATHETER IN PLACE AND DRAINING BY GRAVITY. FLEXISEAL IN PLACE. BILATERAL WRIST SOFT RESTRAINTS ON WITH SKIN INTACT. ALL SAFETY MEASURES IN PLACE WITH BED IN LOWEST LOCKED POSITION, SIDE RAILS UP X3, AND CALL LIGHT WITHIN REACH. ON CONTACT ISOLATION PRECAUTION. GOOD HANDWASHING OBSERVED.KEPT PATIENT WARM AND COMFORTABLE WILL CONTINUE TO MONITOR.
--- NOTE | 2023-02-19 21:00 | NUR ---
RCVD PT ON 2L NC. PLACED ON NOCTURNAL BIPAP 20/10, RATE 12, FIO2 30%. BIPAP PLUGGED INTO RED OUTLET , ALARMS ON AND AUDIBLE. NO RESPIRATORY DISTRESS NOTED AT THIS TIME. WILL CONTINUE TO MONITOR T/O SHIFT.
[2023-02-20] VITALS: BP 135/76
[2023-02-20] MEDS: METOPROLOL TARTRATE 25 MG TABLET GT SCH ×3 (00:13→17:26)
[2023-02-20] MEDS: METOCLOPRAMIDE HCL 10 MG/10 ML UDC PO SCH ×3 (00:13→17:27)
[2023-02-20] MEDS: ALBUTEROL FS 2.5 MG/0.5 ML VIAL.NEB NEB SCH ×4 (01:42→20:06)
[2023-02-20] MEDS: IPRATROPIUM NEB FS 0.5 MG/2.5 ML AMPUL.NEB NEB SCH ×4 (01:42→20:06)
[2023-02-20] MEDS: VANCOMYCIN HCL 0.75 GM in IV D5W 250 ML IV SCH (02:31)
[2023-02-20] MEDS: AMPICILLIN /SULBACTAM 3 G in IV NS 0.9% 50 ML IJ SCH ×3 (05:26→17:26)
[2023-02-20] MEDS: BLOOD SUGAR DIAGNOSTIC 1 EACH STRIP IN SCH ×3 (05:51→17:35)
--- NOTE | 2023-02-20 06:23 | NUR ---
RN MS CLOSING NOTES PATIENT IS IN BED, AWAKE AND CONFUSED, ON MODERATE HIGH BACK REST POSITION. ON OXYGEN VIA NASAL CANNULA AT 2LPM SATURATING AT 98%. PATIENT TOLERATED BIPAP OVER NIGHT, WITH IV ACCESS AT RIGHT HAND #22 SL PATENT AND INTACT, AND JOEL ML WITH 1/2 NS 1L AT 50ML/HR INFUSING WELL, WITH G-TUBE GLUCERNA AT 60ML/HR INFUSING WELL. WITH THOMAS CATHETER CONNECTED TO URINE BAG NOTED URINE OUTPUT. WITH FLEXI SEAL NOTED STOOL OUTPUT OF 100ML. ALL DUE MEDICATIONS IS GIVEN, ALL NEEDS ATTENDED. KEPT BED ON LOWER LOCKED POSITION, KEPT SIDE RAILS UP X 3 ALL THE TIME. MAINTAINED BLOOD SUGAR AND BLOOD PRESSURE WNL. PM CARE RENDERED. TURN PATIENT EVERY 2 HOURS. WOUND CARE TREATMENT DONE. WILL ENDORSED TO AM SHIFT FOR ROGERIO.
--- NOTE | 2023-02-20 07:05 | NUR ---
RN OPENING NOTE RECEIVED PATIENT IN BED. AWAKE. A/OX1. CONFUSED. PATIENT WITH RIGHT UPPER MIDLINE INFUSING D5 1/2 NS @ 50CC/HR MIDLINE NOTED TO BE INTACT AND PATENT. WITH RIGHT HAND IV ACCESS #22 SALINE LOCK NOTED TO BE INTACT AND PATENT. PATIENT HAVE THOMAS CATHETER DRAINING WELL WITH CLEAR YELLOW URINE. PATIENT HAVE FLEXISEAL NOTED TO BE INTACT. G-TUBE IN PLACE INFUSING GLUCERNA 1.2 @ 60CC/HR, TOLERATING WELL. NASAL CANULA 2L TOLERATING WELL. NO SIGNS OF SOB. SAFETY MEASURE IN PLACE; BED LOCKED AND IN LOWEST POSITION, HOB IS ELEVATED, SIDE RAILS UP X3, BED ALARM IS ON. WILL CONTINUE TO MONITOR.
[2023-02-20 07:13] LABS: BASOPHILS # (AUTO) 0.1 K/uL (0.0-0.2); BASOPHILS % (AUTO) 0.9 % (0.0-2.0); EOSINOPHILS % (AUTO) 5.5 % (0.0-6.0); HEMATOCRIT 28 % (33-45); LYMPHOCYTES # (AUTO) 1.7 K/uL (0.8-4.8); LYMPHOCYTES % (AUTO) 16.5 % (20.0-44.0); MEAN CORPUSCULAR HGB CONC 32 g/dl (31.0-36.0); MEAN CORPUSCULAR VOLUME 86 fL (82-100); MONOCYTES # (AUTO) 0.9 K/uL (0.1-1.30); MONOCYTES % (AUTO) 8.7 % (2.0-12.0); NEUTROPHILS # (AUTO) 6.9 K/uL (1.8-8.9); NEUTROPHILS % (AUTO) 68.4 % (43.0-81.0); PLATELET COUNT (AUTO) 545 K/uL (150-450); RED BLOOD CELL COUNT(AUTO) 3.27 MIL/uL (4.0-5.2); WHITE BLOOD COUNT (AUTO) 10.1 K/uL (4.3-11.0)
[2023-02-20 07:14] LABS: CALCIUM, SERUM 9.5 mg/dL (8.5-10.1); CREATININE 1.4 mg/dL (0.6-1.3); POTASSIUM 4.1 mmol/L (3.5-5.1)
[2023-02-20 08:00] VITALS: BP 102/56
[2023-02-20] MEDS: THERAHONEY GEL 1.5 OZ TUBE TP SCH (08:04)
[2023-02-20] MEDS: DAKINS QUARTER STRENGTH (0.125%) 480 ML BOTTLE TOP SCH (08:04)
[2023-02-20] MEDS: PANTOPRAZOLE 40 MG/PACK PACK GT SCH ×2 (08:37→17:27)
[2023-02-20] MEDS: FOLIC ACID 1 MG TABLET GT SCH (08:37)
[2023-02-20] MEDS: ARIPIPRAZOLE 5 MG TABLET GT SCH (08:37)
[2023-02-20] MEDS: LEVOTHYROXINE SODIUM 100 MCG TABLET GT SCH (08:37)
[2023-02-20] MEDS: LOPERAMIDE HCL (2 MG CAP) 2 MG CAPSULE PO SCH (08:38)
[2023-02-20 12:00] VITALS: BP 55/35
[2023-02-20 16:00] VITALS: BP 136/70
[2023-02-20] MEDS: MICAFUNGIN SODIUM 100 MG in IV NS 0.9% 100 ML IV SCH (17:58)
--- NOTE | 2023-02-20 19:09 | NUR ---
PN CLOSING NOTE PT A/OX1. CONFUSED. PATIENT WITH RIGHT UPPER MIDLINE INFUSING D5 1/2 NS @ 50CC/HR MIDLINE INTACT AND PATENT. WITH RIGHT HAND IV ACCESS #22 SALINE LOCK NOTED TO BE INTACT AND PATENT. PATIENT HAVE THOMAS CATHETER DRAINING WELL WITH CLEAR YELLOW URINE, FLEXISEAL INTACT. G-TUBE IN PLACE INFUSING GLUCERNA 1.2 @ 60CC/HR, TOLERATING WELL. NASAL CANULA 2L TOLERATING WELL. NO SIGNS OF SOB. SAFETY MEASURE IN PLACE; BED LOCKED AND IN LOWEST POSITION, HOB IS ELEVATED, SIDE RAILS UP X3, BED ALARM IS ON. WILL ENDORSE TO THE NEXT SHIFT NURSE FOR ROGERIO.
[2023-02-20 20:00] VITALS: BP 112/65
--- NOTE | 2023-02-20 20:08 | NUR ---
MS RN OPENING NOTE PATIENT AWAKE IN BED, ALERT/ORIENTED X 1, CONFUSED. PATIENT STABLE ON 2 LPM OF O2 VIA NASAL CANNULA, NO S/S OF DISTRESS OR SOB NOTED, BREATHING EVEN AND UNLABORED. IV ACCESS ON RIGHT HAND #22G INTACT AND SALINE LOCKED, JOEL MIDLINE INTACT AND INFUSING 1/2 NS @ 50 ML/HR. PATIENT ON GTF GLUCERNA 1.2 @ 60 ML/HR. THOMAS CATHETER IN PLACE AND DRAINING URINE BY GRAVITY. FLEXISEAL IN PLACE. SAFETY MEASURES IN PLACE: CALL LIGHT WITHIN REACH, SIDE RAILS UP X 3, BED LOCKED IN LOWEST POSITION, HOB ELEVATED, BED ALARM ON. WILL CONTINUE TO MONITOR PATIENT
[2023-02-21] MEDS: AMPICILLIN /SULBACTAM 3 G in IV NS 0.9% 50 ML IJ SCH ×2 (00:29→05:58)
[2023-02-21] MEDS: METOPROLOL TARTRATE 25 MG TABLET GT SCH ×3 (00:29→16:11)
[2023-02-21] MEDS: BLOOD SUGAR DIAGNOSTIC 1 EACH STRIP IN SCH ×4 (00:29→17:14)
[2023-02-21] MEDS: METOCLOPRAMIDE HCL 10 MG/10 ML UDC PO SCH ×3 (00:30→16:19)
[2023-02-21] MEDS: IV 1/2NS 1000 ML 1,000 ML IV PRN (01:08)
[2023-02-21] MEDS: ALBUTEROL FS 2.5 MG/0.5 ML VIAL.NEB NEB SCH ×4 (01:39→20:13)
[2023-02-21] MEDS: IPRATROPIUM NEB FS 0.5 MG/2.5 ML AMPUL.NEB NEB SCH ×4 (01:39→20:13)
[2023-02-21 04:00] VITALS: BP 122/54
--- NOTE | 2023-02-21 04:01 | NUR ---
RN NOTE STILL AWAITING VANCO TROUGH RESULTS
[2023-02-21] MEDS: VANCOMYCIN HCL 0.75 GM in IV D5W 250 ML IV SCH (04:28)
--- NOTE | 2023-02-21 05:00 | NUR ---
TAKEN OFF BIPAP , PLACED ON 2L NC. NO RESPIRATORY DISTRESS NOTED, RN ELIAN NOTIFIED.
[2023-02-21] MEDS: GLUCERNA 1.2 1,000 ML BOTTLE PEG SCH (05:58)
--- NOTE | 2023-02-21 07:02 | NUR ---
MS RN CLOSING NOTE PATIENT SLEEPING IN BED, ALERT/ORIENTED TO NAME, CONFUSED. PATIENT STABLE ON 2 LPM OF O2, NO S/S OF DISTRESS OR SOB NOTED, BREATHING EVEN AND UNLABORED, PATIENT TOLERATED NOCTURNAL BIPAP. PATIENT WITH GTF RUNNING GLUCERNA @ 60 ML/HR X 24H, TOLERATED WELL, NO RESIDUAL NOTED. PATIENT THOMAS INTACT AND DRAINING YELLOW URINE BY GRAVITY, 550 ML OUTPUT. FLEXISEAL IN PLACE WITH 100 ML OUTPUT. IV ACCESS ON RIGHT HAND #22G INTACT AND SALINE LOCKED, JOEL MIDLINE INTACT AND INFUSING 1/2 NS @ 50 ML/HR. MEDICATIONS GIVEN ORDERED, PT NEEDS MET THROUGHOUT SHIFT, PT TURNED AND REPOSITION, WOUND PHOTOS TAKEN AND PLACED IN CHART. SAFETY MEASURES IN PLACE: CALL LIGHT WITHIN REACH, SIDE RAILS UP X 3, BED LOCKED IN LOWEST POSITION, HOB ELEVATED, BED ALARM ON. WILL ENDORSE TO DAYSHIFT RN FOR CONTINUITY OF CARE
[2023-02-21 07:41] LABS: CALCIUM, SERUM 9.4 mg/dL (8.5-10.1); CREATININE 1.4 mg/dL (0.6-1.3); POTASSIUM 3.9 mmol/L (3.5-5.1)
[2023-02-21] MEDS: ARIPIPRAZOLE 5 MG TABLET GT SCH (08:35)
[2023-02-21] MEDS: ACETAMINOPHEN 650 MG/20.3 ML UDC GT PRN ×2 (08:35→21:24)
[2023-02-21] MEDS: FOLIC ACID 1 MG TABLET GT SCH (08:36)
[2023-02-21] MEDS: PANTOPRAZOLE 40 MG/PACK PACK GT SCH ×2 (08:36→16:19)
[2023-02-21] MEDS: LEVOTHYROXINE SODIUM 100 MCG TABLET GT SCH (08:36)
[2023-02-21] MEDS: LOPERAMIDE HCL (2 MG CAP) 2 MG CAPSULE PO SCH (08:39)
[2023-02-21] MEDS: THERAHONEY GEL 1.5 OZ TUBE TP SCH (08:49)
[2023-02-21] MEDS: DAKINS QUARTER STRENGTH (0.125%) 480 ML BOTTLE TOP SCH (08:49)
[2023-02-21 12:51] VITALS: BP 130/70
[2023-02-21] MEDS: MORPHINE SULFATE INJ 2 MG/ML DISP.SYRIN IV PRN (15:04)
--- NOTE | 2023-02-21 16:13 | NUR ---
HOLD METOPROLOL SBP<120.
[2023-02-21] MEDS: MICAFUNGIN SODIUM 100 MG in IV NS 0.9% 100 ML IV SCH (17:16)
--- NOTE | 2023-02-21 18:33 | NUR ---
PN CLOSING NOTE PT A/OX1. CONFUSED. PATIENT WITH RIGHT UPPER MIDLINE INFUSING D5 1/2 NS @ 50CC/HR MIDLINE INTACT AND PATENT. WITH RIGHT HAND IV ACCESS #22 SALINE LOCK NOTED TO BE INTACT AND PATENT. PATIENT HAVE THOMAS CATHETER DRAINING WELL WITH CLEAR YELLOW URINE, FLEXISEAL INTACT. G-TUBE IN PLACE INFUSING GLUCERNA 1.2 @ 60CC/HR, TOLERATING WELL. NASAL CANULA 2L TOLERATING WELL. NO SIGNS OF SOB. SAFETY MEASURE IN PLACE; BED LOCKED AND IN LOWEST POSITION, HOB IS ELEVATED, SIDE RAILS UP X3, BED ALARM IS ON. WILL ENDORSE TO THE NEXT SHIFT NURSE FOR ROGERIO. FLEXISEAL WITH 150ML OF STOOL. F/C 850ML OF URINE. EMPTIED.
--- NOTE | 2023-02-21 19:15 | NUR ---
RN NOTE REPORT RECEIVED FROM ALTA SEPULVEDA, PT IN BED, AO X 1, BREATHING UNLABORED, SATURATION AT 100% ON 2L VIA NC, HR IS 88. IV LINE AT R HAND 22G AND JOEL MIDLINE PATENT AND FLUSHING WELL, 1/2 NS INFUSING AT 50 ML/HR, GTUBE IN PLACE, GLUCERNA RUNNING AT 60 ML/HR. THOMAS CATHETER DRAINING TO A CLEAR, YELLOW OUTPUT. FLEXI SEAL IN PLACE, MINIMAL OUTPUT NOTED. SAFETY AND ASPIRATION PRECAUTIONS IMPLEMENTED, BED IS LOCKED AND AT LOWEST POSITION, WILL MONITOR AND REASSESS.
[2023-02-21 20:00] VITALS: BP 139/66
[2023-02-22] MEDS: METOCLOPRAMIDE HCL 10 MG/10 ML UDC PO SCH ×3 (00:15→16:45)
[2023-02-22] MEDS: BLOOD SUGAR DIAGNOSTIC 1 EACH STRIP IN SCH ×5 (00:15→23:41)
[2023-02-22] MEDS: METOPROLOL TARTRATE 25 MG TABLET GT SCH ×3 (00:20→16:46)
[2023-02-22] MEDS: IV 1/2NS 1000 ML 1,000 ML IV PRN (00:22)
[2023-02-22] MEDS: ALBUTEROL FS 2.5 MG/0.5 ML VIAL.NEB NEB SCH ×4 (01:16→19:30)
[2023-02-22] MEDS: IPRATROPIUM NEB FS 0.5 MG/2.5 ML AMPUL.NEB NEB SCH ×4 (01:16→19:30)
[2023-02-22] MEDS: VANCOMYCIN HCL 0.75 GM in IV D5W 250 ML IV SCH (03:20)
[2023-02-22] MEDS: GLUCERNA 1.2 1,000 ML BOTTLE PEG SCH ×2 (03:38→23:26)
[2023-02-22 04:00] VITALS: BP 112/78
[2023-02-22 06:21] LABS: BASOPHILS # (AUTO) 0.1 K/uL (0.0-0.2); BASOPHILS % (AUTO) 0.6 % (0.0-2.0); EOSINOPHILS % (AUTO) 6.6 % (0.0-6.0); HEMATOCRIT 31 % (33-45); HEMOGLOBIN 9.3 g/dL (11.5-14.8); LYMPHOCYTES # (AUTO) 1.7 K/uL (0.8-4.8); LYMPHOCYTES % (AUTO) 14.1 % (20.0-44.0); MEAN CORPUSCULAR HGB CONC 31 g/dl (31.0-36.0); MEAN CORPUSCULAR VOLUME 88 fL (82-100); MONOCYTES # (AUTO) 0.8 K/uL (0.1-1.30); MONOCYTES % (AUTO) 6.3 % (2.0-12.0); NEUTROPHILS # (AUTO) 8.7 K/uL (1.8-8.9); NEUTROPHILS % (AUTO) 72.4 % (43.0-81.0); PLATELET COUNT (AUTO) 627 K/uL (150-450); RED BLOOD CELL COUNT(AUTO) 3.45 MIL/uL (4.0-5.2)
[2023-02-22 06:34] LABS: CREATININE 1.3 mg/dL (0.6-1.3)
--- NOTE | 2023-02-22 07:30 | NUR ---
RN OPENING NOTE PT RECEIVED IN BED ON 2L NC O2 SAT 94%. PT IS A/OX1. PT IS ON TF INFUSING WITH GLUCERNA @60ML/HR. FLEXISEAL IS IN PLACE AND FC IS IN PLACE DRAINING URINE TO GRAVITY. IV ACCESS L UA MIDLINE AND R YA INFUSING WITH 1/2 NS @50ML/HR. BED IS LOCKED IN LOWEST POSITION X2 BED RAILS UP AND ALL HOSPITAL SAFETY MEASURES ARE IN PLACE. WILL CONTINUE TO MONITOR THIS SHIFT.
[2023-02-22] MEDS: PANTOPRAZOLE 40 MG/PACK PACK GT SCH ×2 (08:48→16:45)
[2023-02-22] MEDS: LEVOTHYROXINE SODIUM 100 MCG TABLET GT SCH (08:48)
[2023-02-22] MEDS: ARIPIPRAZOLE 5 MG TABLET GT SCH (08:49)
[2023-02-22] MEDS: FOLIC ACID 1 MG TABLET GT SCH (08:49)
[2023-02-22] MEDS: LOPERAMIDE HCL (2 MG CAP) 2 MG CAPSULE PO SCH (08:51)
[2023-02-22] MEDS: THERAHONEY GEL 1.5 OZ TUBE TP SCH (08:52)
[2023-02-22] MEDS: DAKINS QUARTER STRENGTH (0.125%) 480 ML BOTTLE TOP SCH (08:52)
--- NOTE | 2023-02-22 11:23 | NUR ---
RN NOTE: IV ACCESS PT PULLED OUT IV ACCESS AND DOES NOT HAVE ANY AT THIS TIME. MULTIPLE PIV ATTEMPTS UNSUCCESSFUL. WAITING FOR MIDLINE NURSE TO INSERT NEW LINE
[2023-02-22 12:00] VITALS: BP 139/54
[2023-02-22] MEDS: INSULIN REGULAR, HUMAN 100 UNIT/ML 3 ML VIAL SQ PRN ×2 (12:14→17:24)
--- NOTE | 2023-02-22 13:53 | NUR ---
RT NOTE: PATIENT REMOVED OXYGEN AND WILL NOT KEEP IT ON. SP02=94% ON ROOM AIR. RN AWARE.
[2023-02-22] MEDS: ACETAMINOPHEN 650 MG/20.3 ML UDC GT PRN (16:18)
--- NOTE | 2023-02-22 16:18 | NUR ---
RN NOTE: TYLENOL TEMP 101.1 WILL GIVE TYLENOL VIA GT
--- NOTE | 2023-02-22 17:27 | NUR ---
RN NOTE: IV ACCESS SCHEDULED MICAFUNGIN CAN NOT BE GIVEN AT THIS TIME DUE TO NO IV ACCESS. MD IS AWARE AND WAITING FOR MIDLINE IV NURSE TO INSERT NEW LINE.
--- NOTE | 2023-02-22 18:47 | NUR ---
RN CLOSING NOTE PT IN BED ON RA O2 SAT 95%. PT IS A/OX1. PT IS ON TF INFUSING WITH GLUCERNA @60ML/HR. FLEXISEAL IS IN PLACE -100ML AND FC -750ML IS IN PLACE DRAINING URINE TO GRAVITY. NO IV ACCESS SINCE THIS AFTERNOON WAITING FOR MIDLINE NURSE; MD AWARE. BED IS LOCKED IN LOWEST POSITION X2 BED RAILS UP AND ALL HOSPITAL SAFETY MEASURES ARE IN PLACE. WILL ENDORSE TO DAIRY FEED MIXING OPERATOR NURSE FOR ROGERIO.
[2023-02-22] MEDS: MICAFUNGIN SODIUM 100 MG in IV NS 0.9% 100 ML IV SCH (19:43)
[2023-02-22 20:00] VITALS: BP 102/67
--- NOTE | 2023-02-22 21:05 | NUR ---
RT NOTE PT PLACED ON BIPAP PER MD ORDER. EMILY WELL. DERICK RICHMOND AWARE.
[2023-02-23] MEDS: METOCLOPRAMIDE HCL 10 MG/10 ML UDC PO SCH ×3 (00:19→16:24)
[2023-02-23] MEDS: METOPROLOL TARTRATE 25 MG TABLET GT SCH ×3 (00:22→16:25)
[2023-02-23] MEDS: IPRATROPIUM NEB FS 0.5 MG/2.5 ML AMPUL.NEB NEB SCH ×4 (02:22→20:34)
[2023-02-23] MEDS: ALBUTEROL FS 2.5 MG/0.5 ML VIAL.NEB NEB SCH ×4 (02:22→19:30)
[2023-02-23] MEDS: VANCOMYCIN HCL 0.75 GM in IV D5W 250 ML IV SCH (03:32)
[2023-02-23 04:00] VITALS: BP 134/66
[2023-02-23] MEDS: ACETAMINOPHEN 650 MG/20.3 ML UDC GT PRN (04:42)
[2023-02-23] MEDS: BLOOD SUGAR DIAGNOSTIC 1 EACH STRIP IN SCH ×3 (05:33→17:05)
--- NOTE | 2023-02-23 07:20 | NUR ---
ICE CREAM TRUCK DRIVER OPENING NOTES Received pt awake in bed AOx1. No complaints of pain or discomfort at this time. Pt is on 2L NC and tolerating it well. IV access on GABRIELA midline and left hand 20G patent and intact. GT is patent and intact with GTF running at prescribed settings. HOB elevated to 30-45 degrees. Siderails up at all times x4. Call light within reach. Will continue to monitor.
[2023-02-23 08:00] VITALS: BP 126/78
[2023-02-23 08:00] LABS: CALCIUM, SERUM 9.6 mg/dL (8.5-10.1); CREATININE 1.2 mg/dL (0.6-1.3); POTASSIUM 4.1 mmol/L (3.5-5.1)
[2023-02-23] MEDS: PANTOPRAZOLE 40 MG/PACK PACK GT SCH ×2 (08:09→16:24)
[2023-02-23] MEDS: FOLIC ACID 1 MG TABLET GT SCH (08:10)
[2023-02-23] MEDS: LEVOTHYROXINE SODIUM 100 MCG TABLET GT SCH (08:11)
[2023-02-23] MEDS: ARIPIPRAZOLE 5 MG TABLET GT SCH (08:11)
[2023-02-23] MEDS: THERAHONEY GEL 1.5 OZ TUBE TP SCH (08:13)
[2023-02-23] MEDS: DAKINS QUARTER STRENGTH (0.125%) 480 ML BOTTLE TOP SCH (08:13)
[2023-02-23] MEDS: LOPERAMIDE HCL (2 MG CAP) 2 MG CAPSULE PO SCH (08:15)
[2023-02-23] MEDS: IV 1/2NS 1000 ML 1,000 ML IV PRN (10:13)
--- NOTE | 2023-02-23 11:39 | NUR ---
JUNIOR QA ANALYST NOTES Pt refused to get her blood sugar checked. Offered 3x but pt refused. [id number] risks and benefits.
--- NOTE | 2023-02-23 11:52 | NUR ---
COLLET GLUER NOTES Pt refusing to get her labs drawn. Explained the reasoning for the blood draw but pt refused x3.
[2023-02-23 16:00] VITALS: BP 141/75
[2023-02-23] MEDS: MICAFUNGIN SODIUM 100 MG in IV NS 0.9% 100 ML IV SCH (17:12)
--- NOTE | 2023-02-23 18:36 | NUR ---
TECHNICAL SUPPORT 1 SOFTWARE ENGINEER CLOSING NOTES All due meds and tx given as ordered. Pt tolerated everything well. All needs attended to. Pt is currently on RA and tolerating it well. IV access on GABRIELA midline and left hand 20G patent and intact. Call light within reach. Will endorse to oncoming nurse.
--- NOTE | 2023-02-23 19:10 | NUR ---
ENVIRONMENTAL CONSULTANT OPEN NOTE REPORT RECEIVED FROM ALTA SEPULVEDA, PT IN BED, AO X 1, BREATHING UNLABORED, SATURATION AT 100% ON 2L VIA NC, HR IS 88. IV LINE REINSERTED AT L HAND 20G, RESUMED UV FLUID OF 1/2 NS INFUSING AT 50 ML/HR, GTUBE IN PLACE, GLUCERNA RUNNING AT 60 ML/HR. THOMAS CATHETER DRAINING TO A CLEAR, YELLOW OUTPUT. FLEXI SEAL IN PLACE, MINIMAL OUTPUT NOTED. SAFETY AND ASPIRATION PRECAUTIONS IMPLEMENTED, BED IS LOCKED AND AT LOWEST POSITION, WILL MONITOR AND REASSESS.
[2023-02-23 20:00] VITALS: BP 116/57
--- NOTE | 2023-02-23 21:00 | NUR ---
RT NOTE PT REFUSING BIPAP AND HHN TX'S. PT EDUCATED ON BENEFITS AND RISKS. NO RESP DISTRESS NOTED @ THIS TIME. RN MARISEL EGAN.
[2023-02-24] MEDS: METOCLOPRAMIDE HCL 10 MG/10 ML UDC PO SCH ×3 (00:49→18:31)
[2023-02-24] MEDS: BLOOD SUGAR DIAGNOSTIC 1 EACH STRIP IN SCH ×5 (00:50→23:25)
[2023-02-24] MEDS: METOPROLOL TARTRATE 25 MG TABLET GT SCH ×3 (00:50→18:31)
[2023-02-24] MEDS: INSULIN REGULAR, HUMAN 100 UNIT/ML 3 ML VIAL SQ PRN ×3 (00:51→23:26)
--- NOTE | 2023-02-24 01:40 | NUR ---
RT NOTE PT PLACED ON BIPAP @ THIS TIME. RN AWARE.
[2023-02-24] MEDS: IPRATROPIUM NEB FS 0.5 MG/2.5 ML AMPUL.NEB NEB SCH ×4 (02:30→19:30)
[2023-02-24] MEDS: ALBUTEROL FS 2.5 MG/0.5 ML VIAL.NEB NEB SCH ×4 (02:30→19:30)
[2023-02-24] MEDS: VANCOMYCIN HCL 0.75 GM in IV D5W 250 ML IV SCH (03:30)
[2023-02-24 04:00] VITALS: BP 137/82
--- NOTE | 2023-02-24 06:55 | NUR ---
RESIDENTIAL SALES REPRESENTATIVE CLOSING NOTE PT A/OX1. CONFUSED. PATIENT WITH RIGHT UPPER MIDLINE INFUSING D5 1/2 NS @ 50CC/HR MIDLINE INTACT AND PATENT. WITH RIGHT HAND IV ACCESS #22 SALINE LOCK NOTED TO BE INTACT AND PATENT. PATIENT HAVE THOMAS CATHETER DRAINING WELL WITH CLEAR YELLOW URINE, FLEXISEAL INTACT. G-TUBE IN PLACE INFUSING GLUCERNA 1.2 @ 60CC/HR, TOLERATING WELL. NASAL CANULA 2L TOLERATING WELL. NO SIGNS OF SOB. SAFETY MEASURE IN PLACE; BED LOCKED AND IN LOWEST POSITION, HOB IS ELEVATED, ALL MEDS GIVEN PER MD ORDERS, SIDE RAILS UP X3, BED ALARM IS ON. WILL ENDORSE TO THE NEXT SHIFT
--- NOTE | 2023-02-24 07:39 | NUR ---
RN OPENING NOTES: RECIEVED PT AWAKE, RESPONSIVE TO TOUCH AND SOUND, A/OX1. WITH CONFUSION NOTED . RIGHT UPPER MIDLINE INFUSING D5 1/2 NS @ 50CC/HR MIDLINE INTACT FLUSHING WELL, NAYA BLOOD SPECIMEN FOR ORDER NAYA 6 CC GIVEN TO LAB SITE IS PATENT. RIGHT HAND IV ACCESS #22 SALINE LOCK , INTACT AND PATENT. THOMAS CATHETER DRAINING WELL WITH CLEAR YELLOW URINE, FLEXI-SEAL INTACT. G-TUBE IN PLACE INFUSING GLUCERNA 1.2 @ 60CC/HR, TOLERATING WELL NO RESIDUAL NOTED BI-PAP RATE AT 37 , NO SIGNS OF SOB AT THIS TIME MONITORING CLOSING, ANXIOUS, SQUIRMING WHILE GIVING CARE. SAFETY MEASURE IN PLACE; BED WHEELS LOCKED, BED IN LOWEST POSITION, HOB IS ELEVATED, ALL MEDS GIVEN PER MD ORDERS, SIDE RAILS UP X3, BED ALARM ON. SITTING CLOSE TO ROOM FOR EYES AND EARS ON PT CLOSELY MONITORING.
[2023-02-24 08:00] VITALS: BP 92/61
[2023-02-24 09:33] LABS: BASOPHILS % (AUTO) 0.3 % (0.0-2.0); EOSINOPHILS % (AUTO) 4.4 % (0.0-6.0); LYMPHOCYTES # (AUTO) 0.8 K/uL (0.8-4.8); LYMPHOCYTES % (AUTO) 15.3 % (20.0-44.0); MEAN CORPUSCULAR HGB CONC 32 g/dl (31.0-36.0); MEAN CORPUSCULAR VOLUME 88 fL (82-100); MONOCYTES # (AUTO) 0.5 K/uL (0.1-1.30); MONOCYTES % (AUTO) 9.2 % (2.0-12.0); NEUTROPHILS # (AUTO) 3.7 K/uL (1.8-8.9); NEUTROPHILS % (AUTO) 70.8 % (43.0-81.0); PLATELET COUNT (AUTO) 302 K/uL (150-450); WHITE BLOOD COUNT (AUTO) 5.3 K/uL (4.3-11.0)
[2023-02-24 09:38] LABS: RED BLOOD CELL COUNT(AUTO) 1.06 MIL/uL (4.0-5.2)
[2023-02-24 09:39] LABS: HEMATOCRIT 9 % (33-45)
--- NOTE | 2023-02-24 09:39 | NUR ---
RN NOTES BLOOD DRAWN AGAIN, FIRST TIME HEMOGLOBIN = 3.0 SECOND TIME 3.0 WE WILL RECORD THIS AMOUNT, HEMATOCRIT 9.0 FIST TIME DRAWN AND 9.0 SECOND TIME DRAWN. WE WILL RECORD THESE.
[2023-02-24] MEDS: PANTOPRAZOLE 40 MG/PACK PACK GT SCH ×2 (09:51→18:31)
[2023-02-24] MEDS: ARIPIPRAZOLE 5 MG TABLET GT SCH (09:51)
[2023-02-24] MEDS: FOLIC ACID 1 MG TABLET GT SCH (09:52)
[2023-02-24] MEDS: LEVOTHYROXINE SODIUM 100 MCG TABLET GT SCH (09:52)
[2023-02-24] MEDS: THERAHONEY GEL 1.5 OZ TUBE TP SCH (09:53)
[2023-02-24] MEDS: DAKINS QUARTER STRENGTH (0.125%) 480 ML BOTTLE TOP SCH (09:53)
[2023-02-24] MEDS: LOPERAMIDE HCL (2 MG CAP) 2 MG CAPSULE PO SCH (10:08)
[2023-02-24 10:34] LABS: ABG BASE EXCESS 3.7 mmol/L; ABG OXYGEN SATURATION 95.2 % (92.0-98.5); ABG PCO2 40.3 mmHg (35.0-45.0); ABG PH 7.458 (7.350-7.450); ABG PO2 81.3 mmHg (75.0-100.0); AaDO2 70.8 mmHg; COHb 0.2 % (0.5-1.5); MetHb 0.3 % (0.0-1.5); O2Hb 94.7 % (94.0-97.0); SITE, ABG Right Brachial
[2023-02-24 10:53] LABS: HEMOGLOBIN 7.9 g/dL (11.5-14.8)
[2023-02-24 11:01] LABS: EOSINOPHILS % (MANUAL) 1 % (0-4); LYMPHOCYTES % (MANUAL) 18 % (16-48); MONOCYTES % (MANUAL) 5 % (0-11.0); NEUTROPHILS % (MANUAL) 76 (42-76)
[2023-02-24 12:13] LABS: CALCIUM, SERUM 9.7 mg/dL (8.5-10.1); CREATININE 1.1 mg/dL (0.6-1.3); POTASSIUM 4.1 mmol/L (3.5-5.1)
[2023-02-24 16:00] VITALS: BP 153/88
--- NOTE | 2023-02-24 19:33 | NUR ---
RN OPENING NOTE PATIENT AWAKE IN BED. A/OX0 (EYE OPENING TO NAME, BUT NO RESPONSES GIVEN). NO S/S OF DISTRESS, BREATHING WITHOUT DIFFICULTY ON 2L NC. GABRIELA MIDLINE #18 INTACT AND PATENT W/ 1/2NS 50ML/HR. GLUCERNA 60ML/HR. FLEXI-SEAL INTACT. SAFETY MEASURES IN PLACE: BED LOCKED AND AT LOWEST POSITION, MID-FOWLERS, RAILS UP X2, CALL MCNEIL WITHIN REACH. WILL CONTINUE TO MONITOR PATIENT.
[2023-02-24 20:00] VITALS: BP 150/65
[2023-02-24] MEDS: GLUCERNA 1.2 1,000 ML BOTTLE PEG SCH (22:37)
[2023-02-25] MEDS: METOPROLOL TARTRATE 25 MG TABLET GT SCH ×3 (00:01→16:30)
[2023-02-25] MEDS: METOCLOPRAMIDE HCL 10 MG/10 ML UDC PO SCH ×3 (00:01→17:00)
[2023-02-25] MEDS: ALBUTEROL FS 2.5 MG/0.5 ML VIAL.NEB NEB SCH ×3 (02:24→19:52)
[2023-02-25] MEDS: IPRATROPIUM NEB FS 0.5 MG/2.5 ML AMPUL.NEB NEB SCH ×3 (02:24→19:52)
[2023-02-25] MEDS: VANCOMYCIN HCL 0.75 GM in IV D5W 250 ML IV SCH (03:00)
--- NOTE | 2023-02-25 03:29 | NUR ---
RN NOTE VANCO TROUGH REVEALED TO BE 23. VANCO WILL NOT BE GIVEN PER ORDER (I.E DO NOT GIVE IF TROUGH 20 OR >). WILL ENDORSE TO NEXT SHIFT FOR F/U WITH PHARMACY TO DETERMINE NEXT DOSING. PATIENT O/W STABLE; WILL CONTINUE TO MONITOR.
[2023-02-25 04:00] VITALS: BP 132/99
--- NOTE | 2023-02-25 05:14 | NUR ---
RN NOTE UPON ENTERING PATIENT'S ROOM, THIS RN FOUND PATIENT HAD REMOVED GTUBE. QUICK ACTION UNDERTAKEN. DR. CLAUDIO. CONTACTED FOR ORDER FOR RESTRAINTS, UMESH HANSEN, NOTIFIED. IN ORDER TO SALVAGE GTUBE OSTOMY AND KEEP PATENT, THOMAS FR. [address] MD NOTIFIED. PATIENT IS VERY ALTERED BUT IS KEPT SAFE. WILL ENDORSE TO NEXT SHIFT IN ORDER FOR GI MD TO DETERMINE NEXT STEP IN CARE FROM THIS POINT. THOMAS INSERTED TO KEEP OSTOMY AND PATENCY INTEGRITY, BUT ACCESS IS NOT TO BE USED FOR FEEDING. PATIENT O/W STABLE. WILL CONTINUE TO MONITOR PATIENT.
[2023-02-25] MEDS: BLOOD SUGAR DIAGNOSTIC 1 EACH STRIP IN SCH ×3 (05:20→19:54)
[2023-02-25] MEDS: INSULIN REGULAR, HUMAN 100 UNIT/ML 3 ML VIAL SQ PRN (05:20)
--- NOTE | 2023-02-25 06:37 | NUR ---
RN CLOSING NOTE PATIENT AWAKE IN BED. A/OX1 (NAME) WITH CONFUSION. NO S/S OF DISTRESS, BREATHING WITHOUT DIFFICULTY ON 2L NC. GABRIELA MIDLINE #18 INTACT AND PATENT W/ 1/2NS 50ML/HR. SAFETY MEASURES IN PLACE: BED LOCKED AND AT LOWEST POSITION, MID-FOWLERS, RAILS UP X2, CALL MCNEIL WITHIN REACH. WILL ENDORSE TO NEXT SHIFT FOR ROGERIO.
--- NOTE | 2023-02-25 07:15 | NUR ---
lLVN OPENING NOTE. PATIENT AWAKE, OCC. MAKE HER NEED KNOW JUST SIMPLE COMMANDS. 02 2L N/C 90% SAT, 5L O2 IN PLACE NOW O2 SAT 95%, NO S/S OF RESPIRATORY DISTRESS NOTED. HOB ELEVATED SIDE RAILS UP X4, IV ACCESS TO GABRIELA INTACT SL. TO LEFT WRIST IV 1/2 NS AT 50ML/HR. PATIENT IS NPO, G-TUBE OUT SINCE LAST NIGHT MD. AWARE. F/C TUBE IN THE ABDOMEN OPENING TO KEEP THE OPENING OPEN UNTIL BE REPLACED. GI- CONSULT DONE. RECTAL TUBE IN PLACE IS LEAKING. PATIENT CLEANED COMPLETELY, WILL RE-INSERT SOON. F/C IN PLACE DRAINING ESTEFANIA CLOUDY URINE. MULTIPLE WOUNDS, TREATMENT IN PROGRESS. ALL MEDICATION AND FEEDING ARE ON HOLD FOR NOW. WILL MONITOR GLUCOSE LEVEL DURING THE DAY.
[2023-02-25] MEDS: IV 1/2NS 1000 ML 1,000 ML IV PRN (08:31)
[2023-02-25] MEDS: LEVOTHYROXINE SODIUM 100 MCG TABLET GT SCH (09:00)
[2023-02-25] MEDS: THERAHONEY GEL 1.5 OZ TUBE TP SCH (09:00)
[2023-02-25] MEDS: DAKINS QUARTER STRENGTH (0.125%) 480 ML BOTTLE TOP SCH (09:00)
[2023-02-25] MEDS: LOPERAMIDE HCL (2 MG CAP) 2 MG CAPSULE PO SCH (09:00)
[2023-02-25] MEDS: FOLIC ACID 1 MG TABLET GT SCH (09:00)
[2023-02-25] MEDS: PANTOPRAZOLE 40 MG/PACK PACK GT SCH ×2 (09:00→17:00)
[2023-02-25] MEDS: ARIPIPRAZOLE 5 MG TABLET GT SCH (09:00)
[2023-02-25] MEDS: IV LR 1000 ML 1,000 ML IV PRN (10:48)
--- NOTE | 2023-02-25 13:00 | NUR ---
TEXTILE SCIENCE TECHNICIAN NOTE GLUCOSE LEVEL AT THIS TIME IS 73 AND PATIENT REFUSED TO BE RECHECKED. NOTIFIED MD. HE SAID THAT WILL CONTINUE WITH LR IVF AT 75ML/HR, IF THE GLUCOSE GET LOWER WILL TREAT . HARVEY CHARGE NURSE AWARE. CONT. TO MONITOR. SAFETY MEASURES ARE IN PLACE, BED LOCKED TO LOWEST POSITION, TABLE AND CALL LIGHT WITHIN REACH. BILATERAL WRIST SOFT RESTRAIN IN PLACE PER .
--- NOTE | 2023-02-25 13:30 | NUR ---
EXPORT SPECIALIST NOTE RECTAL TUBE RE -INSERTED BY RN, DRAINING LIQUID STOOL. PATIENT TOLERATED PROCEDURE WITHOUT DISTRESS. WOUND CARE PERFORMED DIRECTED. PATIENT IS CLEAN, DRY AND DRESSING INTACT.
[2023-02-25] MEDS ORDERED: VANCOMYCIN HCL 0.75 GM in IV D5W 250 ML IV SCH ×2 (15:00→21:00)
[2023-02-25 15:31] LABS: BASOPHILS # (AUTO) 0.1 K/uL (0.0-0.2); BASOPHILS % (AUTO) 0.6 % (0.0-2.0); EOSINOPHILS % (AUTO) 0.5 % (0.0-6.0); HEMATOCRIT 25 % (33-45); LYMPHOCYTES % (AUTO) 7.7 % (20.0-44.0); MEAN CORPUSCULAR HGB CONC 32 g/dl (31.0-36.0); MEAN CORPUSCULAR VOLUME 84 fL (82-100); MONOCYTES # (AUTO) 0.9 K/uL (0.1-1.30); MONOCYTES % (AUTO) 6.7 % (2.0-12.0); NEUTROPHILS # (AUTO) 11.2 K/uL (1.8-8.9); NEUTROPHILS % (AUTO) 84.5 % (43.0-81.0); PLATELET COUNT (AUTO) 810 K/uL (150-450); WHITE BLOOD COUNT (AUTO) 13.2 K/uL (4.3-11.0)
[2023-02-25 15:44] LABS: CREATININE 1.3 mg/dL (0.6-1.3); POTASSIUM 3.9 mmol/L (3.5-5.1)
[2023-02-25 17:14] VITALS: BP 143/85
--- NOTE | 2023-02-25 19:00 | NUR ---
REAL TIME OPERATOR NOTE PATIENT TRANSFERRED TO ROOM 106 PER UNIT CONVENIENCE. PATIENT AWAKE, 02 5L N/C O2 SAT 96% NO RESPIRATORY DISTRESS NOTED. HOB ELEVATED SIDE RAILS UP X4, PATIENT WOUNDS TX COMPLETED. PATIENT'S FAMILY GAVE CONSENT FOR GT PLACEMENT. IV LR AT 75ML/HR. ABDOMEN G-TUBE SITE IS THOMAS CATH TUBE IN PLACE TO KEEP THE OPENING OPEN UNTIL GT REPLACED. WILL ENDORSE THE FOLLOWING SHIFT.
--- NOTE | 2023-02-25 19:30 | NUR ---
RN NOTES RECEIVED REPORT FROM MORNING SHIFT. PATIENT IN BED A/OX1 WITH CONFUSION. ON NASAL CANULA @ 2LPM SATING 94% NO SOB NO DISTRESS NOTED AT THIS TIME. WITH IV ACCESS AT JOEL MIDLINE PATENT FLUSHES WELL RUNNING LR @ 75CC/HR. FOR GT RE-INSERTION THOMAS IN PLACE TO SECURE OPENING OPENING OF STOMA. WITH THOMAS CATH IN PLACE CONNECTED TO THOMAS BAG DRAINING YELLOWISH URINE OUTPUT. FLEXI SEAL IN PLACE INTACT. ALL SAFETY MEASURES IN PLACE, PATIENT ON BILATERAL SOFT WRIST RESTRAINTS CIRCULATION CHECK Q2H. WILL CLOSELY MONITOR THE PATIENT
[2023-02-25 20:00] VITALS: BP 132/70
[2023-02-26] MEDS: METOPROLOL TARTRATE 25 MG TABLET GT SCH ×3 (00:30→16:30)
[2023-02-26] MEDS: BLOOD SUGAR DIAGNOSTIC 1 EACH STRIP IN SCH ×5 (00:33→23:13)
[2023-02-26] MEDS: INSULIN REGULAR, HUMAN 100 UNIT/ML 3 ML VIAL SQ PRN ×3 (00:34→23:13)
--- NOTE | 2023-02-26 00:57 | NUR ---
RN NOTES NOTED PATIENT SHAKING TEMPERATURE CHECK, TEMP 102.1. COOLING MEASURE RENDERED. WILL CLOSELY MONITOR THE PATIENT
[2023-02-26] MEDS: METOCLOPRAMIDE HCL 10 MG/10 ML UDC PO SCH ×3 (01:00→17:20)
[2023-02-26] MEDS: ACETAMINOPHEN 650 MG/SUPP.RECT RC PRN (02:01)
[2023-02-26] MEDS: IPRATROPIUM NEB FS 0.5 MG/2.5 ML AMPUL.NEB NEB SCH ×4 (02:15→20:19)
[2023-02-26] MEDS: ALBUTEROL FS 2.5 MG/0.5 ML VIAL.NEB NEB SCH ×4 (02:15→20:19)
[2023-02-26] MEDS: IV LR 1000 ML 1,000 ML IV PRN (03:35)
[2023-02-26 04:00] VITALS: BP 95/68
[2023-02-26 06:39] LABS: BILIRUBIN,URINE NEGATIVE (NEGATIVE); COLOR,URINE DARK YELLOW (YELLOW); LEUKOCYTE ESTERASE ,URINE TRACE (NEGATIVE); NITRITE, URINE NEGATIVE (NEGATIVE); PROTEIN,URINE 1+ mg/dl (NEGATIVE); UGLUCOSE NEGATIVE (NEGATIVE); UROBILINOGEN,URINE 0.2 EU/dL (0.2)
--- NOTE | 2023-02-26 06:44 | NUR ---
RN NOTES PATIENT REMAINS STABLE. ALL DUE MEDS GIVEN ORDERED. IV ACCESS PATENT FLUSHES WELL RUNNING LR@75CC/HR. THOMAS PATENT FLUSHES WELL, FLEXISEAL INTACT. FOR POSS GT RE-INSERTION TODAY. WOUND CARE DONE. REPOSITION Q2H. TEMPERATURE 99.4 WILL ENDORSED TO MORNING SHIFT FOR ROGERIO
[2023-02-26 06:54] LABS: BASOPHILS # (AUTO) 0.1 K/uL (0.0-0.2); BASOPHILS % (AUTO) 0.5 % (0.0-2.0); HEMATOCRIT 23 % (33-45); HEMOGLOBIN 7.2 g/dL (11.5-14.8); LYMPHOCYTES # (AUTO) 1.4 K/uL (0.8-4.8); LYMPHOCYTES % (AUTO) 6.3 % (20.0-44.0); MEAN CORPUSCULAR HGB CONC 32 g/dl (31.0-36.0); MEAN CORPUSCULAR VOLUME 85 fL (82-100); MONOCYTES # (AUTO) 1.5 K/uL (0.1-1.30); MONOCYTES % (AUTO) 6.9 % (2.0-12.0); NEUTROPHILS # (AUTO) 19.4 K/uL (1.8-8.9); NEUTROPHILS % (AUTO) 86.3 % (43.0-81.0); PLATELET COUNT (AUTO) 707 K/uL (150-450); RED BLOOD CELL COUNT(AUTO) 2.69 MIL/uL (4.0-5.2); WHITE BLOOD COUNT (AUTO) 22.5 K/uL (4.3-11.0)
--- NOTE | 2023-02-26 07:10 | NUR ---
ACADEMIC SPECIALIST NOTES Received pt awake in bed AOX1. No signs of pain or discomfort at this time. Pt is on NC 2L and tolerating it well. IV access on GABRIELA midline patent and intact. GT placed awaiting results from KUB to resume feeding. HOB elevated to 30-45 degrees. Siderials up at all devante x3. Call light within reach. Will continue to monitor.
[2023-02-26 07:20] LABS: CALCIUM, SERUM 9.9 mg/dL (8.5-10.1); CREATININE 1.4 mg/dL (0.6-1.3); POTASSIUM 4.2 mmol/L (3.5-5.1)
[2023-02-26 08:00] VITALS: BP 120/73
[2023-02-26 08:27] LABS: BACTERIA,URINE Rare /HPF (None Seen); SQUAMOUS EPITHELIAL CELL,UR Few /HPF (None Seen); WBC,URINE 0-2 /HPF (0-3)
[2023-02-26] MEDS: DAKINS QUARTER STRENGTH (0.125%) 480 ML BOTTLE TOP SCH (09:00)
[2023-02-26] MEDS: THERAHONEY GEL 1.5 OZ TUBE TP SCH (09:00)
--- NOTE | 2023-02-26 10:18 | NUR ---
BOILER ATTENDANT NOTES Abdominal KUB result relayed to Dr. Ortega with the OK to use the Gtube for medication ad resume GTF. Noted and carried out.
[2023-02-26] MEDS: LEVOTHYROXINE SODIUM 100 MCG TABLET GT SCH (10:25)
[2023-02-26] MEDS: PANTOPRAZOLE 40 MG/PACK PACK GT SCH ×2 (10:26→17:20)
[2023-02-26] MEDS: FOLIC ACID 1 MG TABLET GT SCH (10:26)
[2023-02-26] MEDS: ARIPIPRAZOLE 5 MG TABLET GT SCH (10:26)
[2023-02-26] MEDS: LOPERAMIDE HCL (2 MG CAP) 2 MG CAPSULE PO SCH (10:28)
[2023-02-26] MEDS ORDERED: DOSE PER PHARMACY (MD SPECIFY MEDICATION) 1 EA IV PRN (11:00)
--- NOTE | 2023-02-26 11:00 | NUR ---
RECRUITING ASSISTANT NOTES Call the Blood bank to follow up on blood transfusion that Dr. Mcnamara ordered for HGB 7.2. 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 Dr. Mcnamara made aware. CN made aware.
[2023-02-26] MEDS: GLUCERNA 1.2 1,000 ML BOTTLE PEG SCH (11:04)
[2023-02-26] MEDS: DAPTOMYCIN 500 MG in IV NS 0.9% 50 ML IV SCH (11:45)
[2023-02-26 16:00] VITALS: BP 106/71
--- NOTE | 2023-02-26 18:39 | NUR ---
OYSTER FARMER CLOSING NOTES All due meds and tx given as ordered. Pt tolerated everything well. All needs attended to. Will endorse to oncoming nurse.
--- NOTE | 2023-02-26 19:10 | NUR ---
RN opening notes Received Pt from morning nurse. Pt is alert and orientedX1 and able to make needs known. On 2 L NC. No SOB. No S/S of distress noted. GABRIELA midline is clean, intact and flushes easily. dominguez cath is intact and draining yellow urine. flexiseal s inplaced. isolation precautions is maintained. bilateral soft wrists restraint are inplaced, skin is warm to touch and circulation is checked Q 2 hrs. safety precautions is maintained. bed at low position, brakes locked, side rails upX3, hob elevated, bed alarm is on and call light is within reach. Will continue to monitor.
[2023-02-26 20:00] VITALS: BP 111/68
[2023-02-27] VITALS (9 sets, daily range): BP systolic 88–130; BP diastolic 39–88
[2023-02-27] MEDS: METOPROLOL TARTRATE 25 MG TABLET GT SCH ×3 (00:30→17:48)
[2023-02-27] MEDS: METOCLOPRAMIDE HCL 10 MG/10 ML UDC PO SCH ×3 (00:43→17:46)
--- NOTE | 2023-02-27 01:05 | NUR ---
RN notes Held BP med per MD ordered. BP 118/88. HR at 98.
[2023-02-27] MEDS: ALBUTEROL FS 2.5 MG/0.5 ML VIAL.NEB NEB SCH ×5 (01:30→19:39)
[2023-02-27] MEDS: IPRATROPIUM NEB FS 0.5 MG/2.5 ML AMPUL.NEB NEB SCH ×5 (01:30→19:39)
[2023-02-27] MEDS: INSULIN REGULAR, HUMAN 100 UNIT/ML 3 ML VIAL SQ PRN ×3 (05:06→19:12)
[2023-02-27] MEDS: BLOOD SUGAR DIAGNOSTIC 1 EACH STRIP IN SCH ×3 (05:06→19:12)
[2023-02-27] MEDS: GLUCERNA 1.2 1,000 ML BOTTLE PEG SCH (05:13)
--- NOTE | 2023-02-27 06:37 | NUR ---
RN closing notes Pt is resting in bed comfortably. Pt is alert and orientedX1 and able to make needs known. On 2 L NC. No SOB. No S/S of distress noted. GABRIELA midline is clean, intact and flushes easily. dominguez cath is intact and draining yellow urine. flexiseal is inplaced. gtube is inpaced and running glucerna 1.2 @ 60 ml/hr with 0 residual. Pt tolerated well. isolation precautions is maintained. bilateral soft wrists restraint are inplaced, skin is warm to touch and circulation is checked Q 2 hrs. Kept Pt clean, dry and comfortable. All needs met and attended. safety precautions is maintained. bed at low position, brakes locked, side rails upX3, hob elevated, bed alarm is on and call light is within reach. Will endorse to am nurse for ROGERIO.
[2023-02-27 07:08] LABS: BASOPHILS # (AUTO) 0.2 K/uL (0.0-0.2); BASOPHILS % (AUTO) 1.2 % (0.0-2.0); EOSINOPHILS % (AUTO) 1.2 % (0.0-6.0); HEMATOCRIT 23 % (33-45); HEMOGLOBIN 7.2 g/dL (11.5-14.8); LYMPHOCYTES # (AUTO) 1.6 K/uL (0.8-4.8); LYMPHOCYTES % (AUTO) 8.3 % (20.0-44.0); MEAN CORPUSCULAR HGB CONC 32 g/dl (31.0-36.0); MEAN CORPUSCULAR VOLUME 85 fL (82-100); MONOCYTES # (AUTO) 1.6 K/uL (0.1-1.30); NEUTROPHILS # (AUTO) 16.1 K/uL (1.8-8.9); NEUTROPHILS % (AUTO) 81.3 % (43.0-81.0); PLATELET COUNT (AUTO) 569 K/uL (150-450); RED BLOOD CELL COUNT(AUTO) 2.68 MIL/uL (4.0-5.2); WHITE BLOOD COUNT (AUTO) 19.8 K/uL (4.3-11.0)
[2023-02-27 07:15] LABS: CALCIUM, SERUM 9.8 mg/dL (8.5-10.1); CREATININE 1.2 mg/dL (0.6-1.3); POTASSIUM 3.7 mmol/L (3.5-5.1)
--- NOTE | 2023-02-27 07:17 | NUR ---
WOUND CARE FOLLOW UP: PT SEEN FOR RE-EVALUATION OF MULTIPLE WOUNDS, PRESENT ON ADMISSION. LEFT TOES, FOOT, HEEL AND LOWER LEG DISCOLORATION NOTED WITH HARDENED SKIN AND DRY SCAB TO HEEL, PRESENT ON ADMISSION. LEFT CALF WOUND MEASURES 12CM C 3CM X UTD WITH RED, PINK AND BLACK COLOR, SMALL AMOUNT OF PINK DRAINAGE, PRESENT ON ADMISSION. LEFT POSTERIOR KNEE/THIGH WOUND MEASURES 6.5CM X 4CM X 0.5CM, YELLOW/RED IN COLOR, SMALL AMOUNT PINK DRAINAGE, LEFT ANTERIOR THIGH WOUND IS 10CM X 6CM X 0.3CM, RED/PINK IN COLOR, SMALL AMOUNT OF PINK DRAINAGE AND SACRAL STAGE 4 PRESSURE ULCER EXTENDS TO BILATERAL BUTTOCKS AND MEASURES 12CM X 21CM X 4CM, RED IN COLOR WITH MODERATE AMOUNT OF BLACKBURN/PINK DRAINAGE AND MILD ODOR. ALL ABOVE WOUNDS WERE NOTED TO BE PRESENT ON ADMISSION. DEFER TO SURGICAL AND PODIATRY TEAMS CURRENTLY ON CASE FOR WOUND TREATMENT PLAN. PT IS ON FIRST STEP CIRRUS LOW AIRLOSS MATTRESS WITH THOMAS CATH AND RECTAL TUBE IN USE. DISCUSSED SKIN PROTECTION WITH NURSING STAFF. MD IN AGREEMENT WITH PLAN OF CARE.
--- NOTE | 2023-02-27 07:24 | NUR ---
MS RN OPENING NOTES PT RECEIVED IN BED, AWAKE. ALERT AND ORIENTED X1. ON 2 L NC WITH NO SOB OR S/S OF RESPIRATORY DISTRESS. BREATHING EVEN AND UNLABORED. GABRIELA MIDLINE CLEAN AND INTACT. THOMAS CATHETER IN PLACE, INTACT AND DRAINING YELLOW URINE. FLEXISEAL IN PLACE. GTUBE IN PLACE RUNNING GLUCERNA 1.2 @ 60 ML/HR. BILATERAL SOFT WRIST RESTRAINTS IN PLACE WITH NO SIGNS OF POOR CIRCULATION. SKIN IS ALSO INTACT AND WARM TO TOUCH. PATIENT ON ISOLATION PRECAUTIONS. SAFETY PRECAUTIONS IN PLACE WITH BED IN LOWEST, LOCKED POSITION, SIDE RAILS UP X3, HOB ELEVATED, BED ALARM ON, AND CALL LIGHT WITHIN REACH. WILL CONTINUE TO MONITOR.
--- NOTE | 2023-02-27 08:06 | NUR ---
RT NOTE: RESPIRATORY TREATMENT DISPENSED BUT NOT ADMINISTERED DUE TO PATIENT'S GB=195 AT THIS TIME.
--- NOTE | 2023-02-27 08:35 | NUR ---
PT HR 149. PER DR CLAUDIO, WILL BOLUS 500 NS.
[2023-02-27] MEDS: LEVOTHYROXINE SODIUM 100 MCG TABLET GT SCH (08:40)
[2023-02-27] MEDS: PANTOPRAZOLE 40 MG/PACK PACK GT SCH ×2 (08:40→17:46)
[2023-02-27] MEDS: FOLIC ACID 1 MG TABLET GT SCH (08:40)
[2023-02-27] MEDS: ARIPIPRAZOLE 5 MG TABLET GT SCH (08:41)
[2023-02-27] MEDS: THERAHONEY GEL 1.5 OZ TUBE TP SCH (08:42)
[2023-02-27] MEDS: DAKINS QUARTER STRENGTH (0.125%) 480 ML BOTTLE TOP SCH (08:42)
[2023-02-27] MEDS ORDERED: IV NS 0.9% 500 ML IV ONE ×2 (09:00)
[2023-02-27 11:09] LABS: LYMPHOCYTES % (MANUAL) 11 % (16-48); MONOCYTES % (MANUAL) 10 % (0-11.0); NEUTROPHILS % (MANUAL) 79 (42-76)
--- NOTE | 2023-02-27 12:00 | NUR ---
PATIENT HAS FEVER OF 103.2. COOLING MEASURES TAKEN. ACETAMINOPHEN ADMINISTERED.
[2023-02-27] MEDS: DAPTOMYCIN 500 MG in IV NS 0.9% 50 ML IV SCH (12:30)
[2023-02-27] MEDS: LOPERAMIDE HCL (2 MG CAP) 2 MG CAPSULE PO SCH (12:32)
[2023-02-27] MEDS: ACETAMINOPHEN 650 MG/20.3 ML UDC GT PRN ×2 (12:36→20:14)
--- NOTE | 2023-02-27 16:48 | NUR ---
BLOOD TRANSFUSION BEGINS FOR PATIENT. HGB 7.2.
--- NOTE | 2023-02-27 18:30 | NUR ---
PATIENT BLOOD GLUCOSE AT 52. ADMINISTERED PRN DEXTROSE 50% IN 50ML.
--- NOTE | 2023-02-27 19:00 | NUR ---
MS RN CLOSING NOTES PT IN BED RESTING. ALERT AND ORIENTED X1. ON 2 L NC WITH NO SOB OR S/S OF RESPIRATORY DISTRESS. BREATHING EVEN AND UNLABORED. GABRIELA MIDLINE CLEAN AND INTACT. THOMAS CATHETER IN PLACE, INTACT AND DRAINING YELLOW URINE. FLEXISEAL REINSERTED AND INTACT. GTUBE IN PLACE RUNNING GLUCERNA 1.2 @ 60 ML/HR. BILATERAL SOFT WRIST RESTRAINTS IN PLACE WITH NO SIGNS OF POOR CIRCULATION. SKIN IS ALSO INTACT AND WARM TO TOUCH. PATIENT ON ISOLATION PRECAUTIONS. BLOOD TRANSFUSION ADMINISTERED AND ALL DUE MEDS GIVEN. SAFETY PRECAUTIONS IN PLACE WITH BED IN LOWEST, LOCKED POSITION, SIDE RAILS UP X3, HOB ELEVATED, BED ALARM ON, AND CALL LIGHT WITHIN REACH. WILL ENDORSE TO ONCOMING SHIFT FOR ROGERIO.
[2023-02-27] MEDS: DEXTROSE 50%-WATER 50 ML DISP.SYRIN IV PRN (19:29)
--- NOTE | 2023-02-27 19:30 | NUR ---
RN OPENING NOTE RECEIVED PATIENT IN BED; AWAKE, ALERT AND ORIENTED X 1. ON O2 INHALATION @ 2 LPM VIA NASAL CANNULA; TOLERATING WELL. NOT IN ANY FORM OF RESPIRATORY DISTRESS. NO S/S OF PAIN OR DISCOMFORT NOTED AT THIS TIME. WITH G-TUBE IN PLACE; INTACT AND PATENT RUNNING WITH GLUCERNA 1.2 INFUSING @ 60 CC/HR; FLUSHES WELL. WITH IV ACCESS ON RIGHT UPPER ARM MIDLINE 18g AND LEFT HAND; BOTH PATENT, INTACT AND SALINE LOCKED. WITH BILATERAL SOFT WRIST RESTRAINTS IN PLACE. SKIN AND CIRCULATION CHECKED; WNL. WITH FLEXISEAL IN PLACE; INTACT. WITH THOMAS CATH IN PLACE DRAINING BY GRAVITY TO YELLOW URINE OUTPUT. SAFETY PRECAUTIONS IMPLEMENTED: HEAD OF BED ELEVATED, CALL LIGHT AND TABLE WITHIN REACH, SIDE RAILS UP X 3, BED IN LOWEST LOCKED POSITION. WILL CONTINUE TO MONITOR THROUGHOUT SHIFT.
--- NOTE | 2023-02-27 19:40 | NUR ---
PLACED PT ON NOCTURNAL BIPAP 20/10,RATE 12, FIO2 30%. BREATHING TX GIVEN, NO RESPIRATORY DISTRESS NOTED AT THIS TIME. BIPAP PLUGGED INTO RED OUTLET, ALARMS ON AND AUDIBLE. WILL CONTINUE TO MONITOR T/O SHIFT
[2023-02-28] MEDS: METOPROLOL TARTRATE 25 MG TABLET GT SCH ×3 (00:30→16:30)
[2023-02-28] MEDS: BLOOD SUGAR DIAGNOSTIC 1 EACH STRIP IN SCH ×4 (00:39→17:59)
[2023-02-28] MEDS: METOCLOPRAMIDE HCL 10 MG/10 ML UDC PO SCH ×3 (01:02→17:59)
[2023-02-28] MEDS: ALBUTEROL FS 2.5 MG/0.5 ML VIAL.NEB NEB SCH ×5 (01:21→20:10)
[2023-02-28] MEDS: IPRATROPIUM NEB FS 0.5 MG/2.5 ML AMPUL.NEB NEB SCH ×4 (01:21→20:10)
[2023-02-28 05:00] VITALS: BP 93/43
--- NOTE | 2023-02-28 05:32 | NUR ---
OFF BIPAP, PLACED ON 2L NC. SPO2 100% NO RESPIRATORY DISTRESS NOTED, RN JOSE ANTONIO NOTIFIED.
[2023-02-28] MEDS: GLUCERNA 1.2 1,000 ML BOTTLE PEG SCH (05:42)
--- NOTE | 2023-02-28 06:40 | NUR ---
RN CLOSING NOTE PATIENT IN BED; AWAKE, A/ORIENTED X 1. STILL ON O2 INHALATION @ 2 LPM VIA NASAL CANNULA; WELL TOLERATED. IN NO ACUTE DISTRESS. NO S/S OF PAIN OR DISCOMFORT AT THIS TIME. WITH G-TUBE IN PLACE; INTACT AND PATENT RUNNING WITH GLUCERNA 1.2 INFUSING @ 60 CC/HR; FLUSHES WELL. WITH IV ACCESS ON RIGHT UPPER ARM MIDLINE 18g AND LEFT HAND; BOTH PATENT, INTACT AND SALINE LOCKED. WITH BILATERAL SOFT WRIST RESTRAINTS IN PLACE. SKIN AND CIRCULATION CHECKED; WNL. STILL WITH FLEXISEAL IN PLACE; INTACT. WITH THOMAS CATHETER IN PLACE DRAINING BY GRAVITY TO YELLOW URINE OUTPUT. SAFETY PRECAUTIONS MAINTAINED: HEAD OF BED ELEVATED, CALL LIGHT AND TABLE WITHIN REACH, SIDE RAILS UP X 4, BED IN LOWEST LOCKED POSITION. ENDORSED TO MORNING SHIFT FOR ROGERIO.
[2023-02-28 08:00] VITALS: BP 95/61
[2023-02-28 08:01] LABS: CALCIUM, SERUM 9.8 mg/dL (8.5-10.1); POTASSIUM 4.2 mmol/L (3.5-5.1)
[2023-02-28] MEDS: DAKINS QUARTER STRENGTH (0.125%) 480 ML BOTTLE TOP SCH (10:41)
[2023-02-28] MEDS: THERAHONEY GEL 1.5 OZ TUBE TP SCH (10:41)
[2023-02-28] MEDS: PANTOPRAZOLE 40 MG/PACK PACK GT SCH ×2 (10:42→17:59)
[2023-02-28] MEDS: LEVOTHYROXINE SODIUM 100 MCG TABLET GT SCH (10:42)
[2023-02-28] MEDS: FOLIC ACID 1 MG TABLET GT SCH (10:42)
[2023-02-28] MEDS: ARIPIPRAZOLE 5 MG TABLET GT SCH (10:42)
[2023-02-28] MEDS: LOPERAMIDE HCL (2 MG CAP) 2 MG CAPSULE PO SCH (10:42)
[2023-02-28] MEDS: DAPTOMYCIN 500 MG in IV NS 0.9% 50 ML IV SCH (15:14)
[2023-02-28 16:00] VITALS: BP 114/66
--- NOTE | 2023-02-28 19:35 | NUR ---
MS RN NOTES RECEIVED LYING ON BED,A/O X1,CONFUSED,BREATHING NON LABORED.O2 SAT 99%,ON FLEXISEAL,EMPTY AT THE MOMENT.THOMAS CATH IN PLACE DRAINS YELLOWISH URINE OUTPUT.WITH GABRIELA MIDLINE FOR MEDS.ON BILATERAL SOFT WRIST RESTRAINTS FOR SAFETY.WITH GOOD BLOOD CIRCULATION ON BOTH HANDS.WITH GT FEEDING ON GLUCERNA AT 60ML/HR RATE,NO RESIDUAL VOLUME.HOB ELEVATED FOR ASPIRATION PRECAUTION.WILL CONTINUE TO MONITOR STATUS.
--- NOTE | 2023-02-28 19:52 | NUR ---
RN CLOSING NOTE PATIENT IN BED; AWAKE, A/ORIENTED X 1. STILL ON O2 INHALATION @ 2 LPM VIA NASAL CANNULA; WELL TOLERATED. IN NO ACUTE DISTRESS. NO S/S OF PAIN OR DISCOMFORT AT THIS TIME. WITH G-TUBE IN PLACE; INTACT AND PATENT RUNNING WITH GLUCERNA 1.2 INFUSING @ 60 CC/HR; FLUSHES WELL. WITH IV ACCESS ON RIGHT UPPER ARM MIDLINE 18g AND LEFT HAND; BOTH PATENT, INTACT AND SALINE LOCKED. WITH BILATERAL SOFT WRIST RESTRAINTS IN PLACE. SKIN AND CIRCULATION CHECKED; WNL. FLEXISEAL IN PLACE; INTACT. WITH THOMAS CATHETER IN PLACE DRAINING BY GRAVITY TO YELLOW URINE OUTPUT. SAFETY PRECAUTIONS MAINTAINED: HEAD OF BED ELEVATED, CALL LIGHT AND TABLE WITHIN REACH, SIDE RAILS UP X 4, BED IN LOWEST LOCKED POSITION. ENDORSED TO LOSS PREVENTION CONSULTANT FOR ROGERIO.
[2023-02-28 20:00] VITALS: BP 98/57
--- NOTE | 2023-02-28 20:00 | NUR ---
MS RN NOTES RT AT BEDSIDE PLACING BIPAP AT NIGHT
[2023-02-28] MEDS: ACETAMINOPHEN 650 MG/20.3 ML UDC GT PRN (20:28)
--- NOTE | 2023-02-28 20:28 | NUR ---
MS RN NOTES WITH BODY TEMPERATURE OF 102.7,MEDICATED WITH TYLENOL 650MG/GT ORDERED.COOLING MEASURES STARTED.
--- NOTE | 2023-02-28 23:50 | NUR ---
FOUNDATION MAKER NOTES ACCU-CHECK BLOOD SUGAR CHECK 116,NO INSULIN COVERAGE.GT FEEDING IN PROGRESS.
[2023-03-01] MEDS: BLOOD SUGAR DIAGNOSTIC 1 EACH STRIP IN SCH ×4 (00:43→17:23)
[2023-03-01] MEDS: METOPROLOL TARTRATE 25 MG TABLET GT SCH ×3 (00:56→15:56)
[2023-03-01] MEDS: METOCLOPRAMIDE HCL 10 MG/10 ML UDC PO SCH ×3 (00:56→16:32)
[2023-03-01] MEDS: IPRATROPIUM NEB FS 0.5 MG/2.5 ML AMPUL.NEB NEB SCH ×4 (01:40→19:54)
[2023-03-01] MEDS: ALBUTEROL FS 2.5 MG/0.5 ML VIAL.NEB NEB SCH ×4 (01:40→19:54)
[2023-03-01] MEDS: GLUCERNA 1.2 1,000 ML BOTTLE PEG SCH (04:54)
--- NOTE | 2023-03-01 05:00 | NUR ---
MS RN NOTES MORNING CARE RENDERED,TOLERATED WELL.DRESSING CHANGE DONE ON SACRAL AREA.HAD SOFT BM,MODERATE IN AMOUNT.FLEXISEAL ACCIDENTALLY CAME OUT FROM RECTAL AREA,HOLD FO NOW,NO LOOSE BM NOTED.
--- NOTE | 2023-03-01 05:31 | NUR ---
MS RN NOTES ACCU-CHECK BLOOD SUGAR CHECK 105MG/DL,NO INSULIN COVERAGE.GT FEEDING IN PROGRESS
[2023-03-01 06:30] VITALS: BP 111/95
--- NOTE | 2023-03-01 06:40 | NUR ---
MS RN NOTES LATEST BODY TEMPERATURE 98.7.BIPAP TOLERATED WELL.NO DISTRESS.
--- NOTE | 2023-03-01 07:30 | NUR ---
OPENING NOTE RECEIVED PATIENT IN BED ASLEEP BUT AROUSABLE, NO SIGNS OF DISTRESS, UNLABORED BREATHING ON 2L/MIN 02, SAFETY ,MEASURES ARE IN PLACED, BED IN LOW POSITION LOCKED, SIDE RAILS UPX3, CALL LIGHT WITHIN REACHED.
[2023-03-01 08:00] VITALS: BP 124/95
[2023-03-01] MEDS: LOPERAMIDE HCL (2 MG CAP) 2 MG CAPSULE PO SCH (08:13)
[2023-03-01] MEDS: PANTOPRAZOLE 40 MG/PACK PACK GT SCH ×2 (08:13→16:32)
[2023-03-01] MEDS: FOLIC ACID 1 MG TABLET GT SCH (08:14)
[2023-03-01] MEDS: ARIPIPRAZOLE 5 MG TABLET GT SCH (08:14)
[2023-03-01] MEDS: LEVOTHYROXINE SODIUM 100 MCG TABLET GT SCH (08:14)
[2023-03-01] MEDS: THERAHONEY GEL 1.5 OZ TUBE TP SCH (08:15)
[2023-03-01] MEDS: DAKINS QUARTER STRENGTH (0.125%) 480 ML BOTTLE TOP SCH (08:15)
[2023-03-01 09:51] LABS: CALCIUM, SERUM 10.2 mg/dL (8.5-10.1); CREATININE 1.7 mg/dL (0.6-1.3); POTASSIUM 4.8 mmol/L (3.5-5.1)
[2023-03-01] MEDS: DAPTOMYCIN 500 MG in IV NS 0.9% 50 ML IV SCH (11:38)
--- NOTE | 2023-03-01 12:32 | NUR ---
ORANGE JUICE WAS GIVEN DUE TO BLOOD SUGAR IS 68, KEEP RECHECKING BLOOD SUGAR.
[2023-03-01] MEDS: ACETAMINOPHEN 650 MG/20.3 ML UDC GT PRN (15:50)
--- NOTE | 2023-03-01 15:57 | NUR ---
METOPROLOL NOT GIVEN PER PARAMETERS <120.
[2023-03-01 16:00] VITALS: BP 95/51
[2023-03-01 16:34] LABS: BASOPHILS # (AUTO) 0.1 K/uL (0.0-0.2); BASOPHILS % (AUTO) 0.2 % (0.0-2.0); EOSINOPHILS % (AUTO) 1.1 % (0.0-6.0); HEMATOCRIT 31 % (33-45); HEMOGLOBIN 9.2 g/dL (11.5-14.8); LYMPHOCYTES # (AUTO) 1.2 K/uL (0.8-4.8); LYMPHOCYTES % (AUTO) 3.1 % (20.0-44.0); MEAN CORPUSCULAR HGB CONC 29 g/dl (31.0-36.0); MEAN CORPUSCULAR VOLUME 88 fL (82-100); MONOCYTES # (AUTO) 2.9 K/uL (0.1-1.30); MONOCYTES % (AUTO) 7.6 % (2.0-12.0); PLATELET COUNT (AUTO) 491 K/uL (150-450); RED BLOOD CELL COUNT(AUTO) 3.55 MIL/uL (4.0-5.2)
[2023-03-01 16:41] LABS: WHITE BLOOD COUNT (AUTO) 37.5 K/uL (4.3-11.0)
--- NOTE | 2023-03-01 16:44 | NUR ---
INFORMED DR CLAUDIO RE; REPEAT CBC 37.5 PER LAB. BLOOD CULTURE IS DONE
[2023-03-01 16:56] LABS: LYMPHOCYTES % (MANUAL) 5 % (16-48); MONOCYTES % (MANUAL) 4 % (0-11.0); NEUTROPHILS % (MANUAL) 91 (42-76)
--- NOTE | 2023-03-01 19:22 | NUR ---
CLOSING NOTE PATIENT IN BED RESTING COMFORTABLY, ASLEEP BUT AROUSABLE, HEART RATE IS IN LOW 100'S, SPO2-100% ON 2L/MIN 02, NO SIGNS OF IN DISTRESS, GT FEEDING INFUSING WELL, SAFETY MEASURES IN PLACE, BED IN LOW POSITION LOCKED, SIDE RAILS UPX3, CALL LIGHT WITH REACH, ENDORSED IT TO THE NIGHT RN
--- NOTE | 2023-03-01 19:30 | NUR ---
MS RN OPENING NOTE RECEIVED PT IN BED RESTING COMFORTABLY, ASLEEP BUT AROUSABLE, HEART RATE IS IN LOW 100'S. PT OBTUNDED. SPO2-100% ON 2L/MIN 02, NO SIGNS OF DISTRESS, GT FEEDING INFUSING WELL @ 60 ML/HR. THOMAS CATHETER IN PLACE, INTACT, DRAINING YELLOW CLOUDY URINE. BILATERAL SOFT WRIST RESTRAINTS IN PLACE, CIRCULATION WNL. SAFETY MEASURES IN PLACE: BED LOCKED AND IN LOW POSITION, SIDE RAILS UP X2, CALL LIGHT WITH REACH. WILL CONTINUE TO MONITOR AND ASSIST.
--- NOTE | 2023-03-01 19:33 | NUR ---
RN NOTE NOTED DR CLAUDIO RESPONSE ABOUT WBC LAB REPORT, NO NEW ORDERS.
[2023-03-01 20:00] VITALS: BP 95/52
--- NOTE | 2023-03-01 20:01 | NUR ---
RT NOTE PATIENT PLACED ON BIPAP PER MD ORDERS. PT PLACED ON NOC BIPAP ON SETTINGS OF 20/10 RR12 30%. NO RESPIRATORY DISTRESS NOTED. ALARMS ARE SET AND AUDIBLE. BIPAP IS PLUGGED INTO RED OUTLET. WILL CONTINUE TO MONITOR PATIENT. Addendum: 03/01/23 at 2038 by TARA SOLIS RT Amended: Links added.
[2023-03-02] MEDS: METOPROLOL TARTRATE 25 MG TABLET GT SCH ×3 (00:08→17:49)
--- NOTE | 2023-03-02 00:09 | NUR ---
RN NOTE HELD LOPRESSOR 50MG FOR 0030 PER PARAMETERS OF <120 SBP. PT BP 115/76, HR 94.
[2023-03-02] MEDS: BLOOD SUGAR DIAGNOSTIC 1 EACH STRIP IN SCH ×4 (00:28→17:46)
[2023-03-02] MEDS: INSULIN REGULAR, HUMAN 100 UNIT/ML 3 ML VIAL SQ PRN ×2 (00:35→05:42)
[2023-03-02] MEDS: METOCLOPRAMIDE HCL 10 MG/10 ML UDC PO SCH ×3 (00:35→17:49)
[2023-03-02] MEDS: ALBUTEROL FS 2.5 MG/0.5 ML VIAL.NEB NEB SCH ×4 (02:02→20:02)
[2023-03-02] MEDS: IPRATROPIUM NEB FS 0.5 MG/2.5 ML AMPUL.NEB NEB SCH ×4 (02:02→20:02)
[2023-03-02] MEDS: GLUCERNA 1.2 1,000 ML BOTTLE PEG SCH (03:33)
[2023-03-02 04:00] VITALS: BP 106/69
--- NOTE | 2023-03-02 06:42 | NUR ---
MS RN CLOSING NOTE PT IN BED AWAKE, RESTING COMFORTABLY. PT OBTUNDED, HEART RATE IS IN LOW 100'S. ON O2 2L VIA NC SATTING AT 100%, NO SIGNS OF DISTRESS, GT FEEDING INFUSING WELL @ 60 ML/HR. THOMAS CATHETER IN PLACE, INTACT, DRAINING YELLOW CLOUDY URINE, TOTAL OUTPUT OF 350 ML. BILATERAL SOFT WRIST RESTRAINTS IN PLACE, CIRCULATION WNL. ALL CARE PROVIDED AND MEDS TOLERATED WELL. SACRUM DRESSING CHANGED DUE TO SOILAGE. TURNED Q2HR AND OFFLOADED APPROPRIATED. SAFETY MEASURES MAINTAINED: BED LOCKED AND IN LOW POSITION, SIDE RAILS UP X2, CALL LIGHT WITH REACH. WILL ENDORSE ROGERIO TO DAY SHIFT NURSE.
--- NOTE | 2023-03-02 07:53 | NUR ---
RN OPENING NOTE RECEIVED PATIENT IN BED OBTUNDED, ABLE TO RESPONDS PHYSICAL STIMULI. RESPIRATORY EVEN AND UNLABORED ON OXYGEN AT 2Ls. IN NO ACUTE RESPIRATORY DISTRESS OBSERVED. SKIN IS WARM TO TOUCH, KEEP CLEAN/DRY. KEPT ELEVATED HOB FOR ASPIRATION PRECAUTION AND ENSURE AIRWAY, ALSO LOWEST BED POSITIONED. BED ALARM IS ON AT ALL TIMES FOR SAFETY. CALL LIGHT WITHIN REACH, WILL CONTINUE TO MONITOR.
[2023-03-02 08:00] VITALS: BP 129/75
[2023-03-02] MEDS: LEVOTHYROXINE SODIUM 100 MCG TABLET GT SCH (08:37)
[2023-03-02] MEDS: ARIPIPRAZOLE 5 MG TABLET GT SCH (08:38)
[2023-03-02] MEDS: PANTOPRAZOLE 40 MG/PACK PACK GT SCH ×2 (08:38→17:49)
[2023-03-02] MEDS: FOLIC ACID 1 MG TABLET GT SCH (08:39)
[2023-03-02] MEDS: DAKINS QUARTER STRENGTH (0.125%) 480 ML BOTTLE TOP SCH (08:39)
[2023-03-02] MEDS: LOPERAMIDE HCL (2 MG CAP) 2 MG CAPSULE PO SCH (08:39)
[2023-03-02] MEDS: THERAHONEY GEL 1.5 OZ TUBE TP SCH (08:40)
[2023-03-02] MEDS: DAPTOMYCIN 500 MG in IV NS 0.9% 50 ML IV SCH (12:07)
[2023-03-02] MEDS ORDERED: MEROPENEM 1 G in IV NS 0.9% 100 ML IV SCH (14:30)
[2023-03-02 16:00] VITALS: BP 125/60
--- NOTE | 2023-03-02 18:00 | NUR ---
RN CLOSING NOTE PATIENT RESTING IN BED. IN NO ACUTE DISTRESS OBSERVED. RESPIRATORY EVEN AND UNLABORED ON OXYGEN AT 2Ls VIA NC, NO SOB OR DESATURATION NOTED. SKIN IS WARM TO TOUCH KEEP CLEAN/DRY. KEPT ELEVATED HOB FOR ENSURE AIRWAY AND ASPIRATION PRECAUTION, ALSO LOWEST BED POSITION. BED ALARM IS ON AT ALL TIMES FOR SAFETY. CALL LIGHT WITHIN REACH, WILL ENDORSE TANDEM MILL OPERATOR.
--- NOTE | 2023-03-02 19:45 | NUR ---
MS RN OPENING NOTE PATIENT AWAKE IN BED, OPENS EYES AND MUMBLES BUT DIFFICULT TO UNDERSTAND PATIENT. PATIENT STABLE ON 2 LPM OF O2 VIA NASAL CANNULA, NO S/S OF DISTRESS OR SOB NOTED, BREATHING EVEN AND UNLABORED. PATIENT ON GTUBE FEEDING GLUCERNA 1.2 @ 60 ML/HR X 24H. GABRIELA MIDLINE INTACT AND SALINE LOCKED. BILATERAL SOFT WRIST RESTRAINTS IN PLACE D/T PATIENT PULLING LINES AND TUBES. THOMAS CATHETER IN PLACE AND DRAINING URINE BY GRAVITY. SAFETY MEASURES IN PLACE: CALL LIGHT WITHIN REACH, SIDE RAILS UP X 3, BED LOCKED IN LOWEST POSITION, HOB ELEVATED, BED ALARM ON. WILL CONTINUE TO MONITOR PATIENT
[2023-03-02 20:00] VITALS: BP 109/88
--- NOTE | 2023-03-02 20:48 | NUR ---
RN NOTE CALLED PHARMACY REGARDING MERREM Q12H THAT'S DUE AT 2100. AT THAT TIME LAST DOSE WILL BE GIVEN ON 6 HOURS PRIOR. PER PHARMACY THEY WILL ADJUST SCHEDULE
[2023-03-02] MEDS: ACETAMINOPHEN 650 MG/20.3 ML UDC GT PRN (21:34)
[2023-03-02] MEDS ORDERED: QUETIAPINE FUMARATE 25 MG TABLET PO ONE (22:00)
[2023-03-03] MEDS: METOPROLOL TARTRATE 25 MG TABLET GT SCH ×3 (00:30→16:27)
[2023-03-03] MEDS: METOCLOPRAMIDE HCL 10 MG/10 ML UDC PO SCH ×3 (00:41→16:27)
[2023-03-03] MEDS: BLOOD SUGAR DIAGNOSTIC 1 EACH STRIP IN SCH ×5 (00:41→23:50)
[2023-03-03] MEDS: INSULIN REGULAR, HUMAN 100 UNIT/ML 3 ML VIAL SQ PRN ×3 (00:42→23:50)
[2023-03-03] MEDS: ALBUTEROL FS 2.5 MG/0.5 ML VIAL.NEB NEB SCH ×4 (01:30→20:13)
[2023-03-03] MEDS: IPRATROPIUM NEB FS 0.5 MG/2.5 ML AMPUL.NEB NEB SCH ×4 (01:47→20:13)
--- NOTE | 2023-03-03 01:51 | NUR ---
RT NOTE ALBUTEROL NOT GIVEN DUE TO TACHYCARDIA. Addendum: 03/03/23 at 0151 by TARA SOLIS RT Amended: Links added.
[2023-03-03] MEDS: MEROPENEM 1 G in IV NS 0.9% 100 ML IV SCH ×2 (03:08→14:07)
[2023-03-03 04:00] VITALS: BP 117/71
[2023-03-03 06:57] LABS: CALCIUM, SERUM 10.8 mg/dL (8.5-10.1); CREATININE 2.8 mg/dL (0.6-1.3); POTASSIUM 5.1 mmol/L (3.5-5.1)
--- NOTE | 2023-03-03 07:10 | NUR ---
BOWLING BALL ENGRAVER NOTES Received pt awake in bed AOX1. No signs of pain or discomfort at this time. Pt is on NC 2L and tolerating it well. IV access on GABRIELA midline patent and intact. GT is patent and intact running GTF prescribed GTF. HOB elevated to 30-45 degrees. Siderials up at all times x3. Call light within reach. Will continue to monitor.
--- NOTE | 2023-03-03 07:28 | NUR ---
MS RN CLOSING NOTE PATIENT AWAKE IN BED, OPENS EYES AND MUMBLES BUT DIFFICULT TO UNDERSTAND PATIENT, PT RESTLESS ALL SHIFT. PATIENT STABLE ON 2 LPM OF O2 VIA NASAL CANNULA, NO S/S OF DISTRESS OR SOB NOTED, BREATHING EVEN AND UNLABORED, PT WORE NOCTURNAL BIPAP. PATIENT ON GTUBE FEEDING GLUCERNA 1.2 @ 60 ML/HR X 24H. GABRIELA MIDLINE INTACT AND SALINE LOCKED. BILATERAL SOFT WRIST RESTRAINTS IN PLACE D/T PATIENT PULLING LINES AND TUBES. THOMAS CATHETER IN PLACE AND DRAINING ESTEFANIA FOUL SMELLING URINE BY GRAVITY. MEDICATIONS GIVEN ORDERED, PT NEEDS MET THROUGHOUT SHIFT, PATIENT TURNED AND REPOSITIONED. STOOL SAMPLE TAKEN TO LAB FOR C. DIFF TESTING. SAFETY MEASURES IN PLACE: CALL LIGHT WITHIN REACH, SIDE RAILS UP X 3, BED LOCKED IN LOWEST POSITION, HOB ELEVATED, BED ALARM ON. ENDORSED TO DAYSHIFT RN FOR CONTINUITY OF CARE
[2023-03-03 08:00] VITALS: BP 120/95
[2023-03-03] MEDS: PANTOPRAZOLE 40 MG/PACK PACK GT SCH ×2 (08:16→16:27)
[2023-03-03] MEDS: LOPERAMIDE HCL (2 MG CAP) 2 MG CAPSULE PO SCH (08:16)
[2023-03-03] MEDS: FOLIC ACID 1 MG TABLET GT SCH (08:16)
[2023-03-03] MEDS: ARIPIPRAZOLE 5 MG TABLET GT SCH (08:16)
[2023-03-03] MEDS: LEVOTHYROXINE SODIUM 100 MCG TABLET GT SCH (08:16)
[2023-03-03] MEDS: DAKINS QUARTER STRENGTH (0.125%) 480 ML BOTTLE TOP SCH (08:17)
[2023-03-03] MEDS: THERAHONEY GEL 1.5 OZ TUBE TP SCH (08:17)
[2023-03-03 08:24] LABS: BASOPHILS % (AUTO) 0.1 % (0.0-2.0); EOSINOPHILS % (AUTO) 1.8 % (0.0-6.0); HEMATOCRIT 29 % (33-45); HEMOGLOBIN 8.7 g/dL (11.5-14.8); LYMPHOCYTES # (AUTO) 1.7 K/uL (0.8-4.8); LYMPHOCYTES % (AUTO) 5.4 % (20.0-44.0); MEAN CORPUSCULAR HGB CONC 30 g/dl (31.0-36.0); MEAN CORPUSCULAR VOLUME 88 fL (82-100); MONOCYTES % (AUTO) 3.3 % (2.0-12.0); NEUTROPHILS # (AUTO) 28.5 K/uL (1.8-8.9); NEUTROPHILS % (AUTO) 89.4 % (43.0-81.0); PLATELET COUNT (AUTO) 372 K/uL (150-450)
[2023-03-03 08:26] LABS: WHITE BLOOD COUNT (AUTO) 31.9 K/uL (4.3-11.0)
[2023-03-03 08:34] LABS: BAND % (MANUAL) 18 % (0.0-5.0); EOSINOPHILS % (MANUAL) 1 % (0-4); LYMPHOCYTES % (MANUAL) 2 % (16-48); MONOCYTES % (MANUAL) 2 % (0-11.0); NEUTROPHILS % (MANUAL) 77 (42-76)
--- NOTE | 2023-03-03 08:44 | NUR ---
DIRECTOR OF OPTIMIZATION NOTES Lab reklayd lab results WBC 31.9. Relayed lab results to Dr. Moulton with NNO at this time.
[2023-03-03] MEDS: DAPTOMYCIN 500 MG in IV NS 0.9% 50 ML IV SCH (11:31)
[2023-03-03 16:00] VITALS: BP 109/92
--- NOTE | 2023-03-03 18:34 | NUR ---
AFTERSCHOOL BABYSITTER CLOSING NOTES All due meds and tx given as ordered. Pt tolerated everything well. All needs attended to. Call light within reach. Will endorse to oncoming nurse.
[2023-03-03 20:00] VITALS: BP 102/57
[2023-03-03] MEDS: ACETAMINOPHEN 650 MG/20.3 ML UDC GT PRN (20:25)
[2023-03-03] MEDS: IV 1/2NS 1000 ML 1,000 ML IV PRN (20:41)
[2023-03-04] VITALS: BP 138/54
[2023-03-04] MEDS: METOCLOPRAMIDE HCL 10 MG/10 ML UDC PO SCH ×3 (02:08→17:00)
[2023-03-04] MEDS: METOPROLOL TARTRATE 25 MG TABLET GT SCH ×3 (02:11→16:30)
[2023-03-04] MEDS: ALBUTEROL FS 2.5 MG/0.5 ML VIAL.NEB NEB SCH ×4 (02:21→20:05)
[2023-03-04] MEDS: IPRATROPIUM NEB FS 0.5 MG/2.5 ML AMPUL.NEB NEB SCH ×4 (02:21→20:05)
[2023-03-04] MEDS: MEROPENEM 1 G in IV NS 0.9% 100 ML IV SCH ×2 (02:24→16:46)
[2023-03-04] MEDS: GLUCERNA 1.2 1,000 ML BOTTLE PEG SCH (02:28)
[2023-03-04 04:00] VITALS: BP 125/60
[2023-03-04] MEDS: BLOOD SUGAR DIAGNOSTIC 1 EACH STRIP IN SCH ×3 (05:53→17:28)
[2023-03-04] MEDS: INSULIN REGULAR, HUMAN 100 UNIT/ML 3 ML VIAL SQ PRN (05:53)
--- NOTE | 2023-03-04 06:06 | NUR ---
END OF SHIFT REPORT Patient in bed, nonverbal. Oxygen sat high 100's on 2L NC daytime, BIPAP at night. GABRIELA midline intact, IVF continuous. On IV abx. Spiked temp during the night 101.1F Given Tylenol, temp curved down to 99.6F. Abdomen distended, GTube leaking. Gtube feeding at 60ml/hr, minimal gastric residual 50ml. Blood glucose monitored. Turned and repositioned q2h. Extensive wound care done, dressing changed this morning. Off load heel at all times. Carias cath to drainage, adequate urine output, had BM during the shift. Plan for continue Abx. Bld cx Stool Cdiff results pending. Will endorse to oncoming RN.
--- NOTE | 2023-03-04 07:19 | NUR ---
TEAR DOWN WORKER NOTES Received pt awake in bed AOX1. No signs of pain or discomfort at this time. Pt is on NC 2L and tolerating it well. IV access on GABRIELA midline patent and intact. GT is patent and intact running GTF as prescribed. HOB elevated to 30-45 degrees. Siderials up at all times x3. Call light within reach. Will continue to monitor.
[2023-03-04 08:00] VITALS: BP 94/75
--- NOTE | 2023-03-04 08:04 | NUR ---
JAY JAY NOTES Made Dr. Moulton aware that pts GT is leaking from the GT site. Instructed to let GI know. Awaiting response. Addendum: 03/04/23 at 1236 by JESSICA DELGADO LVN GTF turned off.
[2023-03-04 09:14] LABS: BASOPHILS # (AUTO) 0.1 K/uL (0.0-0.2); BASOPHILS % (AUTO) 0.3 % (0.0-2.0); EOSINOPHILS % (AUTO) 0.7 % (0.0-6.0); HEMATOCRIT 26 % (33-45); HEMOGLOBIN 7.9 g/dL (11.5-14.8); LYMPHOCYTES # (AUTO) 2.2 K/uL (0.8-4.8); LYMPHOCYTES % (AUTO) 10.2 % (20.0-44.0); MEAN CORPUSCULAR HGB CONC 30 g/dl (31.0-36.0); MEAN CORPUSCULAR VOLUME 87 fL (82-100); MONOCYTES % (AUTO) 9.1 % (2.0-12.0); NEUTROPHILS # (AUTO) 17.3 K/uL (1.8-8.9); NEUTROPHILS % (AUTO) 79.7 % (43.0-81.0); PLATELET COUNT (AUTO) 336 K/uL (150-450); RED BLOOD CELL COUNT(AUTO) 3.01 MIL/uL (4.0-5.2); WHITE BLOOD COUNT (AUTO) 21.7 K/uL (4.3-11.0)
[2023-03-04 09:43] LABS: CALCIUM, SERUM 11.2 mg/dL (8.5-10.1); CREATININE 2.9 mg/dL (0.6-1.3); POTASSIUM 4.6 mmol/L (3.5-5.1)
[2023-03-04] MEDS: LEVOTHYROXINE SODIUM 100 MCG TABLET GT SCH (09:55)
[2023-03-04] MEDS: FOLIC ACID 1 MG TABLET GT SCH (09:55)
[2023-03-04] MEDS: PANTOPRAZOLE 40 MG/PACK PACK GT SCH ×2 (09:55→17:00)
[2023-03-04] MEDS: ARIPIPRAZOLE 5 MG TABLET GT SCH (09:56)
[2023-03-04] MEDS: DAKINS QUARTER STRENGTH (0.125%) 480 ML BOTTLE TOP SCH (09:56)
[2023-03-04] MEDS: THERAHONEY GEL 1.5 OZ TUBE TP SCH (09:56)
--- NOTE | 2023-03-04 10:00 | NUR ---
NURSERY SCHOOL ATTENDANT NOTES Metoprolol held d/t sbp <120. BP 94/72. made aware.
[2023-03-04] MEDS: IV 1/2NS 1000 ML 1,000 ML IV PRN (10:59)
[2023-03-04] MEDS: DAPTOMYCIN 500 MG in IV NS 0.9% 50 ML IV SCH (12:20)
--- NOTE | 2023-03-04 12:30 | NUR ---
STRATEGIC DEVELOPMENT MANAGER NOTES Lab called and reported Blood culture is positive for Gram Negative Bacilli. Dr. Mcgee paged and called back with no new orders at this time.
--- NOTE | 2023-03-04 12:36 | NUR ---
PROFESSIONAL MODEL NOTES GTF remains off d/t pts GT leaking. Awaiting response from GI MD. Blood sugar is at 90.
[2023-03-04 16:00] VITALS: BP 81/75
--- NOTE | 2023-03-04 17:29 | NUR ---
LOSS PREVENTION REPRESENTATIVE NOTES Routine medication due not given d/t pt GT leaking. Awaiting response from GI.
--- NOTE | 2023-03-04 17:58 | NUR ---
DEVELOPMENT ASSISTANT NOTES Pt blood pressure rechecked and is 70/49. Dr Moulton made aware with new orders for NS 1000cc bolus x1 now. Noted and carried out.
[2023-03-04] MEDS ORDERED: IV NS 0.9% 1,000 ML IV ONE (18:10)
--- NOTE | 2023-03-04 18:39 | NUR ---
HOT PLATE PLYWOOD PRESS LABORER NOTES Pt is currently on 2L NC and tolerating it well. GTF is off due to GT leakage awaiting GI response. IV NS Bolus currently running. CN aware. Will endorse to oncoming nurse.
--- NOTE | 2023-03-04 18:45 | NUR ---
STUDIO ASSOCIATE NOTES Blood pressure rechecked and is 84/34. CN made aware.
--- NOTE | 2023-03-04 19:05 | NUR ---
DIRECTOR OF MARKETING OPERATIONS NOTES IV NS Bolus complete. Blood Pressure checked and is 128/77.
--- NOTE | 2023-03-04 19:30 | NUR ---
MS RN OPENING NOTES - RECEIVED PATIENT AWAKE IN BED. OBTUNDED, FIDGETING. BREATHING EVEN AND NON-LABORED, ON O2 AT 2LPM VIA NASAL CANULA. NOT IN APPARENT DISTRESS. HAS RIGHT UPPER ARM MIDLINE #18G WITH 0.45% NS RUNNING AT 75 ML/HR. NO S/S OF INFILTRATION NOTED. HAS G-TUBE, FEEDING ON HOLD D/T LEAKING. HAS INDWELLING THOMAS CATHETER DRAINING CLEAR DARK YELLOW URINE TO BAG BY GRAVITY. BILATERAL SOFT WRIST RESTRAINTS IN PLACE. ON YANELY MATTRESS. PATIENT IS BED BOUND AND TOTAL CARE. SAFETY MEASURES IN PLACE: BED LOCKED AND IN LOW POSITION, SIDE RAILS UP X2, CALL LIGHT WITHIN REACH. WILL CONTINUE PLAN OF CARE.
[2023-03-04 20:00] VITALS: BP 92/55
[2023-03-04 21:00] VITALS: BP 108/60
[2023-03-05] VITALS (10 sets, daily range): BP systolic 105–143; BP diastolic 31–98
--- NOTE | 2023-03-05 | NUR ---
PATIENT'S BS ARE 25 AND 15, ADMINISTERED D50 AND NOTIFIED DR[address] CLAUDIO. ORDERED TO CHANGE CURRENT IVF TO D5 1/2NS. NOTED AND CARRIED OUT. CALL [phone] FOR FURTHER ORDERS.
[2023-03-05] MEDS: BLOOD SUGAR DIAGNOSTIC 1 EACH STRIP IN SCH ×4 (00:03→17:13)
[2023-03-05] MEDS: DEXTROSE 50%-WATER 50 ML DISP.SYRIN IV PRN ×2 (00:04→05:26)
[2023-03-05] MEDS: METOPROLOL TARTRATE 25 MG TABLET GT SCH ×3 (00:30→16:32)
[2023-03-05] MEDS: METOCLOPRAMIDE HCL 10 MG/10 ML UDC GT SCH ×3 (00:53→16:31)
--- NOTE | 2023-03-05 00:53 | NUR ---
ASPIRATED 5ML OF GREEN RESIDUAL FROM G-TUBE, STILL LEAKING WHEN FLUSHED WITH H2O. HOLDING G-TUBE MEDS UNTIL PATIENT IS SEEN BY GI SPECIALIST. WILL FOLLOW-UP.
[2023-03-05] MEDS ORDERED: IV D5/0.45 NACL 1,000 ML IV PRN (01:00)
[2023-03-05] MEDS: IPRATROPIUM NEB FS 0.5 MG/2.5 ML AMPUL.NEB NEB SCH ×4 (02:20→20:19)
[2023-03-05] MEDS: ALBUTEROL FS 2.5 MG/0.5 ML VIAL.NEB NEB SCH ×4 (02:20→20:19)
[2023-03-05] MEDS: MEROPENEM 1 G in IV NS 0.9% 100 ML IV SCH ×2 (03:03→14:47)
[2023-03-05] MEDS: ACETAMINOPHEN 650 MG/SUPP.RECT RC PRN (05:03)
--- NOTE | 2023-03-05 05:03 | NUR ---
101 TEMP EVEN AFTER APPLYING COLD COMPRESS. ADMINISTERED PRN TYLENOL SUPPOSITORY. WILL CONTINUE TO MONITOR.
[2023-03-05] MEDS ORDERED: Sodium Chloride 77 MEQ in IV 10% DEXTROSE 1,000 ML IV PRN (05:30)
[2023-03-05] MEDS: INSULIN REGULAR, HUMAN 100 UNIT/ML 3 ML VIAL SQ PRN (06:12)
--- NOTE | 2023-03-05 06:19 | NUR ---
ADMINISTERED D10 AT 75 ML/HR FOR NOW SINCE D10 1/2NS IS N/A. CN AWARE.
--- NOTE | 2023-03-05 06:57 | NUR ---
MS RN CLOSING NOTES - PATIENT SLEEPING, EASY TO AROUSE. A/O X0, ABLE TO SPEAK A FEW TIMES WHILE ON BIPAP. UNSTABLE BLOOD SUGAR LEVELS BEING MONITORED. AFEBRILE. RIGHT UPPER ARM MIDLINE INTACT, PATENT AND FLUSHING. WOUND CARE RENDERED. ALL DUE MEDS GIVEN AND NEEDS ATTENDED. REPOSITIONED AND TURNED EVERY 2 HOURS. OFFLOADED BUTTOCKS AND LOWER EXTREMITIES. SAFETY MEASURES MAINTAINED. WILL ENDORSE TO NEXT SHIFT FOR ROGERIO.
--- NOTE | 2023-03-05 07:32 | NUR ---
EMAIL MARKETING ASSISTANT NOTES Received pt awake in bed AOX1 non verbal and unable to follow command. No signs of pain or discomfort at this time. Pt is on NC 2L and tolerating it well. IV access on GABRIELA midline patent and intact running D10 at 75cc/hr. GTF turned off due to GT leaking. HOB elevated to 30-45 degrees. Siderails up at all times x3. Call light within reach. Will continue to monitor.
[2023-03-05] MEDS: PANTOPRAZOLE 40 MG/PACK PACK GT SCH ×2 (08:22→16:31)
[2023-03-05] MEDS: LEVOTHYROXINE SODIUM 100 MCG TABLET GT SCH (08:22)
[2023-03-05] MEDS: DAKINS QUARTER STRENGTH (0.125%) 480 ML BOTTLE TOP SCH (08:22)
[2023-03-05] MEDS: FOLIC ACID 1 MG TABLET GT SCH (08:22)
[2023-03-05] MEDS: ARIPIPRAZOLE 5 MG TABLET GT SCH (08:22)
[2023-03-05] MEDS: THERAHONEY GEL 1.5 OZ TUBE TP SCH (08:23)
--- NOTE | 2023-03-05 08:23 | NUR ---
REPRODUCTION TECHNICIAN NOTES Routine medication on hold awaiting GI consult due to pt GT leaking.
[2023-03-05 09:54] LABS: CALCIUM, SERUM 10.3 mg/dL (8.5-10.1); CREATININE 2.6 mg/dL (0.6-1.3); POTASSIUM 4.1 mmol/L (3.5-5.1)
[2023-03-05] MEDS: Sodium Chloride 77 MEQ in IV 10% DEXTROSE 1,000 ML IV SCH ×2 (09:58→18:58)
--- NOTE | 2023-03-05 11:25 | NUR ---
ELECTRONIC SYSTEMS TECHNICIAN NOTES Lab relayed critical result of HGB 6.9> Dr. Moulton made aware with new orders to repeat H&H stat. Noted and carried out.
[2023-03-05] MEDS: DAPTOMYCIN 500 MG in IV NS 0.9% 50 ML IV SCH (12:08)
[2023-03-05 12:24] LABS: HEMOGLOBIN 6.8 g/dL (11.5-14.8)
--- NOTE | 2023-03-05 12:27 | NUR ---
SKEIN WINDER NOTES Lab called to relay critical lab value of HGB 6.8. Dr. Moulton made aware.
[2023-03-05 12:29] LABS: BASOPHILS # (AUTO) 0.1 K/uL (0.0-0.2); BASOPHILS % (AUTO) 0.4 % (0.0-2.0); EOSINOPHILS % (AUTO) 1.3 % (0.0-6.0); HEMATOCRIT 22 % (33-45); LYMPHOCYTES # (AUTO) 1.9 K/uL (0.8-4.8); LYMPHOCYTES % (AUTO) 10.2 % (20.0-44.0); MEAN CORPUSCULAR HGB CONC 30 g/dl (31.0-36.0); MEAN CORPUSCULAR VOLUME 86 fL (82-100); MONOCYTES # (AUTO) 1.1 K/uL (0.1-1.30); NEUTROPHILS # (AUTO) 15.5 K/uL (1.8-8.9); NEUTROPHILS % (AUTO) 82.1 % (43.0-81.0); PLATELET COUNT (AUTO) 303 K/uL (150-450); WHITE BLOOD COUNT (AUTO) 18.9 K/uL (4.3-11.0)
[2023-03-05 12:30] LABS: HEMOGLOBIN 6.7 g/dL (11.5-14.8)
--- NOTE | 2023-03-05 15:29 | NUR ---
DR. LANGFORD RECOMMENDED TO PULL GTUBE OUT AND LET IT HEALED AND START PT. ON TPN IF OK WITH DR. CLAUDIO.
--- NOTE | 2023-03-05 15:30 | NUR ---
PER DR. CLAUDIO RESTART G-TUBE FEEDING AT SLOW RATE 10 ML/HR ONLY.
[2023-03-05 17:14] LABS: BAND % (MANUAL) 2 % (0.0-5.0); EOSINOPHILS % (MANUAL) 1 % (0-4); LYMPHOCYTES % (MANUAL) 7 % (16-48); MONOCYTES % (MANUAL) 5 % (0-11.0); NEUTROPHILS % (MANUAL) 85 (42-76)
--- NOTE | 2023-03-05 18:25 | NUR ---
EXPLOSIVES HANDLER CLOSING NOTES Pt is asleep in bed currently receiving blood transfusion and tolerating it well. IV access on JOEL midline patent and intact. GT is patent and intact running GTF glucerna 10cc/hr. All needs attended to. Call light within reach. Will endorse to oncoming nurse.
--- NOTE | 2023-03-05 19:30 | NUR ---
BAIL BONDSMAN OPENING NOTE RECEIVED PATIENT IN BED, WITH HOB ELEVATED, AWAKE. AFEBRILE AND NOT IN ANY FORM OF ACUTE DISTRESS. ON O2 INHALATION VIA NASAL CANNULA AT 2LPM. ON TELE MONITORING WITH CURRENT READING OF SR 91. WITH IV ACCESS ON JOEL MIDLINE WITH ONGOING BLOOD TRANSFUSION OF PRBC AT 120CC/HR. WITH G-TUBE, LEAKING WAS NOTED, MD AWARE PER REPORT WITH CURRENT FEEDING OF GLUCERNA 1.2 REGULATED AT 10,L/HR. WITH INTACT THOMAS CATHETER, DRAINING WELL WITH YELLOW URINE OUTPUT, NO HEMATURIA OR SEDIMENTS NOTED. SAFETY MEASURES IN PLACE. KEPT BED IN LOCKED AND IN LOW POSITION. SIDE RAILS UP X2. CALL LIGHT WITHIN EASY REACH.
--- NOTE | 2023-03-05 20:19 | NUR ---
PUBLICATIONS WRITER NOTE S/P BLOOD TRANSFUSION COMPLETED AT 2011 WITH NO ADVERSE REACTION NOTED AT THIS TIME. LATEST VITALS FOLLOWS: BP- 112/66, T- 98.2, R- 18, P-59, O2 SAT 96% ON 2LPM. REMAINS AFEBRILE AND NO CHANGES IN MENTATION NOTED AT THIS TIME. NO ITCHING OR SOB NOTED.
[2023-03-06] VITALS: BP 98/55
[2023-03-06] MEDS: BLOOD SUGAR DIAGNOSTIC 1 EACH STRIP IN SCH ×4 (00:08→17:47)
[2023-03-06] MEDS: METOPROLOL TARTRATE 25 MG TABLET GT SCH ×3 (00:24→16:30)
[2023-03-06] MEDS: METOCLOPRAMIDE HCL 10 MG/10 ML UDC GT SCH ×3 (00:34→17:50)
[2023-03-06] MEDS: IPRATROPIUM NEB FS 0.5 MG/2.5 ML AMPUL.NEB NEB SCH ×4 (01:37→20:13)
[2023-03-06] MEDS: ALBUTEROL FS 2.5 MG/0.5 ML VIAL.NEB NEB SCH ×4 (01:37→20:13)
[2023-03-06] MEDS: MEROPENEM 1 G in IV NS 0.9% 100 ML IV SCH ×2 (02:03→15:16)
[2023-03-06 04:00] VITALS: BP 116/56
[2023-03-06] MEDS: Sodium Chloride 77 MEQ in IV 10% DEXTROSE 1,000 ML IV SCH (04:44)
--- NOTE | 2023-03-06 06:30 | NUR ---
EXPLOSIVES WORKER CLOSING NOTE PATIENT IN BED, WITH HOB ELEVATED, SLEEPING INTERMITTENTLY. AFEBRILE AND NOT IN ANY FORM OF ACUTE DISTRESS. ON BIPAP, TOLERATING CURRENT SETTING. ON TELE MONITORING WITH CURRENT READING OF SR 93. WITH IV ACCESS ON JOEL MIDLINE RUNNING WITH D10 + NACL 77MEQ REGULATED AT 100ML/HR . WITH G-TUBE, LEAKING, WITH CURRENT FEEDING OF GLUCERNA 1.2 AT 10,L/HR. WITH INTACT THOMAS CATHETER, DRAINING WELL WITH YELLOW URINE OUTPUT, NO HEMATURIA OR SEDIMENTS NOTED. MONITORED FOR ANY S/SX. OF HYPO/HYPERGLYCEMIA. MEDICATED ORDERED. CONTINUOUS ON IV ATB, MONITORED FOR ANY ADVERSE REACTION. S/P BLOOD TRANSFUSION, NO ADVERSE REACTION NOTED DURING THE SHIFT. SAFETY MEASURES IN PLACE. KEPT BED IN LOCKED AND IN LOW POSITION. SIDE RAILS UP X2. CALL LIGHT WITHIN EASY REACH. ALL NURSING NEEDS ATTENDED. ENDORSED TO INCOMING SHIFT FOR CONTINUITY OF CARE.
--- NOTE | 2023-03-06 07:00 | NUR ---
LIVE TRUCK TECHNICIAN OPEN NOTE: AWAKE, ALERT TO NAME. VERBALLY RESPONSIVE. ON ON2 LITERS PER MINUTE NASAL CANNULA SATING AT 94%. ASSOCIATE ARTISTIC DIRECTOR SINUS RHYTHM 108. IV ON LEFT UPPER ARM MIDLINE WITH SODIUM CHLORIDE 100ML/HR. GLUCERNA 1.2 10ML/HR. GT IN PLACE PATENT CONTINUE WITH LEAKAGE. THOMAS CATHETER IN PLACE WITH YELLOW URINE. CONTACT ISOLATION MAINTAINED. HOB ELEVATED, BED IN LOW POSITION, LOCKED, EXIT ALARM ON. CALL LIGHT IN REACH.
[2023-03-06 07:21] LABS: CALCIUM, SERUM 10.3 mg/dL (8.5-10.1); CREATININE 2.2 mg/dL (0.6-1.3); POTASSIUM 3.7 mmol/L (3.5-5.1)
[2023-03-06 07:27] LABS: BASOPHILS # (AUTO) 0.1 K/uL (0.0-0.2); BASOPHILS % (AUTO) 0.3 % (0.0-2.0); EOSINOPHILS % (AUTO) 1.6 % (0.0-6.0); HEMATOCRIT 26 % (33-45); LYMPHOCYTES % (AUTO) 8.7 % (20.0-44.0); MEAN CORPUSCULAR HGB CONC 31 g/dl (31.0-36.0); MEAN CORPUSCULAR VOLUME 86 fL (82-100); MONOCYTES # (AUTO) 1.2 K/uL (0.1-1.30); MONOCYTES % (AUTO) 5.4 % (2.0-12.0); NEUTROPHILS # (AUTO) 19.2 K/uL (1.8-8.9); PLATELET COUNT (AUTO) 367 K/uL (150-450); RED BLOOD CELL COUNT(AUTO) 3.04 MIL/uL (4.0-5.2); WHITE BLOOD COUNT (AUTO) 22.9 K/uL (4.3-11.0)
[2023-03-06 08:00] VITALS: BP 114/46
[2023-03-06] MEDS: PANTOPRAZOLE 40 MG/PACK PACK GT SCH ×2 (08:35→17:49)
[2023-03-06] MEDS: ARIPIPRAZOLE 5 MG TABLET GT SCH (08:35)
[2023-03-06] MEDS: FOLIC ACID 1 MG TABLET GT SCH (08:35)
[2023-03-06] MEDS: ACETAMINOPHEN 650 MG/20.3 ML UDC GT PRN ×2 (08:36→22:23)
[2023-03-06] MEDS: LEVOTHYROXINE SODIUM 100 MCG TABLET GT SCH (08:36)
[2023-03-06 10:51] LABS: BILIRUBIN,URINE NEGATIVE (NEGATIVE); COLOR,URINE YELLOW (YELLOW); LEUKOCYTE ESTERASE ,URINE NEGATIVE (NEGATIVE); NITRITE, URINE NEGATIVE (NEGATIVE); PH,URINE 5.5 (5.0-8.0); PROTEIN,URINE 2+ mg/dl (NEGATIVE); UGLUCOSE NEGATIVE (NEGATIVE); UROBILINOGEN,URINE 0.2 EU/dL (0.2)
[2023-03-06 10:54] LABS: BACTERIA,URINE Rare /HPF (None Seen); SQUAMOUS EPITHELIAL CELL,UR Few /HPF (None Seen); WBC,URINE 0-2 /HPF (0-3)
[2023-03-06 11:23] LABS: CREATININE, URINE 73.1 MG/DL (30.0-125.0)
[2023-03-06 12:00] VITALS: BP 106/60
[2023-03-06] MEDS: DAPTOMYCIN 500 MG in IV NS 0.9% 50 ML IV SCH (12:36)
[2023-03-06] MEDS: IV 10% DEXTROSE 1,000 ML IV PRN (15:08)
[2023-03-06 16:00] VITALS: BP 101/54
[2023-03-06] MEDS: THERAHONEY GEL 1.5 OZ TUBE TP SCH (17:51)
[2023-03-06] MEDS: DAKINS QUARTER STRENGTH (0.125%) 480 ML BOTTLE TOP SCH (17:51)
--- NOTE | 2023-03-06 19:00 | NUR ---
MERCHANDISE CLERK CLOSING NOTE: AWAKE, ALERT TO NAME. VERBALLY RESPONSIVE. ON O2 2 LITERS PER MINUTE NASAL CANNULA SATING AT 94%. SHELLFISH HARVESTER SINUS RHYTHM 99. IV ON LEFT UPPER ARM MIDLINE WITH D10% AT 100ML/HR GLUCERNA 1.2 10ML/HR. GT IN PLACE PATENT CONTINUE WITH LEAKAGE. THOMAS CATHETER IN PLACE WITH YELLOW URINE. CONTACT ISOLATION MAINTAINED. HOB ELEVATED, BED IN LOW POSITION, LOCKED, EXIT ALARM ON. CALL LIGHT IN REACH. WOUND CARE DONE, KEPT CLEAN AND COMFORTABLE. TURNED AND REPOSITIONED.
[2023-03-06] MEDS: TOBRAMYCIN 100 MG in IV D5W 100 ML IV SCH (19:06)
--- NOTE | 2023-03-06 19:30 | NUR ---
MILL BEAM FITTER OPENING NOTE RECEIVED PT IN BED AWAKE. A/O X0, ALERT TO NAME, OBTUNDED. ON O2 2L VIA NC, HOB ELEVATED, NO S/S OF SOB OR DISTRESS. ON GAS REGULATOR REPAIRER SINUS TACHYCARDIA WITH ST DEPRESSION, 108 HR. IV ACCESS JOEL MIDLINE WITH D10% AT 100 ML/HR. GT IN PLACE, INTACT, RUNNING GLUCERNA 1.2 @ 10ML/HR, WILL WATCH FOR LEAKAGE. THOMAS CATHETER IN PLACE WITH YELLOW URINE NOTED. CONTACT ISOLATION IN PLACE. SAFETY PRECAUTIONS IN PLACE: BED IN LOW POSITION, LOCKED, EXIT ALARM ON, CALL LIGHT WITHIN REACH. WILL CONTINUE TO MONITOR AND ASSIST.
[2023-03-06 20:00] VITALS: BP 127/62
--- NOTE | 2023-03-06 22:23 | NUR ---
RN NOTES PT TEMP 100 F. COOLING MEASURES PERFORMED INCLUDING PRN TYLENOL 650 MG. WILL CONTINUE TO MONITOR.
--- NOTE | 2023-03-06 23:35 | NUR ---
RN NOTE PT TEMP 99.6 F. WILL MAINTAIN COOLING MEASURES AND MONITOR PT.
[2023-03-07] VITALS: BP 109/79
[2023-03-07] MEDS: BLOOD SUGAR DIAGNOSTIC 1 EACH STRIP IN SCH ×5 (00:08→23:33)
[2023-03-07] MEDS: INSULIN REGULAR, HUMAN 100 UNIT/ML 3 ML VIAL SQ PRN ×3 (00:09→23:36)
[2023-03-07] MEDS: METOPROLOL TARTRATE 25 MG TABLET GT SCH ×4 (00:30→23:34)
--- NOTE | 2023-03-07 00:59 | NUR ---
RN NOTE PT BP 109/79, 101 HR. LOPRESSOR 50 MG FOR 0030 NON-ADMIN PER PARAMETERS TO HOLD AT <120 SBP.
[2023-03-07] MEDS: METOCLOPRAMIDE HCL 10 MG/10 ML UDC GT SCH ×3 (01:02→16:18)
[2023-03-07] MEDS: IV 10% DEXTROSE 1,000 ML IV PRN (02:14)
[2023-03-07] MEDS: ALBUTEROL FS 2.5 MG/0.5 ML VIAL.NEB NEB SCH ×4 (02:15→19:21)
[2023-03-07] MEDS: IPRATROPIUM NEB FS 0.5 MG/2.5 ML AMPUL.NEB NEB SCH ×4 (02:15→19:21)
[2023-03-07] MEDS: MEROPENEM 1 G in IV NS 0.9% 100 ML IV SCH ×2 (03:06→14:02)
[2023-03-07 04:00] VITALS: BP 100/57
--- NOTE | 2023-03-07 04:00 | NUR ---
RN NOTE PT TEMP 99.1 F. WILL CONTINUE TO MONITOR.
[2023-03-07] MEDS: TOBRAMYCIN 100 MG in IV D5W 100 ML IV SCH (05:31)
[2023-03-07 06:47] LABS: CALCIUM, SERUM 9.8 mg/dL (8.5-10.1); POTASSIUM 3.4 mmol/L (3.5-5.1)
--- NOTE | 2023-03-07 07:00 | NUR ---
PRODUCE MANAGER CLOSING NOTE PT IN BED AWAKE. A/O X0, ALERT TO NAME, OBTUNDED. STABLE ON O2 2L VIA NC, HOB ELEVATED, NO S/S OF SOB OR DISTRESS. ON DENTAL INSURANCE COORDINATOR SINUS TACHYCARDIA WITH ST DEPRESSION, 103 HR. IV ACCESS JOEL MIDLINE WITH D10% AT 100 ML/HR. GT IN PLACE, INTACT, RUNNING GLUCERNA 1.2 @ 10ML/HR, NO LEAKAGE NOTED, FLUSHED Q4HR. THOMAS CATHETER IN PLACE WITH YELLOW URINE NOTED. CONTACT ISOLATION MAINTAINED. ALL CARE PROVIDED AND MEDS TOLERATED WELL. DRESSING CHANGED. TURNED AND REPOSITIONED REGULARLY. SAFETY PRECAUTIONS MAINTAINED: BED IN LOW POSITION, LOCKED, EXIT ALARM ON, CALL LIGHT WITHIN REACH. WILL ENDORSE ROGERIO TO DAY SHIFT NURSE.
[2023-03-07 08:00] VITALS: BP 111/67
[2023-03-07] MEDS: ARIPIPRAZOLE 5 MG TABLET GT SCH (08:32)
[2023-03-07] MEDS: DAKINS QUARTER STRENGTH (0.125%) 480 ML BOTTLE TOP SCH (08:33)
[2023-03-07] MEDS: LEVOTHYROXINE SODIUM 100 MCG TABLET GT SCH (08:33)
[2023-03-07] MEDS: THERAHONEY GEL 1.5 OZ TUBE TP SCH (08:33)
[2023-03-07] MEDS: FOLIC ACID 1 MG TABLET GT SCH (08:33)
[2023-03-07] MEDS: PANTOPRAZOLE 40 MG/PACK PACK GT SCH ×2 (08:36→16:18)
--- NOTE | 2023-03-07 10:03 | NUR ---
DR CLAUDIO CHECK GTUBE LEAKING, JUST ORDERED REPACKED GTUBE AROUND THE SITE WITH GAUZE, RESUME GTUBE FEEDING AND AIM FOR THE GOAL
--- NOTE | 2023-03-07 10:32 | NUR ---
GTUEB FEEDING RESUME TO 60ML/HR PER DR CLAUDIO.
[2023-03-07] MEDS ORDERED: POTASSIUM CL. PREMIX PERIPHER. 50 ML IV SCH (11:30)
[2023-03-07] MEDS: DAPTOMYCIN 500 MG in IV NS 0.9% 50 ML IV SCH (11:47)
[2023-03-07 12:00] VITALS: BP 92/65
[2023-03-07] MEDS: DEXTROSE 50%-WATER 50 ML DISP.SYRIN IV PRN (12:16)
--- NOTE | 2023-03-07 13:26 | NUR ---
NOTIFY DR CLAUDIO RE: BLOOD SUGAR WAS 45 AT 12N, D50 WAS GIVEN, BS 57 AFTER, RECHECKED BLOOD SUGAR AFTER 30 MINS IT IS 108, MD NOTIFIED, PATIENT IS D10 AT 100ML/HR, GTUBE FEEDING AT 60ML/HR
[2023-03-07] MEDS: ACETAMINOPHEN 650 MG/20.3 ML UDC GT PRN (13:50)
--- NOTE | 2023-03-07 13:52 | NUR ---
TYLENOL 650 MG VIA GTUBE DUE TO COMPLAINT OF PAIN.
[2023-03-07] MEDS: IV 10% DEXTROSE 1,000 ML IV SCH (14:14)
--- NOTE | 2023-03-07 15:58 | NUR ---
LOPRESSOR NOT GIVEN DUE TO BELOW PARAMETERS <SBP 120
[2023-03-07 16:00] VITALS: BP 93/59
--- NOTE | 2023-03-07 19:16 | NUR ---
CLOSING NOTE PATIENT IN BED RESTING COMFORTABLY, AROUSABLE, ALERT X1 (NAME), NO SIGNS OF IN DISTRESS, UNLABORED BREATHING ON 2L/MIN OF 02, IV FLUID INFUSING WELL @100ML/HR, G TUBE FEEDING INFUSING WELL AT 60ML/HR, SAFETY MEASURES ARE IN PLACE, BED IN LOW POSITION LOCKED, SIDE RAILS UPX3, CALL LIGHT WITHIN REACH.
--- NOTE | 2023-03-07 19:30 | NUR ---
sales commissions analyst opening note pt resting in bed eyes closed, easy to arouse, HOB elevated, on noc bipap, tolerating well, breathing even and unlabored, JOEL ML intact, D10 @ 100 cc/hr infusing well, dominguez intact and patent, gt patent, 0 leaking noted this shift and monitoring, glucerna 1.2 rola @ 60 ml/hr infusing well, all safety precautions noted and in place, will continue to monitor
[2023-03-07 20:00] VITALS: BP 98/62
[2023-03-08] VITALS: BP 91/47
[2023-03-08] MEDS: IV 10% DEXTROSE 1,000 ML IV SCH ×3 (00:18→20:35)
[2023-03-08] MEDS: METOCLOPRAMIDE HCL 10 MG/10 ML UDC GT SCH ×2 (00:18→08:20)
[2023-03-08] MEDS: GLUCERNA 1.2 1,000 ML BOTTLE PEG SCH (00:18)
[2023-03-08] MEDS: IPRATROPIUM NEB FS 0.5 MG/2.5 ML AMPUL.NEB NEB SCH ×4 (01:05→19:50)
[2023-03-08] MEDS: ALBUTEROL FS 2.5 MG/0.5 ML VIAL.NEB NEB SCH ×4 (01:05→19:50)
[2023-03-08] MEDS: MEROPENEM 1 G in IV NS 0.9% 100 ML IV SCH ×2 (03:47→14:48)
[2023-03-08 04:00] VITALS: BP 90/60
--- NOTE | 2023-03-08 05:18 | NUR ---
PT TAKEN OFF NOC BIPAP AND PLACED ON 2L NC, RN NOTIFIED.
[2023-03-08] MEDS ORDERED: D5W IV SCH (06:00)
[2023-03-08] MEDS ORDERED: TOBRAMYCIN IV SCH (06:00)
[2023-03-08] MEDS ORDERED: TOBRAMYCIN 120 MG in IV D5W 100 ML IV SCH (06:00)
[2023-03-08] MEDS: INSULIN REGULAR, HUMAN 100 UNIT/ML 3 ML VIAL SQ PRN ×2 (06:15→23:28)
[2023-03-08] MEDS: BLOOD SUGAR DIAGNOSTIC 1 EACH STRIP IN SCH ×4 (06:15→23:22)
--- NOTE | 2023-03-08 06:46 | NUR ---
Waiting for pharmacy to dispense tobramycin 120 mg IV medication is not available in [facility] at this time
--- NOTE | 2023-03-08 07:20 | NUR ---
RN NOTE RECEIVED PATIENT IN BED ALERT/ORIENTEDX1 VERBALLY RESPONSIVE ON 2L OXYGEN VIA NASAL CANNULA,O2:98% IV SITE IS ON LEFT UPPER ARM MIDLINE ON D10 100CC/HR ON G-TUBE FEEDING,GLUCERNA 1.2 60CC/HR.THOMAS CATH IN PLACE,URINE DRAINING CLEAR BY GRAVITY,BILATERAL SOFT WRISTS RESTRAIN IN PLACE FOR SAFETY WILL CHECK EVERY 15 MINS FOR SKIN BREAKDOWN AND CIRCULATION,SAFETY MEASURE IMPLEMENT BED IN LOW POSITON AND LOCKED, HEAD OF THE BED ELEVATED CONTINUE TO MONITOR
[2023-03-08 07:29] LABS: BASOPHILS # (AUTO) 0.1 K/uL (0.0-0.2); BASOPHILS % (AUTO) 0.4 % (0.0-2.0); EOSINOPHILS % (AUTO) 1.5 % (0.0-6.0); HEMATOCRIT 24 % (33-45); HEMOGLOBIN 7.1 g/dL (11.5-14.8); LYMPHOCYTES # (AUTO) 1.7 K/uL (0.8-4.8); LYMPHOCYTES % (AUTO) 7.2 % (20.0-44.0); MEAN CORPUSCULAR HGB CONC 30 g/dl (31.0-36.0); MEAN CORPUSCULAR VOLUME 88 fL (82-100); MONOCYTES # (AUTO) 0.9 K/uL (0.1-1.30); NEUTROPHILS # (AUTO) 19.8 K/uL (1.8-8.9); NEUTROPHILS % (AUTO) 86.9 % (43.0-81.0); PLATELET COUNT (AUTO) 408 K/uL (150-450); RED BLOOD CELL COUNT(AUTO) 2.69 MIL/uL (4.0-5.2); WHITE BLOOD COUNT (AUTO) 22.8 K/uL (4.3-11.0)
[2023-03-08] MEDS: METOPROLOL TARTRATE 25 MG TABLET GT SCH ×3 (07:56→23:40)
[2023-03-08 08:00] VITALS: BP 101/76
[2023-03-08 08:02] LABS: CALCIUM, SERUM 8.9 mg/dL (8.5-10.1); CREATININE 1.8 mg/dL (0.6-1.3); POTASSIUM 4.3 mmol/L (3.5-5.1)
[2023-03-08] MEDS: ARIPIPRAZOLE 5 MG TABLET GT SCH (08:20)
[2023-03-08] MEDS: PANTOPRAZOLE 40 MG/PACK PACK GT SCH (08:20)
[2023-03-08] MEDS: LEVOTHYROXINE SODIUM 100 MCG TABLET GT SCH (08:20)
[2023-03-08] MEDS: FOLIC ACID 1 MG TABLET GT SCH (08:20)
[2023-03-08] MEDS: DAKINS QUARTER STRENGTH (0.125%) 480 ML BOTTLE TOP SCH (08:21)
[2023-03-08] MEDS: THERAHONEY GEL 1.5 OZ TUBE TP SCH (08:22)
[2023-03-08] MEDS: ONDANSETRON HCL/PF 4 MG/2 ML VIAL IV PRN (09:06)
--- NOTE | 2023-03-08 09:30 | NUR ---
RN NOTE PATIENT G-TUBE SITE IS LEAKING NOTIFIED DR TY STOPPED FEEDING,PATIENT HAS D10 100CC/HR CONTINUE TO MONITOR.
[2023-03-08 12:00] VITALS: BP 134/103
[2023-03-08] MEDS: DAPTOMYCIN 500 MG in IV NS 0.9% 50 ML IV SCH (12:31)
--- NOTE | 2023-03-08 15:00 | NUR ---
RN NOTE PER DR TY START G-TUBE FEEDING WITH 10ML/HR CONTINUE TO MONITOR.
[2023-03-08 16:00] VITALS: BP 125/101
[2023-03-08] MEDS: MORPHINE SULFATE INJ 2 MG/ML DISP.SYRIN IV PRN (16:09)
[2023-03-08] MEDS: PANTOPRAZOLE 40 MG VIAL IV SCH (16:44)
--- NOTE | 2023-03-08 18:32 | NUR ---
RN NOTE PATIENT REMAINS ALERT ORIENTED X1 ON 2L OXYGEN VIA NASAL CANNULA O2:96% NO SOB NOTED,ALL DUE MEDS GIVEN MD ORDERED,KEPT CLEAN AND DRY ALL THE TIME,WOUND TREATMENT DONE,TURNED AND REPOSITIONED EVERY 2 HOURS,KEPT HEAD OF THE BED ELEVATED ALL THE TIME,SOFT BILATERAL WRISTS RESTRAINS IN PLACE CHECKED EVERY 15 MINS FOR SKIN BREAKDOWN AND CIRCULATION,ALL NEED MET ENDORSE NEXT COMING SHIFT FOR CONTINUATION OF CARE.
[2023-03-08 20:00] VITALS: BP 109/42
[2023-03-08] MEDS: METOCLOPRAMIDE HCL 10 MG/2 ML VIAL IV SCH (21:05)
[2023-03-08] MEDS ORDERED: MEROPENEM 1 G VIAL IV ONE (21:18)
--- NOTE | 2023-03-08 22:15 | NUR ---
RT NOTE PT PLACED ON NOC BIPAP PER MD ORDERS. VENT PLUGGED INTO RED OUTLET. ALARMS SET AND AUDIBLE. PT EMILY WELL AT THIS TIME. RN AWARE.
[2023-03-09] VITALS: BP 88/56
[2023-03-09] MEDS: MEROPENEM 1 G in IV NS 0.9% 100 ML IV SCH ×2 (02:13→15:23)
[2023-03-09] MEDS: ALBUTEROL FS 2.5 MG/0.5 ML VIAL.NEB NEB SCH ×4 (02:23→19:52)
[2023-03-09] MEDS: IPRATROPIUM NEB FS 0.5 MG/2.5 ML AMPUL.NEB NEB SCH ×4 (02:23→19:52)
[2023-03-09 04:00] VITALS: BP 106/70
[2023-03-09] MEDS: DEXTROSE 50%-WATER 50 ML DISP.SYRIN IV PRN (05:18)
[2023-03-09] MEDS: METOCLOPRAMIDE HCL 10 MG/2 ML VIAL IV SCH ×3 (05:19→21:55)
[2023-03-09] MEDS ORDERED: TOBRAMYCIN 80 MG/2 ML VIAL ONE (05:27)
[2023-03-09] MEDS: TOBRAMYCIN IV SCH (05:28)
[2023-03-09] MEDS: D5W IV SCH (05:28)
[2023-03-09] MEDS: BLOOD SUGAR DIAGNOSTIC 1 EACH STRIP IN SCH ×3 (05:42→17:27)
[2023-03-09] MEDS: INSULIN REGULAR, HUMAN 100 UNIT/ML 3 ML VIAL SQ PRN (05:43)
--- NOTE | 2023-03-09 05:53 | NUR ---
[employer] ME[employer]ANIC note BS 37 noted, 50% dextrose rendered via JOEL ML, per protocol, tolerated well, effective, reassessment BS 126
[2023-03-09] MEDS: IV 10% DEXTROSE 1,000 ML IV SCH ×2 (06:23→15:23)
[2023-03-09 06:55] LABS: BASOPHILS # (AUTO) 0.1 K/uL (0.0-0.2); BASOPHILS % (AUTO) 0.3 % (0.0-2.0); EOSINOPHILS % (AUTO) 0.8 % (0.0-6.0); HEMATOCRIT 25 % (33-45); HEMOGLOBIN 7.2 g/dL (11.5-14.8); LYMPHOCYTES # (AUTO) 1.9 K/uL (0.8-4.8); LYMPHOCYTES % (AUTO) 8.1 % (20.0-44.0); MEAN CORPUSCULAR HGB CONC 29 g/dl (31.0-36.0); MEAN CORPUSCULAR VOLUME 89 fL (82-100); MONOCYTES # (AUTO) 1.1 K/uL (0.1-1.30); MONOCYTES % (AUTO) 4.6 % (2.0-12.0); NEUTROPHILS # (AUTO) 19.9 K/uL (1.8-8.9); NEUTROPHILS % (AUTO) 86.2 % (43.0-81.0); PLATELET COUNT (AUTO) 418 K/uL (150-450); RED BLOOD CELL COUNT(AUTO) 2.77 MIL/uL (4.0-5.2); WHITE BLOOD COUNT (AUTO) 23.1 K/uL (4.3-11.0)
[2023-03-09 07:20] LABS: BILIRUBIN,TOTAL 0.4 mg/dL (0.2-1.0); CALCIUM, SERUM 9.2 mg/dL (8.5-10.1); CREATININE 1.8 mg/dL (0.6-1.3); POTASSIUM 4.6 mmol/L (3.5-5.1); TOTAL PROTEIN, SERUM 5.8 g/dL (6.4-8.2)
[2023-03-09 07:21] LABS: ALBUMIN 0.9 g/dL (3.4-5.0)
--- NOTE | 2023-03-09 07:50 | NUR ---
RN NOTE PT RECEIVED IN BED, AWAKE, EYES OPEN, ONLY RESPONSIVE TO NAME. PT ON 3L O2 NC WITH NO SIGNS OF LABORED BREATHING. THOMAS CATH IN PLACE. BILATERAL SOFT WRIST RESTRAIN IN PLACE, SKIN WARM AND INTACT UNDER RESTRAINS. GTUBE IN PLACE RUNNING GLUCERNA AT 10MLS/HR, SOME LEAKING NOTICED AROUND GTUBE SITE. LEFT UA MIDLINE IN PLACE RUNNING D10 AT 100MLS/HR. BED LOCKED AND IN LOWEST POSITION, CALL LIGHT WITHIN REACH, 3 SIDE RAILS UP.
[2023-03-09 08:00] VITALS: BP 112/64
--- NOTE | 2023-03-09 08:20 | NUR ---
RN NOTE PER DR. CLAUDIO, INCREASE TUBE FEEDING TO 20 MLS/HR.
[2023-03-09] MEDS: FOLIC ACID 1 MG TABLET GT SCH (08:21)
[2023-03-09] MEDS: LEVOTHYROXINE SODIUM 100 MCG TABLET GT SCH (08:21)
[2023-03-09] MEDS: PANTOPRAZOLE 40 MG VIAL IV SCH ×2 (08:21→16:36)
[2023-03-09] MEDS: ARIPIPRAZOLE 5 MG TABLET GT SCH (08:21)
[2023-03-09] MEDS: METOPROLOL TARTRATE 25 MG TABLET GT SCH ×3 (08:22→16:36)
[2023-03-09] MEDS: THERAHONEY GEL 1.5 OZ TUBE TP SCH (08:35)
[2023-03-09] MEDS: DAKINS QUARTER STRENGTH (0.125%) 480 ML BOTTLE TOP SCH (08:35)
[2023-03-09 12:00] VITALS: BP 105/60
[2023-03-09] MEDS: DAPTOMYCIN 500 MG in IV NS 0.9% 50 ML IV SCH (12:11)
[2023-03-09 16:00] VITALS: BP 119/60
--- NOTE | 2023-03-09 19:10 | NUR ---
PAIRER SUBSTANDARD opening note pt resting in bed eyes closed, easy to arouse, HOB elevated, on noc bipap, tolerating well, breathing even and unlabored, JOEL ML intact, D10 @ 100 cc/hr infusing well, dominguez intact and patent, gt patent, glucerna 1.2 rola @ 60 ml/hr infusing well, all safety precautions noted and in place, will continue to monitor
[2023-03-09 20:00] VITALS: BP 120/60
[2023-03-10] VITALS: BP 123/81
[2023-03-10] MEDS: METOPROLOL TARTRATE 25 MG TABLET GT SCH ×3 (00:03→16:30)
[2023-03-10] MEDS: BLOOD SUGAR DIAGNOSTIC 1 EACH STRIP IN SCH ×5 (00:03→23:55)
[2023-03-10] MEDS: INSULIN REGULAR, HUMAN 100 UNIT/ML 3 ML VIAL SQ PRN ×3 (00:04→23:56)
[2023-03-10] MEDS: IPRATROPIUM NEB FS 0.5 MG/2.5 ML AMPUL.NEB NEB SCH ×4 (01:35→20:02)
[2023-03-10] MEDS: ALBUTEROL FS 2.5 MG/0.5 ML VIAL.NEB NEB SCH ×4 (01:35→20:02)
[2023-03-10] MEDS: IV 10% DEXTROSE 1,000 ML IV SCH ×3 (02:53→22:22)
[2023-03-10] MEDS: MEROPENEM 1 G in IV NS 0.9% 100 ML IV SCH ×2 (02:54→14:34)
[2023-03-10 04:00] VITALS: BP 117/82
[2023-03-10] MEDS: TOBRAMYCIN IV SCH (05:42)
[2023-03-10] MEDS: D5W IV SCH (05:42)
[2023-03-10] MEDS: METOCLOPRAMIDE HCL 10 MG/2 ML VIAL IV SCH ×3 (05:43→21:44)
--- NOTE | 2023-03-10 06:45 | NUR ---
POWER EQUIPMENT TECHNOLOGY INSTRUCTOR closing note pt resting in bed eyes closed, easy to arouse, HOB elevated, on o2 via NC, breathing even and unlabored, JOEL ML intact, D10 @ 100 cc/hr infusing well, dominguez intact and patent, gt patent, 0 leaking noted this shift and monitoring, glucerna 1.2 rola @ 60 ml/hr infusing well, pt is on IV ATB tx, tolerated well, all due meds given per MD orders, tolerated well, pt repositioned q2h and prn, bed bad and john care rendered well, all basic needs met and anticipated, will continue to monitor
--- NOTE | 2023-03-10 07:15 | NUR ---
RN OPENING NOTE RECEIVED PATIENT IN BED, AWAKE, EYES OPEN, ONLY RESPONSIVE TO NAME. PT ON 2L O2 NC WITH NO SIGNS OF LABORED BREATHING. THOMAS CATH IN PLACE. BILATERAL SOFT WRIST RESTRAIN IN PLACE, SKIN WARM AND INTACT UNDER RESTRAINTS. GTUBE IN PLACE RUNNING GLUCERNA AT 10MLS/HR, SOME LEAKING NOTICED AROUND GTUBE SITE. LEFT UA MIDLINE IN PLACE RUNNING D10 AT 100MLS/HR. BED LOCKED AND IN LOWEST POSITION, CALL LIGHT WITHIN REACH, 3 SIDE RAILS UP.
[2023-03-10 07:46] LABS: CALCIUM, SERUM 8.9 mg/dL (8.5-10.1); CREATININE 1.4 mg/dL (0.6-1.3)
[2023-03-10] MEDS: GLUCERNA 1.2 1,000 ML BOTTLE PEG SCH (07:58)
[2023-03-10 08:00] VITALS: BP 124/61
[2023-03-10] MEDS: THERAHONEY GEL 1.5 OZ TUBE TP SCH (09:47)
[2023-03-10] MEDS: PANTOPRAZOLE 40 MG VIAL IV SCH ×2 (09:52→16:50)
[2023-03-10] MEDS: ARIPIPRAZOLE 5 MG TABLET GT SCH (09:52)
[2023-03-10] MEDS: FOLIC ACID 1 MG TABLET GT SCH (09:52)
[2023-03-10] MEDS: LEVOTHYROXINE SODIUM 100 MCG TABLET GT SCH (09:52)
[2023-03-10] MEDS: HYDROGEL DRESSING 90 GM TUBE TP SCH (09:54)
[2023-03-10] MEDS: DAKINS QUARTER STRENGTH (0.125%) 480 ML BOTTLE TOP SCH (09:54)
--- NOTE | 2023-03-10 10:13 | NUR ---
RN NOTE PER PHARMACY, DO NOT GIVE TOBRAMYCIN UNTIL TROUGH LEVEL IS OBTAINED 02/09/23 AT 0500. WILL ENDORSE TO SUGAR CANE GROWER.
[2023-03-10 12:00] VITALS: BP 113/56
[2023-03-10] MEDS: DEXTROSE 50%-WATER 50 ML DISP.SYRIN IV PRN (12:06)
[2023-03-10] MEDS: DAPTOMYCIN 500 MG in IV NS 0.9% 50 ML IV SCH (12:26)
[2023-03-10 16:00] VITALS: BP 94/61
--- NOTE | 2023-03-10 19:19 | NUR ---
HOSE SEAMER CLOSING NOTE PT IN BED, AWAKE, EYES OPEN, ONLY RESPONSIVE TO NAME. PT ON 3L O2 NC WITH NO SIGNS OF LABORED BREATHING. THOMAS CATH IN PLACE. BILATERAL SOFT WRIST RESTRAIN IN PLACE, SKIN WARM AND INTACT UNDER RESTRAINS. GTUBE IN PLACE RUNNING GLUCERNA AT 40MLS/HR, NO RESIDUAL NOTED THROUGHOUT SHIFT, FLUSHED WITH 200 CC OF WATER Q6H ORDERED. LEFT UA MIDLINE IN PLACE RUNNING D10 AT 100MLS/HR. BED LOCKED AND IN LOWEST POSITION, CALL LIGHT WITHIN REACH, 3 SIDE RAILS UP.
--- NOTE | 2023-03-10 19:36 | NUR ---
RN NOTE UNABLE TO OBTAIN CONSENT FOR LEFT EXTREMITY DEBRIDEMENT, COULD NOT GET A HOLD OF SON BRANNON .
--- NOTE | 2023-03-10 19:45 | NUR ---
ACETALDEHYDE CONVERTER OPERATOR OPENING NOTE RECEIVED PT IN BED, AWAKE, A/O X1 WITH CONFUSION AND VERBALLY RESPONSIVE. ON O2 AT 3L/MIN VIA N/C AND PT TOLERATED WELL. IV ACCESS ON JOEL MIDLINE INTACT AND PATENT. RUNNING D10 AT 100MLS/HR. NO FACIAL GRIMACING NOTED. NO ACUTE DISTRESS. THOMAS CATH IN PLACE. DRAINING BY GRAVITY. BILATERAL SOFT WRIST RESTRAINT IN PLACE. GTUBE WELL TOLERATED. RUNNING GLUCERNA AT 40CC/HR, FLUSHED GTUBE WITH 200 CC OF WATER Q6H. CONTACT PRECAUTION MAINTAINED. ALL SAFETY MEASURES IN PLACE. BED IN LOWEST POSITION AND LOCKED, SIDE RAILS X3, PLACE CALL LIGHT WITHIN REACH, WILL CONTINUE TO MONITOR
[2023-03-10 20:00] VITALS: BP 93/64
--- NOTE | 2023-03-10 22:43 | NUR ---
RN NOTES: CALLED BENNY SHULTZ, . LEFT MESSAGE REGARDING NEED CONSENT FOR SERIAL LWFT LOWER EXT WOUND DEBRIDEMENT. WILL F/U AGAIN.
[2023-03-11] VITALS (12 sets, daily range): BP systolic 90–164; BP diastolic 49–86
[2023-03-11] MEDS: ACETAMINOPHEN 650 MG/20.3 ML UDC GT PRN ×2 (00:01→16:29)
[2023-03-11] MEDS: METOPROLOL TARTRATE 25 MG TABLET GT SCH ×3 (00:07→16:29)
--- NOTE | 2023-03-11 00:08 | NUR ---
RN NOTES: PT'S BLOOD SUGAR 72. NO COVERAGE NEEDED, NO S/S OF HYPER/HYPOGLYCEMIA. TEMP INCREASED TO 101.4, TYLENOL 20.3 ML AND ICE PACK GIVEN. LOPRESSOR ON HOLD. BP- 105/86, PULSE- 125. WILL CONTINUE TO MONITOR
[2023-03-11] MEDS: IPRATROPIUM NEB FS 0.5 MG/2.5 ML AMPUL.NEB NEB SCH ×4 (02:34→19:56)
[2023-03-11] MEDS: ALBUTEROL FS 2.5 MG/0.5 ML VIAL.NEB NEB SCH ×4 (02:34→19:56)
[2023-03-11] MEDS: MEROPENEM 1 G in IV NS 0.9% 100 ML IV SCH ×2 (03:17→14:00)
[2023-03-11] MEDS: METOCLOPRAMIDE HCL 10 MG/2 ML VIAL IV SCH ×3 (04:46→21:35)
[2023-03-11] MEDS: BLOOD SUGAR DIAGNOSTIC 1 EACH STRIP IN SCH ×3 (05:45→17:15)
[2023-03-11] MEDS: INSULIN REGULAR, HUMAN 100 UNIT/ML 3 ML VIAL SQ PRN (05:45)
--- NOTE | 2023-03-11 05:47 | NUR ---
RN NOTES: PT'S BLOOD SUGAR 70. NO COVERAGE NEEDED. NO S/S OF HYPER/HYPOGLYCEMIA. WILL CONTINUE TO MONITOR
[2023-03-11] MEDS: D5W IV SCH (06:00)
[2023-03-11] MEDS: TOBRAMYCIN IV SCH (06:00)
--- NOTE | 2023-03-11 06:41 | NUR ---
CONSOLE ATTENDANT CLOSING NOTE PT IN BED, AWAKE, A/O X1 WITH CONFUSION AND VERBALLY RESPONSIVE. ON O2 AT 3L/MIN VIA N/C AND PT TOLERATED WELL. O2 SAT 98%. IV ACCESS ON JOEL MIDLINE INTACT AND PATENT. RUNNING D10 AT 100MLS/HR. NO FACIAL GRIMACING NOTED. NO ACUTE DISTRESS. THOMAS CATH IN PLACE. DRAINING BY GRAVITY. BILATERAL SOFT WRIST RESTRAINT IN PLACE. RELEASED Q 2HOURS TO CHECK CIRCULATIONS. GTUBE WELL TOLERATED. RUNNING GLUCERNA AT 40CC/HR, FLUSHED GTUBE WITH 200 CC OF WATER Q6H. NOTED DRAINAGE COMING FROM GTUBE SITE. APPLIED PRESSURE. CONTACT PRECAUTION MAINTAINED. ALL DUE MEDS GIVEN ORDERED. ALL SAFETY MEASURES IN PLACE. BED IN LOWEST POSITION AND LOCKED, SIDE RAILS X3, PLACE CALL LIGHT WITHIN REACH, WILL ENDORSE TO MORNING SHIFT NURSE.
[2023-03-11 07:04] LABS: CALCIUM, SERUM 8.9 mg/dL (8.5-10.1); CREATININE 1.4 mg/dL (0.6-1.3); POTASSIUM 4.2 mmol/L (3.5-5.1)
--- NOTE | 2023-03-11 07:15 | NUR ---
FORM MAKER OPENING NOTE RECEIVED PT IN BED, AWAKE, A/O X1 WITH CONFUSED. ON O2 AT 3L/MIN VIA N/C AND PT TOLERATED WELL. IV ACCESS ON JOEL MIDLINE INTACT AND PATENT. RUNNING D10 AT 100MLS/HR. NO FACIAL GRIMACING NOTED. NO ACUTE DISTRESS. THOMAS CATH IN PLACE. DRAINING BY GRAVITY. BILATERAL SOFT WRIST RESTRAINT IN PLACE. GTUBE WELL TOLERATED. RUNNING GLUCERNA AT 40CC/HR, WILL FLUSHED GTUBE WITH 200 CC OF WATER Q6H. CONTACT PRECAUTION MAINTAINED. ALL SAFETY MEASURES IN PLACE. BED IN LOWEST POSITION AND LOCKED, SIDE RAILS X3, PLACE CALL LIGHT WITHIN REACH, WILL CONTINUE TO MONITOR
[2023-03-11] MEDS: DEXTROSE 50%-WATER 50 ML DISP.SYRIN IV PRN (07:22)
--- NOTE | 2023-03-11 07:29 | NUR ---
RN NOTES: 6 AM, TOBRAMYCIN NOT GIVEN YET, STILL AWAITING FOR TOBRAMYCIN TROUGH RESULT. CALLED LAB AND TALKED TO LUIZA. STILL RESULT WILL TAKE TIME. ENDORSE TO MORNING SHIFT NURSE.
[2023-03-11] MEDS ORDERED: TOBRAMYCIN IV SCH (08:00)
[2023-03-11] MEDS ORDERED: D5W IV SCH (08:00)
--- NOTE | 2023-03-11 08:03 | NUR ---
DERICK BARAJAS TOBRAMYCIN THROUGH LEVEL NOT DONE YET , PHARMACIST ZORA SAID ADMINISTERED WELL
[2023-03-11] MEDS: DAKINS QUARTER STRENGTH (0.125%) 480 ML BOTTLE TOP SCH (08:10)
[2023-03-11] MEDS: ARIPIPRAZOLE 5 MG TABLET GT SCH (08:11)
[2023-03-11] MEDS: PANTOPRAZOLE 40 MG VIAL IV SCH ×2 (08:11→16:29)
[2023-03-11] MEDS: FOLIC ACID 1 MG TABLET GT SCH (08:11)
[2023-03-11] MEDS: HYDROGEL DRESSING 90 GM TUBE TP SCH (08:11)
[2023-03-11] MEDS: THERAHONEY GEL 1.5 OZ TUBE TP SCH (08:11)
[2023-03-11] MEDS: LEVOTHYROXINE SODIUM 100 MCG TABLET GT SCH (08:12)
[2023-03-11] MEDS: IV 10% DEXTROSE 1,000 ML IV SCH ×2 (08:35→17:15)
[2023-03-11] MEDS: DAPTOMYCIN 500 MG in IV NS 0.9% 50 ML IV SCH (11:30)
[2023-03-11 12:38] LABS: BASOPHILS # (AUTO) 0.1 K/uL (0.0-0.2); BASOPHILS % (AUTO) 0.3 % (0.0-2.0); EOSINOPHILS % (AUTO) 0.9 % (0.0-6.0); HEMATOCRIT 22 % (33-45); LYMPHOCYTES # (AUTO) 1.4 K/uL (0.8-4.8); LYMPHOCYTES % (AUTO) 8.4 % (20.0-44.0); MEAN CORPUSCULAR HGB CONC 30 g/dl (31.0-36.0); MEAN CORPUSCULAR VOLUME 89 fL (82-100); MONOCYTES % (AUTO) 5.5 % (2.0-12.0); NEUTROPHILS # (AUTO) 14.7 K/uL (1.8-8.9); NEUTROPHILS % (AUTO) 84.9 % (43.0-81.0); PLATELET COUNT (AUTO) 502 K/uL (150-450); RED BLOOD CELL COUNT(AUTO) 2.46 MIL/uL (4.0-5.2); WHITE BLOOD COUNT (AUTO) 17.3 K/uL (4.3-11.0)
[2023-03-11 12:41] LABS: HEMOGLOBIN 6.5 g/dL (11.5-14.8)
[2023-03-11] MEDS: GLUCERNA 1.2 1,000 ML BOTTLE PEG SCH (17:18)
[2023-03-11 18:26] LABS: LYMPHOCYTES % (MANUAL) 6 % (16-48); MONOCYTES % (MANUAL) 6 % (0-11.0); NEUTROPHILS % (MANUAL) 88 (42-76)
--- NOTE | 2023-03-11 18:54 | NUR ---
BOILER TESTER CLOSING NOTE PT IN BED, AWAKE, A/O X1 WITH CONFUSION AND VERBALLY RESPONSIVE. ON O2 AT 3L/MIN VIA N/C AND PT TOLERATED WELL. O2 SAT 98%. IV ACCESS ON JOEL MIDLINE INTACT AND PATENT. RUNNING D10 AT 100MLS/HR. NO FACIAL GRIMACING NOTED. NO ACUTE DISTRESS. THOMAS CATH IN PLACE. DRAINING BY GRAVITY. BILATERAL SOFT WRIST RESTRAINT IN PLACE. RELEASED Q 2HOURS TO CHECK CIRCULATIONS. GTUBE WELL TOLERATED. RUNNING GLUCERNA AT 40CC/HR, FLUSHED GTUBE WITH 200 CC OF WATER Q6H. NOTED DRAINAGE COMING FROM GTUBE SITE. APPLIED PRESSURE. ONE UNIT OF THE RPS INFUSED CONTACT PRECAUTION MAINTAINED. ALL DUE MEDS GIVEN ORDERED. ALL SAFETY MEASURES IN PLACE. BED IN LOWEST POSITION AND LOCKED, SIDE RAILS X3, PLACE CALL LIGHT WITHIN REACH, WILL ENDORSE TO PAD MACHINE OPERATOR NURSE.
--- NOTE | 2023-03-11 19:30 | NUR ---
BENCH ASSEMBLY INSPECTOR OPENING NOTE RECEIVED PT IN BED, AWAKE. PT A/O X1, WITH CONFUSION, BUT VERBALLY RESPONSIVE. ON O2 AT 3L/MIN VIA N/C, AND PT TOLERATING O2 WELL. IV ACCESS TO LEFT UA MIDLINE INTACT, AND PATENT. MIDLINE RUNNING D10 AT 100MLS/HR. NO FACIAL GRIMACING NOTED. NO ACUTE DISTRESS. THOMAS CATH IN PLACE, DRAINING BY GRAVITY. BILATERAL SOFT WRIST RESTRAINT IN PLACE. G-TUBE WELL TOLERATED. RUNNING GLUCERNA AT 40CC/HR, FLUSHED G-TUBE WITH 200 CC OF WATER Q6H. CONTACT PRECAUTION MAINTAINED. ALL SAFETY MEASURES IN PLACE. BED IN LOWEST POSITION AND LOCKED, SIDE RAILS X3, PLACE CALL LIGHT WITHIN REACH. WILL CONTINUE TO MONITOR PT.
[2023-03-11 19:41] LABS: HEMOGLOBIN 7.3 g/dL (11.5-14.8)
--- NOTE | 2023-03-11 21:00 | NUR ---
BOOKBINDING MACHINE OPERATOR NOTE G-TUBE PLACEMENT CHECKED. PT ON FEEDING GLUCERNA RUNNING AT 40 ML/HR. RESIDUAL CHECKED, RESIDUAL OVER 100ML. FEEDING STOPPED. WILL CONTINUE TO MONITOR.
--- NOTE | 2023-03-11 23:00 | NUR ---
LABORER AQUATIC LIFE NOTE G-TUBE RESIDUAL CHECKED AGAIN. PT STILL HAS RESIDUAL OVER 100 ML. WILL CONTINUE TO MONITOR.
[2023-03-12] VITALS: BP 101/72
[2023-03-12] MEDS: METOPROLOL TARTRATE 25 MG TABLET GT SCH ×3 (00:30→16:30)
--- NOTE | 2023-03-12 00:30 | NUR ---
POSTAL SUPERINTENDENT NOTE METOPROLOL NOT ADMINISTERED TO PT DUE TO LOW BP, BP: 101/59. BUT MED WAS PULLED, AND CRUSHED BY MISTAKE. AFTER MED WAS WASTED.
--- NOTE | 2023-03-12 01:00 | NUR ---
AREA FIELD WORKER NOTE FEEDING RESIDUAL CHECKED AGAIN. NO RESIDUAL. FEEDING IS RESTARTED.
[2023-03-12] MEDS: BLOOD SUGAR DIAGNOSTIC 1 EACH STRIP IN SCH ×4 (01:31→17:10)
[2023-03-12] MEDS: ALBUTEROL FS 2.5 MG/0.5 ML VIAL.NEB NEB SCH ×4 (02:57→20:16)
[2023-03-12] MEDS: IPRATROPIUM NEB FS 0.5 MG/2.5 ML AMPUL.NEB NEB SCH ×4 (02:57→20:16)
[2023-03-12] MEDS: MEROPENEM 1 G in IV NS 0.9% 100 ML IV SCH ×2 (03:49→14:39)
[2023-03-12 04:00] VITALS: BP 101/59
[2023-03-12] MEDS: IV 10% DEXTROSE 1,000 ML IV SCH ×2 (05:37→16:35)
[2023-03-12] MEDS: METOCLOPRAMIDE HCL 10 MG/2 ML VIAL IV SCH ×3 (05:38→21:10)
--- NOTE | 2023-03-12 06:35 | NUR ---
PLUMBING INSTRUCTOR CLOSING NOTE RECEIVED PT IN BED, AWAKE. PT A/O X1, WITH CONFUSION, BUT VERBALLY RESPONSIVE. ON O2 AT 3L/MIN VIA N/C, AND PT TOLERATING O2 WELL. IV ACCESS TO LEFT UA MIDLINE INTACT, AND PATENT. MIDLINE RUNNING D10 AT 100MLS/HR. NO ACUTE DISTRESS. THOMAS CATH IN PLACE, DRAINING BY GRAVITY, URINE OUTPUT: 1100 ML. BILATERAL SOFT WRIST RESTRAINT IN PLACE. G-TUBE RUNNING GLUCERNA AT 40CC/HR, FLUSHED G-TUBE WITH 200 CC OF WATER Q6H. CONTACT PRECAUTION MAINTAINED. WOUND TREATMENT COMPLETED TO PT'S MULTIPLE WOUNDS. ALL SAFETY MEASURES IN PLACE. BED IN LOWEST POSITION AND LOCKED, SIDE RAILS X3, CALL LIGHT WITHIN REACH. WILL ENDORSE PT TO AM SHIFT NURSE FOR ROGERIO.
[2023-03-12] MEDS: INSULIN REGULAR, HUMAN 100 UNIT/ML 3 ML VIAL SQ PRN (06:46)
[2023-03-12 07:45] LABS: CALCIUM, SERUM 9.3 mg/dL (8.5-10.1); CREATININE 1.4 mg/dL (0.6-1.3); POTASSIUM 4.1 mmol/L (3.5-5.1)
[2023-03-12 07:50] LABS: BASOPHILS # (AUTO) 0.1 K/uL (0.0-0.2); BASOPHILS % (AUTO) 0.4 % (0.0-2.0); EOSINOPHILS % (AUTO) 0.8 % (0.0-6.0); HEMATOCRIT 23 % (33-45); HEMOGLOBIN 7.5 g/dL (11.5-14.8); LYMPHOCYTES # (AUTO) 1.4 K/uL (0.8-4.8); LYMPHOCYTES % (AUTO) 8.3 % (20.0-44.0); MEAN CORPUSCULAR HGB CONC 32 g/dl (31.0-36.0); MEAN CORPUSCULAR VOLUME 85 fL (82-100); MONOCYTES # (AUTO) 0.7 K/uL (0.1-1.30); NEUTROPHILS # (AUTO) 14.8 K/uL (1.8-8.9); NEUTROPHILS % (AUTO) 86.5 % (43.0-81.0); PLATELET COUNT (AUTO) 558 K/uL (150-450); RED BLOOD CELL COUNT(AUTO) 2.71 MIL/uL (4.0-5.2); WHITE BLOOD COUNT (AUTO) 17.1 K/uL (4.3-11.0)
[2023-03-12 08:00] VITALS: BP 130/81
[2023-03-12] MEDS: DAKINS QUARTER STRENGTH (0.125%) 480 ML BOTTLE TOP SCH (08:33)
[2023-03-12] MEDS: TOBRAMYCIN 120 MG in IV D5W 100 ML IV SCH (08:34)
[2023-03-12] MEDS: THERAHONEY GEL 1.5 OZ TUBE TP SCH (08:34)
[2023-03-12] MEDS: HYDROGEL DRESSING 90 GM TUBE TP SCH (08:34)
[2023-03-12] MEDS: FOLIC ACID 1 MG TABLET GT SCH (08:57)
[2023-03-12] MEDS: ARIPIPRAZOLE 5 MG TABLET GT SCH (08:57)
[2023-03-12] MEDS: PANTOPRAZOLE 40 MG VIAL IV SCH ×2 (08:57→17:22)
[2023-03-12] MEDS: LEVOTHYROXINE SODIUM 100 MCG TABLET GT SCH (08:57)
[2023-03-12] MEDS: DAPTOMYCIN 500 MG in IV NS 0.9% 50 ML IV SCH (11:35)
[2023-03-12 12:00] VITALS: BP 94/41
[2023-03-12] MEDS ORDERED: LIDOCAINE 1%-EPI 1:100,000 50 ML VIAL IJ ONE (12:00)
[2023-03-12] MEDS ORDERED: SILVER NITRATE APPLICATOR 1 EA BOX TP SCH (12:00)
[2023-03-12 16:00] VITALS: BP 78/40
--- NOTE | 2023-03-12 18:38 | NUR ---
DRY PAN CHARGER CLOSING NOTE RECEIVED PT IN BED, AWAKE. PT A/O X1, WITH CONFUSION, BUT VERBALLY RESPONSIVE. ON O2 AT 3L/MIN VIA N/C, AND PT TOLERATING O2 WELL. IV ACCESS TO LEFT UA MIDLINE INTACT. NO ACUTE DISTRESS. THOMAS CATH IN PLACE, DRAINING BY GRAVITY, URINE OUTPUT: 1100 ML. BILATERAL SOFT WRIST RESTRAINT IN PLACE. CONTACT PRECAUTION MAINTAINED. WOUND TREATMENT COMPLETED TO PT'S MULTIPLE WOUNDS. ALL SAFETY MEASURES IN PLACE. BED IN LOWEST POSITION AND LOCKED, SIDE RAILS X3, CALL LIGHT WITHIN REACH. WILL ENDORSE PT TO PM SHIFT NURSE FOR ROGERIO.
[2023-03-12 20:00] VITALS: BP 132/107
--- NOTE | 2023-03-12 20:18 | NUR ---
RCVD PT ON 2L NC AND PLACED PT ON NOCTURNAL BIPAP 20/10,RATE 12, FIO2 30%. BREATHING TX GIVEN, NO RESPIRATORY DISTRESS NOTED AT THIS TIME. BIPAP PLUGGED INTO RED OUTLET, ALARMS ON AND AUDIBLE. WILL CONTINUE TO MONITOR T/O SHIFT
[2023-03-13] VITALS: BP 106/79
[2023-03-13] MEDS: BLOOD SUGAR DIAGNOSTIC 1 EACH STRIP IN SCH ×5 (00:13→23:44)
[2023-03-13] MEDS: INSULIN REGULAR, HUMAN 100 UNIT/ML 3 ML VIAL SQ PRN ×3 (00:13→23:45)
[2023-03-13] MEDS: METOPROLOL TARTRATE 25 MG TABLET GT SCH ×3 (00:30→16:46)
--- NOTE | 2023-03-13 00:39 | NUR ---
noc rn note- non-administered scheduled 50mg Lopressor held d/t low BP of 106/71. Held per parameter. will continue to monitor.
[2023-03-13] MEDS: IPRATROPIUM NEB FS 0.5 MG/2.5 ML AMPUL.NEB NEB SCH ×4 (01:13→19:44)
[2023-03-13] MEDS: ALBUTEROL FS 2.5 MG/0.5 ML VIAL.NEB NEB SCH ×5 (01:13→19:45)
[2023-03-13] MEDS: MORPHINE SULFATE INJ 2 MG/ML DISP.SYRIN IV PRN ×2 (02:30→13:15)
--- NOTE | 2023-03-13 02:31 | NUR ---
noc rn note given Morphine 1mg as ordered PRN for dressing changes. Partial dose wasted with DERICK Bustillos in proper waste bin. will re-assess
[2023-03-13] MEDS: MEROPENEM 1 G in IV NS 0.9% 100 ML IV SCH ×2 (03:47→14:12)
[2023-03-13 04:00] VITALS: BP 94/41
--- NOTE | 2023-03-13 04:19 | NUR ---
TAKEN OFF BIPAP AT THIS TIME AND PLACED ON 2L NC. SPO2 97% NO RESPIRATORY DISTRESS NOTED.
[2023-03-13] MEDS: METOCLOPRAMIDE HCL 10 MG/2 ML VIAL IV SCH ×3 (05:04→21:21)
[2023-03-13] MEDS: IV 10% DEXTROSE 1,000 ML IV SCH ×2 (06:42→17:55)
--- NOTE | 2023-03-13 06:42 | NUR ---
noc rn note scheduled 0514 D10 administered late at this time because half a bag was still running at that time.
--- NOTE | 2023-03-13 06:43 | NUR ---
meron rn note- non-admin blood sugar 102. no coverage needed.
[2023-03-13] MEDS: GLUCERNA 1.2 1,000 ML BOTTLE PEG SCH (06:54)
--- NOTE | 2023-03-13 07:00 | NUR ---
RN OPENING NOTE RECEIVED PT IN BED, COMFORTING SLEEPING, PT A/O X1, WITH CONFUSION, VERBALLY RESPONSIVE. ON O2 AT 2L/MIN VIA N/C, TOLERATING WE, NO SIGNS OR SYMPTOMS OF SOB OR DISCOMFORT NOTED. IV ACCESS TO LEFT UA MIDLINE INTACT, PATENT AND FLUSHING WELL. MIDLINE RUNNING D10 AT 75 MLS/HR. NO FACIAL GRIMACING NOTED. NO ACUTE DISTRESS. THOMAS CATH IN PLACE, DRAINING BY GRAVITY. BILATERAL SOFT WRIST RESTRAINT IN PLACE. G-TUBE WELL TOLERATED. RUNNING GLUCERNA AT 40CC/HR, FLUSHED. CONTACT PRECAUTION MAINTAINED. ALL SAFETY MEASURES IN PLACE. BED IN LOWEST POSITION AND LOCKED, SIDE RAILS X3, PLACE CALL LIGHT WITHIN REACH. WILL CONTINUE TO MONITOR PT. Addendum: 03/13/23 at 1830 by SAIGE AGUIRRE RN PATIENT NOTED TO HAVE BRUISE ON RIGHT ARM, AND SMALL SCAB ON NOSE. PICTURES TAKEN AND PUT ON CHART
--- NOTE | 2023-03-13 07:21 | NUR ---
noc rn note Patient in bed a/ox0, still confused. with Bilateral soft wrist restraints. G-tube running Glucerna @40mls/hr. IV D10 running @75mls/hr. reading ST throughout shift. dominguez draining via gravity. all needs attended. all scheduled medications administered. endorsed to DERICK Tellez for the continuity of patient care.
[2023-03-13 08:00] VITALS: BP 103/62
[2023-03-13] MEDS: TOBRAMYCIN 120 MG in IV D5W 100 ML IV SCH (08:42)
[2023-03-13] MEDS: ARIPIPRAZOLE 5 MG TABLET GT SCH (08:42)
[2023-03-13] MEDS: PANTOPRAZOLE 40 MG VIAL IV SCH ×2 (08:42→16:45)
[2023-03-13] MEDS: FOLIC ACID 1 MG TABLET GT SCH (08:43)
[2023-03-13] MEDS: LEVOTHYROXINE SODIUM 100 MCG TABLET GT SCH (08:43)
[2023-03-13] MEDS: THERAHONEY GEL 1.5 OZ TUBE TP SCH (09:03)
[2023-03-13] MEDS: HYDROGEL DRESSING 90 GM TUBE TP SCH (09:08)
[2023-03-13] MEDS: DAKINS QUARTER STRENGTH (0.125%) 480 ML BOTTLE TOP SCH (09:31)
[2023-03-13 09:41] LABS: BASOPHILS # (AUTO) 0.1 K/uL (0.0-0.2); BASOPHILS % (AUTO) 0.7 % (0.0-2.0); EOSINOPHILS % (AUTO) 0.8 % (0.0-6.0); HEMATOCRIT 23 % (33-45); HEMOGLOBIN 7.1 g/dL (11.5-14.8); LYMPHOCYTES # (AUTO) 1.3 K/uL (0.8-4.8); LYMPHOCYTES % (AUTO) 8.4 % (20.0-44.0); MEAN CORPUSCULAR HGB CONC 31 g/dl (31.0-36.0); MEAN CORPUSCULAR VOLUME 85 fL (82-100); MONOCYTES # (AUTO) 0.6 K/uL (0.1-1.30); MONOCYTES % (AUTO) 4.3 % (2.0-12.0); NEUTROPHILS # (AUTO) 12.8 K/uL (1.8-8.9); NEUTROPHILS % (AUTO) 85.8 % (43.0-81.0); PLATELET COUNT (AUTO) 609 K/uL (150-450); RED BLOOD CELL COUNT(AUTO) 2.66 MIL/uL (4.0-5.2)
[2023-03-13 09:49] LABS: CALCIUM, SERUM 9.3 mg/dL (8.5-10.1); CREATININE 1.3 mg/dL (0.6-1.3); POTASSIUM 4.4 mmol/L (3.5-5.1)
[2023-03-13 12:00] VITALS: BP 114/72
--- NOTE | 2023-03-13 13:04 | NUR ---
RN NOTE DAPTOMYCIN NOT IN MEDICATION ROOM. PHARMACY MADE AWARE
[2023-03-13] MEDS: DAPTOMYCIN 500 MG in IV NS 0.9% 50 ML IV SCH (13:37)
[2023-03-13 16:00] VITALS: BP 123/51
--- NOTE | 2023-03-13 19:10 | NUR ---
RN CLOSING NOTE PATIENT IN BED, AWAKE. PT A/O X1, WITH CONFUSION, BUT IS VERBALLY RESPONSIVE. ON NASAL CANNULA O2 AT 2L PER MINUTE. PATIENT TOLERATING WELL, NO SIGNS OR SYMPTOMS OF PAIN OR DISCOMFORT NOTED. IV ACCESS TO LEFT UA MIDLINE INTACT. NO ACUTE DISTRESS. THOMAS CATH IN PLACE, DRAINING BY GRAVITY, URINE OUTPUT 1500. BILATERAL SOFT WRIST RESTRAINT IN PLACE. CONTACT PRECAUTION MAINTAINED. WOUND TREATMENT COMPLETED TO PT'S MULTIPLE WOUNDS. ALL SAFETY MEASURES IN PLACE. BED IN LOWEST POSITION AND LOCKED, SIDE RAILS X3, CALL LIGHT WITHIN REACH. PATIENT WAS REPOSITIONED EVERY 2 HOURS. WILL ENFORCE TO NIGHT NURSE FOR CONTINUING OF CARE.
--- NOTE | 2023-03-13 19:10 | NUR ---
WHEAT GROWER opening note Pt resting in bed eyes closed, easy to arouse, A&Ox1, afebrile, HOB^, skin warm and dry to touch, on 02 via NC, tolerating well, breathing even and unlabored, VS taken and recoreded, JOEL ML intact, D10 @ 100 cc/hr infusing well, dominguez intact and patent, clear yellow urine noted, gt patent, 0 residual at this time, glucerna 1.2 rola @ 40 ml/hr infusing well, all safety precautions noted and in place, will continue to monitor Addendum: 03/13/23 at 2243 by NATY ULLOAN D10 infusing at 75ml/ hr
[2023-03-13 20:00] VITALS: BP 94/70
[2023-03-14] VITALS: BP 93/59
[2023-03-14] MEDS: METOPROLOL TARTRATE 25 MG TABLET GT SCH ×4 (00:08→17:15)
[2023-03-14] MEDS: IPRATROPIUM NEB FS 0.5 MG/2.5 ML AMPUL.NEB NEB SCH ×4 (01:18→19:58)
[2023-03-14] MEDS: ALBUTEROL FS 2.5 MG/0.5 ML VIAL.NEB NEB SCH ×4 (01:18→19:58)
[2023-03-14] MEDS: MEROPENEM 1 G in IV NS 0.9% 100 ML IV SCH ×2 (02:51→15:52)
[2023-03-14 04:00] VITALS: BP 96/74
--- NOTE | 2023-03-14 05:00 | NUR ---
TAKEN OFF BIPAP AT THIS TIME AND PLACED ON 2L NC. NO RESPIRATORY DISTRESS NOTED.
[2023-03-14] MEDS: INSULIN REGULAR, HUMAN 100 UNIT/ML 3 ML VIAL SQ PRN (05:09)
[2023-03-14] MEDS: BLOOD SUGAR DIAGNOSTIC 1 EACH STRIP IN SCH ×3 (05:09→18:17)
[2023-03-14] MEDS: METOCLOPRAMIDE HCL 10 MG/2 ML VIAL IV SCH ×3 (05:18→21:29)
[2023-03-14 06:47] LABS: BASOPHILS # (AUTO) 0.1 K/uL (0.0-0.2); BASOPHILS % (AUTO) 0.4 % (0.0-2.0); EOSINOPHILS % (AUTO) 0.8 % (0.0-6.0); HEMATOCRIT 23 % (33-45); HEMOGLOBIN 7.4 g/dL (11.5-14.8); LYMPHOCYTES # (AUTO) 1.4 K/uL (0.8-4.8); LYMPHOCYTES % (AUTO) 9.3 % (20.0-44.0); MEAN CORPUSCULAR HGB CONC 33 g/dl (31.0-36.0); MEAN CORPUSCULAR VOLUME 85 fL (82-100); MONOCYTES # (AUTO) 0.7 K/uL (0.1-1.30); MONOCYTES % (AUTO) 4.8 % (2.0-12.0); NEUTROPHILS # (AUTO) 12.3 K/uL (1.8-8.9); NEUTROPHILS % (AUTO) 84.7 % (43.0-81.0); PLATELET COUNT (AUTO) 668 K/uL (150-450); RED BLOOD CELL COUNT(AUTO) 2.67 MIL/uL (4.0-5.2); WHITE BLOOD COUNT (AUTO) 14.6 K/uL (4.3-11.0)
--- NOTE | 2023-03-14 06:47 | NUR ---
SENIOR QUALITY ASSURANCE SPECIALIST closing note Pt resting in bed eyes closed, easy to arouse, afebrile, skin warm and dry to touch, HOB elevated, on o2 via NC, breathing even and unlabored, JOEL ML intact, D10 @ 75 cc/hr, infusing well, dominguez intact and patent, clear yellow urine noted, gt patent, glucerna 1.2 rola @ 40 ml/hr infusing well, pt is on IV ATB tx, tolerated well, all due meds given per MD orders and tolerated well, pt repositioned q2h and prn, bed bath and john care rendered well, wound care rendered well, all basic needs met and anticipated, all safety measures in place, will continue to monitor
--- NOTE | 2023-03-14 07:00 | NUR ---
RN OPENING NOTE RECEIVED PATIENT IN BED RESTING, ALERT AND ORIENTED X1, VERBALLY RESPONSIVE, ON 2 L NS, NO SOB OR DISCOMFORT NOTED, WITH BRUISE ON RIGHT UPPER ARM AND SMALL SCAB NOTED ON NOSE. IV ACCESS ON JOEL ML, PATENT AND FLUSHING WELL. ON GLUCERNA 1.2 AT 40 ML/ HR, HEAD OF BED ELEVATED, SAFETY MEASURES IN PLACE, BED IN LOWEST AND LOCKED POSITION, SIDE RAILS UP X3, CALL LIGHT WITHIN REACH, WILL CONTINUE TO MONITOR.
[2023-03-14 07:05] LABS: CALCIUM, SERUM 9.6 mg/dL (8.5-10.1); CREATININE 1.5 mg/dL (0.6-1.3); POTASSIUM 4.6 mmol/L (3.5-5.1)
[2023-03-14] MEDS: IV 10% DEXTROSE 1,000 ML IV SCH ×2 (07:40→21:29)
[2023-03-14 08:00] VITALS: BP 150/112
[2023-03-14] MEDS: THERAHONEY GEL 1.5 OZ TUBE TP SCH (08:05)
[2023-03-14] MEDS: DAKINS QUARTER STRENGTH (0.125%) 480 ML BOTTLE TOP SCH (08:05)
[2023-03-14] MEDS: HYDROGEL DRESSING 90 GM TUBE TP SCH (08:05)
[2023-03-14] MEDS: TOBRAMYCIN 120 MG in IV D5W 100 ML IV SCH (08:06)
[2023-03-14] MEDS: ARIPIPRAZOLE 5 MG TABLET GT SCH (08:06)
[2023-03-14] MEDS: PANTOPRAZOLE 40 MG VIAL IV SCH ×2 (08:06→17:15)
[2023-03-14] MEDS: LEVOTHYROXINE SODIUM 100 MCG TABLET GT SCH (08:07)
[2023-03-14] MEDS: FOLIC ACID 1 MG TABLET GT SCH (08:07)
[2023-03-14] MEDS: GLUCERNA 1.2 1,000 ML BOTTLE PEG SCH (09:39)
[2023-03-14 12:00] VITALS: BP 103/66
[2023-03-14] MEDS: DAPTOMYCIN 500 MG in IV NS 0.9% 50 ML IV SCH (12:34)
[2023-03-14] MEDS: PROSOURCE / PROSTAT (PYXIS) 30 ML UDC GT SCH ×2 (13:21→17:15)
[2023-03-14 16:00] VITALS: BP 152/61
--- NOTE | 2023-03-14 16:44 | NUR ---
RN NOTE RESIDUAL CHECKED, 175 ML NOTED. WILL HOLD FEEDING UNTIL PATIENT CONTINUES TO TOLERATE FEEDING. CHARGE NURSE AWARE, WILL CONTINUE TO MONITOR.
[2023-03-14] MEDS: MORPHINE SULFATE INJ 2 MG/ML DISP.SYRIN IV PRN (17:23)
--- NOTE | 2023-03-14 19:25 | NUR ---
RN CLOSING NOTE PATIENT IN BED RESTING, ALERT AND ORIENTED X1, VERBALLY RESPONSIVE, ON 2 L NS, NO SOB OR DISCOMFORT NOTED, WITH BRUISE ON RIGHT UPPER ARM AND SMALL SCAB NOTED ON NOSE. IV ACCESS ON GABRIELA ML, PATENT AND FLUSHING WELL. ON GLUCERNA 1.2 AT 40 ML/ HR ON HOLD, RESIDUAL CHECKED AND ABOVE 100. HEAD OF BED ELEVATED, PATIENT REPOSITIONED EVERY 2 HOURS, RESTRAINS REMOVED AND CHECKED PER PROTOCOL, SKIN ACCESS FOR SKIN INTEGRITY AND CIRCULATION, BOTH INTACT. SAFETY MEASURES IN PLACE, BED IN LOWEST AND LOCKED POSITION, SIDE RAILS UP X3, CALL LIGHT WITHIN REACH, REPORT GIVEN TO NIGHT NURSE FOR CONTINUING OF CARE.
--- NOTE | 2023-03-14 19:53 | NUR ---
HIM MANAGER OPENING NOTES: RECEIVED PATIENT AWAKE IN BED, BED IN LOW POSITION CALL LIGHTS WITHIN REACH, NO COMPLAIN OF PAIN AND DISCOMFORT AT THIS TIME, ON O2 INHALATION AT 2LPM SATURATING WELL, PATIENT IS A/OX1 ON BILATERAL SOFT WRIST RESTRAINT, ON G TUBE FEEDING,HOB TO REMAIN AT 45 DEGREE, HOLD FOR NOW RESIDUAL AT 100ML REHAB THERAPY MANAGER FROM AM NURSE, REHAB THERAPY MANAGER AWARE, ON MONITORING FOR RESIDUAL, ON TELE MONITOR- [id number], IV LINE AT JOEL ML WITH ONGOING D10@75ML/HR INFUSING WELL, PATIENT KEPT CLEAN AND DRY ALL NEEDS MET WILL CONTINUE TO MONITOR.
[2023-03-14 20:00] VITALS: BP 153/100
[2023-03-15] VITALS: BP 97/62
[2023-03-15] MEDS: METOPROLOL TARTRATE 25 MG TABLET GT SCH ×3 (00:30→15:38)
--- NOTE | 2023-03-15 01:14 | NUR ---
RN NOTES: BLOOD SUGAR-77 NO INSULIN GIVEN PER SLIDING SCALE, PATIENT ON D10 @75ML/HR AND ON G TUBE FEEDING OF GLUCERNA 1.2@75ML/HR INFUSING WELL, PATIENT WILL CONTINUE TO MONITOR.
[2023-03-15] MEDS: ALBUTEROL FS 2.5 MG/0.5 ML VIAL.NEB NEB SCH ×5 (01:30→20:09)
[2023-03-15] MEDS: IPRATROPIUM NEB FS 0.5 MG/2.5 ML AMPUL.NEB NEB SCH ×4 (01:40→20:09)
[2023-03-15] MEDS: MEROPENEM 1 G in IV NS 0.9% 100 ML IV SCH ×2 (02:45→14:00)
[2023-03-15 04:00] VITALS: BP 100/64
[2023-03-15] MEDS: METOCLOPRAMIDE HCL 10 MG/2 ML VIAL IV SCH ×3 (05:59→20:42)
[2023-03-15] MEDS: BLOOD SUGAR DIAGNOSTIC 1 EACH STRIP IN SCH ×5 (06:00→23:52)
--- NOTE | 2023-03-15 06:00 | NUR ---
RN NOTES: PATIENT WAS NOTED WITH RESIDUAL OF 100CC AT G TUBE FEEDING, PUT NGT ON HOLD, DRESSING CLEANSE AND CHANGE WILL CONTINUE TO MONITOR.
--- NOTE | 2023-03-15 06:02 | NUR ---
TAKEN OFF BIPAP AT THIS TIME AND PLACED ON 2L NC. NO RESPIRATORY DISTRESS NOTED.
--- NOTE | 2023-03-15 06:28 | NUR ---
RN NOTES: BLOOD SUGAR-95/ NO INSULIN GIVEN PER SLIDING SCALE.
--- NOTE | 2023-03-15 06:30 | NUR ---
BULLET SWAGING MACHINE OPERATOR CLOSING NOTES: PATIENT SLEEP IN BED, AROUSABLE TO VERBAL AND TACTILE STIMULI, BED IN LOW POSITION CALL LIGHTS WITHIN REACH, NO COMPLAIN OF PAIN AND DISCOMFORT AT THIS TIME, ON NOCTURNAL BIPAP CHANGE TO O2 INHALATION AT 2LPM SATURATING WELL, ON TELE MONITOR- ST-112 NO SYMPTOMS WAS OBSERVED, ON THOMAS CATHETER- 700CC URINE OUTPUT LIGHT YELLOW COLOR. PATIENT HAS A LOT OF SKIN ISSUES CLEANSE AND DRESSING CHANGE, IV LINE AT D10 2275ML/HR INFUSING WELL, PATIENT KEPT CLEAN AND DRY ALL NEEDS MET ENDORSE TO INCOMING SHIFT,
--- NOTE | 2023-03-15 07:30 | NUR ---
OPENING NOTE RECEIVED PATIENT IN BED ASLEEP BUT AROUSABLE, NO SIGNS OF IN DISTRESS, UNLABORED BREATHING ON ROOM AIR, NO COMPLAINT OF PAIN, SAFETY MEASURES ARE IN PLACE, BED IN LOW POSITION LOCKED, SIDE RAILS UPX3, CALL LIGHT WITHIN REACH.
[2023-03-15] MEDS: TOBRAMYCIN 120 MG in IV D5W 100 ML IV SCH (07:45)
[2023-03-15 08:00] VITALS: BP 141/68
--- NOTE | 2023-03-15 08:00 | NUR ---
NO RESIDUAL ON GTUBE THIS MOMENT, RESUME TUBE FEEDING AT 45ML/HR.
[2023-03-15] MEDS: PANTOPRAZOLE 40 MG VIAL IV SCH ×2 (08:02→16:14)
[2023-03-15 08:06] LABS: CREATININE 1.3 mg/dL (0.6-1.3); POTASSIUM 4.3 mmol/L (3.5-5.1)
[2023-03-15] MEDS: ARIPIPRAZOLE 5 MG TABLET GT SCH (08:18)
[2023-03-15] MEDS: DAKINS QUARTER STRENGTH (0.125%) 480 ML BOTTLE TOP SCH (08:19)
[2023-03-15] MEDS: HYDROGEL DRESSING 90 GM TUBE TP SCH (08:19)
[2023-03-15] MEDS: LEVOTHYROXINE SODIUM 100 MCG TABLET GT SCH (08:19)
[2023-03-15] MEDS: FOLIC ACID 1 MG TABLET GT SCH (08:19)
[2023-03-15] MEDS: THERAHONEY GEL 1.5 OZ TUBE TP SCH (08:20)
[2023-03-15] MEDS: PROSOURCE / PROSTAT (PYXIS) 30 ML UDC GT SCH ×3 (08:20→16:15)
[2023-03-15] MEDS: IV 10% DEXTROSE 1,000 ML IV SCH ×2 (10:18→23:56)
[2023-03-15] MEDS: DAPTOMYCIN 500 MG in IV NS 0.9% 50 ML IV SCH (11:01)
--- NOTE | 2023-03-15 11:55 | NUR ---
CHECK G TUBE RESIDUAL, 300ML RESIDUAL, STOP FEEDING AND INFORM DR CLAUDIO.
--- NOTE | 2023-03-15 11:56 | NUR ---
BLOOD SUGAR IS 58, APPLE JUICE IS GIVEN, RECHECK BLOOD SUGAR 210.
[2023-03-15 12:00] VITALS: BP 115/53
--- NOTE | 2023-03-15 13:30 | NUR ---
CHECK G TUBE RESIDUAL, NO RESIDUAL AT THIS TIME, RESUME TUBE FEEDING AT 40ML/HR.
--- NOTE | 2023-03-15 15:39 | NUR ---
LOPRESSOR NOT ADMINISTER PER PARAMETERS <120. BP 109/59, HR 109
[2023-03-15 16:00] VITALS: BP 109/59
--- NOTE | 2023-03-15 16:27 | NUR ---
NO RESIDUAL ON G TUBE AT THIS TIME.
--- NOTE | 2023-03-15 17:00 | NUR ---
BLOOD GLUCOSE 58, APPLE JUICE GIVEN, RECHECK BLOOD GLUCOSE IS 116
--- NOTE | 2023-03-15 19:08 | NUR ---
CLOSING NOTE PATIENT IS RESTING IN BED COMFORTABLY BUT AROUSABLE, G TUBE DRESSING REPLACED, RESTRAINTS BILATERAL IN PLACED, NO SIGNS OF IN DISTRESS, UNLABORED BREATHING ON 2L/MIN O2, IV INFUSING WELL, G TUBE FEEDING INFUSING WELL AT 40ML/HR, LEAKING ON GTUBE SITE NOTICED, NO RESIDUAL AT THIS TIME. THOMAS CATHETER DRAINING WELL. SAFETY MEASURES ARE IN PLACE, BED IN LOW POSITION LOCKED, SIDE RAILS UPX3,CALL LIGHT WITHIN REACH.
--- NOTE | 2023-03-15 19:30 | NUR ---
WHEEL BORER OPENING NOTE RECEIVED PATIENT IN BED RESTING. WITH OPEN EYES. ALERT AND ORIENTED X1, VERBALLY RESPONSIVE, ON 02 INHALATION VIA NASAL CANNULA AT 2L/MIN. NO SOB OR DISCOMFORT NOTED. ON TELE MONITOR READING ST113. ON BILATERAL SOFT RESTRAINS.CHECKED THE SKIN AND CIRCULATION EVERY 2 HOURS. REPOSITION THE PATIENT FOR SKIN AND COMFORT MANAGEMENT. IV ACCESS ON JOEL ML, NOT FLUSHING .NOTED PATIENT ON IV HYDRATION OF D10 AT GABRIELA MID LINE. ON GLUCERNA 1.2 AT 40 ML/ HR. PLACEMENT CHECKED. PATENT AND FLUSHING WELL. PRIOR SHIFT NOTED WITH EXCESS LEAKING OF THE G-TUBE FEEDING. CHARGE NURSE , AND PREVIOUS SHIFT NURSE AWARE OF THAT. HEAD OF BED ELEVATED FOR ASPIRATION PRECAUTION. ALL SAFETY MEASURES IN PLACE, BED IN LOWEST AND LOCKED POSITION, SIDE RAILS UP X3, CALL LIGHT WITHIN REACH, WILL CONTINUE TO MONITOR CLOSELY.
[2023-03-15 20:00] VITALS: BP 121/74
[2023-03-15] MEDS: ACETAMINOPHEN 650 MG/20.3 ML UDC GT PRN (21:36)
--- NOTE | 2023-03-15 21:36 | NUR ---
RN NOTES PRN TYLENOL 650 MG GIVEN FOR FEVER OF 100.0.AT 2136 . WILL ASSESS IN 1 HOUR.
--- NOTE | 2023-03-15 22:00 | NUR ---
RN NOTES NOTED WITH 120 ML OF RESIDUAL. HELD GTUBE FEEDING FOR 2 HOUR. WILL CHECK AND RESUME FEEDING IF NO RESIDUAL NOTED.
[2023-03-16] VITALS: BP 130/82
[2023-03-16] MEDS: METOPROLOL TARTRATE 25 MG TABLET GT SCH ×3 (00:46→16:29)
[2023-03-16] MEDS: ALBUTEROL FS 2.5 MG/0.5 ML VIAL.NEB NEB SCH ×4 (01:23→20:07)
[2023-03-16] MEDS: IPRATROPIUM NEB FS 0.5 MG/2.5 ML AMPUL.NEB NEB SCH ×4 (01:23→20:07)
[2023-03-16] MEDS: GLUCERNA 1.2 1,000 ML BOTTLE PEG SCH (03:19)
[2023-03-16] MEDS: MEROPENEM 1 G in IV NS 0.9% 100 ML IV SCH ×2 (03:21→14:28)
[2023-03-16] MEDS: METOCLOPRAMIDE HCL 10 MG/2 ML VIAL IV SCH ×3 (05:01→21:33)
[2023-03-16 05:39] VITALS: BP 132/71
[2023-03-16] MEDS: BLOOD SUGAR DIAGNOSTIC 1 EACH STRIP IN SCH ×3 (06:02→17:06)
--- NOTE | 2023-03-16 06:44 | NUR ---
HANDTOOLS REPAIRER CLOSING NOTE PATIENT IN BED RESTING. WITH OPEN EYES. ALERT AND ORIENTED X1, VERBALLY RESPONSIVE, ON 02 INHALATION VIA NASAL CANNULA AT 2L/MIN. NO SOB OR DISCOMFORT NOTED. ON TELE MONITOR READING ST102. ON BILATERAL SOFT RESTRAINS.CHECKED THE SKIN AND CIRCULATION EVERY 2 HOURS. REPOSITION THE PATIENT FOR SKIN AND COMFORT MANAGEMENT. THOMAS CATHETER INTACT AND PATENT . DRAINING URIINE VIA GRAVITY. URINE OUTPUT NOTED 800 ML. IV ACCESS ON JOEL ML, NOT FLUSHING .NOTED PATIENT ON IV HYDRATION OF D10 AT GABRIELA MID LINE. ON GLUCERNA 1.2 AT 40 ML/ HR. PLACEMENT CHECKED. PATENT AND FLUSHING WELL. PRIOR SHIFT NOTED WITH EXCESS LEAKING OF THE G-TUBE FEEDING. CHARGE NURSE , AND PREVIOUS SHIFT NURSE AWARE OF THAT. CHANGED THE GTUBE DRESSING AND THE GTUBE IS NOT LEAKING AT THIS TIME. ALL DUE MEDS GIVEN ORDERED. ALL TREATMENTS DONE. HEAD OF BED ELEVATED FOR ASPIRATION PRECAUTION. ALL SAFETY MEASURES IN PLACE, BED IN LOWEST AND LOCKED POSITION, SIDE RAILS UP X3, CALL LIGHT WITHIN REACH, WILL ENDORSE FOR ROGERIO.
--- NOTE | 2023-03-16 07:20 | NUR ---
MANAGER DIVERSITY NOTES Received pt awake in bed AOX1 non verbal and unable to follow command. No signs of pain or discomfort at this time. Pt is on NC 2L and tolerating it well. IV access on GABRIELA midline patent and intact running D10 at 75cc/hr. GT is patent and intact with GTF Glucerna @ 40 cc/hr.. HOB elevated to 30-45 degrees. Siderails up at all times x3. Call light within reach. Will continue to monitor.
[2023-03-16 08:00] VITALS: BP 151/93
[2023-03-16 08:46] LABS: CALCIUM, SERUM 9.6 mg/dL (8.5-10.1); CREATININE 1.5 mg/dL (0.6-1.3)
[2023-03-16] MEDS: LEVOTHYROXINE SODIUM 100 MCG TABLET GT SCH (08:48)
[2023-03-16] MEDS: FOLIC ACID 1 MG TABLET GT SCH (08:48)
[2023-03-16] MEDS: ARIPIPRAZOLE 5 MG TABLET GT SCH (08:48)
[2023-03-16] MEDS: HYDROGEL DRESSING 90 GM TUBE TP SCH (08:49)
[2023-03-16] MEDS: DAKINS QUARTER STRENGTH (0.125%) 480 ML BOTTLE TOP SCH (08:49)
[2023-03-16] MEDS: THERAHONEY GEL 1.5 OZ TUBE TP SCH (08:49)
[2023-03-16] MEDS: PANTOPRAZOLE 40 MG VIAL IV SCH ×2 (08:50→16:32)
[2023-03-16] MEDS: PROSOURCE / PROSTAT (PYXIS) 30 ML UDC GT SCH ×3 (08:56→16:29)
--- NOTE | 2023-03-16 09:10 | NUR ---
RADIO DIRECTOR NOTES Gastric residual checked and was 220cc. Gtube feeding turned off and BS was checked and was 86. Dr. Moulton made aware awaiting reply.
--- NOTE | 2023-03-16 09:37 | NUR ---
SECOND GRADE TEACHER NOTES Dr. Moulton responded and said to keep the feeding off for 2 hours and then restart at a lower rate 20cc/hr.
[2023-03-16 11:22] LABS: BASOPHILS # (AUTO) 0.1 K/uL (0.0-0.2); BASOPHILS % (AUTO) 0.5 % (0.0-2.0); EOSINOPHILS % (AUTO) 0.6 % (0.0-6.0); HEMATOCRIT 23 % (33-45); HEMOGLOBIN 7.2 g/dL (11.5-14.8); LYMPHOCYTES # (AUTO) 2.1 K/uL (0.8-4.8); LYMPHOCYTES % (AUTO) 11.3 % (20.0-44.0); MEAN CORPUSCULAR HGB CONC 31 g/dl (31.0-36.0); MEAN CORPUSCULAR VOLUME 87 fL (82-100); MONOCYTES # (AUTO) 1.2 K/uL (0.1-1.30); MONOCYTES % (AUTO) 6.5 % (2.0-12.0); NEUTROPHILS # (AUTO) 15.3 K/uL (1.8-8.9); NEUTROPHILS % (AUTO) 81.1 % (43.0-81.0); PLATELET COUNT (AUTO) 803 K/uL (150-450); RED BLOOD CELL COUNT(AUTO) 2.66 MIL/uL (4.0-5.2); WHITE BLOOD COUNT (AUTO) 18.9 K/uL (4.3-11.0)
--- NOTE | 2023-03-16 11:23 | NUR ---
CHRONOMETER TESTER NOTES Gastric residual checked and was 50cc. GTF resumed at the rate of 20cc/hr as ordered. Bs checked and was 89. CN made aware.
[2023-03-16 12:00] VITALS: BP 125/67
[2023-03-16] MEDS: DAPTOMYCIN 500 MG in IV NS 0.9% 50 ML IV SCH (12:26)
[2023-03-16] MEDS: IV 10% DEXTROSE 1,000 ML IV SCH (13:07)
[2023-03-16 16:00] VITALS: BP 121/78
--- NOTE | 2023-03-16 18:34 | NUR ---
SR. STRATEGIC SOURCING MANAGER CLOSING NOTES All due meds and tx given as ordered. Pt tolerated everything well. All needs attended to. Pt is still on 2L NC and tolerating it well. IV access on GABRIELA midline is patent and intact running D10 @ 75cc/hr as ordered. No gastric residual noted. GT is patent and intact running Glucerna @ 20cc/hr as ordered. HOB elevated to 30-45 degrees. Call light within reach. Will endorse to oncoming nurse.
--- NOTE | 2023-03-16 19:30 | NUR ---
CANCER SPEC OPENING NOTE RECEIVED PATIENT IN BED AWAKE. PT ALERT AND ORIENTED X1, VERBALLY RESPONSIVE, ON 02 VIA NASAL CANNULA AT 2L/MIN. NO SOB OR DISCOMFORT NOTED. ON TELE MONITOR READING ST113. PT ON BILATERAL SOFT WRIST RESTRAINS, WITH GOOD CIRCULATION. PT HAS RIGHT UA MIDLINE, INTACT, AND PATENT, INFUSING D10 AT 75 ML/HR. ON GLUCERNA 1.2 AT 20 ML/ HR. PLACEMENT CHECKED. PATENT AND FLUSHING WELL. HEAD OF BED ELEVATED FOR ASPIRATION PRECAUTION. ALL SAFETY MEASURES IN PLACE: BED IN LOWEST AND LOCKED POSITION, SIDE RAILS UP X3, CALL LIGHT WITHIN REACH. WILL CONTINUE TO MONITOR CLOSELY.
[2023-03-16 20:00] VITALS: BP 116/61
[2023-03-16] MEDS: TOBRAMYCIN 80 MG in IV D5W 50 ML IV SCH (21:33)
[2023-03-17] VITALS: BP 111/64
[2023-03-17] MEDS: METOPROLOL TARTRATE 25 MG TABLET GT SCH ×3 (00:30→16:02)
[2023-03-17] MEDS: IPRATROPIUM NEB FS 0.5 MG/2.5 ML AMPUL.NEB NEB SCH ×4 (01:18→20:30)
[2023-03-17] MEDS: ALBUTEROL FS 2.5 MG/0.5 ML VIAL.NEB NEB SCH ×4 (01:18→20:30)
[2023-03-17] MEDS: MEROPENEM 1 G in IV NS 0.9% 100 ML IV SCH ×2 (03:40→14:47)
[2023-03-17] MEDS: IV 10% DEXTROSE 1,000 ML IV SCH (05:11)
[2023-03-17] MEDS: METOCLOPRAMIDE HCL 10 MG/2 ML VIAL IV SCH ×3 (05:13→20:58)
[2023-03-17] MEDS: BLOOD SUGAR DIAGNOSTIC 1 EACH STRIP IN SCH ×5 (05:25→23:58)
[2023-03-17] MEDS: INSULIN REGULAR, HUMAN 100 UNIT/ML 3 ML VIAL SQ PRN ×2 (05:25→23:58)
--- NOTE | 2023-03-17 06:40 | NUR ---
[employer]SI[employer] SUPERINTENDENT CLOSING NOTE LEFT PATIENT IN BED, SLEEPING. PT ALERT AND ORIENTED X1, VERBALLY RESPONSIVE, ON 02 VIA NASAL CANNULA AT 2L/MIN. NO SOB OR DISCOMFORT NOTED. ON TELE MONITOR READING ST113. PT ON BILATERAL SOFT WRIST RESTRAINS, WITH GOOD CIRCULATION. PT HAS RIGHT UA MIDLINE, INTACT, AND PATENT, INFUSING D10 AT 75 ML/HR. ON GLUCERNA 1.2 AT 20 ML/ HR. PLACEMENT CHECKED. PATENT AND FLUSHING WELL. HEAD OF BED ELEVATED FOR ASPIRATION PRECAUTION. WOUND CARE DONE. ALL SAFETY MEASURES IN PLACE: BED IN LOWEST AND LOCKED POSITION, SIDE RAILS UP X3, CALL LIGHT WITHIN REACH. WILL ENDORSE PT TO AM SHIFT NURSE FOR ROGERIO.
--- NOTE | 2023-03-17 07:15 | NUR ---
LANDSCAPE ARCHITECT NOTES Received pt awake in bed AOX1 non verbal and unable to follow command. No signs of pain or discomfort at this time. Pt is on NC 2L and tolerating it well. IV access on GABRIELA midline patent and intact running D10 at 75cc/hr. GT is patent and intact with GTF Glucerna @ 40 cc/hr. HOB elevated to 30-45 degrees. Siderails up at all times x3. Call light within reach. Will continue to monitor.
[2023-03-17 07:22] LABS: CALCIUM, SERUM 9.5 mg/dL (8.5-10.1); CREATININE 1.4 mg/dL (0.6-1.3); POTASSIUM 4.2 mmol/L (3.5-5.1)
[2023-03-17 07:59] VITALS: BP 111/82
[2023-03-17 08:00] VITALS: BP 102/67
[2023-03-17] MEDS: FOLIC ACID 1 MG TABLET GT SCH (08:51)
[2023-03-17] MEDS: LEVOTHYROXINE SODIUM 100 MCG TABLET GT SCH (08:51)
[2023-03-17] MEDS: ARIPIPRAZOLE 5 MG TABLET GT SCH (08:51)
[2023-03-17] MEDS: PANTOPRAZOLE 40 MG VIAL IV SCH ×2 (08:54→16:16)
[2023-03-17] MEDS: DAKINS QUARTER STRENGTH (0.125%) 480 ML BOTTLE TOP SCH (09:09)
[2023-03-17] MEDS: PROSOURCE / PROSTAT (PYXIS) 30 ML UDC GT SCH ×3 (09:09→16:18)
[2023-03-17] MEDS: HYDROGEL DRESSING 90 GM TUBE TP SCH (09:09)
[2023-03-17] MEDS: THERAHONEY GEL 1.5 OZ TUBE TP SCH (09:09)
[2023-03-17] MEDS: SODIUM CHLORIDE 1000 MG TABLET PO SCH ×2 (09:43→16:18)
[2023-03-17 10:47] LABS: ALBUMIN 0.8 g/dL (3.4-5.0); BILIRUBIN,DIRECT 0.1 mg/dL (0.0-0.2); BILIRUBIN,TOTAL 0.3 mg/dL (0.2-1.0); TOTAL PROTEIN, SERUM 5.7 g/dL (6.4-8.2)
[2023-03-17] MEDS: IV D5/ 0.9% NACL 1,000 ML IV PRN (10:57)
[2023-03-17 12:00] VITALS: BP 101/47
[2023-03-17] MEDS: DAPTOMYCIN 500 MG in IV NS 0.9% 50 ML IV SCH (12:08)
[2023-03-17 16:00] VITALS: BP 102/57
--- NOTE | 2023-03-17 18:29 | NUR ---
[facility] [employer] CLOSING NOTES All due meds and tx given as ordered. Pt tolerated everything well. All needs attended to. Pt is on 2L NC and tolerating it well. IV access on GABRIELA midline is patent and intact running D5NS @ 75cc/hr as ordered. No gastric residual noted. GT is patent and intact running Glucerna @ 20cc/h. HOB elevated to 30-45 degrees. Call light within reach. Will endorse to oncoming nurse.
[2023-03-17 20:00] VITALS: BP 104/58
[2023-03-17] MEDS: TOBRAMYCIN 80 MG in IV D5W 50 ML IV SCH (20:59)
[2023-03-17] MEDS: DEXTROSE 50%-WATER 50 ML DISP.SYRIN IV PRN (23:58)
[2023-03-18] VITALS (12 sets, daily range): BP systolic 98–143; BP diastolic 53–74
[2023-03-18] MEDS: METOPROLOL TARTRATE 25 MG TABLET GT SCH ×3 (00:30→15:42)
[2023-03-18] MEDS: ALBUTEROL FS 2.5 MG/0.5 ML VIAL.NEB NEB SCH ×4 (02:17→20:08)
[2023-03-18] MEDS: IPRATROPIUM NEB FS 0.5 MG/2.5 ML AMPUL.NEB NEB SCH ×4 (02:17→20:08)
[2023-03-18] MEDS: MEROPENEM 1 G in IV NS 0.9% 100 ML IV SCH ×2 (03:21→15:14)
[2023-03-18] MEDS: METOCLOPRAMIDE HCL 10 MG/2 ML VIAL IV SCH ×3 (05:25→21:01)
[2023-03-18] MEDS: BLOOD SUGAR DIAGNOSTIC 1 EACH STRIP IN SCH ×4 (05:30→23:57)
[2023-03-18] MEDS: INSULIN REGULAR, HUMAN 100 UNIT/ML 3 ML VIAL SQ PRN ×2 (06:08→23:57)
--- NOTE | 2023-03-18 06:34 | NUR ---
END OF SHIFT, Patient in bed, a/ox , on 2L NC and tolerating it well, NSR/ST in tele monitor, nocturnal bipap at night, GABRIELA midline dislodge, unable to insert an IV, order for midline, blood sugar this morning 72, but episode of hypoglycemia at 58, dextro 50% administer as ordered, no gastric residual noted, GT is patent and intact running Glucerna at 20cc/hr, tolerated well, HOB elevated to 30 degrees, on bilateral soft wrist restrains, no abnormality or circulation compromised, rest of vital sings stable, call light within reach, will endorse to oncoming nurse.
[2023-03-18 07:25] LABS: BASOPHILS # (AUTO) 0.2 K/uL (0.0-0.2); BASOPHILS % (AUTO) 1.1 % (0.0-2.0); EOSINOPHILS % (AUTO) 0.9 % (0.0-6.0); HEMATOCRIT 22 % (33-45); LYMPHOCYTES # (AUTO) 1.6 K/uL (0.8-4.8); LYMPHOCYTES % (AUTO) 10.6 % (20.0-44.0); MEAN CORPUSCULAR HGB CONC 31 g/dl (31.0-36.0); MEAN CORPUSCULAR VOLUME 87 fL (82-100); MONOCYTES # (AUTO) 0.8 K/uL (0.1-1.30); MONOCYTES % (AUTO) 5.6 % (2.0-12.0); NEUTROPHILS # (AUTO) 12.2 K/uL (1.8-8.9); NEUTROPHILS % (AUTO) 81.8 % (43.0-81.0); PLATELET COUNT (AUTO) 753 K/uL (150-450); RED BLOOD CELL COUNT(AUTO) 2.54 MIL/uL (4.0-5.2); WHITE BLOOD COUNT (AUTO) 14.9 K/uL (4.3-11.0)
[2023-03-18 07:46] LABS: HEMOGLOBIN 6.9 g/dL (11.5-14.8)
[2023-03-18 07:47] LABS: CALCIUM, SERUM 9.6 mg/dL (8.5-10.1); CREATININE 1.2 mg/dL (0.6-1.3); POTASSIUM 4.3 mmol/L (3.5-5.1)
--- NOTE | 2023-03-18 07:51 | NUR ---
DRAMA DIRECTOR NOTES Lab called to report critical lab value of HGB 6.9. Dr Moulton made aware awaiting call back.
--- NOTE | 2023-03-18 07:52 | NUR ---
JAY JAY NOTES Received pt awake in bed AOX1 non verbal and unable to follow command. No signs of pain or discomfort at this time. Pt is on NC 2L and tolerating it well. PT midline dislodged awaiting placementl. GT is patent and intact with GTF Glucerna @ 40 cc/hr. HOB elevated to 30-45 degrees. Siderails up at all times x3. Call light within reach. Will continue to monitor. Addendum: 03/18/23 at 0753 by JESSICA DELGADO LVN GT is patent and intact with GTF Glucerna @ 20cc/hr.
[2023-03-18] MEDS: IV D5/ 0.9% NACL 1,000 ML IV PRN (07:56)
--- NOTE | 2023-03-18 08:33 | NUR ---
ACQUISITION COST ESTIMATOR NOTES Dr. Moulton at bedside and said to transfuse 1 unit PRBC. Cn aware.
[2023-03-18] MEDS: PANTOPRAZOLE 40 MG VIAL IV SCH ×2 (08:56→16:07)
[2023-03-18] MEDS: ARIPIPRAZOLE 5 MG TABLET GT SCH (08:56)
[2023-03-18] MEDS: SODIUM CHLORIDE 1000 MG TABLET PO SCH ×2 (08:56→16:09)
[2023-03-18] MEDS: LEVOTHYROXINE SODIUM 100 MCG TABLET GT SCH (08:57)
[2023-03-18] MEDS: FOLIC ACID 1 MG TABLET GT SCH (08:58)
[2023-03-18] MEDS: DAKINS QUARTER STRENGTH (0.125%) 480 ML BOTTLE TOP SCH (08:59)
[2023-03-18] MEDS: PROSOURCE / PROSTAT (PYXIS) 30 ML UDC GT SCH ×3 (08:59→16:09)
[2023-03-18] MEDS: HYDROGEL DRESSING 90 GM TUBE TP SCH (08:59)
[2023-03-18] MEDS: THERAHONEY GEL 1.5 OZ TUBE TP SCH (08:59)
[2023-03-18] MEDS: DAPTOMYCIN 500 MG in IV NS 0.9% 50 ML IV SCH (12:07)
[2023-03-18] MEDS: ACETAMINOPHEN 650 MG/20.3 ML UDC GT PRN (14:07)
[2023-03-18 15:33] LABS: BAND % (MANUAL) 1 % (0.0-5.0); LYMPHOCYTES % (MANUAL) 5 % (16-48); MONOCYTES % (MANUAL) 6 % (0-11.0); NEUTROPHILS % (MANUAL) 88 (42-76)
[2023-03-18] MEDS: GLUCERNA 1.2 1,000 ML BOTTLE PEG SCH (17:19)
--- NOTE | 2023-03-18 18:34 | NUR ---
TRESTLE BUILDER CLOSING NOTES All due meds and tx given as ordered. Pt tolerated everything well. All needs attended to. Pt is on 2L NC and tolerating it well. IV access on GABRIELA 20G is patent and intact running D5NS @ 75cc/hr as ordered. No gastric residual noted. GT is patent and intact running Glucerna @ 20cc/h. HOB elevated to 30-45 degrees. Call light within reach. Currently on a blood transfusion and tolerating it well. Will endorse to oncoming nurse.
--- NOTE | 2023-03-18 19:30 | NUR ---
RECEIVED PATIENT AT 1915, WITH BLOOD TRANSFUSION ONGOING, VITAL SINGS STABLE, AFEBRILE, NO S/S OF [place] ALLERGIC REACTION, WILL CONTINUE TO MONITOR CLOSELY,
--- NOTE | 2023-03-18 20:54 | NUR ---
Done with blood transfusion, no s/s of any allergic reaction, vital signs stable, afebrile, tolerated well, will continue to monitor closely.
[2023-03-18] MEDS: TOBRAMYCIN 80 MG in IV D5W 50 ML IV SCH (21:02)
[2023-03-19] VITALS (9 sets, daily range): BP systolic 91–129; BP diastolic 60–79
[2023-03-19] MEDS: METOPROLOL TARTRATE 25 MG TABLET GT SCH ×3 (00:30→16:30)
[2023-03-19] MEDS: ALBUTEROL FS 2.5 MG/0.5 ML VIAL.NEB NEB SCH ×4 (02:07→19:55)
[2023-03-19] MEDS: IPRATROPIUM NEB FS 0.5 MG/2.5 ML AMPUL.NEB NEB SCH ×4 (02:07→19:55)
[2023-03-19] MEDS: IV D5/ 0.9% NACL 1,000 ML IV PRN ×2 (02:23→21:16)
[2023-03-19] MEDS: MEROPENEM 1 G in IV NS 0.9% 100 ML IV SCH ×2 (03:25→15:32)
[2023-03-19] MEDS: METOCLOPRAMIDE HCL 10 MG/2 ML VIAL IV SCH ×3 (05:12→21:12)
[2023-03-19] MEDS: BLOOD SUGAR DIAGNOSTIC 1 EACH STRIP IN SCH ×3 (05:20→18:17)
[2023-03-19] MEDS: DEXTROSE 50%-WATER 50 ML DISP.SYRIN IV PRN (05:21)
[2023-03-19] MEDS: INSULIN REGULAR, HUMAN 100 UNIT/ML 3 ML VIAL SQ PRN ×3 (05:38→19:08)
--- NOTE | 2023-03-19 06:35 | NUR ---
END OF SHIFT, Patient in bed, a/o self, on 2L NC and tolerating it well, ST in tele monitor 100-110S, used nocturnal bipap at night, GABRIELA iv line patent and intact, blood sugar this morning 53, dextro 50% administer as ordered, 95 after reassessment, no gastric residual noted, GT patent and intact, infusing Glucerna at 20cc/hr, tolerated well, HOB elevated to 30 degrees, on bilateral soft wrist restrains, no abnormality or circulation compromised, rest of vital sings stable, s/p transfusion of PRBC last night, labs this morning, all light within reach, will endorse to oncoming nurse.
[2023-03-19 07:17] LABS: BASOPHILS # (AUTO) 0.1 K/uL (0.0-0.2); BASOPHILS % (AUTO) 0.7 % (0.0-2.0); EOSINOPHILS % (AUTO) 1.1 % (0.0-6.0); HEMATOCRIT 23 % (33-45); HEMOGLOBIN 7.3 g/dL (11.5-14.8); LYMPHOCYTES # (AUTO) 1.3 K/uL (0.8-4.8); LYMPHOCYTES % (AUTO) 9.2 % (20.0-44.0); MEAN CORPUSCULAR HGB CONC 32 g/dl (31.0-36.0); MEAN CORPUSCULAR VOLUME 83 fL (82-100); MONOCYTES # (AUTO) 0.9 K/uL (0.1-1.30); MONOCYTES % (AUTO) 6.6 % (2.0-12.0); NEUTROPHILS # (AUTO) 11.5 K/uL (1.8-8.9); NEUTROPHILS % (AUTO) 82.4 % (43.0-81.0); PLATELET COUNT (AUTO) 750 K/uL (150-450); RED BLOOD CELL COUNT(AUTO) 2.72 MIL/uL (4.0-5.2)
[2023-03-19 07:25] LABS: CALCIUM, SERUM 9.3 mg/dL (8.5-10.1); CREATININE 1.1 mg/dL (0.6-1.3); POTASSIUM 3.7 mmol/L (3.5-5.1)
[2023-03-19] MEDS: DAKINS QUARTER STRENGTH (0.125%) 480 ML BOTTLE TOP SCH (09:00)
[2023-03-19] MEDS: HYDROGEL DRESSING 90 GM TUBE TP SCH (09:33)
[2023-03-19] MEDS: THERAHONEY GEL 1.5 OZ TUBE TP SCH (09:33)
[2023-03-19] MEDS: PANTOPRAZOLE 40 MG VIAL IV SCH ×2 (10:27→18:23)
[2023-03-19] MEDS: PROSOURCE / PROSTAT (PYXIS) 30 ML UDC GT SCH ×3 (10:27→18:21)
[2023-03-19] MEDS: FOLIC ACID 1 MG TABLET GT SCH (10:28)
[2023-03-19] MEDS: ARIPIPRAZOLE 5 MG TABLET GT SCH (10:28)
[2023-03-19] MEDS: LEVOTHYROXINE SODIUM 100 MCG TABLET GT SCH (10:28)
[2023-03-19] MEDS: SODIUM CHLORIDE 1000 MG TABLET PO SCH ×2 (10:29→18:23)
[2023-03-19] MEDS: DAPTOMYCIN 500 MG in IV NS 0.9% 50 ML IV SCH (12:36)
[2023-03-19] MEDS: ACETAMINOPHEN 650 MG/20.3 ML UDC GT PRN ×2 (17:28→21:12)
--- NOTE | 2023-03-19 19:09 | NUR ---
SUPERVISOR FERTILIZER CLOSING NOTE PATIENT IN BED, SLEEPING. PT ALERT AND ORIENTED X1, VERBALLY RESPONSIVE, ON 02 VIA NASAL CANNULA AT 2L/MIN. NO SOB OR DISCOMFORT NOTED. ON TELE MONITOR READING ST 118. PT ON BILATERAL SOFT WRIST RESTRAINS, WITH GOOD CIRCULATION. IV ACCESS RIGHT UA 20g, INTACT, AND PATENT, INFUSING RBC AT 100CC/HR. ON GLUCERNA 1.2 AT 30 ML/ HR. PLACEMENT CHECKED. PATENT AND FLUSHING WELL. HEAD OF BED ELEVATED FOR ASPIRATION PRECAUTION. WOUND CARE DONE. ALL SAFETY MEASURES IN PLACE: BED IN LOWEST AND LOCKED POSITION, SIDE RAILS UP X3, CALL LIGHT WITHIN REACH. WILL ENDORSE PT TO PM SHIFT NURSE FOR ROGERIO.
--- NOTE | 2023-03-19 20:23 | NUR ---
RN NOTE PRBC TRANSFUSION COMPLETED AT THIS TIME. TOLERATED WELL OVERALL; NOTED TO HAVE TEMP OF 99.3. WILL ADMINISTER TYLENOL AND PROVIDE ADDITIONAL COOLING MEASURES.
--- NOTE | 2023-03-19 21:13 | NUR ---
RN NOTE PT NOTED TO HAVE TEMPERATURE OF 99.3. PT ADMINISTERED TYLENOL 650 MG. ADDITIONAL COOLING MEASURES IN PLACE. WILL RE-CHECK TEMP
--- NOTE | 2023-03-19 21:45 | NUR ---
VOLTAGE INSPECTOR OPENING NOTE PT RECEIVED IN BED, AWAKE, ALERT, BUT UNABLE TO ANSWER QUESTIONS, UNABLE TO FOLLOW SIMPLE COMMANDS, RESTLESS. PT ON 2L NC WITH CURRENT O2SAT OF 100%; NO S/S OF RESP DISTRESS, NO SOB, NON-LABORED AND EQUAL BREATHING. PT ATTACHED TO EXTERNAL MONITOR, SR WITH HR OF 65. THOMAS INTACT AND PATENT, DRAINING CLOUDY AND YELLOW URINE. GT GLUCERNA RUNNING AT 40 ML/HR WITH NO RESIDUALS NOTED. IV ACCESS ON GABRIELA 20G INTACT AND PATENT, D5NS INFUSING AT 75 ML/HR. BED IN LOWEST POSITION, CALL LIGHT WITHIN REACH, SIDE RAILS UP X3. WILL CONTINUE TO MONITOR THROUGHOUT THE NIGHT.
--- NOTE | 2023-03-19 22:16 | NUR ---
RN NOTE AWAITING TOBRAMYCIN TROUGH DRAWN AT 03/19 BEFORE ADMINISTERING TOBRAMYCIN SCHEDULED FOR 2099.
--- NOTE | 2023-03-19 23:22 | NUR ---
PT PLACED ON NOC BIPAP RN NOTIFIED.
[2023-03-20] VITALS: BP 134/88
[2023-03-20] MEDS: METOPROLOL TARTRATE 25 MG TABLET GT SCH ×3 (00:16→16:30)
[2023-03-20] MEDS: BLOOD SUGAR DIAGNOSTIC 1 EACH STRIP IN SCH ×4 (00:38→17:59)
[2023-03-20] MEDS: ALBUTEROL FS 2.5 MG/0.5 ML VIAL.NEB NEB SCH ×4 (01:24→19:20)
[2023-03-20] MEDS: IPRATROPIUM NEB FS 0.5 MG/2.5 ML AMPUL.NEB NEB SCH ×4 (01:24→19:20)
[2023-03-20] MEDS: TOBRAMYCIN 80 MG in IV D5W 50 ML IV SCH ×2 (01:47→21:11)
[2023-03-20] MEDS: GLUCERNA 1.2 1,000 ML BOTTLE PEG SCH (01:48)
[2023-03-20] MEDS: MEROPENEM 1 G in IV NS 0.9% 100 ML IV SCH ×2 (03:54→16:29)
[2023-03-20 04:00] VITALS: BP 127/97
[2023-03-20] MEDS: METOCLOPRAMIDE HCL 10 MG/2 ML VIAL IV SCH ×3 (06:11→21:11)
--- NOTE | 2023-03-20 07:29 | NUR ---
TECHNICAL SERVICES ANALYST CLOSING NOTES PT REMAINS IN BED, CALM WITH PERIODS OF RESTLESSNESS. PT STABLE AND WAS UNEVENTFUL OVERNIGHT. FEVER CONTROLLED WITH TYLENOL AND COOLING MEASURES. ALL DUE MEDS ADMINISTERED DURING THE NIGHT. ROGERIO ENDORSED TO DAYSHIFT NURSE.
[2023-03-20 08:00] VITALS: BP 133/64
[2023-03-20] MEDS ORDERED: LIDOCAINE 1%-EPI 1:100,000 50 ML VIAL IJ ONE (08:00)
[2023-03-20] MEDS ORDERED: SILVER NITRATE APPLICATOR 1 EA BOX TP SCH (08:00)
[2023-03-20] MEDS: THERAHONEY GEL 1.5 OZ TUBE TP SCH (09:00)
[2023-03-20] MEDS: DAKINS QUARTER STRENGTH (0.125%) 480 ML BOTTLE TOP SCH (09:00)
[2023-03-20] MEDS: HYDROGEL DRESSING 90 GM TUBE TP SCH (09:00)
[2023-03-20 09:21] LABS: CALCIUM, SERUM 9.9 mg/dL (8.5-10.1); CREATININE 1.1 mg/dL (0.6-1.3); POTASSIUM 3.7 mmol/L (3.5-5.1)
[2023-03-20] MEDS: PROSOURCE / PROSTAT (PYXIS) 30 ML UDC GT SCH ×3 (10:27→17:59)
[2023-03-20] MEDS: SODIUM CHLORIDE 1000 MG TABLET PO SCH ×2 (10:28→18:02)
[2023-03-20] MEDS: FOLIC ACID 1 MG TABLET GT SCH (10:28)
[2023-03-20] MEDS: PANTOPRAZOLE 40 MG VIAL IV SCH ×2 (10:28→18:02)
[2023-03-20] MEDS: ARIPIPRAZOLE 5 MG TABLET GT SCH (10:28)
[2023-03-20] MEDS: LEVOTHYROXINE SODIUM 100 MCG TABLET GT SCH (10:29)
[2023-03-20 12:00] VITALS: BP 134/70
[2023-03-20] MEDS: MORPHINE SULFATE INJ 2 MG/ML DISP.SYRIN IV PRN (13:47)
[2023-03-20 14:34] LABS: BASOPHILS # (AUTO) 0.1 K/uL (0.0-0.2); BASOPHILS % (AUTO) 0.8 % (0.0-2.0); EOSINOPHILS % (AUTO) 0.8 % (0.0-6.0); HEMATOCRIT 30 % (33-45); HEMOGLOBIN 9.4 g/dL (11.5-14.8); LYMPHOCYTES # (AUTO) 1.1 K/uL (0.8-4.8); LYMPHOCYTES % (AUTO) 6.9 % (20.0-44.0); MEAN CORPUSCULAR HGB CONC 32 g/dl (31.0-36.0); MEAN CORPUSCULAR VOLUME 85 fL (82-100); MONOCYTES # (AUTO) 0.9 K/uL (0.1-1.30); MONOCYTES % (AUTO) 5.8 % (2.0-12.0); NEUTROPHILS # (AUTO) 13.1 K/uL (1.8-8.9); NEUTROPHILS % (AUTO) 85.7 % (43.0-81.0); PLATELET COUNT (AUTO) 731 K/uL (150-450); RED BLOOD CELL COUNT(AUTO) 3.49 MIL/uL (4.0-5.2); WHITE BLOOD COUNT (AUTO) 15.3 K/uL (4.3-11.0)
[2023-03-20 16:00] VITALS: BP 108/56
[2023-03-20] MEDS: IV D5/ 0.9% NACL 1,000 ML IV PRN (16:19)
--- NOTE | 2023-03-20 19:05 | NUR ---
LEAD PERSON CLOSING NOTE PATIENT IN BED, SLEEPING. PT ALERT AND ORIENTED X1, VERBALLY RESPONSIVE, ON 02 VIA NASAL CANNULA AT 2L/MIN. NO SOB OR DISCOMFORT NOTED. ON TELE MONITOR READING ST 110. PT ON BILATERAL SOFT WRIST RESTRAINS, WITH GOOD CIRCULATION. IV ACCESS RIGHT UA 20g, INTACT, AND PATENT, INFUSING D5NS @ 75MLS/HR. ON GLUCERNA 1.2 AT 50 ML/ HR. PLACEMENT CHECKED. PATENT AND FLUSHING WELL. HEAD OF BED ELEVATED FOR ASPIRATION PRECAUTION. WOUND DEBRIDEMENT PERFORMED. ALL SAFETY MEASURES IN PLACE: BED IN LOWEST AND LOCKED POSITION, SIDE RAILS UP X3, CALL LIGHT WITHIN REACH. WILL ENDORSE PT TO PM SHIFT NURSE FOR ROGERIO.
--- NOTE | 2023-03-20 19:54 | NUR ---
COUNTERSINKER OPENING NOTES: RECEIVED PATIENT SLEEP IN BED COMFORTABLY, AROUSABLE TO VERBAL STIMULI, BED IN LOW POSITION, CALL LIGHTS WITHIN REACH, NO COMPLAIN OF PAIN AND DISCOMFORT AT THIS TIME, NO FACIAL GRIMACING WAS OBSERVED, ON O2 INHALATION AT 2LPM SATURATING WELL, NO SOB WAS OBSERVED, ON G TUBE FEEDING OF GLUCERNA 1.2@50ML/HR INFUSING WELL, PATIENT IS ON BILATERAL SOFT WRIST RESTRAINT, ON THOMAS CATHETER-50CC URINE OUTPUT, IV LINE AT GABRIELA #20 WITH ONGOING D5 1/2 NSS@75ML/HR INFUSING WELL, PATIENT IS S/P DEBRIDEMENT TODAY, KEPT CLEAN AND DRY ALL NEEDS MET WILL CONTINUE TO MONITOR.
[2023-03-20 20:00] VITALS: BP 132/76
--- NOTE | 2023-03-20 20:00 | NUR ---
RN NOTES: RECEIVED PATIENT WITH INFILTRATED IV SITE, WITH REDNESS AROUND THE AREA, REMOVED IV LINE, AND REPLACE WITHI NEW ONE AT LEFT HAND#20 SATURATIG WELL, WILL CONTINUE TO MONITOR,
[2023-03-21] VITALS: BP 133/80
--- NOTE | 2023-03-21 00:29 | NUR ---
RN NOTES: BLOOD SUGAR-97/ NO INSULIN GIVEN PER SLIDING SCALE,
[2023-03-21] MEDS: METOPROLOL TARTRATE 25 MG TABLET GT SCH ×3 (01:27→18:24)
[2023-03-21] MEDS: ALBUTEROL FS 2.5 MG/0.5 ML VIAL.NEB NEB SCH ×4 (01:43→19:29)
[2023-03-21] MEDS: IPRATROPIUM NEB FS 0.5 MG/2.5 ML AMPUL.NEB NEB SCH ×4 (01:43→19:29)
[2023-03-21] MEDS: GLUCERNA 1.2 1,000 ML BOTTLE PEG SCH (03:08)
[2023-03-21] MEDS: MEROPENEM 1 G in IV NS 0.9% 100 ML IV SCH ×2 (03:08→14:36)
[2023-03-21 04:00] VITALS: BP 139/93
[2023-03-21] MEDS: METOCLOPRAMIDE HCL 10 MG/2 ML VIAL IV SCH ×3 (05:31→20:25)
[2023-03-21] MEDS: BLOOD SUGAR DIAGNOSTIC 1 EACH STRIP IN SCH ×4 (06:00→18:38)
--- NOTE | 2023-03-21 06:00 | NUR ---
RN NOTES: BLOOD SUGAR-92/ NO INSULIN GIVEN PER SLIDING SCALE.
--- NOTE | 2023-03-21 06:25 | NUR ---
VENDING MACHINE FILLER CLOSING NOTES; PATIENT AWAKE IN BED, BED IN LOW POSITION, CALL LIGHTS WITHIN REACH, NO COMPLAIN OF PAIN AND DISCOMFORT AT THIS TIME, ON NOCTURNAL BIPAP SATURATING WELL, PATIENT IS A/O X 0-1 ABLE , ON G TUBE FEEDING OF GLUCERNA 1.2@50CC/HR, ON FOLYE CATHETER-350CC OUT, ON BILATERAL SOFT WRIST RESTRAINT, ON TELE MONITOR- SR-98, HOB REMAINS UPRIGHT, IV LINE AT JOEL ML-WITH ONGOING D5NS@75ML/HR INFUSING WELL, PATIENT KEPT CLEAN AND DRY ALL NEEDS MET ENDORSE TO INCOMING SHIFT.
--- NOTE | 2023-03-21 07:13 | NUR ---
CERAMIC COATER MACHINE OPENING NOTE RECEIVED PATIENT IN BED, AWAKE, ALERT AND ORIENTED X1, VERBALLY RESPONSIVE, ON 02 VIA NASAL CANNULA AT 2L/MIN. NO SOB OR DISCOMFORT NOTED. ON TELE MONITOR READING SR 98 AT THIS TIME TIME. PT ON BILATERAL SOFT WRIST RESTRAINS, WITH GOOD CIRCULATION. IV ACCESS LEFT UPPER ARM MIDLINE, INTACT, AND PATENT. ON GLUCERNA 1.2 AT 30 ML/ HR. NO RESDIUAL VOLUME NOTED AT THIS TIME. HEAD OF BED ELEVATED FOR ASPIRATION PRECAUTION. ALL SAFETY MEASURES IN PLACE: BED IN LOWEST AND LOCKED POSITION, SIDE RAILS UP X3, CALL LIGHT WITHIN REACH. BED ALARM ON
[2023-03-21 08:00] VITALS: BP 126/70
[2023-03-21] MEDS: SODIUM CHLORIDE 1000 MG TABLET PO SCH ×2 (09:25→18:25)
[2023-03-21] MEDS: ARIPIPRAZOLE 5 MG TABLET GT SCH (09:25)
[2023-03-21] MEDS: LEVOTHYROXINE SODIUM 100 MCG TABLET GT SCH (09:25)
[2023-03-21] MEDS: FOLIC ACID 1 MG TABLET GT SCH (09:25)
[2023-03-21] MEDS: PROSOURCE / PROSTAT (PYXIS) 30 ML UDC GT SCH ×3 (09:25→17:00)
[2023-03-21] MEDS: PANTOPRAZOLE 40 MG VIAL IV SCH ×2 (09:25→18:24)
[2023-03-21] MEDS: THERAHONEY GEL 1.5 OZ TUBE TP SCH (10:41)
[2023-03-21] MEDS: HYDROGEL DRESSING 90 GM TUBE TP SCH (10:41)
[2023-03-21] MEDS: DAKINS QUARTER STRENGTH (0.125%) 480 ML BOTTLE TOP SCH (10:41)
[2023-03-21] MEDS: IV D5/ 0.9% NACL 1,000 ML IV PRN (11:27)
[2023-03-21 12:00] VITALS: BP 113/63
[2023-03-21 12:39] LABS: CALCIUM, SERUM 9.8 mg/dL (8.5-10.1); CREATININE 1.1 mg/dL (0.6-1.3); POTASSIUM 3.7 mmol/L (3.5-5.1)
[2023-03-21 16:00] VITALS: BP 129/66
--- NOTE | 2023-03-21 19:30 | NUR ---
MS RN OPENING NOTE RECEIVED PT IN BED , AWAKE, A/O X 1, GARBLED SPEECH. CURRENTLY ON NC @ 2LPM, TOLERATING WELL, SATING @ 95%. NO S/SX OF ACUTE RESPI DISTRESS NOTED AT THIS TIME. NO SOB. BREATHING IS EVEN AND UNLABORED. IV ACCESS ON JOEL ML, PATENT, INTACT AND FLUSHING WELL. RUNNING D5 NS @ 50 ML/HR. PT WITH BILATERAL SOFT WRIST RESTRAINTS, NO SKIN AND CIRCULATION ISSUES NOTED AT THIS TIME. THOMAS CATHETER IN PLACE DRAINING YELLOW URINE BY GRAVITY. ALL SAFETY MEASURES IMPLEMENTED: BED ALARM ON. HEAD OF BED ELEVATED. BED LOCKED, IN LOWEST POSITION, SIDE RAILS UP X 3. CALL LIGHT WITHIN REACH. WILL CONTINUE TO MONITOR AND REASSESS FOR ANY CHANGES AND WILL CARRY OUT ANY ONGOING AND ACTIVE MD ORDER.
--- NOTE | 2023-03-21 19:55 | NUR ---
PAROLE AGENT CLOSING NOTE PATIENT IN BED, AWAKE, ALERT AND ORIENTED X1, VERBALLY RESPONSIVE, ON 02 VIA NASAL CANNULA AT 2L/MIN SATURATING ABOVE 93%. NO SOB OR DISCOMFORT NOTED. PT ON BILATERAL SOFT WRIST RESTRAINS, WITH GOOD CIRCULATION. IV ACCESS LEFT UPPER ARM MIDLINE, INTACT, AND PATENT. ON GLUCERNA 1.2 AT 50 ML/ HR. NO RESDIUAL VOLUME NOTED AT THIS TIME. HEAD OF BED ELEVATED FOR ASPIRATION PRECAUTION. ALL SAFETY MEASURES IN PLACE: BED IN LOWEST AND LOCKED POSITION, SIDE RAILS UP X3, CALL LIGHT WITHIN REACH. BED ALARM ON.ENDORSED TO POUCH MAKER RN FOR CONTUITY OF CARE
[2023-03-21 20:00] VITALS: BP 146/66
[2023-03-21] MEDS: TOBRAMYCIN 80 MG in IV D5W 50 ML IV SCH (20:25)
[2023-03-22] MEDS: BLOOD SUGAR DIAGNOSTIC 1 EACH STRIP IN SCH ×5 (00:23→23:47)
[2023-03-22] MEDS: INSULIN REGULAR, HUMAN 100 UNIT/ML 3 ML VIAL SQ PRN ×4 (00:24→23:47)
[2023-03-22] MEDS: METOPROLOL TARTRATE 25 MG TABLET GT SCH ×3 (00:26→16:38)
[2023-03-22] MEDS: IPRATROPIUM NEB FS 0.5 MG/2.5 ML AMPUL.NEB NEB SCH ×4 (01:00→20:07)
[2023-03-22] MEDS: ALBUTEROL FS 2.5 MG/0.5 ML VIAL.NEB NEB SCH ×4 (01:00→20:07)
[2023-03-22] MEDS: MEROPENEM 1 G in IV NS 0.9% 100 ML IV SCH ×2 (02:44→15:05)
[2023-03-22 04:00] VITALS: BP 127/60
[2023-03-22] MEDS: METOCLOPRAMIDE HCL 10 MG/2 ML VIAL IV SCH ×3 (04:38→21:23)
--- NOTE | 2023-03-22 06:22 | NUR ---
MS RN CLOSING NOTE NO SIGNIFICANT CHANGE T/O THE NIGHT. VS STABLE. ALL DUE MEDS GIVEN. NEEDS MET. KEPT PT CLEAN AND DRY. WOUND CARE DONE. WILL ENDORSE TO AM SHIFT NURSE FOR ROGERIO.
[2023-03-22] MEDS: GLUCERNA 1.2 1,000 ML BOTTLE PEG SCH (06:36)
--- NOTE | 2023-03-22 07:15 | NUR ---
MS RN OPENING NOTE RECEIVED PATIENT IN BED, AWAKE, ALERT AND ORIENTED X1, VERBALLY RESPONSIVE, ON 02 VIA NASAL CANNULA AT 2L/MIN. NO SOB OR DISCOMFORT NOTED. IV ACCESS LEFT UPPER ARM MIDLINE, INTACT, AND PATENT. ON GLUCERNA 1.2 AT 50 ML/ HR. HEAD OF BED ELEVATED FOR ASPIRATION PRECAUTION. ALL SAFETY MEASURES IN PLACE: BED IN LOWEST AND LOCKED POSITION, SIDE RAILS UP X3, CALL LIGHT WITHIN REACH. BED ALARM ON
[2023-03-22 07:22] LABS: CALCIUM, SERUM 9.7 mg/dL (8.5-10.1); CREATININE 1.1 mg/dL (0.6-1.3); POTASSIUM 3.5 mmol/L (3.5-5.1)
[2023-03-22] MEDS: LEVOTHYROXINE SODIUM 100 MCG TABLET GT SCH (09:48)
[2023-03-22] MEDS: PROSOURCE / PROSTAT (PYXIS) 30 ML UDC GT SCH ×3 (09:48→16:39)
[2023-03-22] MEDS: FOLIC ACID 1 MG TABLET GT SCH (09:48)
[2023-03-22] MEDS: PANTOPRAZOLE 40 MG VIAL IV SCH ×2 (09:48→16:37)
[2023-03-22] MEDS: SODIUM CHLORIDE 1000 MG TABLET PO SCH ×2 (09:48→16:37)
[2023-03-22] MEDS: HYDROGEL DRESSING 90 GM TUBE TP SCH (09:49)
[2023-03-22] MEDS: THERAHONEY GEL 1.5 OZ TUBE TP SCH (09:49)
[2023-03-22] MEDS: DAKINS QUARTER STRENGTH (0.125%) 480 ML BOTTLE TOP SCH (09:49)
[2023-03-22] MEDS: ARIPIPRAZOLE 5 MG TABLET GT SCH (09:51)
[2023-03-22 12:00] VITALS: BP 112/60
[2023-03-22] MEDS: ACETAMINOPHEN 650 MG/20.3 ML UDC GT PRN (12:34)
[2023-03-22] MEDS: IV D5/ 0.9% NACL 1,000 ML IV PRN (15:37)
--- NOTE | 2023-03-22 18:27 | NUR ---
NET TRAINER CLOSING NOTE PATIENT IN BED, AWAKE, ALERT AND ORIENTED X1, VERBALLY RESPONSIVE, ON 02 VIA NASAL CANNULA AT 2L/MIN SATURATING ABOVE 93%. NO SOB OR DISCOMFORT NOTED. PT ON BILATERAL SOFT WRIST RESTRAINS, WITH GOOD CIRCULATION. IV ACCESS LEFT UPPER ARM MIDLINE, INTACT, AND PATENT. ON GLUCERNA 1.2 AT 50 ML/ HR. RESDIUAL 30ML VOLUME NOTED AT THIS TIME. HEAD OF BED ELEVATED FOR ASPIRATION PRECAUTION. ALL SAFETY MEASURES IN PLACE: BED IN LOWEST AND LOCKED POSITION, SIDE RAILS UP X3, CALL LIGHT WITHIN REACH. BED ALARM ON.ENDORSED TO NEXT SHIFT RN FOR CONTUITY OF CARE
--- NOTE | 2023-03-22 19:20 | NUR ---
MS RN OPENING NOTES - RECEIVED PATIENT AWAKE, HOB IN SEMI-GIRON'S. A/O X1, CONFUSED. BREATHING EVEN AND NON-LABORED, ON O2 AT 2LPM VIA NASAL CANULA. NOT IN APPARENT DISTRESS. NO C/O PAIN OR DISCOMFORT AT THIS TIME. HAS LEFT UPPER ARM MIDLINE AND SALINE LOCKED; LEFT FOREARM IV ACCESS #22G WITH D5NS RUNNING AT 50 ML/HR. NO S/S OF INFILTRATION NOTED. HAS INDWELLING THOMAS CATHETER DRAINING CLOUDY DARK YELLOW URINE TO BAG BY GRAVITY. HAS PEG TUBE FEEDING OF GLUCERNA RUNNING AT 50 ML/HR. SAFETY PRECAUTIONS IN PLACE: BED LOCKED AND IN LOW POSITION, SIDE RAILS UP X3, BED ALARM ON, CALL LIGHT WITHIN REACH. WILL CONTINUE PLAN OF CARE.
[2023-03-22 20:00] VITALS: BP 139/100
[2023-03-22] MEDS: TOBRAMYCIN 80 MG in IV D5W 50 ML IV SCH (21:22)
[2023-03-23] MEDS: METOPROLOL TARTRATE 25 MG TABLET GT SCH ×3 (00:30→17:10)
[2023-03-23] MEDS: IPRATROPIUM NEB FS 0.5 MG/2.5 ML AMPUL.NEB NEB SCH ×4 (02:23→20:04)
[2023-03-23] MEDS: ALBUTEROL FS 2.5 MG/0.5 ML VIAL.NEB NEB SCH ×4 (02:23→20:04)
[2023-03-23] MEDS: MEROPENEM 1 G in IV NS 0.9% 100 ML IV SCH ×2 (03:17→15:17)
[2023-03-23 04:00] VITALS: BP 121/69
[2023-03-23] MEDS: METOCLOPRAMIDE HCL 10 MG/2 ML VIAL IV SCH ×3 (05:27→21:15)
[2023-03-23] MEDS: BLOOD SUGAR DIAGNOSTIC 1 EACH STRIP IN SCH ×4 (05:41→23:54)
[2023-03-23] MEDS: INSULIN REGULAR, HUMAN 100 UNIT/ML 3 ML VIAL SQ PRN ×2 (05:42→17:48)
[2023-03-23 06:56] LABS: CALCIUM, SERUM 9.9 mg/dL (8.5-10.1); CREATININE 1.1 mg/dL (0.6-1.3); POTASSIUM 3.3 mmol/L (3.5-5.1)
--- NOTE | 2023-03-23 07:15 | NUR ---
TEMPERING MACHINE OPERATOR OPENING NOTE PATIENT AWAKE AND ASKING TO DRINK ORANGE JUICE, 02 N/C SAT 95% NO S/S OF RESPIRATORY DISTRESS NOTED. PATIENT IS NPO AND RECEIVING G-TUBE FEEDING GLUCERNA AT 50ML/HR TOLERATING WELL, NO RESIDUAL NOTED. LFA IV INTACT. JOEL MID LINE INTACT. PATIENT ON RESTRAINTS. F/C IN PLACE/ PATIENT IS INCONTINENT IN STOOL. PATIENT CLEANED AT PRESENT. WOUND CARE IN PROGRESS. SAFETY MEASURE IN PLACE. SIDE RAILS UP X4, BED LOCKED TO THE LOWEST POSITION. CALL LIGHT AND TABLE WITHIN REACH. CONT. TO MONITOR
--- NOTE | 2023-03-23 07:22 | NUR ---
MS RN CLOSING NOTES - PATIENT RESTING IN BED, EASY TO AROUSE. MORE ALERT BUT STILL CONFUSED AND TRYING TO PULL OUT LINES AND TUBES. NO CARDIAC OR RESPIRATORY DISTRESS THROUGHOUT THE NIGHT. AFEBRILE. LEFT UPPER ARM MIDLINE AND LEFT FOREARM IV ACCESS INTACT, PATENT AND FLUSHING. CLOUDY DARK URINE OUTPUT NOTED. TOLERATING PEG TUBE FEEDING WELL, NO RESIDUAL NOTED. VERY SOFT BROWN STOOL NOTED. WOUND AND PERINEAL CARE RENDERED. ALL DUE MEDS GIVEN AND NEEDS ATTENDED. SAFETY PRECAUTIONS MAINTAINED. WILL ENDORSE TO NEXT SHIFT FOR ROGERIO.
[2023-03-23 08:00] VITALS: BP 131/70
[2023-03-23] MEDS: GLUCERNA 1.2 1,000 ML BOTTLE PEG SCH (08:10)
--- NOTE | 2023-03-23 08:10 | NUR ---
[place] LINE ATTENDANT NOTE IVF D/C, SODIUM ELEVATED. K-3.3 K-DURE 40MEQ VIA G-TUBE GIVEN DIRECTED BY .
[2023-03-23] MEDS: DAKINS QUARTER STRENGTH (0.125%) 480 ML BOTTLE TOP SCH (09:00)
[2023-03-23] MEDS: SODIUM CHLORIDE 1000 MG TABLET PO SCH ×2 (09:00→17:00)
[2023-03-23] MEDS: THERAHONEY GEL 1.5 OZ TUBE TP SCH (09:00)
[2023-03-23] MEDS ORDERED: POTASSIUM CHLORIDE 20 MEQ TAB.PRT.SR PO ONE (09:00)
[2023-03-23] MEDS: HYDROGEL DRESSING 90 GM TUBE TP SCH (09:00)
[2023-03-23] MEDS: PANTOPRAZOLE 40 MG VIAL IV SCH ×2 (09:18→17:11)
[2023-03-23] MEDS: FOLIC ACID 1 MG TABLET GT SCH (10:09)
[2023-03-23] MEDS: ARIPIPRAZOLE 5 MG TABLET GT SCH (10:12)
[2023-03-23] MEDS: LEVOTHYROXINE SODIUM 100 MCG TABLET GT SCH (10:12)
[2023-03-23] MEDS: PROSOURCE / PROSTAT (PYXIS) 30 ML UDC GT SCH ×3 (10:13→17:11)
[2023-03-23 12:00] VITALS: BP 139/100
[2023-03-23 16:00] VITALS: BP 131/70
--- NOTE | 2023-03-23 19:14 | NUR ---
MECHANIC RECOVERY CLOSING NOTE PATIENT CALM, AWAKE, O2 2L N/C O2 SAT 96%, NO S/S OF RESPIRATORY DISTRESS NOTED. ORAL CARE OFTEN NEEDED. [place] SOFT WRIT RESTRAINTS IN PLACE, G-TUBE FEEDING NO RESIDUAL. F/C DRAINING ESTEFANIA URINE. SAFETY MEASURES IN PLACE. BED LOW, SIDE RAILS UP X4.[facility]
--- NOTE | 2023-03-23 19:46 | NUR ---
RN OPENING NOTE; RECEIVED PT IN BED AWAKED AOX1 CONFUSED,ON 2L O2 VIA NC EMILY WELL SAT 97%,NO SIGN SOB/DISTRESS NOTED,NO COMPLAIN OF PAIN/DISCOMFORT AT THIS TIME,IV ACCESS ON LFA 22G SL,JOEL ML WITH D5 NS 50ML/HR.SAFETY MEASURE IN PLACE,CALL LIGHT WITHIN REACH,WILL CONTINUE TO MONITOR.
[2023-03-23 20:00] VITALS: BP 105/59
[2023-03-23] MEDS: TOBRAMYCIN 80 MG in IV D5W 50 ML IV SCH (21:17)
[2023-03-24] MEDS: METOPROLOL TARTRATE 25 MG TABLET GT SCH ×3 (01:00→16:30)
[2023-03-24] MEDS: ALBUTEROL FS 2.5 MG/0.5 ML VIAL.NEB NEB SCH ×4 (01:30→20:20)
[2023-03-24] MEDS: IPRATROPIUM NEB FS 0.5 MG/2.5 ML AMPUL.NEB NEB SCH ×4 (01:30→20:20)
[2023-03-24] MEDS: MEROPENEM 1 G in IV NS 0.9% 100 ML IV SCH ×2 (02:14→15:24)
[2023-03-24 04:00] VITALS: BP 110/77
[2023-03-24] MEDS: METOCLOPRAMIDE HCL 10 MG/2 ML VIAL IV SCH ×3 (04:23→21:14)
[2023-03-24] MEDS: GLUCERNA 1.2 1,000 ML BOTTLE PEG SCH (05:02)
[2023-03-24] MEDS: BLOOD SUGAR DIAGNOSTIC 1 EACH STRIP IN SCH ×4 (05:12→23:54)
--- NOTE | 2023-03-24 06:23 | NUR ---
RN CLOSING NOTE; PT IN BED AWAKED AOX1 CONFUSED,ON 2L O2 VIA NC EMILY WELL SAT 99%,NO SIGN SOB/DISTRESS NOTED,NO COMPLAIN OF PAIN/DISCOMFORT DURING SHIFT,IV ACCESS ON LFA 22G SL,JOEL ML WITH D5 NS 50ML/HR INFUSING WELL,DUE MEDS GIVEN ORDER,ALL NEEDS ATTENDED.FC IN PLACE DRAINING ESTEFANIA URINE,OUTPUT 800ML,SAFETY MEASURE IN PLACE,CALL LIGHT WITHIN REACH,WILL ENDORSED TO NEXT SHIFT.
--- NOTE | 2023-03-24 07:00 | NUR ---
COMPUTER HARDWARE TECHNICIAN OPENING NOTE PATIENT AWAKE, CONFUSED, 02 2L N/C 02 SAT 95%, HOB ELEVATED NO S/S/ OF RESPIRATORY DISTRESS NOTED. ORAL CARE PERFORMED. G-TUBE FEEDING GLUCERNA 1.2 AT 50ML/HR NO RESIDUAL NOTED. LFA IV#22 INTACT, JOEL MIDLINE INTACT. [place]. WRIST RESTRAINTS IN PLACE FOLLOWING PROTOCOL. F/C IN PLACE DRAINING ESTEFANIA URINE, INCONTINENT IN STOOL, NEEDS CHANGE OFTEN TO KEEP SKIN D/C AND PROTEC THE WOUND SITE. CONT. TO MONITOR.
[2023-03-24 08:00] VITALS: BP 98/54
[2023-03-24 08:37] LABS: BASOPHILS # (AUTO) 0.1 K/uL (0.0-0.2); BASOPHILS % (AUTO) 0.7 % (0.0-2.0); EOSINOPHILS % (AUTO) 1.1 % (0.0-6.0); HEMATOCRIT 26 % (33-45); HEMOGLOBIN 8.3 g/dL (11.5-14.8); LYMPHOCYTES # (AUTO) 2.1 K/uL (0.8-4.8); LYMPHOCYTES % (AUTO) 14.2 % (20.0-44.0); MEAN CORPUSCULAR HGB CONC 31 g/dl (31.0-36.0); MEAN CORPUSCULAR VOLUME 87 fL (82-100); MONOCYTES # (AUTO) 1.4 K/uL (0.1-1.30); MONOCYTES % (AUTO) 9.8 % (2.0-12.0); NEUTROPHILS # (AUTO) 10.9 K/uL (1.8-8.9); NEUTROPHILS % (AUTO) 74.2 % (43.0-81.0); PLATELET COUNT (AUTO) 560 K/uL (150-450); RED BLOOD CELL COUNT(AUTO) 3.04 MIL/uL (4.0-5.2); WHITE BLOOD COUNT (AUTO) 14.7 K/uL (4.3-11.0)
[2023-03-24 08:58] LABS: CALCIUM, SERUM 9.9 mg/dL (8.5-10.1); CREATININE 1.2 mg/dL (0.6-1.3); POTASSIUM 3.8 mmol/L (3.5-5.1)
[2023-03-24] MEDS: HYDROGEL DRESSING 90 GM TUBE TP SCH (09:00)
[2023-03-24] MEDS: DAKINS QUARTER STRENGTH (0.125%) 480 ML BOTTLE TOP SCH (09:00)
[2023-03-24] MEDS: THERAHONEY GEL 1.5 OZ TUBE TP SCH (09:00)
[2023-03-24] MEDS: SODIUM CHLORIDE 1000 MG TABLET PO SCH (09:00)
[2023-03-24] MEDS: LEVOTHYROXINE SODIUM 100 MCG TABLET GT SCH (09:04)
[2023-03-24] MEDS: ARIPIPRAZOLE 5 MG TABLET GT SCH (09:04)
[2023-03-24] MEDS: FOLIC ACID 1 MG TABLET GT SCH (09:04)
[2023-03-24] MEDS: PANTOPRAZOLE 40 MG VIAL IV SCH ×2 (09:05→18:01)
[2023-03-24] MEDS: PROSOURCE / PROSTAT (PYXIS) 30 ML UDC GT SCH ×3 (09:16→18:01)
[2023-03-24 16:00] VITALS: BP 115/71
--- NOTE | 2023-03-24 19:00 | NUR ---
TEACHER INDUSTRIAL ARTS CLOSING NOTE PATIENT AWAKE, OCC. VERBALIZES SOME WORDS. O2 2L N/C SAT 95%, NO S/S OF RESPIRATORY DISTRESS NOTED. ORAL CARE PERFORMED VERY OFTEN. G-TUBE FEEDING TOLERATING WELL NO RESIDUAL NOTED. BILATERAL WRIST RESTRAINTS IN PLACE FOLLOWING PROTOCOL. IV SITE JOEL MID-LINE , LEFT FA SL WORKING. SACRAL WOUND CARE PERFORMED EVERY TIME THE PATIENT MOVE HER BOWELS. F/C DRAINING ESTEFANIA YELLOW URINE. LOPRESSOR HELD TODAY DUE TO BLOOD PRESSURE PARAMETERS. B/P 115/71 IS LESS THAN 120 SYSTOLIC BLOOD PRESSURE. I WILL ENDORSE TO THE FOLLOWING NURSE.
--- NOTE | 2023-03-24 19:30 | NUR ---
MS RN OPENING NOTE RECEIVED PATIENT AWAKE IN BED,PATIENT IS AWAKE, ALERT AND ORIENTED X1, VERBALLY RESPONSIVE, ON 02 INHALATION VIA NASAL CANNULA AT 2L/MIN. NO SOB NOTED NO DISCOMFORT NOTED. IV ACCESS LEFT UPPER ARM MIDLINE, INTACT, AND PATENT AND FLUSHING WELL. IV ACCESS ON THE LFA 3 22 INTACT AND FLUSHING WELL. THOMAS CATHETER INTACT AND DRAINING URINE VIA GRAVITY. ON GLUCERNA 1.2 AT 50 ML/ HR. TOLERATING WELL. BILATERAL SOFT RESTRAINS ON. SKIN AND CIRCULATION CHECKS DONE FREQUENTLY. ALL SAFETY MEASURES IN PLACE. HEAD OF BED ELEVATED FOR ASPIRATION PRECAUTION. BED IN LOWEST AND LOCKED POSITION, SIDE RAILS UP X3, CALL LIGHT WITHIN REACH. BED ALARM ON. WILL CONTINUE TO [id number] CLOSELY.
[2023-03-24 20:00] VITALS: BP 106/63
--- NOTE | 2023-03-24 21:00 | NUR ---
RN NOTES PATIENT HAD TOBRAMYCIN AT 2100. THE TROUGH RESULT WAS NOT RESULTED TILL 2200. CALLED LAB SPOKE WITH ELIZABETH , HE STATED THE LAB IS SENT OUTSIDE TO [facility], THE RESULT IS NOT YET BACK. CALLED IVETTE TO [facility] SPOKE WITH JAKUB SHE STATED SINCE THE RESULT IS NOT BACK , SHE CAN NOT RESCHEDULE THE MEDICATION. SHE STATED INFORMED DR. LARRY WILCOX AND HE STATED THE PHARMACY ONLY CAN DOSE THE MEDICATION. CALLED PHARMACY AGAIN AT 2357 SPOKE WITH PALU, SHE CHECKED ALL THE PREVIOUS LABS AND AFTER REVIEWING THE PATIENT CONDITION, EVEN THOUGH THE TROUGH RESULT WAS NOT BACK YET , SHE STATED TO GIVE TOBRAMYCIN. SHE STATED WILL TELL THE PHARMACY IN THE MORNING ABOUT THE MEDICATION. ADMINISTERED ATB IN 0000 EVEN THOUGH IT WAS 3 HOURS LATE PER PHARMACIST PAUL WAS OK TO GIVE.
[2023-03-24] MEDS: ACETAMINOPHEN 650 MG/20.3 ML UDC GT PRN (23:43)
[2023-03-25] MEDS: TOBRAMYCIN 80 MG in IV D5W 50 ML IV SCH ×2 (00:17→22:20)
[2023-03-25] MEDS: METOPROLOL TARTRATE 25 MG TABLET GT SCH ×3 (00:30→16:30)
[2023-03-25] MEDS: IPRATROPIUM NEB FS 0.5 MG/2.5 ML AMPUL.NEB NEB SCH ×4 (01:30→19:54)
[2023-03-25] MEDS: ALBUTEROL FS 2.5 MG/0.5 ML VIAL.NEB NEB SCH ×4 (01:30→19:54)
[2023-03-25] MEDS: MEROPENEM 1 G in IV NS 0.9% 100 ML IV SCH ×2 (04:03→15:33)
[2023-03-25] MEDS: METOCLOPRAMIDE HCL 10 MG/2 ML VIAL IV SCH ×3 (04:20→22:19)
[2023-03-25] MEDS: BLOOD SUGAR DIAGNOSTIC 1 EACH STRIP IN SCH ×3 (05:52→17:30)
[2023-03-25] MEDS: GLUCERNA 1.2 1,000 ML BOTTLE PEG SCH (05:52)
[2023-03-25 05:56] VITALS: BP 110/68
--- NOTE | 2023-03-25 06:34 | NUR ---
MS RN CLOSING NOTE PATIENT AWAKE IN BED, ALERT AND ORIENTED X1, VERBALLY RESPONSIVE, ON 02 INHALATION VIA NASAL CANNULA AT 2L/MIN. NO SOB NOTED NO DISCOMFORT NOTED. IV ACCESS LEFT UPPER ARM MIDLINE, INTACT, AND PATENT AND FLUSHING WELL. IV ACCESS ON THE LFA G 22 INTACT AND FLUSHING WELL. THOMAS CATHETER INTACT AND DRAINING URINE VIA GRAVITY. ON GLUCERNA 1.2 AT 50 ML/ HR. TOLERATING WELL. ALL DUE MEDS GIVEN ORDERED. BILATERAL SOFT RESTRAINS ON. SKIN AND CIRCULATION CHECKS DONE FREQUENTLY. ALL SAFETY MEASURES IN PLACE. HEAD OF BED ELEVATED FOR ASPIRATION PRECAUTION. BED IN LOWEST AND LOCKED POSITION, SIDE RAILS UP X3, CALL LIGHT WITHIN REACH. BED ALARM ON. WILL ENDORSE FOR ROGERIO.
--- NOTE | 2023-03-25 06:46 | NUR ---
RN NOTES 0000 BLOOD SUGAR RESULT WAS 100. NO INSULIN COVERAGE .
--- NOTE | 2023-03-25 06:49 | NUR ---
RN NOTES BLOOD SUGAR RESULT FOR 0600 WAS 95. NO INSULIN COVERAGE.
--- NOTE | 2023-03-25 07:30 | NUR ---
MS RN OPENING NOTE RECEIVED PATIENT IN BED AWAKE , A/O X1, VERBALLY RESPONSIVE, ON 02 INHALATION VIA NC AT 2L/MIN. NO SOB OR DISTRESS NOTED , NO C/O OF PAIN AND DISCOMFORT . IV ACCESS LEFT UPPER ARM MIDLINE, INTACT AND PATENT . IV ACCESS ON THE LFA 3 22 SL , THOMAS CATHETER INTACT AND DRAINING URINE VIA GRAVITY. ON GLUCERNA 1.2 AT 50 ML/ HR. TOLERATING WELL. BILATERAL SOFT RESTRAINS ON WITH NO SWELLING OR ANY SKIN BREAKDOWN , . ALL SAFETY MEASURES IN PLACE. HOB AT ALL TIMES , ASPIRATION PRECAUTION. BED IN LOWEST AND LOCKED POSITION, SIDE RAILS UP X3, CALL LIGHT WITHIN REACH. BED ALARM ON. WILL CONTINUE TO [id number] CLOSELY.
[2023-03-25 07:56] LABS: CALCIUM, SERUM 10.5 mg/dL (8.5-10.1); CREATININE 1.4 mg/dL (0.6-1.3); POTASSIUM 3.8 mmol/L (3.5-5.1)
[2023-03-25 08:00] VITALS: BP 146/79
[2023-03-25] MEDS: PANTOPRAZOLE 40 MG VIAL IV SCH ×2 (09:00→16:30)
[2023-03-25] MEDS: ARIPIPRAZOLE 5 MG TABLET GT SCH (09:01)
[2023-03-25] MEDS: FOLIC ACID 1 MG TABLET GT SCH (09:01)
[2023-03-25] MEDS: LEVOTHYROXINE SODIUM 100 MCG TABLET GT SCH (09:01)
[2023-03-25] MEDS: PROSOURCE / PROSTAT (PYXIS) 30 ML UDC GT SCH ×3 (09:01→16:31)
[2023-03-25] MEDS: DAKINS QUARTER STRENGTH (0.125%) 480 ML BOTTLE TOP SCH (10:09)
[2023-03-25] MEDS: HYDROGEL DRESSING 90 GM TUBE TP SCH (10:09)
[2023-03-25] MEDS: THERAHONEY GEL 1.5 OZ TUBE TP SCH (10:09)
[2023-03-25] MEDS: MORPHINE SULFATE INJ 2 MG/ML DISP.SYRIN IV PRN (11:17)
[2023-03-25 16:00] VITALS: BP 149/79
[2023-03-25] MEDS: INSULIN REGULAR, HUMAN 100 UNIT/ML 3 ML VIAL SQ PRN (17:46)
--- NOTE | 2023-03-25 18:51 | NUR ---
MS RN CLOSING NOTE RECEIVED PATIENT IN BED AWAKE , A/O X1, VERBALLY RESPONSIVE, ON 02 INHALATION VIA NC AT 2L/MIN. NO SOB OR DISTRESS NOTED , C/O OF PAIN AND DISCOMFORT AND PAIN MEDICATION ORDERED GIVEN . IV ACCESS LEFT UPPER ARM MIDLINE, INTACT AND PATENT . IV ACCESS ON THE LFA # 22 SL , THOMAS CATHETER INTACT AND DRAINING URINE VIA GRAVITY. ON GLUCERNA 1.2 AT 50 ML/ HR. TOLERATING WELL. BILATERAL SOFT RESTRAINS ON WITH NO SWELLING OR ANY SKIN BREAKDOWN NOTED , WOUND DRESSING CHANGED DONE , ALL SAFETY MEASURES IN PLACE. HOB AT ALL TIMES , ASPIRATION PRECAUTION. BED IN LOWEST AND LOCKED POSITION, SIDE RAILS UP X3, CALL LIGHT WITHIN REACH. ENDORSED TO NEXT SHIFT
[2023-03-25] MEDS: IV D5W 1,000 ML IV PRN (19:07)
--- NOTE | 2023-03-25 19:35 | NUR ---
MS RN OPENING NOTE RECEIVED PATIENT IN BED, AWAKE. PT A/O X1, VERBALLY RESPONSIVE, ON 02 INHALATION VIA NC AT 2L/MIN. NO SOB, NO RESPIRATORY DISTRESS NOTED. NO C/O OF PAIN OR DISCOMFORT AT THIS TIME. IV ACCESS TO LEFT UPPER ARM MIDLINE, INTACT AND PATENT. IV ACCESS TO LEFT FA #[address] THOMAS CATHETER IN PLACE, INTACT AND DRAINING URINE VIA GRAVITY. ON GLUCERNA 1.2 AT 50 ML/ HR, TOLERATING WELL. PT ON BILATERAL SOFT RESTRAINS FOR SAFETY. ALL SAFETY MEASURES IMPLEMENTED. HOB ELEVATED AT ALL TIMES, ASPIRATION PRECAUTION. BED IN LOWEST AND LOCKED POSITION, SIDE RAILS UP X3, CALL LIGHT WITHIN REACH. BED ALARM ON. WILL CONTINUE TO [id number] PT.
[2023-03-25 20:00] VITALS: BP 118/99
[2023-03-26] MEDS: METOPROLOL TARTRATE 25 MG TABLET GT SCH ×3 (00:30→16:30)
--- NOTE | 2023-03-26 00:30 | NUR ---
MS RN NOTE LOPRESSOR NOT ADMINISTERED DUE TO BP: 118/99. MED TO BE HELD IF SBP<120.
[2023-03-26] MEDS: IPRATROPIUM NEB FS 0.5 MG/2.5 ML AMPUL.NEB NEB SCH ×4 (01:54→20:15)
[2023-03-26] MEDS: ALBUTEROL FS 2.5 MG/0.5 ML VIAL.NEB NEB SCH ×4 (01:54→20:15)
[2023-03-26] MEDS: BLOOD SUGAR DIAGNOSTIC 1 EACH STRIP IN SCH ×5 (02:05→23:13)
[2023-03-26] MEDS: INSULIN REGULAR, HUMAN 100 UNIT/ML 3 ML VIAL SQ PRN ×3 (02:06→23:14)
[2023-03-26] MEDS: MEROPENEM 1 G in IV NS 0.9% 100 ML IV SCH (03:29)
[2023-03-26 04:00] VITALS: BP 110/80
[2023-03-26] MEDS: METOCLOPRAMIDE HCL 10 MG/2 ML VIAL IV SCH ×3 (05:12→20:59)
--- NOTE | 2023-03-26 06:40 | NUR ---
MS RN CLOSING NOTE LEFT PATIENT IN BED, SLEEPING. PT A/O X1, VERBALLY RESPONSIVE, ON 02 INHALATION VIA NC AT 2L/MIN. NO SOB, NO RESPIRATORY DISTRESS NOTED. NO C/O OF PAIN OR DISCOMFORT AT THIS TIME. IV ACCESS TO LEFT UPPER ARM MIDLINE, INTACT AND PATENT. IV ACCESS TO LEFT FA #[address] SL[address] THOMAS CATHETER IN PLACE, INTACT AND DRAINING URINE VIA GRAVITY. ON GLUCERNA 1.2 AT 50 ML/ HR, TOLERATING WELL. PT ON BILATERAL SOFT RESTRAINS FOR SAFETY. WOUND CARE DONE TO SACRAL AREA. ALL SAFETY MEASURES IMPLEMENTED. HOB ELEVATED AT ALL TIMES, ASPIRATION PRECAUTION. BED IN LOWEST AND LOCKED POSITION, SIDE RAILS UP X3, CALL LIGHT WITHIN REACH. BED ALARM ON. WILL ENDORSE PT TO AM SHIFT RN FOR ROGERIO.
[2023-03-26 07:25] LABS: BASOPHILS # (AUTO) 0.1 K/uL (0.0-0.2); BASOPHILS % (AUTO) 0.5 % (0.0-2.0); EOSINOPHILS % (AUTO) 1.7 % (0.0-6.0); HEMATOCRIT 24 % (33-45); HEMOGLOBIN 7.5 g/dL (11.5-14.8); LYMPHOCYTES # (AUTO) 1.7 K/uL (0.8-4.8); MEAN CORPUSCULAR HGB CONC 31 g/dl (31.0-36.0); MEAN CORPUSCULAR VOLUME 87 fL (82-100); MONOCYTES # (AUTO) 1.5 K/uL (0.1-1.30); NEUTROPHILS # (AUTO) 11.6 K/uL (1.8-8.9); NEUTROPHILS % (AUTO) 76.8 % (43.0-81.0); PLATELET COUNT (AUTO) 527 K/uL (150-450); RED BLOOD CELL COUNT(AUTO) 2.81 MIL/uL (4.0-5.2); WHITE BLOOD COUNT (AUTO) 15.1 K/uL (4.3-11.0)
--- NOTE | 2023-03-26 07:35 | NUR ---
MS RN OPENING NOTE RECEIVED PATIENT IN BED, ASLEEP, EASILY ROUSED. PT A/O X1, VERBALLY RESPONSIVE, ON 02 INHALATION VIA NC AT 2L/MIN. NO SOB, NO RESPIRATORY DISTRESS NOTED. NO S/S OF PAIN VIA FLACC NOTED. IV ACCESS TO LEFT UPPER ARM MIDLINE, RUNNING D5W @ 90ML/HR. IV ACCESS TO LEFT FA #[address] THOMAS CATHETER IN PLACE, INTACT AND DRAINING CLEAR YELLOW URINE. ON GLUCERNA 1.2 AT 50 ML/ HR, TOLERATING WELL, NO RESIDUAL NOTED. PT ON BILATERAL SOFT RESTRAINS FOR SAFETY. ALL SAFETY MEASURES IMPLEMENTED. HOB ELEVATED AT ALL TIMES, ASPIRATION PRECAUTION. BED IN LOWEST AND LOCKED POSITION, SIDE RAILS UP X3, CALL LIGHT WITHIN REACH. BED ALARM ON, WILL CONT WITH PLAN OF CARE DURING SHIFT.
[2023-03-26 07:50] LABS: CALCIUM, SERUM 10.2 mg/dL (8.5-10.1); CREATININE 1.5 mg/dL (0.6-1.3); POTASSIUM 4.2 mmol/L (3.5-5.1)
[2023-03-26 08:00] VITALS: BP 98/66
--- NOTE | 2023-03-26 08:30 | NUR ---
RN NOTES: HELD BP MEDS DUE TO BP= 98/66
[2023-03-26] MEDS: PANTOPRAZOLE 40 MG VIAL IV SCH ×2 (08:50→17:06)
[2023-03-26] MEDS: ARIPIPRAZOLE 5 MG TABLET GT SCH (08:51)
[2023-03-26] MEDS: FOLIC ACID 1 MG TABLET GT SCH (08:51)
[2023-03-26] MEDS: LEVOTHYROXINE SODIUM 100 MCG TABLET GT SCH (08:52)
[2023-03-26] MEDS: HYDROGEL DRESSING 90 GM TUBE TP SCH (09:29)
[2023-03-26] MEDS: DAKINS QUARTER STRENGTH (0.125%) 480 ML BOTTLE TOP SCH (09:29)
[2023-03-26] MEDS: PROSOURCE / PROSTAT (PYXIS) 30 ML UDC GT SCH ×3 (09:29→17:07)
[2023-03-26] MEDS: THERAHONEY GEL 1.5 OZ TUBE TP SCH (09:30)
[2023-03-26] MEDS: GLUCERNA 1.2 1,000 ML BOTTLE PEG SCH (12:55)
[2023-03-26] MEDS: MEROPENEM 500 MG in IV NS 0.9% 100 ML IV SCH (15:40)
[2023-03-26] MEDS: IV D5W 1,000 ML IV PRN (15:46)
[2023-03-26 16:00] VITALS: BP 96/41
--- NOTE | 2023-03-26 17:00 | NUR ---
RN NOTES: HELD BP MED, 1600 BP= 96/41 MD IS AWARE
--- NOTE | 2023-03-26 19:40 | NUR ---
MS RN OPENING NOTE RECEIVED PT RESTING IN BED, VERBALLY RESPONSIVE. A/O X1 AND CONFUSED. PT ON O2 @ 2LPM VIA NC, TOLERATING WELL. NO SOB OR S/S OF RESPIRATORY DISTRESS. BREATHING EVEN AND UNLABORED. IV ACCESS JOEL MIDLINE AND LFA 22G, RUNNING D5W @ 90 ML/HR, INTACT AND PATENT. WITH GTUBE RUNNING GLUCERNA @ 50 ML/HR, TOLERATING WELL. WITH THOMAS DRAINING URINE BY GRAVITY. SAFETY PRECAUTIONS IN PLACE. BED IN LOWEST LOCKED POSITION, HOB ELEVATED, SIDE RAILS UP X3, CALL LIGHT AND TABLE WITHIN REACH. ALL NEEDS MET AT THIS TIME.
--- NOTE | 2023-03-26 19:45 | NUR ---
MS RN CLOSING NOTES: PATIENT IN BED, ASLEEP, EASILY ROUSED. PT A/O X1, VERBALLY RESPONSIVE, ON 02 INHALATION VIA NC AT 2L/MIN. NO S/S OF SOB/ RESPIRATORY DISTRESS NOTED. NO S/S OF PAIN VIA FLACC NOTED. IV ACCESS TO LEFT UPPER ARM MIDLINE, RUNNING D5W @ 90ML/HR. IV ACCESS TO LEFT FA #[address] THOMAS CATHETER IN PLACE, INTACT AND DRAINING CLEAR YELLOW URINE. ON GLUCERNA 1.2 AT 50 ML/ HR, TOLERATING WELL, NO RESIDUAL NOTED. PT ON BILATERAL SOFT RESTRAINTS, CHECKED SKIN FOR CIRCULATION AND ISSUES, NONE NOTED AT THIS TIME. ALL DUE MEDS GIVEN, KEPT PT CLEAN, DRY AND COMFORTABLE. ALL SAFETY MEASURES IMPLEMENTED. HOB ELEVATED AT ALL TIMES, ASPIRATION PRECAUTION. BED IN LOWEST AND LOCKED POSITION, SIDE RAILS UP X3, CALL LIGHT WITHIN REACH, BED ALARM ON. ENDORSED TO PM SHIFT.
[2023-03-26 20:00] VITALS: BP 143/106
[2023-03-26] MEDS: TOBRAMYCIN 80 MG in IV D5W 50 ML IV SCH (21:56)
--- NOTE | 2023-03-26 21:56 | NUR ---
RN NOTE TOBRAMYCIN TROUGH CAME BACK AT 2.0. INFORMED [facility] AND SPOKE WITH CODY, SHE STATED IT WAS OKAY TO GIVE. CHARGE NURSE SHERRY EGAN.
[2023-03-27] MEDS: METOPROLOL TARTRATE 25 MG TABLET GT SCH ×3 (00:30→16:55)
--- NOTE | 2023-03-27 00:30 | NUR ---
RN NOTE LOPRESSOR HELD FOR BP 116/70. MED ORDER STATES TO NOT GIVE IF SBP <120. CHARGE NURSE SHERRY EGAN.
[2023-03-27] MEDS: IPRATROPIUM NEB FS 0.5 MG/2.5 ML AMPUL.NEB NEB SCH ×4 (00:42→20:15)
[2023-03-27] MEDS: ALBUTEROL FS 2.5 MG/0.5 ML VIAL.NEB NEB SCH ×4 (00:42→20:15)
[2023-03-27] MEDS: MEROPENEM 500 MG in IV NS 0.9% 100 ML IV SCH ×2 (02:55→14:45)
[2023-03-27] MEDS: IV D5W 1,000 ML IV PRN ×2 (02:59→14:50)
[2023-03-27 04:00] VITALS: BP 90/51
[2023-03-27] MEDS: METOCLOPRAMIDE HCL 10 MG/2 ML VIAL IV SCH ×3 (04:43→21:34)
[2023-03-27] MEDS: BLOOD SUGAR DIAGNOSTIC 1 EACH STRIP IN SCH ×4 (05:37→23:46)
[2023-03-27] MEDS: DEXTROSE 50%-WATER 50 ML DISP.SYRIN IV PRN (05:38)
--- NOTE | 2023-03-27 06:49 | NUR ---
MS RN CLOSING NOTE PT RESTING IN BED, VERBALLY RESPONSIVE. A/O X1 AND CONFUSED. PT ON O2 @ 2LPM VIA NC, TOLERATING WELL. NO SOB OR S/S OF RESPIRATORY DISTRESS. BREATHING EVEN AND UNLABORED. IV ACCESS JOEL MIDLINE AND LFA 22G, RUNNING D5W @ 90 ML/HR, INTACT AND PATENT. WITH GTUBE RUNNING GLUCERNA @ 50 ML/HR, TOLERATING WELL, NO RESIDUAL THIS SHIFT. WITH THOMAS DRAINING URINE BY GRAVITY, DRAINED 800 CC THIS SHIFT. WOUND CARE RENDERED ORDERED. KEPT CLEAN AND DRY. ALL DUE MEDS GIVEN ORDERED. BS THIS AM WAS 56, D50 GIVEN AND BS WENT UP TO 159. SAFETY PRECAUTIONS IN PLACE AT ALL TIMES. BED IN LOWEST LOCKED POSITION, HOB ELEVATED, SIDE RAILS UP X3, CALL LIGHT AND TABLE WITHIN REACH. ALL NEEDS MET AT THIS TIME.
--- NOTE | 2023-03-27 07:00 | NUR ---
RN OPENING NOTE PT RESTING IN BED, VERBALLY RESPONSIVE. A/O X1 AND CONFUSED. PT ON O2 @ 2LPM VIA NC, TOLERATING WELL. NO SOB OR S/S OF RESPIRATORY DISTRESS. BREATHING EVEN AND UNLABORED. IV ACCESS JOEL MIDLINE AND LFA 22G, RUNNING D5W @ 90 ML/HR, INTACT AND PATENT. WITH G-TUBE RUNNING GLUCERNA @ 50 ML/HR. THOMAS DRAINING URINE BY GRAVITY, URINE YELLOW. SAFETY PRECAUTIONS IN PLACE. BED IN LOWEST LOCKED POSITION, HOB ELEVATED, SIDE RAILS UP X3, CALL LIGHT AND TABLE WITHIN REACH. WILL CONTINUE TO MONITOR
[2023-03-27 07:38] LABS: BASOPHILS # (AUTO) 0.1 K/uL (0.0-0.2); BASOPHILS % (AUTO) 0.5 % (0.0-2.0); EOSINOPHILS % (AUTO) 1.2 % (0.0-6.0); HEMATOCRIT 23 % (33-45); LYMPHOCYTES % (AUTO) 11.3 % (20.0-44.0); MEAN CORPUSCULAR HGB CONC 31 g/dl (31.0-36.0); MEAN CORPUSCULAR VOLUME 88 fL (82-100); MONOCYTES # (AUTO) 1.4 K/uL (0.1-1.30); NEUTROPHILS # (AUTO) 14.2 K/uL (1.8-8.9); PLATELET COUNT (AUTO) 498 K/uL (150-450); RED BLOOD CELL COUNT(AUTO) 2.58 MIL/uL (4.0-5.2)
[2023-03-27 08:00] VITALS: BP 138/48
[2023-03-27] MEDS: PROSOURCE / PROSTAT (PYXIS) 30 ML UDC GT SCH ×3 (08:01→16:56)
[2023-03-27] MEDS: FOLIC ACID 1 MG TABLET GT SCH (08:01)
[2023-03-27] MEDS: ARIPIPRAZOLE 5 MG TABLET GT SCH (08:02)
[2023-03-27] MEDS: LEVOTHYROXINE SODIUM 100 MCG TABLET GT SCH (08:02)
[2023-03-27] MEDS: PANTOPRAZOLE 40 MG VIAL IV SCH ×2 (08:02→16:55)
[2023-03-27] MEDS: DAKINS QUARTER STRENGTH (0.125%) 480 ML BOTTLE TOP SCH (08:05)
[2023-03-27] MEDS: THERAHONEY GEL 1.5 OZ TUBE TP SCH (08:06)
[2023-03-27 08:44] LABS: CALCIUM, SERUM 9.4 mg/dL (8.5-10.1); CREATININE 1.5 mg/dL (0.6-1.3); POTASSIUM 4.1 mmol/L (3.5-5.1)
[2023-03-27] MEDS: HYDROGEL DRESSING 90 GM TUBE TP SCH (09:51)
[2023-03-27] MEDS: GLUCERNA 1.2 1,000 ML BOTTLE PEG SCH (15:00)
--- NOTE | 2023-03-27 15:07 | NUR ---
RN NOTE G-TUBE RESIDUAL CHECKED. 190ML NOTED. FEEDING ON HOLD UNTIL PATIENT ABLE TO TOLERATE, DR CLAUDIO NOTIFIED. WILL CONTINUE TO MONITOR
[2023-03-27 16:00] VITALS: BP 97/43
--- NOTE | 2023-03-27 16:10 | NUR ---
RN NOTE FEEDING CONTINUED AND PATIENT TOLERATING WELL, RESIDUAL AT 40ML
--- NOTE | 2023-03-27 19:15 | NUR ---
RN CLOSING NOTE PT RESTING IN BED, VERBALLY RESPONSIVE. A/O X1 AND CONFUSED. PT ON O2 @ 2LPM VIA NC, TOLERATING WELL. NO SOB OR S/S OF RESPIRATORY DISTRESS. BREATHING EVEN AND UNLABORED. IV ACCESS JOEL MIDLINE AND LFA 22G, RUNNING D5W @ 90 ML/HR, INTACT AND PATENT. WITH G-TUBE RUNNING GLUCERNA @ 50 ML/HR. THOMAS DRAINING URINE BY GRAVITY, URINE YELLOW. SAFETY PRECAUTIONS IN PLACE. PATIENT WAS REPOSITIONED EVERY 2 HOURS. BED IN LOWEST LOCKED POSITION, HOB ELEVATED, SIDE RAILS UP X3, CALL LIGHT AND TABLE WITHIN REACH. REPOT GIVEN TO DIMAS SHIFT NURSE
--- NOTE | 2023-03-27 19:56 | NUR ---
RN OPENING NOTE PATIENT AWAKE IN BED. A/OX NON-VERBAL. NO S/S OF DISTRESS, BREATHING WITHOUT DIFFICULTY ON 2L NC. L-WRIST #22 SL INTACT AND PATENT; JOEL MIDLINE #18 INTACT AND PATENT W/ D5W 90ML/HR. GLUCERNA 1.2 @50ML/HR. SAFETY MEASURES IN PLACE: BED LOCKED AND AT LOWEST POSITION, RAILS UP X2, CALL MCNEIL WITHIN REACH. WILL CONTINUE TO MONITOR PATIENT.
[2023-03-27 20:00] VITALS: BP 106/51
[2023-03-27 21:33] LABS: BAND % (MANUAL) 2 % (0.0-5.0); EOSINOPHILS % (MANUAL) 1 % (0-4); LYMPHOCYTES % (MANUAL) 12 % (16-48); MONOCYTES % (MANUAL) 2 % (0-11.0); NEUTROPHILS % (MANUAL) 83 (42-76)
[2023-03-27] MEDS: TOBRAMYCIN 80 MG in IV D5W 50 ML IV SCH (21:34)
[2023-03-27] MEDS: INSULIN REGULAR, HUMAN 100 UNIT/ML 3 ML VIAL SQ PRN (23:47)
[2023-03-28] VITALS (9 sets, daily range): BP systolic 87–107; BP diastolic 48–75
[2023-03-28] MEDS: METOPROLOL TARTRATE 25 MG TABLET GT SCH ×3 (00:16→16:13)
[2023-03-28] MEDS: IPRATROPIUM NEB FS 0.5 MG/2.5 ML AMPUL.NEB NEB SCH ×4 (00:53→19:28)
[2023-03-28] MEDS: ALBUTEROL FS 2.5 MG/0.5 ML VIAL.NEB NEB SCH ×4 (00:53→19:28)
[2023-03-28] MEDS: MEROPENEM 500 MG in IV NS 0.9% 100 ML IV SCH ×2 (02:57→14:24)
[2023-03-28] MEDS: METOCLOPRAMIDE HCL 10 MG/2 ML VIAL IV SCH ×3 (05:38→21:08)
[2023-03-28] MEDS: BLOOD SUGAR DIAGNOSTIC 1 EACH STRIP IN SCH ×3 (05:38→17:02)
[2023-03-28] MEDS: INSULIN REGULAR, HUMAN 100 UNIT/ML 3 ML VIAL SQ PRN (05:39)
--- NOTE | 2023-03-28 06:51 | NUR ---
RN CLOSING NOTE PATIENT AWAKE IN BED. A/OX NON-VERBAL. NO S/S OF DISTRESS, BREATHING WITHOUT DIFFICULTY ON 2L NC. L-WRIST #22 SL INTACT AND PATENT; JOEL MIDLINE #18 INTACT AND PATENT W/ D5W 90ML/HR. TF GLUCERNA 1.2 TOLERATED VERY WELL AT 50ML/HR - NO RESIDUAL PRESENT. SAFETY MEASURES IN PLACE: BED LOCKED AND AT LOWEST POSITION, RAILS UP X2, CALL MCNEIL WITHIN REACH. WILL ENDORSE TO NEXT SHIFT FOR ROGERIO.
[2023-03-28 07:02] LABS: BASOPHILS # (AUTO) 0.1 K/uL (0.0-0.2); BASOPHILS % (AUTO) 0.4 % (0.0-2.0); EOSINOPHILS % (AUTO) 1.2 % (0.0-6.0); HEMATOCRIT 22 % (33-45); LYMPHOCYTES # (AUTO) 1.7 K/uL (0.8-4.8); LYMPHOCYTES % (AUTO) 8.5 % (20.0-44.0); MEAN CORPUSCULAR HGB CONC 32 g/dl (31.0-36.0); MEAN CORPUSCULAR VOLUME 86 fL (82-100); MONOCYTES # (AUTO) 1.4 K/uL (0.1-1.30); MONOCYTES % (AUTO) 7.3 % (2.0-12.0); NEUTROPHILS # (AUTO) 16.1 K/uL (1.8-8.9); NEUTROPHILS % (AUTO) 82.6 % (43.0-81.0); PLATELET COUNT (AUTO) 508 K/uL (150-450); RED BLOOD CELL COUNT(AUTO) 2.57 MIL/uL (4.0-5.2); WHITE BLOOD COUNT (AUTO) 19.5 K/uL (4.3-11.0)
[2023-03-28 07:08] LABS: CALCIUM, SERUM 9.6 mg/dL (8.5-10.1); CREATININE 1.4 mg/dL (0.6-1.3); POTASSIUM 4.4 mmol/L (3.5-5.1)
--- NOTE | 2023-03-28 07:41 | NUR ---
RN OPEN NOTE PATIENT AWAKE IN BED. A/OX NON-VERBAL. NO S/S OF DISTRESS, BREATHING WITHOUT DIFFICULTY ON 2L NC.O2 SAT 98 % L-WRIST #22 SL INTACT AND PATENT; JOEL MIDLINE #18 INTACT AND PATENT W/ D5W 90ML/HR. TF GLUCERNA 1.2 TOLERATED VERY WELL AT 50ML/HR - NO RESIDUAL PRESENT. SAFETY MEASURES IN PLACE: BED LOCKED AND AT LOWEST POSITION, RAILS UP X2, CALL MCNEIL WITHIN REACH. WILL CONTINUE TO MONITOR
[2023-03-28] MEDS: PANTOPRAZOLE 40 MG VIAL IV SCH ×2 (08:39→16:12)
[2023-03-28] MEDS: ARIPIPRAZOLE 5 MG TABLET GT SCH (08:39)
[2023-03-28] MEDS: LEVOTHYROXINE SODIUM 100 MCG TABLET GT SCH (08:40)
[2023-03-28] MEDS: HYDROGEL DRESSING 90 GM TUBE TP SCH (08:40)
[2023-03-28] MEDS: FOLIC ACID 1 MG TABLET GT SCH (08:40)
[2023-03-28] MEDS: PROSOURCE / PROSTAT (PYXIS) 30 ML UDC GT SCH ×3 (08:40→16:12)
[2023-03-28] MEDS: THERAHONEY GEL 1.5 OZ TUBE TP SCH (08:41)
[2023-03-28] MEDS: DAKINS QUARTER STRENGTH (0.125%) 480 ML BOTTLE TOP SCH (08:41)
[2023-03-28] MEDS: IV D5W 1,000 ML IV PRN (08:58)
[2023-03-28] MEDS: GLUCERNA 1.2 1,000 ML BOTTLE PEG SCH (17:28)
[2023-03-28] MEDS ORDERED: IV NS 0.9% 500 ML IV ONE (17:30)
--- NOTE | 2023-03-28 18:36 | NUR ---
RN CLOSE NOTE PATIENT SLEEPING IN BED. A/OX NON-VERBAL. NO S/S OF DISTRESS, BREATHING WITHOUT DIFFICULTY ON 2L NC.O2 SAT 98 % L-WRIST #22 SL INTACT AND PATENT; JOEL MIDLINE #18 INTACT AND PATENT W/ D5W 90ML/HR. TF GLUCERNA 1.2 TOLERATED VERY WELL AT 50ML/HR - NO RESIDUAL PRESENT. SAFETY MEASURES IN PLACE: BED LOCKED AND AT LOWEST POSITION, RAILS UP X2, CALL MCNEIL WITHIN REACH. WILL ENDORSE DIRECTOR PUBLIC NURSE TO FALLOW POC
[2023-03-28 19:00] LABS: BAND % (MANUAL) 3 % (0.0-5.0); EOSINOPHILS % (MANUAL) 2 % (0-4); LYMPHOCYTES % (MANUAL) 8 % (16-48); MONOCYTES % (MANUAL) 2 % (0-11.0); NEUTROPHILS % (MANUAL) 85 (42-76)
[2023-03-28] MEDS: TOBRAMYCIN 80 MG in IV D5W 50 ML IV SCH (21:11)
--- NOTE | 2023-03-28 23:10 | NUR ---
RESTRAINTS RENEWED Patient in bed, attempted to pull out tubing/lines during q2h release for circulation/skin check. Unable to dc sade soft wrist restraints at this time.
[2023-03-29] MEDS: BLOOD SUGAR DIAGNOSTIC 1 EACH STRIP IN SCH ×5 (00:27→23:46)
[2023-03-29] MEDS: METOPROLOL TARTRATE 25 MG TABLET GT SCH ×4 (00:30→23:46)
[2023-03-29] MEDS: INSULIN REGULAR, HUMAN 100 UNIT/ML 3 ML VIAL SQ PRN ×2 (00:34→05:40)
[2023-03-29] MEDS: IPRATROPIUM NEB FS 0.5 MG/2.5 ML AMPUL.NEB NEB SCH ×4 (01:08→20:12)
[2023-03-29] MEDS: ALBUTEROL FS 2.5 MG/0.5 ML VIAL.NEB NEB SCH ×4 (01:08→20:12)
[2023-03-29] MEDS: IV D5W 1,000 ML IV PRN (02:12)
[2023-03-29] MEDS: MEROPENEM 500 MG in IV NS 0.9% 100 ML IV SCH ×2 (02:16→14:21)
[2023-03-29 04:10] VITALS: BP 99/45
[2023-03-29] MEDS: ACETAMINOPHEN 650 MG/20.3 ML UDC GT PRN ×3 (04:10→23:48)
[2023-03-29] MEDS: METOCLOPRAMIDE HCL 10 MG/2 ML VIAL IV SCH ×3 (05:29→20:45)
--- NOTE | 2023-03-29 06:23 | NUR ---
END OF SHIFT REPORT Patient in bed, confused, no evidence of learning. Kings soft wrist restraints in place. Oxygen sat high 90's in 2L NC, BIPAP at night. Gtube feeding at 50ml/hr goal rate, minimal gastric residual 5ml. JOEL midline cath intact. IVF continuous, on IV abx. Spiked temp 100.1 curved down after Tylenol, cooling measure rendered. Wound care done, had BM during the night x1. Carias cath draining, output 900ml. Turned and repositioned q2h. Plan for cont IV abx through 04/02/23. Pending placement to SNF. Will endorse to oncoming RN.
[2023-03-29 06:24] VITALS: BP 95/50
[2023-03-29 07:07] LABS: BASOPHILS % (AUTO) 0.2 % (0.0-2.0); EOSINOPHILS % (AUTO) 1.3 % (0.0-6.0); HEMATOCRIT 27 % (33-45); HEMOGLOBIN 8.4 g/dL (11.5-14.8); LYMPHOCYTES # (AUTO) 1.1 K/uL (0.8-4.8); LYMPHOCYTES % (AUTO) 7.3 % (20.0-44.0); MEAN CORPUSCULAR HGB CONC 31 g/dl (31.0-36.0); MEAN CORPUSCULAR VOLUME 84 fL (82-100); MONOCYTES # (AUTO) 1.1 K/uL (0.1-1.30); MONOCYTES % (AUTO) 6.8 % (2.0-12.0); NEUTROPHILS % (AUTO) 84.4 % (43.0-81.0); PLATELET COUNT (AUTO) 549 K/uL (150-450); RED BLOOD CELL COUNT(AUTO) 3.23 MIL/uL (4.0-5.2); WHITE BLOOD COUNT (AUTO) 15.5 K/uL (4.3-11.0)
[2023-03-29 07:22] LABS: CALCIUM, SERUM 9.5 mg/dL (8.5-10.1); CREATININE 1.2 mg/dL (0.6-1.3); POTASSIUM 3.5 mmol/L (3.5-5.1)
[2023-03-29 08:00] VITALS: BP 95/54
[2023-03-29] MEDS: PROSOURCE / PROSTAT (PYXIS) 30 ML UDC GT SCH ×3 (08:29→16:06)
[2023-03-29] MEDS: FOLIC ACID 1 MG TABLET GT SCH (08:29)
[2023-03-29] MEDS: LEVOTHYROXINE SODIUM 100 MCG TABLET GT SCH (08:29)
[2023-03-29] MEDS: ARIPIPRAZOLE 5 MG TABLET GT SCH (08:29)
[2023-03-29] MEDS: THERAHONEY GEL 1.5 OZ TUBE TP SCH (08:30)
[2023-03-29] MEDS: HYDROGEL DRESSING 90 GM TUBE TP SCH (08:30)
[2023-03-29] MEDS: DAKINS QUARTER STRENGTH (0.125%) 480 ML BOTTLE TOP SCH (08:30)
[2023-03-29] MEDS: PANTOPRAZOLE 40 MG VIAL IV SCH ×2 (08:30→16:06)
[2023-03-29] MEDS: IV D5/ 0.9% NACL 1,000 ML IV SCH (15:50)
[2023-03-29] MEDS: GLUCERNA 1.2 1,000 ML BOTTLE PEG SCH (15:54)
[2023-03-29 16:00] VITALS: BP 106/75
--- NOTE | 2023-03-29 17:27 | NUR ---
RN NOTE BS 68 , 2 CUPS OF OJ WAS ADMINISTRED VIA G TUBE WILL RECHECK IN 30 MIN
--- NOTE | 2023-03-29 18:34 | NUR ---
RN CLOSE NOTE PATIENT AWAKE IN BED. A/OX NON-VERBAL. NO S/S OF DISTRESS, BREATHING WITHOUT DIFFICULTY ON 2L NC.O2 SAT 98 % L-WRIST #22 SL INTACT AND PATENT; JOEL MIDLINE #18 INTACT AND PATENT W/ D5W/NS 90ML/HR. TF GLUCERNA 1.2 TOLERATED VERY WELL AT 50ML/HR - NO RESIDUAL PRESENT. SAFETY MEASURES IN PLACE: BED LOCKED AND AT LOWEST POSITION, RAILS UP X2, CALL MCNEIL WITHIN REACH. ALL MEDICATIONS WERE ADMINISTRED WILL ENDORSE TRIMMING CUTTER MACHINE NURSE TO FALLOW POC
--- NOTE | 2023-03-29 18:34 | NUR ---
rn note bs was rechecked 82
--- NOTE | 2023-03-29 19:45 | NUR ---
MS RN OPENING NOTE PATIENT AWAKE IN BED, ALERT TO NAME. PATIENT STABLE ON 2 LPM ON O2 VIA NASAL CANNULA, NO S/S OF DISTRESS OR SOB NOTED, BREATHING EVEN AND UNLABORED. JOEL MIDLINE INTACT AND INFUSING D5NS @ 75 ML/HR. PATIENT ON GTF GLUCERNA 1.2 @ 50 ML/HR. THOMAS CATH IN PLACE AND DRAINING URINE BY GRAVITY. BILATERAL SOFT WRIST RESTRAINTS IN PLACE D/T PATIENT PULLING LINES. SAFETY MEASURES IN PLACE: CALL LIGHT WITHIN REACH, SIDE RAILS UP X 3, BED LOCKED IN LOWEST POSITION, HOB ELEVATED, BED ALARM ON. WILL CONTINUE TO MONITOR PATIENT
[2023-03-29 20:00] VITALS: BP 132/66
[2023-03-29] MEDS: TOBRAMYCIN 80 MG in IV D5W 50 ML IV SCH (20:45)
[2023-03-29 23:45] VITALS: BP 106/60
--- NOTE | 2023-03-30 | NUR ---
MS RN NOTE PATIENT NOTED WITH TEMP 101.7. TYLENOL 650 MG GIVEN VIA G TUBE, COOLING MEASURES APPLIED. WILL CONTINUE TO MONITOR
--- NOTE | 2023-03-30 00:15 | NUR ---
Placed pt on noc bipap as ordered. RN aware.
[2023-03-30] MEDS: IPRATROPIUM NEB FS 0.5 MG/2.5 ML AMPUL.NEB NEB SCH ×4 (01:28→20:18)
[2023-03-30] MEDS: ALBUTEROL FS 2.5 MG/0.5 ML VIAL.NEB NEB SCH ×4 (01:28→20:18)
[2023-03-30] MEDS: MEROPENEM 500 MG in IV NS 0.9% 100 ML IV SCH ×2 (03:11→14:37)
[2023-03-30 04:00] VITALS: BP 128/62
[2023-03-30] MEDS: METOCLOPRAMIDE HCL 10 MG/2 ML VIAL IV SCH ×3 (05:28→21:15)
[2023-03-30] MEDS: IV D5/ 0.9% NACL 1,000 ML IV SCH ×2 (05:29→18:17)
--- NOTE | 2023-03-30 05:36 | NUR ---
PT REMOVED FROM BIPAP.
[2023-03-30] MEDS: BLOOD SUGAR DIAGNOSTIC 1 EACH STRIP IN SCH ×3 (06:26→17:31)
--- NOTE | 2023-03-30 07:07 | NUR ---
MEDSURGE OPEN NOTE: ALERTX1. MOIST ORAL MUCOSA. ON 02 NASAL CANNULA, UNLABORED BREATHING. IV ON LEFT UPPER ARM MIDLINE WITH IVF OF D5NS AT 75 ML/HR. GT FEEDING ON GLUCERNA 1.2 AT 50 ML/HR. ASPIRATION PRECAUTIONS MAINTAINED. HOB ELEVATED. BED IN LOW POSITION, LOCKED, EXIT ALARM ON, BILATERAL HALF SIDE RAILS UP X2. CALL LIGHT IN REACH. BILATERAL SOFT WRIST RESTRAINTS ON. NO SKIN BREAKDOWN. CIRCULATION WITHIN NORMAL.
--- NOTE | 2023-03-30 07:13 | NUR ---
MS RN CLOSING NOTE PATIENT AWAKE IN BED, ALERT TO NAME. PATIENT STABLE ON 2 LPM ON O2 VIA NASAL CANNULA, NO S/S OF DISTRESS OR SOB NOTED, BREATHING EVEN AND UNLABORED. JOEL MIDLINE INTACT AND INFUSING D5NS @ 75 ML/HR. PATIENT ON GTF GLUCERNA 1.2 @ 50 ML/HR. THOMAS CATH IN PLACE AND DRAINING URINE BY GRAVITY, 450 ML OUTPUT. BILATERAL SOFT WRIST RESTRAINTS IN PLACE D/T PATIENT PULLING LINES. MEDICATIONS GIVEN ORDERED, PT NEEDS MET THROUGHOUT SHIFT, PATIENT TURNED AND REPOSITIONED, SACRAL WOUND CARE PERFORMED. SAFETY MEASURES IN PLACE: CALL LIGHT WITHIN REACH, SIDE RAILS UP X 3, BED LOCKED IN LOWEST POSITION, HOB ELEVATED, BED ALARM ON. ENDORSED TO DAYSHIFT RN FOR CONTINUITY OF CARE
[2023-03-30 07:24] LABS: CALCIUM, SERUM 9.3 mg/dL (8.5-10.1); CREATININE 1.2 mg/dL (0.6-1.3); POTASSIUM 4.3 mmol/L (3.5-5.1)
[2023-03-30 08:00] VITALS: BP 113/48
[2023-03-30] MEDS: METOPROLOL TARTRATE 25 MG TABLET GT SCH ×2 (08:30→16:30)
[2023-03-30] MEDS: ARIPIPRAZOLE 5 MG TABLET GT SCH (08:53)
[2023-03-30] MEDS: PANTOPRAZOLE 40 MG VIAL IV SCH ×2 (08:53→17:20)
[2023-03-30] MEDS: LEVOTHYROXINE SODIUM 100 MCG TABLET GT SCH (08:53)
[2023-03-30] MEDS: PROSOURCE / PROSTAT (PYXIS) 30 ML UDC GT SCH ×3 (08:53→17:20)
[2023-03-30] MEDS: FOLIC ACID 1 MG TABLET GT SCH (08:53)
[2023-03-30] MEDS: HYDROGEL DRESSING 90 GM TUBE TP SCH (12:58)
[2023-03-30] MEDS: THERAHONEY GEL 1.5 OZ TUBE TP SCH (12:58)
[2023-03-30] MEDS: DAKINS QUARTER STRENGTH (0.125%) 480 ML BOTTLE TOP SCH (12:59)
[2023-03-30] MEDS: ACETAMINOPHEN 650 MG/20.3 ML UDC GT PRN (13:19)
[2023-03-30] MEDS: GLUCERNA 1.2 1,000 ML BOTTLE PEG SCH (14:47)
[2023-03-30 16:00] VITALS: BP 113/72
--- NOTE | 2023-03-30 19:00 | NUR ---
BEAD FLIPPER opening note pt resting in bed eyes closed, easy to arouse, HOB elevated, on noc bipap, tolerating well, breathing even and unlabored, JOEL ML intact, D5NS @ 75 cc/hr infusing well, dominguez intact and patent, gt patent, glucerna 1.2 rola @ 50 ml/hr infusing well, all safety precautions noted and in place, will continue to monitor
--- NOTE | 2023-03-30 19:00 | NUR ---
MED SURGE CLOSING NOTE: ALERTX1. MOIST ORAL MUCOSA. ON 02 NASAL CANNULA, UNLABORED BREATHING. IV ON LEFT UPPER ARM MIDLINE WITH IVF OF D5NS AT 75 ML/HR. GT FEEDING ON GLUCERNA 1.2 AT 50 ML/HR. ASPIRATION PRECAUTIONS MAINTAINED. HOB ELEVATED. BED IN LOW POSITION, LOCKED, EXIT ALARM ON, BILATERAL HALF SIDE RAILS UP X2. CALL LIGHT IN REACH. BILATERAL SOFT WRIST RESTRAINTS ON. NO SKIN BREAKDOWN. CIRCULATION WITHIN NORMAL WOUND CARE PROVIDED, TURNED AND REPOSITIONED, THOMAS CATHETER WITH YELLOW CLEAR URINE. TOTAL CARE PROVIDED. VISITED BY SON EARLY EVENING. CONTINUE ON ABX IV WITH NO A/R NOTED. NO S/S OF HYPO OR HYPERGLYCEMIA.
[2023-03-30 20:00] VITALS: BP 93/54
[2023-03-30] MEDS: TOBRAMYCIN 80 MG in IV D5W 50 ML IV SCH (21:15)
[2023-03-31] MEDS: METOPROLOL TARTRATE 25 MG TABLET GT SCH ×3 (00:37→16:28)
[2023-03-31] MEDS: BLOOD SUGAR DIAGNOSTIC 1 EACH STRIP IN SCH ×4 (00:42→17:37)
[2023-03-31] MEDS: INSULIN REGULAR, HUMAN 100 UNIT/ML 3 ML VIAL SQ PRN ×2 (00:42→05:51)
[2023-03-31] MEDS: IPRATROPIUM NEB FS 0.5 MG/2.5 ML AMPUL.NEB NEB SCH ×4 (01:56→20:29)
[2023-03-31] MEDS: ALBUTEROL FS 2.5 MG/0.5 ML VIAL.NEB NEB SCH ×4 (01:56→20:29)
[2023-03-31] MEDS: MEROPENEM 500 MG in IV NS 0.9% 100 ML IV SCH ×2 (03:22→14:03)
[2023-03-31 04:00] VITALS: BP 122/62
--- NOTE | 2023-03-31 05:03 | NUR ---
Pt BS 60 at this time, small amount of OJ given via GT, will re-assess in 30 min
[2023-03-31] MEDS: METOCLOPRAMIDE HCL 10 MG/2 ML VIAL IV SCH ×3 (05:06→21:23)
--- NOTE | 2023-03-31 05:34 | NUR ---
CHIPPER OPERATOR closing note pt resting in bed eyes closed, easy to arouse, HOB elevated, on o2 via NC, breathing even and unlabored, JOEL ML intact, D5NS @ 75 cc/hr infusing well, dominguez intact and patent, gt patent, 0 residual noted, glucerna 1.2 rola @ 50 ml/hr infusing well, pt is on IV ATB tx, tolerated well, all due meds given per MD orders, tolerated well, pt repositioned q2h and prn, bed bath and john care rendered well, all basic needs met and anticipated, will continue to monitor
--- NOTE | 2023-03-31 05:50 | NUR ---
REASSESSED PT BS 110 AT THIS TIME, OJ WAS EFFECTIVE, WILL CONTINUE TO MONITOR
--- NOTE | 2023-03-31 07:10 | NUR ---
RN OPENING NOTE PATIENT AWAKE IN BED, ALERT TO NAME. PATIENT STABLE ON 2 LPM ON O2 VIA NASAL CANNULA, NO S/S OF DISTRESS OR SOB NOTED, BREATHING EVEN AND UNLABORED. JOEL MIDLINE INTACT AND INFUSING D5NS @ 75 ML/HR. PATIENT ON GTF GLUCERNA 1.2 @ 50 ML/HR. THOMAS CATH IN PLACE AND DRAINING URINE BY GRAVITY. SAFETY MEASURES IN PLACE: CALL LIGHT WITHIN REACH, SIDE RAILS UP X 3, BED LOCKED IN LOWEST POSITION, HOB ELEVATED, WILL CONTINUE TO MONITOR.
[2023-03-31 07:18] LABS: CALCIUM, SERUM 9.3 mg/dL (8.5-10.1); CREATININE 1.1 mg/dL (0.6-1.3); POTASSIUM 3.7 mmol/L (3.5-5.1)
[2023-03-31 08:00] VITALS: BP 116/80
[2023-03-31] MEDS: IV D5/ 0.9% NACL 1,000 ML IV SCH (08:00)
[2023-03-31] MEDS: ARIPIPRAZOLE 5 MG TABLET GT SCH (08:19)
[2023-03-31] MEDS: LEVOTHYROXINE SODIUM 100 MCG TABLET GT SCH (08:19)
[2023-03-31] MEDS: FOLIC ACID 1 MG TABLET GT SCH (08:19)
[2023-03-31] MEDS: PANTOPRAZOLE 40 MG VIAL IV SCH ×2 (08:19→16:27)
[2023-03-31] MEDS: HYDROGEL DRESSING 90 GM TUBE TP SCH (08:21)
[2023-03-31] MEDS: THERAHONEY GEL 1.5 OZ TUBE TP SCH (08:21)
[2023-03-31] MEDS: DAKINS QUARTER STRENGTH (0.125%) 480 ML BOTTLE TOP SCH (08:21)
[2023-03-31] MEDS: PROSOURCE / PROSTAT (PYXIS) 30 ML UDC GT SCH ×3 (08:21→16:21)
[2023-03-31 16:00] VITALS: BP 116/59
--- NOTE | 2023-03-31 19:00 | NUR ---
RN CLOSING NOTE PATIENT ASLEEP, STABLE ON 2 LPM ON O2 VIA NASAL CANNULA, NO S/S OF DISTRESS OR SOB NOTED, BREATHING EVEN AND UNLABORED. JOEL MIDLINE INTACT AND INFUSING D5NS @ 75 ML/HR. PATIENT ON GTF GLUCERNA 1.2 @ 50 ML/HR. THOMAS CATH IN PLACE AND DRAINING URINE BY GRAVITY. SAFETY MEASURES IN PLACE: CALL LIGHT WITHIN REACH, SIDE RAILS UP X 3, BED LOCKED IN LOWEST POSITION, HOB ELEVATED, WILL ENDORSE TO THE UPCOMING SHIFT NURSE FOR ROGERIO.
--- NOTE | 2023-03-31 19:05 | NUR ---
RN NOTE Received pt in bed, alert, awake, oriented to self only. Verbally responsive, able to answer simple question, noted with episode of confusion. Pt. on 1L O2 via NC, well tolerated, no sob, no acute resp distress noted. GABRIELA ML patent, secured, dressing CDI, currently infusing D5NS at 75ml/hr, well tolerated. Pt. on GTF, GT in placed, patent and secured, GTF ongoing Glucerna at 50ml/hr, 0 residual noted. HOB elevated. Aspiration precaution observed. Carias cath in placed, draining clear yellow urine. Will cont. POC
[2023-03-31 20:00] VITALS: BP 119/47
[2023-03-31] MEDS: TOBRAMYCIN 80 MG in IV D5W 50 ML IV SCH (21:52)
--- NOTE | 2023-03-31 23:00 | NUR ---
RN NOTE Pt. placed on Bipap, current setting well tolerated.
[2023-04-01] MEDS: BLOOD SUGAR DIAGNOSTIC 1 EACH STRIP IN SCH ×4 (00:45→17:08)
[2023-04-01] MEDS: INSULIN REGULAR, HUMAN 100 UNIT/ML 3 ML VIAL SQ PRN ×2 (00:46→06:30)
[2023-04-01] MEDS: METOPROLOL TARTRATE 25 MG TABLET GT SCH ×3 (00:47→16:20)
[2023-04-01] MEDS: IPRATROPIUM NEB FS 0.5 MG/2.5 ML AMPUL.NEB NEB SCH ×4 (01:55→20:28)
[2023-04-01] MEDS: ALBUTEROL FS 2.5 MG/0.5 ML VIAL.NEB NEB SCH ×4 (01:55→20:28)
--- NOTE | 2023-04-01 02:09 | NUR ---
RT NOTE PT REFUSING BIPAP AT THIS TIME. PT PLACED ON 1 LPM NASAL CANNULA. NO RESPIRATORY DISTRESS NOTED. WILL CONTINUE TO MONITOR. RN NOTIFIED.
--- NOTE | 2023-04-01 02:10 | NUR ---
RN NOTE Bipap removed at this time. Pt placed back on 1L O2 via NC, well tolerated, no SOB, no acute resp distress noted.
[2023-04-01] MEDS: MEROPENEM 500 MG in IV NS 0.9% 100 ML IV SCH ×2 (03:42→15:49)
[2023-04-01 04:00] VITALS: BP 114/55
[2023-04-01] MEDS: IV D5/ 0.9% NACL 1,000 ML IV PRN ×2 (04:07→17:00)
[2023-04-01] MEDS: METOCLOPRAMIDE HCL 10 MG/2 ML VIAL IV SCH ×3 (05:30→21:32)
--- NOTE | 2023-04-01 07:15 | NUR ---
RN NOTE Report given to AM shift nurse Quinton for ROGERIO.
--- NOTE | 2023-04-01 07:20 | NUR ---
BORDER MEASURER AND CUTTER NOTES Received pt awake in bed AOX1 non verbal and unable to follow command. No signs of pain or discomfort at this time. Pt is on NC 1L and tolerating it well. IV access on JOEL midline patent and intact running D5NS at 75cc/hr. GT is patent and intact with GTF as ordered. HOB elevated to 30-45 degrees. Siderails up at all times x3. Call light within reach. Will continue to monitor.
[2023-04-01 08:00] VITALS: BP 98/60
[2023-04-01] MEDS: PROSOURCE / PROSTAT (PYXIS) 30 ML UDC GT SCH ×3 (08:28→16:20)
[2023-04-01] MEDS: FOLIC ACID 1 MG TABLET GT SCH (08:28)
[2023-04-01] MEDS: ARIPIPRAZOLE 5 MG TABLET GT SCH (08:28)
[2023-04-01] MEDS: LEVOTHYROXINE SODIUM 100 MCG TABLET GT SCH (08:29)
[2023-04-01] MEDS: PANTOPRAZOLE 40 MG VIAL IV SCH ×2 (08:31→16:17)
[2023-04-01] MEDS: DAKINS QUARTER STRENGTH (0.125%) 480 ML BOTTLE TOP SCH (08:44)
[2023-04-01] MEDS: HYDROGEL DRESSING 90 GM TUBE TP SCH (08:45)
[2023-04-01] MEDS: THERAHONEY GEL 1.5 OZ TUBE TP SCH (08:45)
[2023-04-01 15:14] LABS: CALCIUM, SERUM 9.5 mg/dL (8.5-10.1); POTASSIUM 3.7 mmol/L (3.5-5.1)
[2023-04-01 16:00] VITALS: BP 123/82
--- NOTE | 2023-04-01 18:39 | NUR ---
STEEPLE JACK CLOSING NOTES All due meds and tx given as ordered. Pt tolerated everything well. All needs attended to. Pt is on 1L NC and tolerating it well. IV access on JOEL midline is patent and intact running D5NS @ 75cc/hr as ordered. No gastric residual noted. GT is patent and intact running Glucerna @ 50cc/h. HOB elevated to 30-45 degrees. Call light within reach. Will endorse to oncoming nurse.
[2023-04-01 20:00] VITALS: BP 130/70
[2023-04-01] MEDS: TOBRAMYCIN 80 MG in IV D5W 50 ML IV SCH (21:32)
[2023-04-02] MEDS: METOPROLOL TARTRATE 25 MG TABLET GT SCH ×3 (00:48→17:06)
[2023-04-02] MEDS: BLOOD SUGAR DIAGNOSTIC 1 EACH STRIP IN SCH ×4 (00:54→17:44)
[2023-04-02] MEDS: INSULIN REGULAR, HUMAN 100 UNIT/ML 3 ML VIAL SQ PRN ×2 (00:55→06:07)
[2023-04-02] MEDS: IPRATROPIUM NEB FS 0.5 MG/2.5 ML AMPUL.NEB NEB SCH ×4 (01:52→20:25)
[2023-04-02] MEDS: ALBUTEROL FS 2.5 MG/0.5 ML VIAL.NEB NEB SCH ×4 (01:52→20:25)
[2023-04-02] MEDS: MEROPENEM 500 MG in IV NS 0.9% 100 ML IV SCH (02:05)
[2023-04-02 04:00] VITALS: BP 105/85
[2023-04-02] MEDS: METOCLOPRAMIDE HCL 10 MG/2 ML VIAL IV SCH ×3 (04:55→21:15)
[2023-04-02 07:11] LABS: BASOPHILS # (AUTO) 0.1 K/uL (0.0-0.2); BASOPHILS % (AUTO) 0.7 % (0.0-2.0); EOSINOPHILS % (AUTO) 1.3 % (0.0-6.0); HEMATOCRIT 23 % (33-45); HEMOGLOBIN 7.3 g/dL (11.5-14.8); LYMPHOCYTES # (AUTO) 1.6 K/uL (0.8-4.8); LYMPHOCYTES % (AUTO) 15.1 % (20.0-44.0); MEAN CORPUSCULAR HGB CONC 31 g/dl (31.0-36.0); MEAN CORPUSCULAR VOLUME 85 fL (82-100); MONOCYTES # (AUTO) 1.2 K/uL (0.1-1.30); NEUTROPHILS # (AUTO) 7.5 K/uL (1.8-8.9); NEUTROPHILS % (AUTO) 71.9 % (43.0-81.0); PLATELET COUNT (AUTO) 861 K/uL (150-450); RED BLOOD CELL COUNT(AUTO) 2.74 MIL/uL (4.0-5.2); WHITE BLOOD COUNT (AUTO) 10.5 K/uL (4.3-11.0)
[2023-04-02] MEDS: IV D5/ 0.9% NACL 1,000 ML IV PRN ×2 (07:16→23:40)
[2023-04-02 07:18] LABS: CALCIUM, SERUM 9.9 mg/dL (8.5-10.1); POTASSIUM 3.6 mmol/L (3.5-5.1)
--- NOTE | 2023-04-02 07:35 | NUR ---
MS DERICK OPENING NOTE PATIENT IN BED, AWAKE, A/O X1, ALERT TO NAME. NO SIGNS OF ACUTE DISTRESS NOTED. ON O2 INHALATION AT 2LPM VIA NC, NO SOB NOTED, BREATHING EVEN AND UNLABORED. WITH JOEL MIDLINE INTACT AND INFUSING D5NS @ 75 ML/HR. PATIENT ON GTF GLUCERNA 1.2 @ 50 ML/HR. WITH THOMAS CATH IN PLACE AND DRAINING URINE BY GRAVITY. SAFETY MEASURES IN PLACE; CALL LIGHT WITHIN REACH; SIDE RAILS UP X 3, BED LOCKED IN LOWEST POSITION; BED ALARM ON. WILL CONTINUE TO MONITOR PATIENT. Addendum: 04/02/23 at 1132 by SUZANNE FIORE RN PATIENT HAS BILATERAL SOFT RESTRAINTS ON HAND.
--- NOTE | 2023-04-02 07:40 | NUR ---
LIABILITY CLAIMS REPRESENTATIVE closing note pt resting in bed awake, A&OX1, HOB elevated, on o2 via NC, breathing even and unlabored, JOEL ML intact, D5NS @ 75 cc/hr infusing well, dominguez intact and patent, gt patent, 0 residual noted, glucerna 1.2 rola @ 50 ml/hr infusing well, pt is on IV ATB tx, tolerated well, all due meds given per MD orders, tolerated well, pt repositioned q2h and prn, bed bath and john care rendered well, all basic needs met and anticipated, will continue to monitor
[2023-04-02 08:00] VITALS: BP 109/49
--- NOTE | 2023-04-02 08:10 | NUR ---
RECEIVED ON ROOM AIR WITH 93% SPO2. NO SOB NOTED Addendum: 04/02/23 at 0810 by GRACY FIGUEROA RT Amended: Links added.
[2023-04-02] MEDS: LEVOTHYROXINE SODIUM 100 MCG TABLET GT SCH (09:01)
[2023-04-02] MEDS: PANTOPRAZOLE 40 MG VIAL IV SCH ×2 (09:01→17:05)
[2023-04-02] MEDS: ARIPIPRAZOLE 5 MG TABLET GT SCH (09:01)
[2023-04-02] MEDS: FOLIC ACID 1 MG TABLET GT SCH (09:01)
[2023-04-02] MEDS: PROSOURCE / PROSTAT (PYXIS) 30 ML UDC GT SCH ×3 (09:09→17:07)
[2023-04-02] MEDS: THERAHONEY GEL 1.5 OZ TUBE TP SCH (09:31)
[2023-04-02] MEDS: HYDROGEL DRESSING 90 GM TUBE TP SCH (09:32)
[2023-04-02] MEDS: DAKINS QUARTER STRENGTH (0.125%) 480 ML BOTTLE TOP SCH (09:32)
--- NOTE | 2023-04-02 13:46 | NUR ---
MS RN PATIENT WAS SEEN BY . PER , SHE WILL CHANGE AND ORDER THE DIET FROM NPO TO PUREED DIET. Addendum: 04/02/23 at 1904 by SUZANNE FIORE RN ERROR
[2023-04-02 16:00] VITALS: BP 131/61
--- NOTE | 2023-04-02 19:07 | NUR ---
MS RN CLOSING NOTE PATIENT IN BED, ASLEEP BUT EASY TO AROUSE, A/O X1, ALERT TO NAME. NO SIGNS OF ACUTE DISTRESS NOTED. ON O2 INHALATION AT 2LPM VIA NC, NO SOB NOTED, BREATHING EVEN AND UNLABORED. WITH JOEL MIDLINE INTACT AND INFUSING D5NS @ 75 ML/HR. PATIENT ON GT FEEDING GLUCERNA 1.2 @ 50 ML/HR, TOLERATED WELL. WITH THOMAS CATH IN PLACE AND DRAINING URINE BY GRAVITY. WITH BILATERAL HAND RESTRAINTS, MONITORED AND CHECKED Q2H. ALL DUE MEDS GIVEN. ALL NURSING NEEDS ATTENDED. SAFETY MEASURES IMPLEMENTED; CALL LIGHT WITHIN REACH; SIDE RAILS UP X 3, BED LOCKED IN LOWEST POSITION; BED ALARM ON. WILL ENDORSE TO TRANSFORMER MECHANIC NURSE FOR CONTINUITY OF CARE.
[2023-04-02 20:00] VITALS: BP 138/72
[2023-04-03] MEDS: BLOOD SUGAR DIAGNOSTIC 1 EACH STRIP IN SCH ×5 (00:01→23:29)
[2023-04-03] MEDS: INSULIN REGULAR, HUMAN 100 UNIT/ML 3 ML VIAL SQ PRN ×3 (00:02→23:30)
[2023-04-03] MEDS: METOPROLOL TARTRATE 25 MG TABLET GT SCH ×4 (00:30→23:30)
[2023-04-03] MEDS: IPRATROPIUM NEB FS 0.5 MG/2.5 ML AMPUL.NEB NEB SCH ×4 (01:32→20:43)
[2023-04-03] MEDS: ALBUTEROL FS 2.5 MG/0.5 ML VIAL.NEB NEB SCH ×4 (01:32→20:43)
[2023-04-03 04:00] VITALS: BP 118/89
[2023-04-03] MEDS: METOCLOPRAMIDE HCL 10 MG/2 ML VIAL IV SCH ×3 (05:22→21:25)
[2023-04-03] MEDS: GLUCERNA 1.2 1,000 ML BOTTLE PEG SCH (07:05)
--- NOTE | 2023-04-03 07:30 | NUR ---
MED SURGE OPEN NOTE: ALERTX1. MOIST ORAL MUCOSA. ON 02 NASAL CANNULA, UNLABORED BREATHING. IV ON LEFT UPPER ARM MIDLINE WITH IVF OF D5NS AT 75 ML/HR. GT FEEDING ON GLUCERNA 1.2 AT 50 ML/HR. ASPIRATION PRECAUTIONS MAINTAINED. HOB ELEVATED. BED IN LOW POSITION, LOCKED, EXIT ALARM ON, BILATERAL HALF SIDE RAILS UP X2. CALL LIGHT IN REACH. BILATERAL SOFT WRIST RESTRAINTS ON. NO SKIN BREAKDOWN. CIRCULATION WITHIN NORMAL. TURNED AND REPOSITIONED, THOMAS CATHETER IN PLACE.
[2023-04-03 08:00] VITALS: BP 118/80
[2023-04-03] MEDS: ARIPIPRAZOLE 5 MG TABLET GT SCH (09:38)
[2023-04-03] MEDS: FOLIC ACID 1 MG TABLET GT SCH (09:38)
[2023-04-03] MEDS: PROSOURCE / PROSTAT (PYXIS) 30 ML UDC GT SCH ×3 (09:38→17:56)
[2023-04-03] MEDS: PANTOPRAZOLE 40 MG VIAL IV SCH ×2 (09:38→17:56)
[2023-04-03] MEDS: HYDROGEL DRESSING 90 GM TUBE TP SCH (09:53)
[2023-04-03] MEDS: LEVOTHYROXINE SODIUM 100 MCG TABLET GT SCH (09:53)
[2023-04-03] MEDS: DAKINS QUARTER STRENGTH (0.125%) 480 ML BOTTLE TOP SCH (09:53)
[2023-04-03] MEDS: ZINC SULFATE 220 MG CAPSULE GT SCH (09:54)
[2023-04-03] MEDS: ASCORBIC ACID 500 MG TABLET GT SCH (09:54)
[2023-04-03] MEDS: THERAHONEY GEL 1.5 OZ TUBE TP SCH (09:54)
[2023-04-03] MEDS: ACETAMINOPHEN 650 MG/20.3 ML UDC GT PRN (09:55)
[2023-04-03] MEDS: IV D5/ 0.9% NACL 1,000 ML IV PRN ×2 (12:51→23:40)
[2023-04-03 16:00] VITALS: BP 130/80
--- NOTE | 2023-04-03 19:00 | NUR ---
MED SURGE CLOSING NOTE: ALERTX1. MOIST ORAL MUCOSA. ON 02 NASAL CANNULA 2 LPM, UNLABORED BREATHING. IV ON LEFT UPPER ARM MIDLINE WITH IVF OF D5NS AT 75 ML/HR. GT FEEDING ON GLUCERNA 1.2 AT 50 ML/HR. ASPIRATION PRECAUTIONS MAINTAINED. HOB ELEVATED. BED IN LOW POSITION, LOCKED, EXIT ALARM ON, BILATERAL HALF SIDE RAILS UP X2. CALL LIGHT IN REACH. BILATERAL SOFT WRIST RESTRAINTS ON. NO SKIN BREAKDOWN. CIRCULATION WITHIN NORMAL. TURNED AND REPOSITIONED, THOMAS CATHETER IN PLACE. WOUND CARE DONE ORDERED. TURNED AND REPOSITIONED.
--- NOTE | 2023-04-03 19:01 | NUR ---
LABORATORY ENGINEER opening note pt resting in bed eyes closed, easy to arouse, HOB elevated, on o2 via NC, tolerating well, breathing even and unlabored, JOEL ML intact, D5NS @ 75 cc/hr infusing well, dominguez intact and patent, gt patent, glucerna 1.2 rola @ 50 ml/hr infusing well, all safety precautions noted and in place, will continue to monitor
[2023-04-03 20:00] VITALS: BP 131/86
[2023-04-04] MEDS: IPRATROPIUM NEB FS 0.5 MG/2.5 ML AMPUL.NEB NEB SCH ×4 (02:09→19:23)
[2023-04-04] MEDS: ALBUTEROL FS 2.5 MG/0.5 ML VIAL.NEB NEB SCH ×4 (02:09→19:23)
[2023-04-04 03:00] VITALS: BP 150/80
[2023-04-04 04:00] VITALS: BP 150/80
[2023-04-04] MEDS: METOCLOPRAMIDE HCL 10 MG/2 ML VIAL IV SCH ×3 (05:16→20:57)
[2023-04-04] MEDS: BLOOD SUGAR DIAGNOSTIC 1 EACH STRIP IN SCH ×3 (05:36→18:50)
[2023-04-04] MEDS: INSULIN REGULAR, HUMAN 100 UNIT/ML 3 ML VIAL SQ PRN ×2 (05:37→18:51)
--- NOTE | 2023-04-04 05:41 | NUR ---
PRODUCTION ASSISTANT closing note pt resting in bed asleep, easy to arouse, A&OX1, HOB elevated, on o2 via NC, breathing even and unlabored, JOEL ML intact, D5NS @ 75 cc/hr infusing well, dominguez intact and patent, gt patent, 0 residual noted, glucerna 1.2 rola @ 50 ml/hr infusing well, pt is on IV ATB tx, tolerated well, all due meds given per MD orders, tolerated well, pt repositioned q2h and prn, bed bath and john care rendered well, all basic needs met and anticipated, will continue to monitor
[2023-04-04 06:20] LABS: BASOPHILS # (AUTO) 0.1 K/uL (0.0-0.2); BASOPHILS % (AUTO) 0.8 % (0.0-2.0); EOSINOPHILS % (AUTO) 1.2 % (0.0-6.0); HEMATOCRIT 24 % (33-45); HEMOGLOBIN 7.3 g/dL (11.5-14.8); LYMPHOCYTES # (AUTO) 1.7 K/uL (0.8-4.8); LYMPHOCYTES % (AUTO) 11.8 % (20.0-44.0); MEAN CORPUSCULAR HGB CONC 31 g/dl (31.0-36.0); MEAN CORPUSCULAR VOLUME 85 fL (82-100); MONOCYTES # (AUTO) 1.3 K/uL (0.1-1.30); MONOCYTES % (AUTO) 8.7 % (2.0-12.0); NEUTROPHILS # (AUTO) 11.4 K/uL (1.8-8.9); NEUTROPHILS % (AUTO) 77.5 % (43.0-81.0); RED BLOOD CELL COUNT(AUTO) 2.79 MIL/uL (4.0-5.2); WHITE BLOOD COUNT (AUTO) 14.8 K/uL (4.3-11.0)
[2023-04-04 06:26] LABS: CALCIUM, SERUM 9.7 mg/dL (8.5-10.1); CREATININE 1.1 mg/dL (0.6-1.3); POTASSIUM 4.5 mmol/L (3.5-5.1)
[2023-04-04 06:37] LABS: PLATELET COUNT (AUTO) 953 K/uL (150-450)
--- NOTE | 2023-04-04 06:39 | NUR ---
Relayed critical to plt 118
[2023-04-04 08:00] VITALS: BP 136/92
[2023-04-04] MEDS: HYDROGEL DRESSING 90 GM TUBE TP SCH (09:00)
[2023-04-04] MEDS: DAKINS QUARTER STRENGTH (0.125%) 480 ML BOTTLE TOP SCH (09:00)
[2023-04-04] MEDS: GLUCERNA 1.2 1,000 ML BOTTLE PEG SCH (09:08)
[2023-04-04] MEDS: ASCORBIC ACID 500 MG TABLET GT SCH (09:47)
[2023-04-04] MEDS: ARIPIPRAZOLE 5 MG TABLET GT SCH (09:47)
[2023-04-04] MEDS: LEVOTHYROXINE SODIUM 100 MCG TABLET GT SCH (09:47)
[2023-04-04] MEDS: METOPROLOL TARTRATE 25 MG TABLET GT SCH ×2 (09:47→19:04)
[2023-04-04] MEDS: PANTOPRAZOLE 40 MG VIAL IV SCH ×2 (09:47→19:05)
[2023-04-04] MEDS: PROSOURCE / PROSTAT (PYXIS) 30 ML UDC GT SCH ×3 (09:47→17:00)
[2023-04-04] MEDS: ZINC SULFATE 220 MG CAPSULE GT SCH (09:48)
[2023-04-04] MEDS: FOLIC ACID 1 MG TABLET GT SCH (09:48)
[2023-04-04] MEDS: THERAHONEY GEL 1.5 OZ TUBE TP SCH (09:49)
[2023-04-04 16:00] VITALS: BP 138/62
--- NOTE | 2023-04-04 19:00 | NUR ---
RN OPENING NOTE RECEIVED PT ASLEEP IN BED. PT IS A/O X 1, CONFUSED. PT IS IN 2L O2 INHALATION VIA NASAL CANNULA, TOLERATING WELL, BREATHING EVEN AND UNLABORED @ THIS TIME. PT IV PRESENT ON LEFT UPPER ARM MIDLINE SALINE LOCK, PATENT, INTACT AND FLUSHES WELL W/ NO S &SX OF INFILTRATION @ SITE NOTED. PT GTUBE IS IN PLACE RUNNING GLUCERNA 1.2 @ 50MLS/HR, TOLERATING WELL W/ NO RESIDUAL @ THIS TIME. PT THOMAS CATHETER IS IN PLACE DRAINING YELLOW COLORED URINE W/ 350ML OUTPUT. SAFETY MEASURES IS IN PLACE. BED IN LOWEST AND LOCKED POSITION. SIDE RAILS UP X 4. BEDSIDE TABLE AND CALL LIGHT IS EASY REACH. BED ALARM IS ON. WILL CONTINUE TO MONITOR PT ACCORDINGLY.
[2023-04-04 20:00] VITALS: BP_SYST 118; BP_SYST 126; BP_DIAS 41; BP_DIAS 73
--- NOTE | 2023-04-04 20:11 | NUR ---
RN closing note pt resting in bed asleep, easy to arouse, A&OX1, HOB elevated, on o2 via NC, breathing even and unlabored, JOEL ML intact, D5NS @ 75 cc/hr infusing well, dominguez intact and patent, gt patent, 0 residual noted, glucerna 1.2 rola @ 50 ml/hr infusing well, pt is on IV ATB tx, tolerated well, all due meds given per MD orders, tolerated well, pt repositioned q2h and prn, bed bath and john care rendered well, all basic needs met and anticipated, will endorse continuity of care to mold shifter nurse
[2023-04-05 00:01] VITALS: BP 131/67
[2023-04-05] MEDS: BLOOD SUGAR DIAGNOSTIC 1 EACH STRIP IN SCH ×4 (00:34→18:00)
[2023-04-05] MEDS: INSULIN REGULAR, HUMAN 100 UNIT/ML 3 ML VIAL SQ PRN ×2 (00:35→05:28)
--- NOTE | 2023-04-05 00:36 | NUR ---
HELD INSULIN REGULAR D/T PT BLOOD GLUCOSE OF 89.
[2023-04-05] MEDS: METOPROLOL TARTRATE 25 MG TABLET GT SCH ×3 (00:40→16:53)
[2023-04-05] MEDS: ALBUTEROL FS 2.5 MG/0.5 ML VIAL.NEB NEB SCH ×4 (01:11→20:02)
[2023-04-05] MEDS: IPRATROPIUM NEB FS 0.5 MG/2.5 ML AMPUL.NEB NEB SCH ×4 (01:11→20:02)
[2023-04-05 04:00] VITALS: BP 124/85
[2023-04-05] MEDS: METOCLOPRAMIDE HCL 10 MG/2 ML VIAL IV SCH ×3 (04:35→21:29)
--- NOTE | 2023-04-05 05:29 | NUR ---
HELD INSULIN REGULAR D/T PT BLOOD GLUCOSE OF 87.
--- NOTE | 2023-04-05 06:58 | NUR ---
RN CLOSING NOTE PT INTERMITTENTLY DOZING & RESTING COMFORTABLY IN BED. PT IS A/O X 1. PT IS IN 2L O2 INHALATION VIA NASAL CANNULA, W/ NO S &SX OF RESPIRATORY DISTRESS @ THIS TIME. PT IV PRESENT ON LEFT UPPER ARM MIDLINE SALINE LOCK, PATENT, INTACT AND FLUSHES WELL W/ NO S &SX OF INFILTRATION @ SITE NOTED. PT GTUBE IS IN PLACE RUNNING GLUCERNA 1.2 @ 50MLS/HR, TOLERATING WELL W/ NO RESIDUAL @ THIS TIME. PT THOMAS CATHETER IS IN PLACE DRAINING YELLOW COLORED URINE. PT KEPT CLEAN AND DRY. SAFETY MEASURES IS IN PLACE. BED IN LOWEST AND LOCKED POSITION. SIDE RAILS UP X 4. BEDSIDE TABLE AND CALL LIGHT IS EASY REACH. BED ALARM IS ON. WILL ENDORSE PT TO THE NEXT SHIFT FOR ROGERIO.
--- NOTE | 2023-04-05 07:00 | NUR ---
LEATHER GOODS SALES REPRESENTATIVE OPENING NOTE PATIENT AWAKE, CONFUSED. 02 2L N/C O2 SAT 100% NO S/S OF RESPIRATORY DISTRESS NOTED. HOB ELEVATED, ORAL SUCTION PERFORMED AT PRESENT. G-TUBE FEEDING TOLERATING WELL NO RESIDUAL NOTED. G-TUBE SITE DRESSING CHANGED. MID-LINE IV JOEL INTACT. SAFETY MEASURES IN PLACE, BED LOCKED TO THE LOWEST POSITION, CALL LILGHT WITHIN REACH. CONT. TO MONITOR.
[2023-04-05 08:00] VITALS: BP 111/69
[2023-04-05] MEDS: THERAHONEY GEL 1.5 OZ TUBE TP SCH (09:00)
[2023-04-05] MEDS: DAKINS QUARTER STRENGTH (0.125%) 480 ML BOTTLE TOP SCH (09:00)
[2023-04-05] MEDS: HYDROGEL DRESSING 90 GM TUBE TP SCH (09:00)
[2023-04-05] MEDS: PANTOPRAZOLE 40 MG VIAL IV SCH ×2 (09:18→17:48)
[2023-04-05] MEDS: FOLIC ACID 1 MG TABLET GT SCH (09:26)
[2023-04-05] MEDS: ZINC SULFATE 220 MG CAPSULE GT SCH (09:27)
[2023-04-05] MEDS: ARIPIPRAZOLE 5 MG TABLET GT SCH (09:27)
[2023-04-05] MEDS: LEVOTHYROXINE SODIUM 100 MCG TABLET GT SCH (09:29)
[2023-04-05] MEDS: PROSOURCE / PROSTAT (PYXIS) 30 ML UDC GT SCH ×3 (09:33→16:53)
[2023-04-05] MEDS: ASCORBIC ACID 500 MG TABLET GT SCH (09:36)
[2023-04-05] MEDS: IV D5/ 0.9% NACL 1,000 ML IV PRN ×2 (09:38→23:47)
[2023-04-05] MEDS: GLUCERNA 1.2 1,000 ML BOTTLE PEG SCH (10:05)
--- NOTE | 2023-04-05 12:10 | NUR ---
SPOUTING INSTALLER NOTE GLUCOSE LEVEL 84 NO INSULIN COVERAGE.
[2023-04-05 16:00] VITALS: BP 136/67
--- NOTE | 2023-04-05 18:13 | NUR ---
ORTHOPEDIC TECH NOTE GLUCOSE LEVEL 87 NO INSULIN COVERAGE.
--- NOTE | 2023-04-05 18:35 | NUR ---
HORSE STUD MANAGER CLOSING NOTE PATIENT AWAKE, CONFUSED, CALM. 02 2L N/C O2 SAT 96%, NO S/S OF RESPIRATORY DISTRESS NOTED. HOB ELEVATED. G-TUBE FEEDING GLUCERNA 1.2 AT 50ML/HR, NO RESIDUAL NOTED. ORAL SUCTION PERFORMED. JOEL MID-LINE IV ACCESS INTACT. INFUSING IVGF D5NS AT 75ML/HR. WOUND CARE PERFORMED DIRECTED. SAFETY MEASURES IN PLACE, BED LOCKED TO THE LOWEST POSITION, CALL LIGHT AND TABLE WITHIN REACH. I WILL ENDORSE TO THE FOLLOWING NURSE.
--- NOTE | 2023-04-05 19:07 | NUR ---
AUTOMOTIVE GLASS SPECIALIST NOTE PATIENT HAS [place]. SOFT WRIST RESTRAINTS IN PLACE. MONITORING PER PROTOCOL.
--- NOTE | 2023-04-05 19:47 | NUR ---
MARKET BASKET MAKER NOTE PATIENT PULLED THE MID-LINE OUT, CATHETER TIP INTACT, NO BLEEDING TO IV SITE NOTED. NOTIFIED TO OUR IN ROR ENGINEER TO OBTAIN ORDER TO RE-INSERT A MID-LINE TO THE PATIENT.ALSO CALLED TO DR. CLAUDIO TO REQUEST A ORDER TO RE-INSERT A MID-LINE. [place]. SOFT WRIST RESTRAINTS IN PLACE.
[2023-04-05 20:00] VITALS: BP 138/77
--- NOTE | 2023-04-05 20:00 | NUR ---
ML inserted by ML nurse at this time on the Right upper arm, #18G, SL, C/D/I
--- NOTE | 2023-04-05 22:34 | NUR ---
PT PLACED ON NOC BIPAP ORDERED. RN NOTIFIED.
[2023-04-06] MEDS: BLOOD SUGAR DIAGNOSTIC 1 EACH STRIP IN SCH ×4 (00:50→17:03)
[2023-04-06] MEDS: METOPROLOL TARTRATE 25 MG TABLET GT SCH ×3 (00:50→17:02)
[2023-04-06] MEDS: INSULIN REGULAR, HUMAN 100 UNIT/ML 3 ML VIAL SQ PRN ×2 (00:51→06:32)
[2023-04-06] MEDS: ALBUTEROL FS 2.5 MG/0.5 ML VIAL.NEB NEB SCH ×4 (01:23→19:42)
[2023-04-06] MEDS: IPRATROPIUM NEB FS 0.5 MG/2.5 ML AMPUL.NEB NEB SCH ×4 (01:23→19:42)
[2023-04-06 04:00] VITALS: BP 132/94
[2023-04-06] MEDS: METOCLOPRAMIDE HCL 10 MG/2 ML VIAL IV SCH ×3 (04:37→20:33)
[2023-04-06 06:04] LABS: BASOPHILS # (AUTO) 0.1 K/uL (0.0-0.2); EOSINOPHILS % (AUTO) 2.7 % (0.0-6.0); HEMATOCRIT 25 % (33-45); HEMOGLOBIN 7.5 g/dL (11.5-14.8); LYMPHOCYTES # (AUTO) 2.3 K/uL (0.8-4.8); LYMPHOCYTES % (AUTO) 17.2 % (20.0-44.0); MEAN CORPUSCULAR HGB CONC 31 g/dl (31.0-36.0); MEAN CORPUSCULAR VOLUME 85 fL (82-100); MONOCYTES % (AUTO) 7.5 % (2.0-12.0); NEUTROPHILS # (AUTO) 9.6 K/uL (1.8-8.9); NEUTROPHILS % (AUTO) 71.6 % (43.0-81.0); RED BLOOD CELL COUNT(AUTO) 2.88 MIL/uL (4.0-5.2); WHITE BLOOD COUNT (AUTO) 13.4 K/uL (4.3-11.0)
[2023-04-06 06:11] LABS: PLATELET COUNT (AUTO) 1002 K/uL (150-450)
[2023-04-06 06:19] LABS: CALCIUM, SERUM 9.5 mg/dL (8.5-10.1); CREATININE 1.1 mg/dL (0.6-1.3); POTASSIUM 3.8 mmol/L (3.5-5.1)
--- NOTE | 2023-04-06 07:05 | NUR ---
DEICER KIT ASSEMBLER OPENING NOTES Received pt awake in bed AOX1. No complaints of pain or discomfort at this time. Pt is on NC 2L and tolerating it well. IV access on GABRIELA midline patent and intact running D5ns at 75cc/hr. GT is patent and intact with GTF Glucerna @ 50 cc/hr.. HOB elevated to 30-45 degrees. Siderails up at all times x3. Call light within reach. Will continue to monitor.
--- NOTE | 2023-04-06 07:06 | NUR ---
ASSEMBLER RADIO AND ELECTRICAL closing note pt resting in bed asleep, easy to arouse, A&OX1, HOB elevated, on o2 via NC, breathing even and unlabored, GABRIELA ML intact, D5NS @ 75 cc/hr infusing well, dominguez intact and patent, gt patent, 0 residual noted, glucerna 1.2 rola @ 50 ml/hr infusing well, pt is on IV ATB tx, tolerated well, all due meds given per MD orders, tolerated well, pt repositioned q2h and prn, bed bath and john care rendered well, all basic needs met and anticipated, will continue to monitor
[2023-04-06 08:00] VITALS: BP 145/70
[2023-04-06] MEDS: FOLIC ACID 1 MG TABLET GT SCH (09:13)
[2023-04-06] MEDS: LEVOTHYROXINE SODIUM 100 MCG TABLET GT SCH (09:14)
[2023-04-06] MEDS: PROSOURCE / PROSTAT (PYXIS) 30 ML UDC GT SCH ×3 (09:15→17:03)
[2023-04-06] MEDS: ASCORBIC ACID 500 MG TABLET GT SCH (09:15)
[2023-04-06] MEDS: ZINC SULFATE 220 MG CAPSULE GT SCH (09:15)
[2023-04-06] MEDS: THERAHONEY GEL 1.5 OZ TUBE TP SCH (09:15)
[2023-04-06] MEDS: ARIPIPRAZOLE 5 MG TABLET GT SCH (09:15)
[2023-04-06] MEDS: DAKINS QUARTER STRENGTH (0.125%) 480 ML BOTTLE TOP SCH (09:15)
[2023-04-06] MEDS: HYDROGEL DRESSING 90 GM TUBE TP SCH (09:15)
[2023-04-06] MEDS: PANTOPRAZOLE 40 MG VIAL IV SCH ×2 (09:17→16:56)
[2023-04-06] MEDS: GLUCERNA 1.2 1,000 ML BOTTLE PEG SCH (09:18)
[2023-04-06] MEDS: IV D5/ 0.9% NACL 1,000 ML IV PRN (13:31)
[2023-04-06 13:43] LABS: BASOPHILS % (MANUAL) 0 % (0.0-2.0); EOSINOPHILS % (MANUAL) 4 % (0-4); LYMPHOCYTES % (MANUAL) 16 % (16-48); MONOCYTES % (MANUAL) 10 % (0-11.0); NEUTROPHILS % (MANUAL) 70 (42-76)
[2023-04-06 16:00] VITALS: BP 124/58
--- NOTE | 2023-04-06 18:34 | NUR ---
CONTINUOUS VULCANIZING MACHINE OPERATOR CLOSING NOTES All due meds and tx given as ordered. Pt tolerated everything well. All needs attended to. Pt is on 1L NC and tolerating it well. IV access on GABRIELA midline patent and intact. GT is patent and intact with no residual noted. Call light within reach. Will endorse to oncoming shift.
--- NOTE | 2023-04-06 19:00 | NUR ---
ALLERGY PHYSICIAN opening note pt resting in bed awake, easy to arouse, HOB elevated, on o2 via NC, tolerating well, breathing even and unlabored, GABRIELA ML intact, D5NS @ 75 cc/hr infusing well, dominguez intact and patent, gt patent, glucerna 1.2 rola @ 50 ml/hr infusing well, all safety precautions noted and in place, will continue to monitor
[2023-04-06 20:00] VITALS: BP 127/46
[2023-04-06] MEDS: ACETAMINOPHEN 650 MG/20.3 ML UDC GT PRN (20:33)
--- NOTE | 2023-04-06 20:33 | NUR ---
PT PLACED ON NOC BIPAP ORDERED. DERICK JOINER NOTIFIED AND AWARE.
[2023-04-07] MEDS: BLOOD SUGAR DIAGNOSTIC 1 EACH STRIP IN SCH ×4 (00:50→17:10)
[2023-04-07] MEDS: METOPROLOL TARTRATE 25 MG TABLET GT SCH ×3 (00:50→16:02)
[2023-04-07] MEDS: INSULIN REGULAR, HUMAN 100 UNIT/ML 3 ML VIAL SQ PRN ×2 (00:51→06:04)
[2023-04-07] MEDS: ALBUTEROL FS 2.5 MG/0.5 ML VIAL.NEB NEB SCH ×4 (02:06→19:48)
[2023-04-07] MEDS: IPRATROPIUM NEB FS 0.5 MG/2.5 ML AMPUL.NEB NEB SCH ×4 (02:06→19:48)
[2023-04-07 04:00] VITALS: BP 132/86
[2023-04-07] MEDS: IV D5/ 0.9% NACL 1,000 ML IV PRN ×2 (04:34→18:22)
[2023-04-07] MEDS: METOCLOPRAMIDE HCL 10 MG/2 ML VIAL IV SCH ×3 (05:30→21:15)
[2023-04-07] MEDS: ACETAMINOPHEN 650 MG/20.3 ML UDC GT PRN (05:56)
--- NOTE | 2023-04-07 07:10 | NUR ---
RETAIL TEAM MEMBER OPENING NOTES Received pt awake in bed AOX1. No signs of pain or discomfort at this time. Pt is on NC 1L and tolerating it well. IV access on GABRIELA midline patent and intact running D5NS at 75cc/hr. GT is patent and intact with GTF Glucerna @ 50 cc/hr. HOB elevated to 30-45 degrees. Siderails up at all times x4. Call light within reach. Will continue to monitor.
--- NOTE | 2023-04-07 07:20 | NUR ---
MANAGER MECHANICAL closing note pt resting in bed awake, easy to arouse, A&OX1, HOB elevated, on o2 via NC, breathing even and unlabored, GABRIELA ML intact, D5NS @ 75 cc/hr infusing well, dominguez intact and patent, gt patent, 0 residual noted, glucerna 1.2 rola @ 50 ml/hr infusing well, pt is on IV ATB tx, tolerated well, all due meds given per MD orders, tolerated well, pt repositioned q2h and prn, bed bath and john care rendered well, all basic needs met and anticipated, safety measures in place, will continue to monitor
[2023-04-07 08:00] VITALS: BP 103/52
[2023-04-07] MEDS: ARIPIPRAZOLE 5 MG TABLET GT SCH (08:59)
[2023-04-07] MEDS: ASCORBIC ACID 500 MG TABLET GT SCH (08:59)
[2023-04-07] MEDS: PANTOPRAZOLE 40 MG VIAL IV SCH ×2 (08:59→16:08)
[2023-04-07] MEDS: DAKINS QUARTER STRENGTH (0.125%) 480 ML BOTTLE TOP SCH (09:00)
[2023-04-07] MEDS: LEVOTHYROXINE SODIUM 100 MCG TABLET GT SCH (09:00)
[2023-04-07] MEDS: HYDROGEL DRESSING 90 GM TUBE TP SCH (09:00)
[2023-04-07] MEDS: FOLIC ACID 1 MG TABLET GT SCH (09:00)
[2023-04-07] MEDS: THERAHONEY GEL 1.5 OZ TUBE TP SCH (09:00)
[2023-04-07] MEDS: ZINC SULFATE 220 MG CAPSULE GT SCH (09:00)
[2023-04-07] MEDS: PROSOURCE / PROSTAT (PYXIS) 30 ML UDC GT SCH ×3 (09:35→16:21)
[2023-04-07] MEDS: GLUCERNA 1.2 1,000 ML BOTTLE PEG SCH (10:03)
[2023-04-07] MEDS ORDERED: VANCOMYCIN 1 GM in IV D5W 250ml IV ONE (11:00)
[2023-04-07] MEDS: MEROPENEM 1 G in IV NS 0.9% 100 ML IV SCH ×2 (11:12→22:12)
[2023-04-07 11:13] LABS: BILIRUBIN,URINE NEGATIVE (NEGATIVE); COLOR,URINE YELLOW (YELLOW); LEUKOCYTE ESTERASE ,URINE 1+ (NEGATIVE); NITRITE, URINE NEGATIVE (NEGATIVE); PH,URINE 7.5 (5.0-8.0); PROTEIN,URINE TRACE mg/dl (NEGATIVE); UGLUCOSE NEGATIVE (NEGATIVE); UROBILINOGEN,URINE 0.2 EU/dL (0.2)
[2023-04-07 11:14] LABS: BACTERIA,URINE Few /HPF (None Seen); SQUAMOUS EPITHELIAL CELL,UR Moderate /HPF (None Seen)
[2023-04-07 11:21] LABS: CALCIUM, SERUM 9.3 mg/dL (8.5-10.1); CREATININE 1.3 mg/dL (0.6-1.3); POTASSIUM 3.7 mmol/L (3.5-5.1)
[2023-04-07 11:28] LABS: BILIRUBIN,TOTAL 0.2 mg/dL (0.2-1.0); TOTAL PROTEIN, SERUM 5.3 g/dL (6.4-8.2)
[2023-04-07 11:42] LABS: ALBUMIN 0.6 g/dL (3.4-5.0)
--- NOTE | 2023-04-07 11:44 | NUR ---
DIRECTOR OF OPTIMIZATION NOTES Lab called to relay critical lab value of 0.[address] Moulton made aware with no new orders at this time.
[2023-04-07 16:00] VITALS: BP 93/43
--- NOTE | 2023-04-07 18:43 | NUR ---
CHILD GUIDANCE COUNSELOR CLOSING NOTES All due meds and tx given as ordered. Pt tolerated everything well. All needs attended to. Pt is on 1L NC and tolerating it well. IV access on GABRIELA midline patent and intact. GT is patent and intact with no residual noted. Call light within reach. Will endorse to oncoming shift.
--- NOTE | 2023-04-07 19:30 | NUR ---
MS RN OPENING NOTE RECEIVED PT RESTING BED AT THIS TIME. A/O X1. ON O2 1L VIA NC, NO SOB, LABORED BREATHING, DISTRESS NOTED. IV ACCESS GABRIELA ML PATENT, INTACT, RUNNING D5NS @ 75 ML/HR. GTUBE PATENT AND INTACT. BILATERAL SOFT WRIST RESTRAINTS IN PLACE, CIRCULATION WNL. SAFETY MEASURES IN PLACE: BED LOCKED AND IN LOW POSITION, SIDE RAILS UP X3, BED ALARM ON, CALL LIGHT AND TRAY TABLE WITHIN REACH. WILL CONTINUE TO MONITOR AND ASSIST.
[2023-04-07 20:00] VITALS: BP 131/77
--- NOTE | 2023-04-07 22:12 | NUR ---
RN NOTE MERREM 1G Q12HR SCHEDULED FOR 2100 LATE ADMIN TO COMPENSATE FOR TIMING OF LAST ADMIN.
[2023-04-08] VITALS (9 sets, daily range): BP systolic 108–137; BP diastolic 62–74
[2023-04-08] MEDS: BLOOD SUGAR DIAGNOSTIC 1 EACH STRIP IN SCH ×5 (00:21→23:08)
[2023-04-08] MEDS: INSULIN REGULAR, HUMAN 100 UNIT/ML 3 ML VIAL SQ PRN ×2 (00:22→05:25)
[2023-04-08] MEDS: METOPROLOL TARTRATE 25 MG TABLET GT SCH ×3 (00:23→16:38)
[2023-04-08] MEDS: IPRATROPIUM NEB FS 0.5 MG/2.5 ML AMPUL.NEB NEB SCH ×4 (01:56→19:59)
[2023-04-08] MEDS: ALBUTEROL FS 2.5 MG/0.5 ML VIAL.NEB NEB SCH ×4 (01:57→19:59)
[2023-04-08] MEDS: METOCLOPRAMIDE HCL 10 MG/2 ML VIAL IV SCH ×3 (05:15→21:06)
--- NOTE | 2023-04-08 06:33 | NUR ---
MS RN CLOSING NOTE PT RESTING BED AT THIS TIME. A/O X1. STABLE ON O2 1L VIA NC, NO SOB, LABORED BREATHING, OR DISTRESS NOTED. IV ACCESS GABRIELA ML PATENT, INTACT, RUNNING D5NS @ 75 ML/HR. GTUBE PATENT AND INTACT, PLACEMENT CONFIRMED BY AUSCULTATION, NO RESIDUAL, FLUSHED 100 ML Q6HR. BILATERAL SOFT WRIST RESTRAINTS IN PLACE, CIRCULATION WNL. WOUND CARE PERFORMED ORDERED. BOWEL MOVEMENTS X3. ALL CARE PROVIDED AND MEDS TOLERATED WELL. SAFETY MEASURES MAINTAINED: BED LOCKED AND IN LOW POSITION, SIDE RAILS UP X3, BED ALARM ON, CALL LIGHT AND TRAY TABLE WITHIN REACH. WILL ENDORSE ROGERIO TO DAY SHIFT NURSE.
--- NOTE | 2023-04-08 07:05 | NUR ---
MS RN OPENING NOTE: RECEIVED PT IN BED. A/O X1. ON O2 1L VIA NC, NO SOB, LABORED BREATHING, DISTRESS NOTED. IV ACCESS GABRIELA ML PATENT, INTACT, RUNNING D5NS @ 75 ML/HR. GTUBE PATENT AND INTACT. BILATERAL SOFT WRIST RESTRAINTS IN PLACE, CIRCULATION WNL. SAFETY MEASURES IN PLACE: BED LOCKED AND IN LOW POSITION, SIDE RAILS UP X3, BED ALARM ON, CALL LIGHT AND TRAY TABLE WITHIN REACH.
[2023-04-08 07:06] LABS: CREATININE 1.3 mg/dL (0.6-1.3); POTASSIUM 3.3 mmol/L (3.5-5.1)
[2023-04-08 07:13] LABS: BASOPHILS # (AUTO) 0.1 K/uL (0.0-0.2); BASOPHILS % (AUTO) 0.5 % (0.0-2.0); EOSINOPHILS % (AUTO) 1.4 % (0.0-6.0); LYMPHOCYTES # (AUTO) 1.4 K/uL (0.8-4.8); LYMPHOCYTES % (AUTO) 8.6 % (20.0-44.0); MEAN CORPUSCULAR HGB CONC 31 g/dl (31.0-36.0); MEAN CORPUSCULAR VOLUME 84 fL (82-100); MONOCYTES # (AUTO) 0.9 K/uL (0.1-1.30); MONOCYTES % (AUTO) 5.5 % (2.0-12.0); NEUTROPHILS # (AUTO) 13.4 K/uL (1.8-8.9); PLATELET COUNT (AUTO) 754 K/uL (150-450)
[2023-04-08 07:20] LABS: HEMATOCRIT 19 % (33-45); HEMOGLOBIN 5.8 g/dL (11.5-14.8)
[2023-04-08 08:35] LABS: EOSINOPHILS % (MANUAL) 3 % (0-4); LYMPHOCYTES % (MANUAL) 13 % (16-48); MONOCYTES % (MANUAL) 6 % (0-11.0); NEUTROPHILS % (MANUAL) 78 (42-76)
[2023-04-08] MEDS: THERAHONEY GEL 1.5 OZ TUBE TP SCH (08:40)
[2023-04-08] MEDS: HYDROGEL DRESSING 90 GM TUBE TP SCH (08:40)
[2023-04-08] MEDS: MEROPENEM 1 G in IV NS 0.9% 100 ML IV SCH ×2 (08:40→21:06)
[2023-04-08] MEDS: DAKINS QUARTER STRENGTH (0.125%) 480 ML BOTTLE TOP SCH (08:41)
[2023-04-08] MEDS: PROSOURCE / PROSTAT (PYXIS) 30 ML UDC GT SCH ×3 (08:49→16:38)
[2023-04-08] MEDS: ZINC SULFATE 220 MG CAPSULE GT SCH (08:50)
[2023-04-08] MEDS: LEVOTHYROXINE SODIUM 100 MCG TABLET GT SCH (08:50)
[2023-04-08] MEDS: ASCORBIC ACID 500 MG TABLET GT SCH (08:50)
[2023-04-08] MEDS: FOLIC ACID 1 MG TABLET GT SCH (08:50)
[2023-04-08] MEDS: PANTOPRAZOLE 40 MG VIAL IV SCH ×2 (08:50→16:38)
[2023-04-08] MEDS: ARIPIPRAZOLE 5 MG TABLET GT SCH (08:50)
[2023-04-08] MEDS: MORPHINE SULFATE INJ 2 MG/ML DISP.SYRIN IV PRN (09:00)
--- NOTE | 2023-04-08 09:00 | NUR ---
MS RN NOTE: DR. GONZÁLEZ WAGNER AT BEDSIDE
[2023-04-08] MEDS: VANCOMYCIN 1.25 GM in IV D5W 250 ML IV SCH (10:34)
[2023-04-08] MEDS: IV D5/ 0.9% NACL 1,000 ML IV PRN (10:39)
[2023-04-08] MEDS ORDERED: POTASSIUM CHLORIDE 20 MEQ POWDER PACKET NG SCH (11:00)
--- NOTE | 2023-04-08 18:16 | NUR ---
MS RN CLOSING NOTE: PT RESTING BED AT THIS TIME. A/O X1. STABLE ON O2 1L VIA NC, NO SOB, LABORED BREATHING, OR DISTRESS NOTED. IV ACCESS GABRIELA ML PATENT, INTACT, RUNNING D5NS @ 75 ML/HR. GTUBE PATENT AND INTACT, PLACEMENT CONFIRMED BY AUSCULTATION, NO RESIDUAL, FLUSHED 100 ML Q6HR. BILATERAL SOFT WRIST RESTRAINTS IN PLACE, CIRCULATION WNL. WOUND CARE PERFORMED ORDERED. BOWEL MOVEMENTS X3. ALL CARE PROVIDED AND MEDS TOLERATED WELL. SAFETY MEASURES MAINTAINED: BED LOCKED AND IN LOW POSITION, SIDE RAILS UP X3, BED ALARM ON, 1 UNIT OF PRBC GIVEN ORDERED. NO REACTION NOTED.
--- NOTE | 2023-04-08 19:40 | NUR ---
MS RN OPENING NOTES RECEIVED PATIENT RESTING IN BED. A/O X1. NO S/S OF PAIN NOTED AT THIS TIME. ON 2L OXYGEN VIA NC, BREATHING EVEN AND UNLABORED,NO DISTRESS OR SOB NOTED AT THIS TIME.. IV ACCESS GABRIELA ML RUNNING D5NS @ 75 ML/HR. GTUBE RUNNING GLUCERNA @ 50ML/HR, TOLERATING WELL. BILATERAL SOFT WRIST RESTRAINTS IN PLACE, CIRCULATION WNL. SAFETY MEASURES IN PLACE WITH BED IN LOWEST LOCKED POSITION. SIDE RAILS UP X3. CALL LIGHT WITHIN EASY REACH. WILL CONTINUE WITH THE PLAN OF CARE.
[2023-04-09] VITALS (10 sets, daily range): BP systolic 90–133; BP diastolic 52–78
[2023-04-09] MEDS: METOPROLOL TARTRATE 25 MG TABLET GT SCH ×4 (00:30→23:49)
--- NOTE | 2023-04-09 00:30 | NUR ---
RN NOTES-LOPRESSOR WITHHELD PATIENT WILL HAVE BLOOD TRANSFUSION IN 30 MINS-1 HR. BP LEVEL 108/70. LOPRESSOR WITHHELD. WILL CONTINUE TO MONITOR THE PATIENT.
--- NOTE | 2023-04-09 01:10 | NUR ---
RN NOTES-BLOOD TRANSFUSION STARTED PATIENT'S BLOOD [id number] CHECKED AND VERIFIED. V/S TAKEN AND RECORDED. T: 99.4, BP: 101/52 NJ: 103. NO S/S OF DISTRESS OR SOB NOTED AT THIS TIME. WILL CONTINUE TO MONITOR THE PATIENT.
--- NOTE | 2023-04-09 01:25 | NUR ---
RN NOTES PATIENT'S V/S CHECKED AFTER 15 MINS POST BT. T: 99.0; BP 105/62; MS 101. BT RUNNING 80ML/HR. NO S/S OF DISTRESS OR SOB NOTED. WILL CONTINUE TO MONITOR THE PATIENT.
[2023-04-09] MEDS: IPRATROPIUM NEB FS 0.5 MG/2.5 ML AMPUL.NEB NEB SCH ×4 (01:44→20:05)
[2023-04-09] MEDS: ALBUTEROL FS 2.5 MG/0.5 ML VIAL.NEB NEB SCH ×4 (01:44→20:05)
--- NOTE | 2023-04-09 01:55 | NUR ---
RN NOTES PATIENT'S V/S CHECKED AFTER 30 MINS POST BT. T: 99.3; BP 90/71; WY 99. BT INCREASED TO 100 ML/HR. NO S/S OF DISTRESS OR SOB NOTED. WILL CONTINUE TO MONITOR THE PATIENT.
--- NOTE | 2023-04-09 02:55 | NUR ---
RN NOTES PATIENT'S V/S CHECKED 1 HR AFTER BT STARTED. T: 98.6; BP 102/73; WY 98. BT INCREASED TO 120 ML/HR. NO S/S OF DISTRESS OR SOB NOTED. WILL CONTINUE TO MONITOR THE PATIENT AFTER AN HOUR.
--- NOTE | 2023-04-09 04:26 | NUR ---
RN NOTES PATIENT BT DONE. NO S/S OF DISTRESS NOTED. WILL CONTINUE TO MONITOR THE PATIENT.
[2023-04-09] MEDS: METOCLOPRAMIDE HCL 10 MG/2 ML VIAL IV SCH ×3 (05:58→21:03)
[2023-04-09] MEDS: BLOOD SUGAR DIAGNOSTIC 1 EACH STRIP IN SCH ×4 (06:23→23:49)
[2023-04-09 07:23] LABS: CALCIUM, SERUM 9.2 mg/dL (8.5-10.1); CREATININE 1.2 mg/dL (0.6-1.3)
--- NOTE | 2023-04-09 07:30 | NUR ---
MS RN OPENING NOTES RECEIVED PATIENT SLEEPING IN BED. EASILY AWAKEN BY VERBAL STIMULI. A/O X1. NO S/S OF PAIN NOTED AT THIS TIME. ON 1L OXYGEN VIA NC, BREATHING EVEN AND UNLABORED,NO DISTRESS OR SOB NOTED AT THIS TIME. IV ACCESS GABRIELA ML RUNNING D5NS @ 75 ML/HR. GTUBE RUNNING GLUCERNA @ 50ML/HR, TOLERATING WELL. BILATERAL SOFT WRIST RESTRAINTS IN PLACE, CIRCULATION WNL. ALL NEEDS ATTENDED. . SAFETY MEASURES MAINTAINED, BED LOCKED IN LOWEST POSITION, SIDE RAILS UP X2. WILL ADMINISTER ALL SCHEDULED MEDS ORDERED.
--- NOTE | 2023-04-09 07:34 | NUR ---
MS RN CLOSING NOTES PATIENT SLEEPING IN BED. EASILY AWAKEN BY VERBAL STIMULI. A/O X1. NO S/S OF PAIN NOTED AT THIS TIME. ON 1L OXYGEN VIA NC, BREATHING EVEN AND UNLABORED,NO DISTRESS OR SOB NOTED AT THIS TIME. IV ACCESS GABRIELA ML RUNNING D5NS @ 75 ML/HR. GTUBE RUNNING GLUCERNA @ 50ML/HR, TOLERATING WELL. BILATERAL SOFT WRIST RESTRAINTS IN PLACE, CIRCULATION WNL. ALL NEEDS ATTENDED. WOUND CARE DONE. 1 PRBC GIVEN WITH NO S/S OF DISTRESS NOTED. SAFETY MEASURES MAINTAINED. WILL ENDORSE TO THE NEXT SHIFT.
[2023-04-09 09:00] LABS: BASOPHILS # (AUTO) 0.1 K/uL (0.0-0.2); BASOPHILS % (AUTO) 0.3 % (0.0-2.0); EOSINOPHILS % (AUTO) 1.9 % (0.0-6.0); HEMATOCRIT 28 % (33-45); HEMOGLOBIN 8.7 g/dL (11.5-14.8); LYMPHOCYTES # (AUTO) 1.5 K/uL (0.8-4.8); LYMPHOCYTES % (AUTO) 8.8 % (20.0-44.0); MEAN CORPUSCULAR HGB CONC 31 g/dl (31.0-36.0); MEAN CORPUSCULAR VOLUME 86 fL (82-100); MONOCYTES # (AUTO) 1.1 K/uL (0.1-1.30); MONOCYTES % (AUTO) 6.4 % (2.0-12.0); NEUTROPHILS # (AUTO) 14.3 K/uL (1.8-8.9); NEUTROPHILS % (AUTO) 82.6 % (43.0-81.0); PLATELET COUNT (AUTO) 679 K/uL (150-450); RED BLOOD CELL COUNT(AUTO) 3.25 MIL/uL (4.0-5.2); WHITE BLOOD COUNT (AUTO) 17.3 K/uL (4.3-11.0)
[2023-04-09] MEDS: ASCORBIC ACID 500 MG TABLET GT SCH (09:20)
[2023-04-09] MEDS: PANTOPRAZOLE 40 MG VIAL IV SCH ×2 (09:20→16:31)
[2023-04-09] MEDS: FOLIC ACID 1 MG TABLET GT SCH (09:20)
[2023-04-09] MEDS: ZINC SULFATE 220 MG CAPSULE GT SCH (09:20)
[2023-04-09] MEDS: ARIPIPRAZOLE 5 MG TABLET GT SCH (09:20)
[2023-04-09] MEDS: LEVOTHYROXINE SODIUM 100 MCG TABLET GT SCH (09:20)
[2023-04-09] MEDS: PROSOURCE / PROSTAT (PYXIS) 30 ML UDC GT SCH ×3 (09:20→16:33)
[2023-04-09] MEDS: DAKINS QUARTER STRENGTH (0.125%) 480 ML BOTTLE TOP SCH (10:18)
[2023-04-09] MEDS: THERAHONEY GEL 1.5 OZ TUBE TP SCH (10:21)
[2023-04-09] MEDS: HYDROGEL DRESSING 90 GM TUBE TP SCH (10:22)
[2023-04-09] MEDS: MEROPENEM 1 G in IV NS 0.9% 100 ML IV SCH ×2 (10:23→21:04)
[2023-04-09] MEDS: GLUCERNA 1.2 1,000 ML BOTTLE PEG SCH (10:35)
[2023-04-09] MEDS: IV D5/ 0.9% NACL 1,000 ML IV PRN (12:03)
[2023-04-09] MEDS: VANCOMYCIN 1.25 GM in IV D5W 250 ML IV SCH (12:04)
[2023-04-09] MEDS: ACETAMINOPHEN 650 MG/20.3 ML UDC GT PRN (16:33)
--- NOTE | 2023-04-09 18:42 | NUR ---
MS RN CLOSING NOTES PATIENT SLEEPING IN BED. EASILY AWAKEN BY VERBAL STIMULI. A/O X1. NO S/S OF PAIN NOTED AT THIS TIME. ON 1L OXYGEN VIA NC, BREATHING EVEN AND UNLABORED,NO DISTRESS OR SOB NOTED AT THIS TIME. IV ACCESS GABRIELA ML RUNNING D5NS @ 75 ML/HR. GTUBE RUNNING GLUCERNA @ 50ML/HR, TOLERATING WELL. BILATERAL SOFT WRIST RESTRAINTS IN PLACE, CIRCULATION WNL. ALL NEEDS ATTENDED. WOUND CARE DONE. SAFETY MEASURES MAINTAINED, BED LOCKED IN LOWEST POSITION, SIDE RAILS UP X2,CALL LIGHT WITHIN REACH.. WILL ENDORSE TO THE NEXT SHIFT.
--- NOTE | 2023-04-09 19:41 | NUR ---
MS RN OPENING NOTE PATIENT AWAKE IN BED, ALERT/ORIENTED X 1, PT CONFUSED. PT STABLE ON 1 L OF O2 VIA NASAL CANNULA, NO S/S OF DISTRESS OR SOB NOTED, BREATHING EVEN AND UNLABORED. IV ACCESS ON GABRIELA ML INTACT AND INFUSING D5NS @ 75 ML/HR. PATIENT NOTED WITH PEG ON GTF GLUCERNA 1.2 @ 50 ML/HR. THOMAS CATH IN PLACE AND DRAINING URINE BY GRAVITY. BILATERAL SOFT WRIST RESTRAINTS IN PLACE D/T PULLING OF LINES. SAFETY MEASURES IN PLACE: CALL LIGHT WITHIN REACH, SIDE RAILS UP X 3, BED LOCKED IN LOWEST POSITION, HOB ELEVATED, BED ALARM ON. WILL CONTINUE TO MONITOR PATIENT
[2023-04-09] MEDS: INSULIN REGULAR, HUMAN 100 UNIT/ML 3 ML VIAL SQ PRN (23:49)
[2023-04-10] MEDS: IPRATROPIUM NEB FS 0.5 MG/2.5 ML AMPUL.NEB NEB SCH ×4 (01:02→20:33)
[2023-04-10] MEDS: ALBUTEROL FS 2.5 MG/0.5 ML VIAL.NEB NEB SCH ×4 (01:02→20:33)
[2023-04-10 04:00] VITALS: BP 135/81
[2023-04-10] MEDS: IV D5/ 0.9% NACL 1,000 ML IV PRN ×2 (04:16→21:18)
[2023-04-10] MEDS: BLOOD SUGAR DIAGNOSTIC 1 EACH STRIP IN SCH ×3 (05:59→17:19)
[2023-04-10] MEDS: METOCLOPRAMIDE HCL 10 MG/2 ML VIAL IV SCH ×3 (05:59→21:45)
[2023-04-10 06:38] LABS: BASOPHILS # (AUTO) 0.1 K/uL (0.0-0.2); BASOPHILS % (AUTO) 0.7 % (0.0-2.0); EOSINOPHILS % (AUTO) 1.8 % (0.0-6.0); HEMATOCRIT 29 % (33-45); HEMOGLOBIN 9.1 g/dL (11.5-14.8); LYMPHOCYTES # (AUTO) 1.7 K/uL (0.8-4.8); LYMPHOCYTES % (AUTO) 9.6 % (20.0-44.0); MEAN CORPUSCULAR HGB CONC 31 g/dl (31.0-36.0); MEAN CORPUSCULAR VOLUME 86 fL (82-100); MONOCYTES # (AUTO) 0.9 K/uL (0.1-1.30); MONOCYTES % (AUTO) 5.4 % (2.0-12.0); NEUTROPHILS # (AUTO) 14.2 K/uL (1.8-8.9); NEUTROPHILS % (AUTO) 82.5 % (43.0-81.0); PLATELET COUNT (AUTO) 703 K/uL (150-450); RED BLOOD CELL COUNT(AUTO) 3.39 MIL/uL (4.0-5.2); WHITE BLOOD COUNT (AUTO) 17.2 K/uL (4.3-11.0)
--- NOTE | 2023-04-10 06:48 | NUR ---
MS RN CLOSING NOTE PATIENT SLEEPING IN BED, ALERT/ORIENTED X 1, PT CONFUSED. PT STABLE ON 1 L OF O2 VIA NASAL CANNULA, NO S/S OF DISTRESS OR SOB NOTED, BREATHING EVEN AND UNLABORED, PT HAD NOCTURNAL BIPAP ON. IV ACCESS ON GABRIELA ML INTACT AND INFUSING D5NS @ 75 ML/HR. PATIENT WITH PEG ON GTF GLUCERNA 1.2 @ 50 ML/HR X 24H. THOMAS CATH IN PLACE AND DRAINING URINE BY GRAVITY. BILATERAL SOFT WRIST RESTRAINTS IN PLACE D/T PULLING OF LINES. NO SIGNIFICANT CHANGES THIS SHIFT, MEDICATIONS GIVEN ORDERED, PT TURNED & REPOSITIONED, WOUND CARE DONE. SAFETY MEASURES IN PLACE: SIDE RAILS UP X 3, BED LOCKED IN LOWEST POSITION, HOB ELEVATED, BED ALARM ON. WILL ENDORSE TO DAYSHIFT RN FOR CONTINUITY OF CARE
[2023-04-10 07:00] LABS: CALCIUM, SERUM 9.4 mg/dL (8.5-10.1); CREATININE 1.2 mg/dL (0.6-1.3); POTASSIUM 4.4 mmol/L (3.5-5.1)
--- NOTE | 2023-04-10 07:00 | NUR ---
RN OPENING NOTE PATIENT IN BED, CONFUSED, STABLE ON 1 L OF O2 VIA NASAL CANNULA, BIPAP FOR NIGHTS, NO S/S OF DISTRESS OR SOB NOTED, BREATHING EVEN AND UNLABORED. IV ACCESS GABRIELA ML INTACT AND INFUSING D5NS @ 75 ML/HR. PATIENT WITH G-TUBE, GTF GLUCERNA 1.2 @ 50 ML/HR X 24H. THOMAS CATH IN PLACE AND DRAINING URINE BY GRAVITY. BILATERAL SOFT WRIST RESTRAINTS IN PLACE D/T PULLING OF LINES. SAFETY MEASURES IN PLACE: SIDE RAILS UP X 3, BED LOCKED IN LOWEST POSITION, HOB ELEVATED, BED ALARM ON. WILL CONTINUE TO MONITOR.
[2023-04-10 08:00] VITALS: BP 117/71
[2023-04-10] MEDS: METOPROLOL TARTRATE 25 MG TABLET GT SCH ×2 (08:14→17:03)
[2023-04-10] MEDS: PROSOURCE / PROSTAT (PYXIS) 30 ML UDC GT SCH ×3 (08:22→17:00)
[2023-04-10] MEDS: PANTOPRAZOLE 40 MG VIAL IV SCH ×2 (08:59→17:02)
[2023-04-10] MEDS: FOLIC ACID 1 MG TABLET GT SCH (08:59)
[2023-04-10] MEDS: ASCORBIC ACID 500 MG TABLET GT SCH (08:59)
[2023-04-10] MEDS: ARIPIPRAZOLE 5 MG TABLET GT SCH (08:59)
[2023-04-10] MEDS: MEROPENEM 1 G in IV NS 0.9% 100 ML IV SCH ×2 (08:59→21:51)
[2023-04-10] MEDS: THERAHONEY GEL 1.5 OZ TUBE TP SCH (09:00)
[2023-04-10] MEDS: HYDROGEL DRESSING 90 GM TUBE TP SCH (09:00)
[2023-04-10] MEDS: DAKINS QUARTER STRENGTH (0.125%) 480 ML BOTTLE TOP SCH (09:00)
[2023-04-10] MEDS: LEVOTHYROXINE SODIUM 100 MCG TABLET GT SCH (09:03)
[2023-04-10] MEDS: ZINC SULFATE 220 MG CAPSULE GT SCH (09:03)
[2023-04-10] MEDS: VANCOMYCIN 1.25 GM in IV D5W 250 ML IV SCH (11:02)
--- NOTE | 2023-04-10 12:15 | NUR ---
PATIENT UNDERWENT LEFT LOWER LEG DEBRIDEMENT, AT BEDSIDE.
[2023-04-10 15:00] VITALS: BP 110/58
[2023-04-10 16:00] VITALS: BP 110/58
--- NOTE | 2023-04-10 18:44 | NUR ---
RN CLOSING NOTE PATIENT IN BED, CONFUSED, STABLE ON 1 L OF O2 VIA NASAL CANNULA, NO S/S OF DISTRESS OR SOB NOTED, BREATHING EVEN AND UNLABORED. IV ACCESS GABRIELA ML INTACT AND INFUSING D5NS @ 75 ML/HR. PATIENT WITH G-TUBE, GTF GLUCERNA 1.2 @ 50 ML/HR X 24H. THOMAS CATH IN PLACE AND DRAINING URINE BY GRAVITY. BILATERAL SOFT WRIST RESTRAINTS IN PLACE D/T PULLING OF LINES. WOUND CARE DONE, MEDS ADMINISTERED ON TIME, SAFETY MEASURES IN PLACE: SIDE RAILS UP X 3, BED LOCKED IN LOWEST POSITION, HOB ELEVATED, BED ALARM ON. WILL ENDORSE TO THE UPCOMING SHIFT NURSE FOR ROGERIO.
[2023-04-10 20:00] VITALS: BP 96/64
[2023-04-11] MEDS: BLOOD SUGAR DIAGNOSTIC 1 EACH STRIP IN SCH ×3 (00:25→12:23)
[2023-04-11] MEDS: METOPROLOL TARTRATE 25 MG TABLET GT SCH ×3 (00:26→16:33)
[2023-04-11] MEDS: INSULIN REGULAR, HUMAN 100 UNIT/ML 3 ML VIAL SQ PRN ×2 (00:26→05:20)
[2023-04-11] MEDS: IPRATROPIUM NEB FS 0.5 MG/2.5 ML AMPUL.NEB NEB SCH ×3 (01:33→13:08)
[2023-04-11] MEDS: ALBUTEROL FS 2.5 MG/0.5 ML VIAL.NEB NEB SCH ×3 (01:33→13:09)
[2023-04-11 04:00] VITALS: BP 99/65
[2023-04-11] MEDS: METOCLOPRAMIDE HCL 10 MG/2 ML VIAL IV SCH ×2 (05:18→13:16)
--- NOTE | 2023-04-11 07:00 | NUR ---
RN OPENING NOTE PATIENT IN BED, CONFUSED, STABLE ON 1 L OF O2 VIA NASAL CANNULA, BIPAP FOR NIGHTS, NO S/S OF DISTRESS OR SOB NOTED, BREATHING EVEN AND UNLABORED. IV ACCESS GABRIELA ML INTACT. PATIENT WITH G-TUBE, GTF GLUCERNA 1.2 @ 50 ML/HR X 24H AND 100ML OF WATER Q 6H. THOMAS CATH IN PLACE AND DRAINING URINE BY GRAVITY. BILATERAL SOFT WRIST RESTRAINTS IN PLACE D/T PULLING OF LINES. SAFETY MEASURES IN PLACE: SIDE RAILS UP X 3, BED LOCKED IN LOWEST POSITION, HOB ELEVATED, BED ALARM ON. WILL CONTINUE TO MONITOR.
[2023-04-11 07:01] LABS: CALCIUM, SERUM 9.1 mg/dL (8.5-10.1); CREATININE 1.1 mg/dL (0.6-1.3); POTASSIUM 3.5 mmol/L (3.5-5.1)
[2023-04-11 08:00] VITALS: BP 125/62
[2023-04-11] MEDS: PROSOURCE / PROSTAT (PYXIS) 30 ML UDC GT SCH ×3 (08:08→16:34)
[2023-04-11] MEDS: DAKINS QUARTER STRENGTH (0.125%) 480 ML BOTTLE TOP SCH (08:09)
[2023-04-11] MEDS: HYDROGEL DRESSING 90 GM TUBE TP SCH (08:09)
[2023-04-11] MEDS: THERAHONEY GEL 1.5 OZ TUBE TP SCH (08:10)
[2023-04-11] MEDS: PANTOPRAZOLE 40 MG VIAL IV SCH ×2 (09:03→16:32)
[2023-04-11] MEDS: LEVOTHYROXINE SODIUM 100 MCG TABLET GT SCH (09:04)
[2023-04-11] MEDS: ASCORBIC ACID 500 MG TABLET GT SCH (09:04)
[2023-04-11] MEDS: FOLIC ACID 1 MG TABLET GT SCH (09:04)
[2023-04-11] MEDS: ZINC SULFATE 220 MG CAPSULE GT SCH (09:04)
[2023-04-11] MEDS: ARIPIPRAZOLE 5 MG TABLET GT SCH (09:04)
[2023-04-11] MEDS: MEROPENEM 1 G in IV NS 0.9% 100 ML IV SCH (09:09)
[2023-04-11] MEDS: GLUCERNA 1.2 1,000 ML BOTTLE PEG SCH (13:19)
[2023-04-11 16:00] VITALS: BP 134/50
[2023-04-11 16:33] VITALS: BP 134/50
--- NOTE | 2023-04-11 18:05 | NUR ---
PATIENT DISCHARGED TO THE [facility], TAKEN BY [facility]. PT AWAKE, CONDITION STABLE, ALL REPORTS, MEDICATION LIST, TEACHING AND INSTRUCTIONS PROVIDED, REPORT OVER THE PHONE GIVEN TO NURSE CANTOR.
[2023-04-11] MEDS ORDERED: VANCOMYCIN 1.25 GM in IV D5W 250 ML IV SCH (23:00)
== END 2023-04-11 18:05 | disposition hospice, inpatient (51) | DRG 853 ==
LOC: ER 14:08 → ICU 21:08 → TELE-TD 01-12 18:45 → TELE1 01-14 09:55 → TELE-TD 01-25 16:00 → TELE1 01-30 09:55 → ICU 01-30 10:57 → TELE-TD 02-03 13:58 → TELE1 02-11 14:28 → MEDSG1 02-19 10:24 → TELE1 03-05 08:12 → MEDSG1 03-21 14:14
PROVIDERS: ADMIT Internal Medicine; ATTEND Internal Medicine
PROC: 30233N1 Transfusion of Nonautologous Red Blood Cells into Peripheral Vein, Percutaneous Approach (ICD-10-PCS; 2023-01-11)
PROC: 0KBR0ZZ Excision of Left Upper Leg Muscle, Open Approach (ICD-10-PCS; 2023-01-16)
PROC: 0QB30ZZ Excision of Left Pelvic Bone, Open Approach (ICD-10-PCS; 2023-01-16)
PROC: 0QB20ZZ Excision of Right Pelvic Bone, Open Approach (ICD-10-PCS; 2023-01-16)
PROC: 0QB10ZZ Excision of Sacrum, Open Approach (ICD-10-PCS; 2023-01-16)
PROC: 02HV33Z Insertion of Infusion Device into Superior Vena Cava, Percutaneous Approach (ICD-10-PCS; 2023-01-17)
PROC: B548ZZA Ultrasonography of Superior Vena Cava, Guidance (ICD-10-PCS; 2023-01-17)
PROC: 5A09557 Assistance with Respiratory Ventilation, Greater than 96 Consecutive Hours, Continuous Positive Airway Pressure (ICD-10-PCS; 2023-01-30)
PROC: 05HD33Z Insertion of Infusion Device into Right Cephalic Vein, Percutaneous Approach (ICD-10-PCS; 2023-02-06)
PROC: 0QB30ZZ Excision of Left Pelvic Bone, Open Approach (ICD-10-PCS; 2023-02-07)
PROC: 0QB10ZZ Excision of Sacrum, Open Approach (ICD-10-PCS; 2023-02-07)
PROC: 0QB20ZZ Excision of Right Pelvic Bone, Open Approach (ICD-10-PCS; 2023-02-07)
PROC: 0JBM0ZZ Excision of Left Upper Leg Subcutaneous Tissue and Fascia, Open Approach (ICD-10-PCS; principal; 2023-02-12)
PROC: 0QB30ZZ Excision of Left Pelvic Bone, Open Approach (ICD-10-PCS; 2023-02-12)
PROC: 0QB10ZZ Excision of Sacrum, Open Approach (ICD-10-PCS; 2023-02-12)
PROC: 0QB20ZZ Excision of Right Pelvic Bone, Open Approach (ICD-10-PCS; 2023-02-12)
PROC: 05HF33Z Insertion of Infusion Device into Left Cephalic Vein, Percutaneous Approach (ICD-10-PCS; 2023-02-14)
PROC: 05H933Z Insertion of Infusion Device into Right Brachial Vein, Percutaneous Approach (ICD-10-PCS; 2023-02-23)
PROC: 0D20XUZ Change Feeding Device in Upper Intestinal Tract, External Approach (ICD-10-PCS; 2023-02-26)
PROC: 05HC33Z Insertion of Infusion Device into Left Basilic Vein, Percutaneous Approach (ICD-10-PCS; 2023-03-05)
PROC: 0KBT0ZZ Excision of Left Lower Leg Muscle, Open Approach (ICD-10-PCS; 2023-03-13)
PROC: 0KBP0ZZ Excision of Left Hip Muscle, Open Approach (ICD-10-PCS; 2023-03-14)
PROC: 0KBN0ZZ Excision of Right Hip Muscle, Open Approach (ICD-10-PCS; 2023-03-14)
PROC: 0KBR0ZZ Excision of Left Upper Leg Muscle, Open Approach (ICD-10-PCS; 2023-03-14)
PROC: 05H933Z Insertion of Infusion Device into Right Brachial Vein, Percutaneous Approach (ICD-10-PCS; 2023-03-14)
PROC: 0KBP0ZZ Excision of Left Hip Muscle, Open Approach (ICD-10-PCS; 2023-03-20)
PROC: 0KBN0ZZ Excision of Right Hip Muscle, Open Approach (ICD-10-PCS; 2023-03-20)
PROC: 0KBT0ZZ Excision of Left Lower Leg Muscle, Open Approach (ICD-10-PCS; 2023-03-20)
PROC: 05HF33Z Insertion of Infusion Device into Left Cephalic Vein, Percutaneous Approach (ICD-10-PCS; 2023-03-21)
PROC: 05HB33Z Insertion of Infusion Device into Right Basilic Vein, Percutaneous Approach (ICD-10-PCS; 2023-04-05)
PROC: 0KBT0ZZ Excision of Left Lower Leg Muscle, Open Approach (ICD-10-PCS; 2023-04-10)
DX: A41.02 Sepsis due to Methicillin resistant Staphylococcus aureus (principal); E43 Unspecified severe protein-calorie malnutrition; I21.4 Non-ST elevation (NSTEMI) myocardial infarction; J69.0 Pneumonitis due to inhalation of food and vomit; L89.154 Pressure ulcer of sacral region, stage 4; L89.324 Pressure ulcer of left buttock, stage 4; L89.314 Pressure ulcer of right buttock, stage 4; N17.0 Acute kidney failure with tubular necrosis; R65.21 Severe sepsis with septic shock; R53.2 Functional quadriplegia; J96.22 Acute and chronic respiratory failure with hypercapnia; J96.21 Acute and chronic respiratory failure with hypoxia; L03.311 Cellulitis of abdominal wall; E11.52 Type 2 diabetes mellitus with diabetic peripheral angiopathy with gangrene; L97.925 Non-pressure chronic ulcer of unspecified part of left lower leg with muscle involvement without evidence of necrosis; I96 Gangrene, not elsewhere classified; B49 Unspecified mycosis; E87.20 Acidosis, unspecified; E87.0 Hyperosmolality and hypernatremia; E87.1 Hypo-osmolality and hyponatremia; G93.49 Other encephalopathy; M86.172 Other acute osteomyelitis, left ankle and foot; J44.1 Chronic obstructive pulmonary disease with (acute) exacerbation; N39.0 Urinary tract infection, site not specified; J44.0 Chronic obstructive pulmonary disease with (acute) lower respiratory infection; K94.23 Gastrostomy malfunction; Z20.822 Contact with and (suspected) exposure to COVID-19; B95.7 Other staphylococcus as the cause of diseases classified elsewhere; I70.248 Atherosclerosis of native arteries of left leg with ulceration of other part of lower leg; S71.102A Unspecified open wound, left thigh, initial encounter; X58.XXXA Exposure to other specified factors, initial encounter; Y92.9 Unspecified place or not applicable; E03.9 Hypothyroidism, unspecified; F20.9 Schizophrenia, unspecified; R13.10 Dysphagia, unspecified; Z79.84 Long term (current) use of oral hypoglycemic drugs; Z79.4 Long term (current) use of insulin; Z79.899 Other long term (current) drug therapy; I12.9 Hypertensive chronic kidney disease with stage 1 through stage 4 chronic kidney disease, or unspecified chronic kidney disease; N18.9 Chronic kidney disease, unspecified; D50.9 Iron deficiency anemia, unspecified; E11.622 Type 2 diabetes mellitus with other skin ulcer; E11.43 Type 2 diabetes mellitus with diabetic autonomic (poly)neuropathy; L97.524 Non-pressure chronic ulcer of other part of left foot with necrosis of bone; E87.6 Hypokalemia; E11.649 Type 2 diabetes mellitus with hypoglycemia without coma; E11.65 Type 2 diabetes mellitus with hyperglycemia; E11.22 Type 2 diabetes mellitus with diabetic chronic kidney disease; E83.42 Hypomagnesemia; E83.52 Hypercalcemia; E87.5 Hyperkalemia; E88.09 Other disorders of plasma-protein metabolism, not elsewhere classified; K31.84 Gastroparesis; K57.30 Diverticulosis of large intestine without perforation or abscess without bleeding; K59.00 Constipation, unspecified; K76.0 Fatty (change of) liver, not elsewhere classified; E11.69 Type 2 diabetes mellitus with other specified complication; D75.839 Thrombocytosis, unspecified; N28.1 Cyst of kidney, acquired; Z74.01 Bed confinement status; Z78.1 Physical restraint status; Z51.5 Encounter for palliative care; Y83.3 Surgical operation with formation of external stoma as the cause of abnormal reaction of the patient, or of later complication, without mention of misadventure at the time of the procedure; Y82.8 Other medical devices associated with adverse incidents; Y92.239 Unspecified place in hospital as the place of occurrence of the external cause
CPT/HCPCS: 31720; 36410; 36415; 36569; 36600; 71045-TC; 74018; 74150-TC; 76770-TC; 80048-TC; 80053-TC; 80076-TC; 80202-TC; 81001; 82247-TC; 82248-TC; 82272-TC; 82533; 82550-TC; 82553; 82570-TC; 82803-TC; 82962-TC; 83540-TC; 83605-TC; 83735-TC; 83880; 84100-TC; 84300-TC; 84443-TC; 84484-TC; 85025-TC; 85027-TC; 85730-TC; 86803; 86850; 86850-TC; 86870; 86880; 86900; 86901; 86905; 86906; 86971; 87040-TC; 87081-TC; 87086-TC; 87806; 92526; 92611-TC; 93307-TC; 93970-TC; 94660; 94760-TC; 94762-TC; 94799-TC; A4217; A4223; A6248; A6253; A6403; A7526; C9113; C9803; G0378; J0295; J0692; J0770; J0878; J1644; J1650; J1815; J2185; J2248; J2270; J2405; J2543; J2765; J2916; J2920; J2930; J3260; J3370; J3475; J3480; J3490; J7030; J7040; J7042; J7050; J7060; J7070; J7120; J8597; P9016; Q9967